=== PATIENT | female | born 1995 | race Caucasian/White ===

== ENCOUNTER → 2017-03-01 13:53 | Outpatient (POV) | payer MEDICAID, SELFPAY | PROVIDERS: Visit Provider Pediatrics ==

== ENCOUNTER → 2017-04-19 13:55 | Outpatient (POV) | payer MEDICAID, SELFPAY | PROVIDERS: Visit Provider Pediatrics | DX: Z00.00 Encounter for general adult medical examination without abnormal findings (principal) ==

== ENCOUNTER → 2017-05-03 17:02 | Outpatient (REF) | payer MEDICAID, SELFPAY ==
[2017-05-03 20:28] LABS: Free T4 (Free Thyroxine) 0.98 ng/dl (0.78-1.34); Thyroid Stimulating Hormone 0.61 uIU/ml (0.516-4.13)
== END ==
LOC: LAB 17:02
PROVIDERS: Visit Provider Nurse Practitioner Family
DX: R63.5 Abnormal weight gain (principal)
CPT/HCPCS: 84439; 84443

== ENCOUNTER → 2017-05-31 10:59 | Outpatient (POV) | payer MEDICAID, SELFPAY | PROVIDERS: PCP Nurse Practitioner Family | DX: Z00.00 Encounter for general adult medical examination without abnormal findings (principal) ==

== ENCOUNTER → 2017-06-14 12:33 | Outpatient (POV) | payer MEDICAID, SELFPAY | PROVIDERS: PCP Nurse Practitioner Family | DX: Z00.00 Encounter for general adult medical examination without abnormal findings (principal) ==

== ENCOUNTER → 2017-06-28 09:01 | Outpatient (CLI) | payer MEDICAID, SELFPAY ==
[2017-06-28 09:38] LABS: Basophils # 0.1 K/mm3 (0-0.2); Basophils % 0.7 % (0.1-2.0); Eosinophils # 0.1 K/mm3 (0.0-0.4); Hematocrit 42.5 % (37.0-47.0); Lymphocytes # 2.3 K/mm3 (0.7-4.5); Lymphocytes % 34.8 K/mm3 (10-50); Mean Corpuscular HGB Conc 32.9 g/dL (31.8-35.4); Mean Corpuscular Hemoglobin 29.6 pg (27.0-31.2); Mean Platelet Volume 7.3 fl (7.4-10.4); Monocytes # 0.3 K/mm3 (0.1-1.0); Monocytes % 5.1 % (1.7-9.3); Neutrophils # 3.8 K/mm3 (1.8-7.8); Neutrophils % 58.4 % (37.0-80.0); Platelet Count 359 K/mm3 (142-424); Red Blood Count 4.72 M/mm3 (4.20-5.40); Red Cell Distribution Width 12.5 % (11.5-17.5); White Blood Count 6.6 K/mm3 (4.5-13.0)
[2017-06-28 10:29] LABS: Alanine Aminotransferase 40 U/L (12-78); Albumin Level 3.9 gm/dL (3.4-5.0); Albumin/Globulin Ratio 1.4 (1.1-1.8); Alkaline Phosphatase 90 U/L (46-116); Anion Gap 9.7 mEq/L (5-15); Aspartate Amino Transferase 13 U/L (15-37); Bilirubin,Total 0.3 mg/dL (0.2-1.0); Blood Urea Nitrogen 13 mg/dL (7-18); Calcium 9.1 mg/dL (8.5-10.1); Carbon Dioxide 30 mmol/L (21.0-32.0); Chloride 106 mmol/L (98-107); Chol/HDL Ratio 3.5 (1-3.5); Cholesterol 121 mg/dL (140-200); Creatinine,Serum 0.73 mg/dL (0.55-1.02); Estimated Glomerular Filt Rate 103 ml/min (>60); GFR (African American) 124 ML/MIN (>60); Globulin 2.8 gm/dl (1.3-3.2); Glucose 95 mg/dL (74-106); HDL Cholesterol 35 mg/dL (29-89); LDL Cholesterol 78 mg/dL (0-130); Potassium 4.7 mmoL/L (3.5-5.1); Sodium 141 mmol/L (136-145); Thyroid Stimulating Hormone 0.55 uIU/ml (0.516-4.13); Total Protein,Serum 6.7 gm/dL (6.4-8.2); Triglycerides 40 mg/dL (30-200); VLDL Cholesterol 8 mg/dL (0-40)
== END ==
PROVIDERS: Visit Provider Nurse Practitioner Psychiatric/Mental Health
DX: F39 Unspecified mood [affective] disorder (principal); Z79.899 Other long term (current) drug therapy
CPT/HCPCS: 36415; 80053; 80061; 83036; 84443; 85025

== ENCOUNTER → 2017-06-28 11:26 | Outpatient (POV) | payer MEDICAID, SELFPAY | PROVIDERS: PCP Nurse Practitioner Family | DX: Z00.00 Encounter for general adult medical examination without abnormal findings (principal) ==

== ENCOUNTER → 2017-07-12 14:21 | Outpatient (POV) | payer MEDICAID, SELFPAY | PROVIDERS: PCP Nurse Practitioner Family | DX: Z00.00 Encounter for general adult medical examination without abnormal findings (principal) ==

== ENCOUNTER → 2017-08-02 12:20 | Outpatient (POV) | payer MEDICAID, SELFPAY | PROVIDERS: PCP Nurse Practitioner Family | DX: Z00.00 Encounter for general adult medical examination without abnormal findings (principal) ==

== ENCOUNTER → 2017-08-08 16:39 | Outpatient (CLI) | payer MEDICAID, SELFPAY | PROVIDERS: Visit Provider Emergency Medicine | DX: Z11.1 Encounter for screening for respiratory tuberculosis (principal) | CPT/HCPCS: 36415; 86480 ==

== ENCOUNTER → 2017-09-05 08:36 | Outpatient (REF) | payer MEDICAID, SELFPAY ==
[2017-09-06 09:39] LABS: Basophils # 0.1 K/mm3 (0-0.2); Basophils % 0.8 % (0.1-2.0); Eosinophils # 0.2 K/mm3 (0.0-0.4); Eosinophils % 2.2 % (0.1-12.0); Hematocrit 47.6 % (37.0-47.0); Hemoglobin 15.1 g/dL (12.2-16.2); Lymphocytes # 2.5 K/mm3 (0.7-4.5); Lymphocytes % 26.8 K/mm3 (10-50); Mean Corpuscular HGB Conc 31.7 g/dL (31.8-35.4); Mean Corpuscular Hemoglobin 28.6 pg (27.0-31.2); Mean Corpuscular Volume 90.1 fl (81-99); Mean Platelet Volume 8.5 fl (7.4-10.4); Monocytes # 0.4 K/mm3 (0.1-1.0); Monocytes % 4.7 % (1.7-9.3); Neutrophils # 6.1 K/mm3 (1.8-7.8); Neutrophils % 65.4 % (37.0-80.0); Platelet Count 421 K/mm3 (142-424); Red Blood Count 5.28 M/mm3 (4.20-5.40); Red Cell Distribution Width 12.3 % (11.5-17.5); White Blood Count 9.3 K/mm3 (4.5-13.0)
[2017-09-06 09:55] LABS: Alanine Aminotransferase 25 U/L (12-78); Albumin Level 4.1 gm/dL (3.4-5.0); Albumin/Globulin Ratio 1.3 (1.1-1.8); Alkaline Phosphatase 91 U/L (46-116); Anion Gap 10.6 mEq/L (5-15); Aspartate Amino Transferase 13 U/L (15-37); Bilirubin,Total 0.4 mg/dL (0.2-1.0); Blood Urea Nitrogen 21 mg/dL (7-18); C-Reactive Protein < 0.2 mg/L (0.0-0.9); Calcium 9.3 mg/dL (8.5-10.1); Carbon Dioxide 28 mmol/L (21.0-32.0); Chloride 105 mmol/L (98-107); Chol/HDL Ratio 3.7 (1-3.5); Cholesterol 166 mg/dL (140-200); Creatinine,Serum 0.83 mg/dL (0.55-1.02); Estimated Glomerular Filt Rate 88 ml/min (>60); GFR (African American) 106 ML/MIN (>60); Globulin 3.1 gm/dl (1.3-3.2); Glucose 77 mg/dL (74-106); HDL Cholesterol 45 mg/dL (29-89); LDL Cholesterol 97 mg/dL (0-130); Potassium 4.6 mmoL/L (3.5-5.1); Sodium 139 mmol/L (136-145); T4 (Thyroxine) 7.3 ug/dl (5.4-10.6); Thyroid Stimulating Hormone 0.56 uIU/ml (0.516-4.13); Total Protein,Serum 7.2 gm/dL (6.4-8.2); Triglycerides 118 mg/dL (30-200); VLDL Cholesterol 24 mg/dL (0-40)
[2017-09-06 10:56] LABS: Erythrocyte Sedimentation Rate 0 mm/hr (0-20)
[2017-09-07 12:23] LABS: Anti-Jo-1 <0.2 AI (0.0-0.9); Anti-Smith Antibody <0.2 AI (0.0-0.9); Antichromatin Antibodies <0.2 AI (0.0-0.9); Antiscleroderma-70 Antibodies <0.2 AI (0.0-0.9); RNP Antibodies 1.2 AI (0.0-0.9); Sjogren's Anti-SS-A <0.2 AI (0.0-0.9); Sjogren's Anti-SS-B <0.2 AI (0.0-0.9)
[2017-09-08 17:56] LABS: Anti-Centromere B Antibodies <0.2 AI (0.0-0.9); Anti-DNA (DS) Ab Qn 1 IU/mL (0-9); Folate 11.7 ng/mL (>3.0); Vitamin B12 335 pg/mL (232-1245); Vitamin D 25 Hydroxy 30.6 ng/mL (30.0-100.0)
== END ==
LOC: LAB 08:36
PROVIDERS: Visit Provider Physician Assistant
DX: M79.604 Pain in right leg (principal); M79.605 Pain in left leg
CPT/HCPCS: 80053; 80061; 82607; 82652; 82746; 84436; 84443; 85025; 85651; 86140; 86225; 86235

== ENCOUNTER → 2017-09-12 12:42 | Outpatient (CLI) | payer MEDICAID, SELFPAY ==
--- NOTE | 2017-09-12 12:45 | NVE_ITS ---
Venous Exam Indications: 729.5 Pain in limb. Patient denies trauma. Patient states lower extremity pain started months ago and is primarily in her thighs when she's exerting herself. IMPRESSIONS No evidence of deep or superficial vein thrombosis involving the right lower extremity and left lower extremity History: Bilateral lower extremity pain. Complete lower extremity venous duplex evaluation. Doppler flow study including spectral analysis, color and burrell scale imaging. Location: Vascular laboratory. Patient status: Outpatient. Tables: Venous flow and imaging: + +-------+ + Location Overall Flow properties + +-------+ + Right common femoral Patent Normal phasicity; spontaneous; normal augmentation; compressible + +-------+ + Right saphenofemoral junction Patent Compressible + +-------+ + Right profunda femoral Patent Compressible + +-------+ + Right femoral Patent Normal phasicity; spontaneous; normal augmentation; compressible; no reflux + +-------+ + Right greater saphenous Patent Normal phasicity; spontaneous; normal augmentation; compressible + +-------+ + Right popliteal Patent Normal phasicity; spontaneous; normal augmentation; compressible + +-------+ + Right posterior tibial Patent Compressible + +-------+ + Right peroneal Patent Compressible + +-------+ + Right gastrocnemius Patent Compressible + +-------+ + Right soleal Patent Compressible + +-------+ + Left common femoral Patent Normal phasicity; spontaneous; normal augmentation; compressible + +-------+ + Left saphenofemoral junction Patent Compressible + +-------+ + Left profunda femoral Patent Compressible + +-------+ + Left femoral Patent Normal phasicity; spontaneous; normal augmentation; compressible + +-------+ + Left greater saphenous Patent Normal phasicity; spontaneous; normal augmentation; compressible + +-------+
--- NOTE | 2017-09-12 12:45 | US_ITS ---
US Arterial Ankle Brachial Ind COMPARISON: None HISTORY: Claudication both legs TECHNIQUE: Segmental pressure test and Doppler waveform evaluation of both legs FINDINGS: Blood pressure right arm is 120. Pressures right leg show the thigh be 118 calf 97 posterior tibia 116 and dorsalis pedis 108. The digital pressure is 106. There is slightly decreased amplitude of the waveforms in the calf and definitely decreased amplitude in the ankle. Right LYNNE is 0.97 The left brachial pressure is 1:15. Pressures in the left leg show the thigh be 120 1:15 posterior tibial 100 and dorsalis pedis 111. The digital pressure is 103. Doppler waveforms show decreased flow to in the calf and more decreased amplitude in the left ankle. The left LYNNE is 0.93 IMPRESSION: Borderline left leg with disease likely distal to the trifurcation, normal LYNNE right leg
[2017-09-14 13:16] LABS: Antichromatin Antibodies <0.2 AI (0.0-0.9); RNP Antibodies 1.1 AI (0.0-0.9); Sjogren's Anti-SS-A <0.2 AI (0.0-0.9); Sjogren's Anti-SS-B <0.2 AI (0.0-0.9)
[2017-09-15 11:58] LABS: Anti-DNA (DS) Ab Qn <1 IU/mL (0-9); RA Latex Turbid. <10.0 IU/mL (0.0-13.9)
== END ==
PROVIDERS: PCP Nurse Practitioner Family; Visit Provider Physician Assistant
DX: M79.604 Pain in right leg (principal); M79.605 Pain in left leg
CPT/HCPCS: 36415; 86225; 86235; 86431; 93922; 93970

== ENCOUNTER → 2017-09-19 16:54 | Outpatient (REF) | payer MEDICAID, SELFPAY ==
[2017-09-22 14:53] LABS: Neisseria gonorrhoeae, NAA Negative (Negative)
== END ==
LOC: LAB 16:54
PROVIDERS: Visit Provider Nurse Practitioner Obstetrics & Gynecology
DX: Z30.9 Encounter for contraceptive management, unspecified (principal); M79.604 Pain in right leg; M79.605 Pain in left leg
CPT/HCPCS: 87491; 87591

== ENCOUNTER → 2019-11-21 18:39 | Outpatient (CLI) | payer MEDICAID, SELFPAY | PROVIDERS: Visit Provider Physician Assistant | DX: R30.0 Dysuria (principal) | CPT/HCPCS: 87086 ==

== ENCOUNTER 2019-11-25 04:44 | Emergency (ER) | payer MEDICAID, SELFPAY ==
[2019-11-25 04:46] VITALS: BP 132/90; PULSE 110; RESP 18; TEMP 36.6; O2SAT 97; BMI 30.2
[2019-11-25 05:23] LABS: Microscopic, Urine URINE MICROSCOPIC (MICROSCOPIC)
[2019-11-25 05:26] LABS: Appearance,Urine CLEAR (Clear); Blood, Urine 2+ (Negative); Color,Urine YELLOW (Yellow); Glucose,Urine (UA) Negative (Negative); Ketones,Urine 1+ (Negative); Leukocyte Esterase,Urine TRACE (Negative); Nitrate,Urine Negative (Negative); Protein,Urine 1+ (Negative); Specific Gravity, Urine >= 1.030 (1.005-1.030); Urobilinogen,Urine 0.2 EU/dl (0.2)
[2019-11-25 05:27] LABS: Bilirubin,Urine Negative (Negative)
[2019-11-25 05:35] LABS: Basophils # 0.1 K/mm3 (0-0.2); Basophils % 1.2 % (0.1-2.0); Eosinophils # 0.1 K/mm3 (0.0-0.4); Eosinophils % 1.7 % (0.1-12.0); Hematocrit 47.1 % (37.0-47.0); Lymphocytes # 2.4 K/mm3 (0.7-4.5); Lymphocytes % 32.7 % (10-50); Mean Corpuscular Hemoglobin 31.4 pg (27.0-31.2); Mean Corpuscular Volume 92.1 fl (81-99); Mean Platelet Volume 7.5 fl (7.4-10.4); Monocytes # 0.5 K/mm3 (0.1-1.0); Monocytes % 6.3 % (1.7-9.3); Neutrophils # 4.3 K/mm3 (1.8-7.8); Neutrophils % 58.1 % (37.0-80.0); Platelet Count 379 K/mm3 (142-424); Red Blood Count 5.11 M/mm3 (4.20-5.40); Red Cell Distribution Width 12.9 % (11.5-17.5); White Blood Count 7.5 K/mm3 (4.8-10.8)
--- NOTE | 2019-11-25 05:35 | CT_ITS ---
PROCEDURE: CT ABDOMEN PELVIS W CON CLINICAL INDICATION: abd pain, nausea Generalized abdominal pain with nausea COMPARISON: CT ABDPELW/O CT ABD PELVIS W/O CONTRAST from 12/08/2014 TECHNIQUE: IV Contrast: 75ML OPTIRAY 350 Oral Contrast None Axial images obtained with sagittal and coronal reformats. All CT scans at the facility use one or more dose reduction, viz: automated exposure control, ma/kV adjustment per patient size (including targeted exams where dose is matched to indication, i.e. head), or iterative reconstruction technique. FINDINGS: LOWER THORAX: There is calcified granuloma in the right lung base posteriorly ABDOMEN & PELVIS: The liver, gallbladder, spleen, adrenal glands, pancreas, and kidneys have an unremarkable appearance. No renal or ureteral calculi. No evidence of appendicitis intestinal obstruction free air or diverticulitis. There is an IUD in place. No pelvic mass or abnormal fluid collection No acute bony findings. IMPRESSION: No acute finding Dictated by: Taz Roman MD 11/25/2019 06:59 Taz Roman MD in [facility] 11/25/2019 06:59
[2019-11-25 05:37] LABS: Urine Pregnancy, HCG Qual. Negative (Negative)
--- NOTE | 2019-11-25 05:41 | CT_ITS ---
PROCEDURE: CT CERVICAL SPINE WO CON CLINICAL INDICATION: no known injury Diffuse neck pain COMPARISON: No exams were available for comparison TECHNIQUE: Axial images obtained with sagittal and coronal reformats. All CT scans at the facility use one or more dose reduction, viz: automated exposure control, ma/kV adjustment per patient size (including targeted exams where dose is matched to indication, i.e. head), or iterative reconstruction technique. Axial spiral CT scanning performed of the cervical spine beginning at the base of the skull and continuing to the upper T-spine. 3-D multiplanar reconstruction with 3-D manipulation of volumetric data set in image rendering was completed by the radiologist and/or technologist with the supervision of the radiologist on independent workstation. FINDINGS: No fracture nor subluxation is evident. Normal prevertebral soft tissues. Facets, neural foramen and vertebral bodies intact and unremarkable. Normal C1/C2 relationships. Apices of lungs are clear with no acute findings.There is straightening/reversal of the normal lordosis which may be due to patient positioning or muscle spasm.. There is mild prominence of the adenoids which is nonspecific. Left lobe of the thyroid gland is slightly enlarged. There is scattered small nodes in the neck. IMPRESSION: Cervical spine intact with no fracture nor subluxation. Slight reversal of cervical lordosis Mildly enlarged left thyroid gland Dictated by: Taz Roman MD 11/25/2019 06:50 aTz Roman MD in [facility] 11/25/2019 06:50
[2019-11-25 05:46] VITALS: BP 133/80; PULSE 74; RESP 18; O2SAT 98
[2019-11-25 05:46] LABS: Alanine Aminotransferase 16 U/L (12-78); Albumin Level 5.4 g/dl (3.5-5.0); Albumin/Globulin Ratio 1.6 (1.1-1.8); Alkaline Phosphatase 84 U/L (38-126); Amylase 56 U/L (30-110); Aspartate Amino Transferase 35 U/L (14-36); Bilirubin,Total 0.9 mg/dl (0.2-1.3); Blood Urea Nitrogen 15 mg/dl (7-17); Calcium 9.8 mg/dl (8.4-10.2); Carbon Dioxide 27 mmol/L (22.0-30.0); Chloride 101 mmol/L (98-107); Creatinine Clearance Estimated 116 mL/min (50-200); Estimated Glomerular Filt Rate 78 ml/min (>60); GFR (African American) 95 ML/MIN (>60); Globulin 3.3 g/dL (1.3-3.2); Glucose 107 mg/dl (74-100); Lipase 38 U/L (23-300); Sodium 139 mmol/L (136-145); Total Protein,Serum 8.7 g/dl (6.3-8.2)
--- NOTE | 2019-11-25 05:50 | PC.NURSE ---
Pt to CT
--- NOTE | 2019-11-25 06:20 | PC.NURSE ---
pt back from CT
[2019-11-25 06:27] VITALS: BP 119/73; PULSE 78; RESP 18; O2SAT 98
--- NOTE | 2019-11-25 06:52 | ECG_ITS ---
APPROVED REPORT Exam: Resting ECG HR:62 bpm ECG Measurements Heart Rate 62 AXES IL 152 P 45 QRSd 74 QRS 33 QT 392 T 18 QTc 397 <Conclusion> Normal sinus rhythm Normal ECG Electronically signed by : John Irwin, 11/26/2019 20:22:30
--- NOTE | 2019-11-25 07:07 | HMH.EDGENADL ---
ED Disposition Clinical Impression: Neck pain UTI (urinary tract infection) Qualifiers: Urinary tract infection type: site unspecified Hematuria presence: without hematuria Qualified Code(s): N39.0 - Urinary tract infection, site not specified Disposition: Home, Self-Care Condition on Discharge: Good Instructions: DI for Acute Pain -- Adult Additional Instructions: fluids and hold adipex and call pcp for urine culture results Referrals: Ivonne Metcalf PA [Primary Care Provider] - - Critical Care Critical Care Time: No Attestation: On 11/25/19, the high probability of a clinically significant, sudden or life threatening deterioration of the following system(s) required my full and direct attention, intervention and personal management. The time I documented below is in addition to time spent performing reported procedures but includes the following listed in this critical care notation. Medical Decision Making - Medical Records Medical records reviewed: Yes: I reviewed the patient's medical records. - Flakito Inquiry Pt receiving controlled substance: No Vital Signs: 11/25/19 04:46 11/25/19 05:46 11/25/19 06:27 Temperature 97.9 F Temperature Source Oral Pulse Rate [Right Radial] 110 H 74 78 Respiratory Rate 18 18 18 Blood Pressure [Left Arm] 132/90 133/80 119/73 Blood Pressure Mean [Left Arm] 104 97 88 Blood Pressure Source [Left Arm] Automatic Cuff Blood Pressure Position [Left Arm] Sitting 02 Sat by Pulse Oximetry 97 98 98 Oxygen Delivery Method Room Air Room Air Room Air - Lab Data Lab results reviewed: Yes: I reviewed the patient's lab results. Lab Results 11/25/19 05:14: Urine Color Yellow, Urine Appearance Clear, Urine pH 6.0, Ur Specific [place] >= 1.030, Urine Protein 1+, Urine Glucose (UA) Negative, Urine Ketones 1+, Urine Blood 2+, Urine Nitrate Negative, Urine Bilirubin Negative, Urine Urobilinogen 0.2, Ur Leukocyte Esterase Trace, Urine RBC 10-20, Urine WBC 10-20, Ur Squamous Epith Cells 3-5 11/25/19 05:14: Urine HCG, Qual Negative 11/25/19 05:24: WBC 7.5, RBC 5.11, Hgb 16.0, Hct 47.1 H, MCV 92.1, MCH 31.4 H, MCHC 34.0, RDW 12.9, Plt Count 379, MPV 7.5, Neut % (Auto) 58.1, Lymph % (Auto) 32.7, [place] % (Auto) 6.3, Eos % (Auto) 1.7, Baso % (Auto) 1.2, Neut # (Auto) 4.3, Lymph # (Auto) 2.4, [place] # (Auto) 0.5, Eos # (Auto) 0.1, Baso # (Auto) 0.1 11/25/19 05:24: Sodium 139, Potassium 4.0, Chloride 101, Carbon Dioxide 27, Anion Gap 15.0, BUN 15, Creatinine 0.90, Estimated Creat Clear 116, Estimated GFR 78, Est GFR ( Amer) 95, Glucose 107 H, Calcium 9.8, Total Bilirubin 0.9, AST 35, ALT 16, Alkaline Phosphatase 84, Total Protein 8.7 H, Albumin 5.4 H, Globulin 3.3 H, Albumin/Globulin Ratio 1.6, Amylase 56, Lipase 38 Result diagrams: 11/25/19 05:24 11/25/19 05:24 Orders (Tests/Meds): ED MEDICATIONS Generic Name Dose Route Start Last Admin Trade Name Freq PRN Reason Stop Dose Admin Sodium Chloride 1,000 mls @ 999 mls/hr 11/25/19 05:15 11/25/19 05:46 Sod Chlor 0.9% 1000ml Bag IV 11/25/19 06:15 999 mls/hr .Q1H1M SIOBHAN Administration Discontinued Medications Generic Name Dose Route Start Last Admin Trade Name Freq PRN Reason Stop Dose Admin Ioversol 75 ml 11/25/19 06:21 11/25/19 06:22 Rad-Optiray 350 100ml Vial IV 11/25/19 06:22 75 ml ONCE ONE Administration Protocol Ketorolac Tromethamine 30 mg 11/25/19 05:44 11/25/19 05:46 Toradol 30mg/Ml Vial IV 11/25/19 05:45 30 mg ONCE ONE Administration Ondansetron HCl 4 mg 11/25/19 05:44 11/25/19 05:46 Zofran 4mg/2ml Vial IV 11/25/19 05:45 4 mg ONCE ONE Administration Sodium Chloride 10 ml 11/25/19 06:21 11/25/19 06:22 Rad-Saline Flush 10ml Syringe IV 11/25/19 06:22 10 ml ONCE ONE Administration ORDERS Category Date Time Status Urine Culture Stat Micro 11/25/19 05:14 Received - CT Data CT Scan: C-Spine, Abdomen, Pelvis Time Received: 07:15 ED
[2019-11-25 07:21] VITALS: BP 133/76; PULSE 60; RESP 19; TEMP 36.6; O2SAT 98
== END 2019-11-25 07:25 | disposition home or self-care (01) ==
PROVIDERS: Emergency Provider Emergency Medicine; PCP Physician Assistant
DX: N39.0 Urinary tract infection, site not specified (principal); M54.2 Cervicalgia; R42 Dizziness and giddiness; F33.1 Major depressive disorder, recurrent, moderate
CPT/HCPCS: 72125; 74177; 80053; 81001; 81025; 82150; 83690; 85025; 87086; 93005; 96365; 96375; 99284; J2405; Q9967

== ENCOUNTER → 2020-04-07 17:50 | Outpatient (CLI) | payer MEDICAID, SELFPAY | PROVIDERS: Visit Provider Physician Assistant | DX: R33.9 Retention of urine, unspecified (principal); R39.9 Unspecified symptoms and signs involving the genitourinary system | CPT/HCPCS: 87086 ==

== ENCOUNTER → 2020-04-17 14:08 | Outpatient (CLI) | payer MEDICAID, SELFPAY ==
--- NOTE | 2020-04-17 14:12 | US_ITS ---
PROCEDURE: US URINARY BLADDER CLINICAL INDICATION: urinary retention COMPARISON: No exams were available for comparison FINDINGS: There is a large amount of debris within the urinary fluid. There is only trace retained urine postvoid. Ureteral jets were identified during the study. There is mild diffuse urinary bladder wall thickening. IMPRESSION: Trace urinary retention. Large amount of debris. Dictated by: Bekah Parsons MD 04/17/2020 19:20 Bekah Parsons MD in [facility] 04/17/2020 19:20
== END ==
PROVIDERS: PCP Physician Assistant; Visit Provider Physician Assistant
DX: R33.9 Retention of urine, unspecified (principal)
CPT/HCPCS: 76857

== ENCOUNTER → 2020-06-15 19:25 | Outpatient (CLI) | payer MEDICAID, SELFPAY | PROVIDERS: PCP Physician Assistant; Visit Provider Physician Assistant | DX: Z20.822 Contact with and (suspected) exposure to COVID-19 (principal) | CPT/HCPCS: U0003 ==

== ENCOUNTER 2020-08-27 15:00 | Outpatient (RCR) | payer MEDICAID, SELFPAY ==
--- NOTE | 2020-07-13 17:56 | HMH.PTOPEV ---
PT Outpatient Evaluation Rehab PT Outpatient Evaluation Start: 07/13/20 17:42 Freq: Status: Active Protocol: Document 07/13/20 17:43 AWILDANICOLA (Rec: 07/13/20 17:56 RAFAELA [id number]) Electronically Signed By Price Zayas PT 07/13/20 17:43 Outpatient Therapy Subjective History Subjective History This is the initial Physical Therapy evaluation for Cally Garcia. Pt is a 24 y/o female referred to PT for c/o mid/thoracid and upper lumbar pain. Pt reports she was going to schedule to have breast reduction surgery but was told she had to do PT for strengthening prior to surgical intervention. Pt reports she has had thoracic and lumbar pain a while . Pt describes the pain and pulling pain and reports mostly affects her with vocational activities Chief Complaint Pain Symptom Type Ache,Throb,Dull Symptoms Relieved By Rest/Positioning Symptoms Aggravated By Physical Activity Prior Functional Limitations None Current Functional Limitations Housework,Recreation Activity, Bending/Stooping Symptom Description Intermittent Level of pain today (0-10) 0 Pain scale - at its best (0-10) 0 Pain scale - at its worst (0-10) 4 Cervical Eval Palpation Cervical Muscles R Thoracic Paraspinals,L Thoracic Paraspinals Cervical/Thoracic Palpation Findings Tenderness Special Test C-Spine Foraminal Compression ([place]) Negative Left,Negative Right Test C-Spine Foraminal Distraction Test Negative Lumbopelvic Eval Posture Thoracic Spine Posture Standing Position Increased Kyphosis Palapation tenderness bilateral thoracic spinal tenderness Yes: B thoracic paraspinals paraspinal tenderness Yes: thoracic Accessory Movement T-spine Vertebrae Accessory Movements Central P/A [place] that Elicit Symptoms Special Tests Lumbar Spine Screen Negative Outpatient Therapy Assessment Impairments Problems/Impairmments Palpation Tenderness,Impaired Lifting,Impaired Household Care,Impaired Recreational Activities,Impaired Work Activities,Subjective C/O Pain Prognosis Rehab Potential Fair Clinical Impression Consistent with [place]
== END 2020-08-27 15:05 | disposition home or self-care (01) ==
LOC: PT 15:00
PROVIDERS: PCP Physician Assistant; Visit Provider Physician Assistant
DX: M54.2 Cervicalgia; M54.9 Dorsalgia, unspecified
CPT/HCPCS: 97110; 97163

== ENCOUNTER → 2020-12-08 12:55 | Outpatient (CLI) | payer MEDICAID, SELFPAY ==
--- NOTE | 2020-12-08 13:05 | XR_ITS ---
PROCEDURE: XR WRIST RT MIN 3V CLINICAL INDICATION: RT wrist ganglion cyst COMPARISON: No exams were available for comparison FINDINGS: No fracture or dislocation. No lytic or blastic change. There is normal mineralization. The joint spaces are well-preserved. No significant degenerative/arthritic changes. No erosive changes evident. Other findings:None. IMPRESSION: No acute findings. Dictated by: Taz Roman MD 12/08/2020 13:51 Taz Roman MD in [facility] 12/08/2020 13:51
== END ==
PROVIDERS: PCP Physician Assistant; Visit Provider Orthopaedic Surgery
DX: M25.531 Pain in right wrist (principal)
CPT/HCPCS: 73110

== ENCOUNTER → 2021-01-18 20:38 | Outpatient (CLI) | payer MEDICAID, SELFPAY | PROVIDERS: Visit Provider Nurse Practitioner Family | DX: Z20.822 Contact with and (suspected) exposure to COVID-19 (principal) | CPT/HCPCS: C9803; U0003; U0005 ==

== ENCOUNTER 2021-06-02 18:26 | Emergency (ER) | payer MEDICAID, SELFPAY ==
[2021-06-02 18:28] VITALS: BP 101/66; PULSE 85; RESP 18; TEMP 36.7; O2SAT 96; BMI 27.4
[2021-06-02 18:53] LABS: Microscopic, Urine URINE MICROSCOPIC (MICROSCOPIC)
[2021-06-02 19:04] LABS: Appearance,Urine CLOUDY (Clear); Bilirubin,Urine Negative (Negative); Blood, Urine Negative (Negative); Color,Urine DK YELLOW (Yellow); Glucose,Urine (UA) Negative (Negative); Ketones,Urine TRACE (Negative); Leukocyte Esterase,Urine TRACE (Negative); Nitrate,Urine POSITIVE (Negative); PH,Urine 5.5 (5.0-8.5); Protein,Urine TRACE (Negative); Specific Gravity, Urine >= 1.030 (1.005-1.030); Urobilinogen,Urine 0.2 EU/dl (0.2)
[2021-06-02 19:08] LABS: Urine Pregnancy, HCG Qual. Negative (Negative)
[2021-06-02 19:26] LABS: Chloride 105 mmol/L (98-107); Potassium 3.1 mmoL/L (3.5-5.1); Sodium 141 mmol/L (136-145)
[2021-06-02 19:29] LABS: Alanine Aminotransferase 22 U/L (12-78); Albumin Level 4.6 g/dl (3.5-5.0); Albumin/Globulin Ratio 1.8 (1.1-1.8); Alkaline Phosphatase 70 U/L (38-126); Anion Gap 14.1 mEq/L (5-15); Aspartate Amino Transferase 33 U/L (14-36); Basophils # 0.1 K/mm3 (0-0.2); Basophils % 0.8 % (0.1-2.0); Bilirubin,Total 0.9 mg/dl (0.2-1.3); Blood Urea Nitrogen 16 mg/dl (7-17); Calcium 8.7 mg/dl (8.4-10.2); Carbon Dioxide 25 mmol/L (22.0-30.0); Creatinine Clearance Estimated 104 mL/min (50-200); Eosinophils % 0.3 % (0.1-12.0); Estimated Glomerular Filt Rate 78 ml/min (>60); GFR (African American) 94 ML/MIN (>60); Globulin 2.5 g/dL (1.3-3.2); Glucose 100 mg/dl (74-100); Hematocrit 42.1 % (37.0-47.0); Hemoglobin 14.1 g/dL (12.2-16.2); Lymphocytes # 2.1 K/mm3 (0.7-4.5); Lymphocytes % 19.9 % (10-50); Mean Corpuscular HGB Conc 33.6 g/dL (31.8-35.4); Mean Corpuscular Hemoglobin 31.6 pg (27.0-31.2); Mean Corpuscular Volume 93.9 fl (81-99); Mean Platelet Volume 7.9 fl (7.4-10.4); Monocytes # 0.5 K/mm3 (0.1-1.0); Neutrophils # 7.7 K/mm3 (1.8-7.8); Neutrophils % 74.1 % (37.0-80.0); Platelet Count 444 K/mm3 (142-424); Red Blood Count 4.48 M/mm3 (4.20-5.40); Red Cell Distribution Width 13.3 % (11.5-17.5); Total Protein,Serum 7.1 g/dl (6.3-8.2); White Blood Count 10.4 K/mm3 (4.8-10.8)
--- NOTE | 2021-06-02 19:30 | HMH.EDGENADL ---
ED Disposition Clinical Impression: Behavioral change Disposition: Home, Self-Care Condition on Discharge: Good Additional Instructions: Please follow-up with your primary care physician in 2 to 3 days for further management. Please avoid any substance abuse or alcohol use. Please return back to the emergency department for any concerning symptoms such as suicidal ideation, homicidal ideation, difficulty breathing, chest pain or any other concerning symptoms. Referrals: Ivonne Metcalf PA [Primary Care Provider] - - Critical Care Critical Care Time: No Attestation: On 06/02/21, the high probability of a clinically significant, sudden or life threatening deterioration of the following system(s) required my full and direct attention, intervention and personal management. The time I documented below is in addition to time spent performing reported procedures but includes the following listed in this critical care notation. Medical Decision Making - Medical Records Medical records reviewed: Yes: I reviewed the patient's medical records. - Flakito Inquiry Pt receiving controlled substance: No Vital Signs: 06/02/21 18:28 06/02/21 20:03 06/02/21 20:21 Temperature 98.1 F 98.2 F Temperature Source Oral Oral Pulse Rate 64 66 Pulse Rate [Right Radial] 85 Respiratory Rate 18 14 Blood Pressure 105/66 L 105/66 L Blood Pressure [Right Arm] 101/66 L Blood Pressure Mean [Right Arm] 77 Blood Pressure Source [Right Arm] Automatic Cuff Blood Pressure Position [Right Arm] Sitting 02 Sat by Pulse Oximetry 96 100 Oxygen Delivery Method Room Air Room Air Room Air - Lab Data Lab results reviewed: Yes: I reviewed the patient's lab results. Lab Results 06/02/21 17:02: WBC 10.4, RBC 4.48, Hgb 14.1, Hct 42.1, MCV 93.9, MCH 31.6 H, MCHC 33.6, RDW 13.3, Plt Count 444 H, MPV 7.9, Neut % (Auto) 74.1, Lymph % (Auto) 19.9, [place] % (Auto) 5.0, Eos % (Auto) 0.3, Baso % (Auto) 0.8, Neut # (Auto) 7.7, Lymph # (Auto) 2.1, [place] # (Auto) 0.5, Eos # (Auto) 0.0, Baso # (Auto) 0.1 06/02/21 17:02: Sodium 141, Potassium 3.1 L, Chloride 105, Carbon Dioxide 25, Anion Gap 14.1, BUN 16, Creatinine 0.90, Estimated Creat Clear 104, Estimated GFR 78, Est GFR ( Amer) 94, Glucose 100, Calcium 8.7, Total Bilirubin 0.9, AST 33, ALT 22, Alkaline Phosphatase 70, Total Protein 7.1, Albumin 4.6, Globulin 2.5, Albumin/Globulin Ratio 1.8 06/02/21 17:02: Urine Opiates Screen Negative, Urine Methadone Screen Negative, Ur Barbituates Screen Negative, Ur Phencyclidine Scrn Negative, Ur Amphetamines Screen Positive H, U Benzodiazepines Scrn Negative, Urine Cocaine Screen Negative, U Marijuana (THC) Screen Negative 06/02/21 18:47: Urine Color Dk yellow, Urine Appearance Cloudy, Urine pH 5.5, Ur Specific [place] >= 1.030, Urine Protein Trace, Urine Glucose (UA) Negative, Urine Ketones Trace, Urine Blood Negative, Urine Nitrate Positive, Urine Bilirubin Negative, Urine Urobilinogen 0.2, Ur Leukocyte Esterase Trace, Urine RBC Occasional, Urine WBC 10-20, Ur Squamous Epith Cells 3-5, Urine Bacteria 4+ 06/02/21 18:47: Urine HCG, Qual Negative Result diagrams: 06/02/21 17:02 06/02/21 17:02 Orders (Tests/Meds): ED MEDICATIONS Discontinued Medications Generic Name Dose Route Start Last Admin Trade Name Freq PRN Reason Stop Dose Admin Sodium Chloride 10 ml 06/02/21 18:49 Sodium Chloride 0.9% 10ml Flush Syringe IV 07/02/21 18:48 NEEDED PRN Maintain IV Site ORDERS Category Date Time Status Urine Culture Stat Micro 06/02/21 18:47 Received Medical Decision Narrative: Mrs. Garcia is a 25-year-old female with past medical history for mental health disorder, self inflicting behavior and substance abuse who presents after taking meth 3 days prior and now feeling lightheaded and nauseous. Patient is afebrile and hemodynamically stable on arrival. Patient denies any suicidal or homicidal ideation. Patient currently GCS
[2021-06-02 19:35] LABS: Barbiturates Screen,Urine Negative ng/ml (<200)
[2021-06-02 19:36] LABS: Benzodiazepines Screen,Urine Negative ng/ml (<200)
[2021-06-02 19:37] LABS: Cannabinoid Screen,Urine Negative ng/ml (<50)
[2021-06-02 19:38] LABS: Cocaine Screen,Urine Negative ng/ml (<300); Methadone Screen,Urine Negative ng/ml (<300)
[2021-06-02 19:39] LABS: Opiate Screen,Urine Negative ng/ml (<300)
[2021-06-02 19:40] LABS: Phencyclidine Screen,Urine Negative ng/ml (<25)
[2021-06-02 20:03] VITALS: BP 105/66; PULSE 64; O2SAT 100
[2021-06-02 20:05] LABS: RBC,Urine Occasional #/hpf (0-3)
[2021-06-02 20:06] LABS: Bacteria,Urine 4+ /lpf
[2021-06-02 20:20] LABS: Amphetamine/Metha Screen,Urine Positive ng/ml (<1000)
[2021-06-02 20:21] VITALS: BP 105/66; PULSE 66; RESP 14; TEMP 36.8; O2SAT 98
== END 2021-06-02 20:24 | disposition home or self-care (01) ==
PROVIDERS: Emergency Provider Student in an Organized Health Care Education/Training Program; PCP Physician Assistant
DX: M79.605 Pain in left leg (principal); M79.604 Pain in right leg; R42 Dizziness and giddiness; A49.8 Other bacterial infections of unspecified site; R11.0 Nausea; R79.9 Abnormal finding of blood chemistry, unspecified; F32.A Depression, unspecified; Z86.14 Personal history of Methicillin resistant Staphylococcus aureus infection
CPT/HCPCS: 80053; 80305; 81001; 81025; 85025; 87086; 87088; 87186; 99283

== ENCOUNTER 2021-06-07 17:26 | Emergency (ER) | payer MEDICAID, SELFPAY ==
[2021-06-07 17:55] VITALS: BP 126/85; PULSE 98; RESP 18; TEMP 36.8; O2SAT 100; BMI 26.6
[2021-06-07 18:10] LABS: Apearance,Urine Clear (Clear); Bilirubin,Urine Negative (Negative); Blood, Urine 1+ (Negative); Color,Urine Dark Yellow (Yellow); Glucose,Urine (UA) Negative (Negative); Ketones,Urine Negative (Negative); Protein,Urine Negative (Negative); UTC Leukocyte Esterase,Urine 1+ (Negative); UTC Nitrate,Urine Negative (Negative); Urobilinogen,Urine 0.2 EU/dl (0.2)
--- NOTE | 2021-06-07 18:51 | HMH.EDUTC ---
[facility] – [place] Disposition Clinical Impression: UTI (urinary tract infection) Qualifiers: Urinary tract infection type: site unspecified Hematuria presence: without hematuria Qualified Code(s): N39.0 - Urinary tract infection, site not specified Disposition: Home, Self-Care Condition on Discharge: Good Instructions: DI for Urinary Tract Infection (UTI), Urinary Tract Infection Additional Instructions: *Increase fluids. Water not Soda or Tea *Start antibiotic immediately and be sure to take as ordered for the FULL length of time although you should start to see improvement over the next 48 hours *Be SURE to follow up anytime for new or worsening symptoms with your family doctor. AND in 48 hours for urine culture results with your family doctor, if you do not have a doctor then you may call back to the [facility] for urine culture results and further treatment. We do recommend that you choose and establish care with a Primary Care Physician. AND follow up with them in 10-14 days to repeat UA to ensure infection is resolved and blood no longer present *Be sure to let your PCP know that we sent urine cultures from the [facility] so they can follow up to ensure that you area the on the correct antibiotic Make sure to drink plenty of fluids and follow up with family doctor in 72 hours for culture results Return if needed Straight to ER if any life threatening symptoms The pyridium will make your urine turn orange, this is an expected side effect. It will stain your clothes if it comes into contact with them. We will culture the urine. That will tell what bacteria is causing your infection and which antibiotics will treat it best. Sometimes the first antibiotic we prescribe turns out to not work against different bacteria. So, make sure you follow up within 3 days if you are not getting better. Prescriptions: Cefdinir [Omnicef 300mg Capsule] 300 mg PO BID 7 Days #14 cap Transmission Status: Pending to [facility] # Phenazopyridine HCl [Pyridium 200mg Tablet] 200 pow PO TID #6 tab Transmission Status: Pending to [facility] # Referrals: Ivonne Metcalf PA [Primary Care Provider] - Time of Disposition: 18:56 Medical Decision Making - Medical Records Medical records reviewed: No: I reviewed the patient's medical records. - Flakito Inquiry Pt receiving controlled substance: No Vital Signs: 06/07/21 17:55 Temperature 98.3 F Temperature Source Oral Pulse Rate [Right Brachial] 98 H Respiratory Rate 18 Blood Pressure [Right Arm] 126/85 Blood Pressure Mean [Right Arm] 98 Blood Pressure Source [Right Arm] Automatic Cuff Blood Pressure Position [Right Arm] Sitting 02 Sat by Pulse Oximetry 100 Oxygen Delivery Method Room Air - Lab Data Lab results reviewed: Yes: I reviewed the patient's lab results. Lab Results 06/07/21 17:48: Urine Color Dark yellow, Urine Appearance Clear, Urine pH 6.0, Ur Specific [place] 1.030, Urine Protein Negative, Urine Glucose (UA) Negative, Urine Ketones Negative, Urine Blood 1+, Urine Nitrate Negative, Urine Bilirubin Negative, Urine Urobilinogen 0.2, Ur Leukocyte Esterase 1+ A Orders (Tests/Meds): ORDERS Category Date Time Status Urine Culture Stat Micro 06/07/21 17:53 Received [facility] [place] HPI - General Stated complaint: Possible UTI Time Seen by Provider: 06/07/21 18:52 Mode of Arrival: Ambulatory Source of Information: Patient Limitations: No Limitations Description of Symptoms (Recalled from Triage Doc. by RN): PATIENT C/O BURNING WITH URINATION WITH URINATION X 1 WEEK. SHE REPORTS SYMPTOMS STARTED AFTER SHE HAD SEXUAL INTERCOURSE WITH SOMEONE HEENT Symptoms (Recalled from RN notes): No Resp Symptoms (Recalled from RN notes): No Skin Symptoms (Recalled from RN notes): No MS Symptoms (Recalled from RN notes): No Functional Status (Recalled from RN notes): WNL - History of Present Illness Provider Complaint: She states that she has been cotto
[2021-06-07 18:55] VITALS: BP 126/85; PULSE 98; RESP 18; TEMP 36.8; O2SAT 100
[2021-06-09 23:29] LABS: Neisseria gonorrhoeae, NAA Negative (Negative)
== END 2021-06-07 19:02 | disposition home or self-care (01) ==
PROVIDERS: Emergency Provider Nurse Practitioner Family; PCP Physician Assistant
DX: N30.00 Acute cystitis without hematuria (principal); F33.1 Major depressive disorder, recurrent, moderate
CPT/HCPCS: 81003; 87086; 87088; 87186; 87491; 87591; 99212; G0463

== ENCOUNTER 2021-06-11 14:24 | Emergency (ER) | payer MEDICAID, SELFPAY ==
[2021-06-11 14:35] VITALS: BP 107/67; PULSE 89; RESP 19; TEMP 37.1; O2SAT 98; BMI 24.6
[2021-06-11 14:49] LABS: Apearance,Urine Clear (Clear); Color,Urine Orange (Yellow); Protein,Urine 2+ (Negative); Specific Gravity, Urine 1.015 (1.005-1.030)
[2021-06-11 14:50] LABS: Bilirubin,Urine 2+ (Negative); Blood, Urine 3+ (Negative); Glucose,Urine (UA) 250 (Negative); Ketones,Urine 15 (Negative); UTC Leukocyte Esterase,Urine 3+ (Negative); UTC Nitrate,Urine Positive (Negative); Urobilinogen,Urine 0.2 EU/dl (0.2)
[2021-06-11 15:01] VITALS: BP 107/67; PULSE 89; RESP 19; TEMP 37.1; O2SAT 98
--- NOTE | 2021-06-11 15:04 | HMH.EDUTC ---
[facility] [place] Clinical Impression: UTI (urinary tract infection), Vaginitis Disposition: Home, Self-Care Condition on Discharge: Good Instructions: DI for Urinary Tract Infection (UTI) Additional Instructions: Culture pending for UTI. Will repeat at [facility] and treat empirically due to onset of symptoms after unprotected intercourse. Referrals: Ivonne Metcalf PA [Primary Care Provider] - Time of Disposition: 15:11 Medical Decision Making - Flakito Inquiry Pt receiving controlled substance: No Vital Signs: 06/11/21 14:35 06/11/21 15:01 Temperature 98.8 F 98.8 F Temperature Source Oral Pulse Rate 89 Pulse Rate [Right Brachial] 89 Respiratory Rate 19 19 Blood Pressure 107/67 L Blood Pressure [Right Arm] 107/67 L Blood Pressure Mean [Right Arm] 80 Blood Pressure Source [Right Arm] Automatic Cuff Blood Pressure Position [Right Arm] Sitting 02 Sat by Pulse Oximetry 98 Oxygen Delivery Method Room Air - Lab Data Lab results reviewed: Yes: I reviewed the patient's lab results. Lab Results 06/11/21 14:36: Urine Color Maud, Urine Appearance Clear, Urine pH 5.0, Ur Specific [place]sey 1.015, Urine Protein 2+, Urine Glucose (UA) 250, Urine Ketones 15, Urine Blood 3+, Urine Nitrate Positive A, Urine Bilirubin 2+ A, Urine Urobilinogen 0.2, Ur Leukocyte Esterase 3+ A Orders (Tests/Meds): ORDERS Category Date Time Status Urine Culture Stat Micro 06/11/21 14:40 [place] [facility] [place] - General Stated complaint: blood in urine, painful urination Time Seen by Provider: 06/11/21 15:07 Mode of Arrival: Ambulatory Source of Information: Patient Limitations: No Limitations Description of Symptoms (Recalled from Triage Doc. by RN): PATIENT C/O BURNING AND BLOOD WITH URINATION AND BRIGHT YELLOW DISCHARGE. TREATED FOR UTI 4 DAYS AGO HEENT Symptoms (Recalled from RN notes): No Resp Symptoms (Recalled from RN notes): No Skin Symptoms (Recalled from RN notes): No MS Symptoms (Recalled from RN notes): No Functional Status (Recalled from RN notes): WNL - History of Present Illness Provider Complaint: Patient has had hematuria, dysuria since having unprotected intercourse a little over a week ago. She has been on Cefdinir since being seen here on 06/07. Urine culture grew enterobacter aerogenes. It should be treated with Cephalosporins. She states she is still having pain with urination and is now having yellow discharge. Onset (ago): day(s) (7) Location: genitals Relieving factors: none Exacerbating factors: none Associated symptoms: denies other symptoms Treatments prior to arrival: none - Related Data Home Medications Medication Instructions Recorded Confirmed sertraline 25 mg tablet 25 mg PO DAILY 06/16/20 03/10/21 ziprasidone HCl 60 mg capsule 60 mg PO BID 06/16/20 03/10/21 topiramate 50 mg tablet 50 mg PO DAILY tab 09/24/20 03/10/21 Previous Rx's Medication Instructions Recorded Cefdinir [Omnicef 300mg Capsule] 300 mg PO BID 7 Days #14 cap 06/07/21 Phenazopyridine HCl [Pyridium 200 pow PO TID #6 tab 06/07/21 200mg Tablet] Allergies Allergy/AdvReac Type Severity Reaction Status Date / Time No Known Allergies Allergy Verified 03/10/21 14:22 - Worker's Comp Is this a Worker's Comp case?: No [facility] History - Hepatitis A Screen Drug use history?: No High risk sexual behaviors?: No History of sexually transmitted infection?: No Currently employed?: No Childcare worker?: No Do you have indoor plumbing?: Yes Do you have electricity?: Yes Attestation statement:: This patient has been screened for Hepatitis A risk factors. I have reviewed the patient's past medical history: Yes Medical History: Reports:: Depression, MRSA Denies:: Diabetes Mellitus Type 2, Hypertension Other Surgeries: Yes: No Previous Surgery Amputation: No Fractures: No - Social History Smoking Status: Never smoker Alcohol Intake: never Substance Use Type: denies use Occupati
[2021-06-14 21:08] LABS: Neisseria gonorrhoeae, NAA Negative (Negative)
== END 2021-06-11 15:34 | disposition home or self-care (01) ==
PROVIDERS: Emergency Provider Physician Assistant; PCP Physician Assistant
DX: N30.00 Acute cystitis without hematuria (principal); N76.0 Acute vaginitis; F33.1 Major depressive disorder, recurrent, moderate
CPT/HCPCS: 81003; 87086; 87491; 87591; 96372; 99213; G0463; J0696

== ENCOUNTER → 2021-06-17 16:30 | Outpatient (CLI) | payer MEDICAID, SELFPAY ==
[2021-06-19 09:15] LABS: HIV Screen 4th Generation wRfx Non Reactive (Non Reactive)
[2021-06-19 11:55] LABS: Hep A Ab, IgM Negative (Negative); Hepatitis B Core Antibody IgM Negative (Negative); Hepatitis B Surface Antigen Negative (Negative); Hepatitis C Antibody 0.1 s/co ratio (0.0-0.9)
[2021-06-21 05:07] LABS: Neisseria gonorrhoeae, NAA Negative (Negative)
== END ==
PROVIDERS: PCP Emergency Medicine; Visit Provider Physician Assistant
DX: Z11.3 Encounter for screening for infections with a predominantly sexual mode of transmission (principal); N39.0 Urinary tract infection, site not specified; N76.0 Acute vaginitis; Z11.4 Encounter for screening for human immunodeficiency virus [HIV]
CPT/HCPCS: 80074; 86703; 87086; 87210; 87491; 87591; G0432

== ENCOUNTER → 2021-08-13 07:48 | Outpatient (CLI) | payer MEDICAID, SELFPAY ==
[2021-08-12 17:31] LABS: HCG,Quantitative < 2 mIU/ml (0-5.42)
[2021-08-14 10:32] LABS: HIV Screen 4th Generation wRfx Non Reactive (Non Reactive)
== END ==
PROVIDERS: PCP Physician Assistant; Visit Provider Physician Assistant
DX: Z00.00 Encounter for general adult medical examination without abnormal findings (principal); Z11.4 Encounter for screening for human immunodeficiency virus [HIV]
CPT/HCPCS: 84702; 86703; G0432

== ENCOUNTER 2021-08-20 15:30 | Emergency (ER) | payer MEDICAID, SELFPAY ==
[2021-08-20 15:46] VITALS: BP 123/88; PULSE 82; RESP 18; TEMP 36.9; O2SAT 98; BMI 27.4
[2021-08-20 16:06] LABS: Urine Pregnancy, HCG Qual. Negative (Negative)
[2021-08-20 16:18] LABS: Amphetamine/Metha Screen,Urine Negative ng/ml (<1000)
[2021-08-20 16:19] LABS: Barbiturates Screen,Urine Negative ng/ml (<200)
[2021-08-20 16:20] LABS: Benzodiazepines Screen,Urine Negative ng/ml (<200); Cannabinoid Screen,Urine Negative ng/ml (<50)
[2021-08-20 16:21] LABS: Cocaine Screen,Urine Negative ng/ml (<300)
[2021-08-20 16:22] LABS: Methadone Screen,Urine Negative ng/ml (<300); Opiate Screen,Urine Negative ng/ml (<300)
[2021-08-20 16:23] LABS: Phencyclidine Screen,Urine Negative ng/ml (<25)
--- NOTE | 2021-08-20 16:57 | HMH.EDGENADL ---
ED Disposition Clinical Impression: Mushrooms causing toxic effect Qualifiers: Encounter type: initial encounter Injury intent: accidental or unintentional Qualified Code(s): T62.0X1A - Toxic effect of ingested mushrooms, accidental (unintentional), initial encounter Disposition: Home, Self-Care Condition on Discharge: Good Instructions: DI for Altered Mental Status Additional Instructions: Symptoms should resolve over the next 24 to 48 hours. Follow-up with your primary care provider next week if not improving or return to the emergency department if worse or new concerns Referrals: Ivonne Metcalf PA [Primary Care Provider] - - Critical Care Critical Care Time: No Attestation: On 08/20/21, the high probability of a clinically significant, sudden or life threatening deterioration of the following system(s) required my full and direct attention, intervention and personal management. The time I documented below is in addition to time spent performing reported procedures but includes the following listed in this critical care notation. Medical Decision Making - Flakito Inquiry Pt receiving controlled substance: No Vital Signs: 08/20/21 15:46 Temperature 98.4 F Temperature Source Oral Pulse Rate [Right Brachial] 82 Respiratory Rate 18 Blood Pressure [Right Arm] 123/88 Blood Pressure Mean [Right Arm] 99 Blood Pressure Source [Right Arm] Automatic Cuff Blood Pressure Position [Right Arm] Sitting 02 Sat by Pulse Oximetry 98 Oxygen Delivery Method Room Air - Lab Data Lab Results 08/20/21 15:50: Urine HCG, Qual Negative 08/20/21 15:50: Urine Opiates Screen Negative, Urine Methadone Screen Negative, Ur Barbituates Screen Negative, Ur Phencyclidine Scrn Negative, Ur Amphetamines Screen Negative, U Benzodiazepines Scrn Negative, Urine Cocaine Screen Negative, U Marijuana (THC) Screen Negative 08/20/21 15:50: Urine Color Yellow, Urine Appearance Clear, Urine pH 6.5, Ur Specific [place] <= 1.005, Urine Protein Negative, Urine Glucose (UA) Negative, Urine Ketones Negative, Urine Blood Negative, Urine Nitrate Negative, Urine Bilirubin Negative, Urine Urobilinogen 0.2, Ur Leukocyte Esterase Negative, Urine RBC None, Urine WBC None, Ur Squamous Epith Cells None, Urine Bacteria None General Adult HPI - General Chief complaint: Altered Mental Status Stated complaint: Possible OD Time Seen by Provider: 08/20/21 16:58 Mode of Arrival: Ambulatory Limitations: No Limitations Description of Symptoms (Recalled from ER Triage Doc. by RN): Patient reports she ate some magic mushrooms last night and since then has not slept and feels as if her jaws keep shrinking and her tongue no longer fits in her mouth. Patient also reports it hurts to swallow. Patient also reports she thinks she may be . Patient reports a hx of bipolar and herpes. - History of Present Illness HPI narrative: Patient states that she did some Magic mushrooms last night for the first time and now feels like her lower jaw is changing shape, the teeth are closing in so that her tongue will not feel inside her mouth anymore. She also feels like she has had a fever, although she has not taken her temperature. She complains of some urinary frequency. No URI symptoms. No vomiting or diarrhea. She denies taking any other drugs, no pills. She did not drink alcohol. No new prescription medications. She also wonders whether she might be . - Related Data Home Medications Medication Instructions Recorded Confirmed sertraline 25 mg tablet 25 mg PO DAILY 06/16/20 08/12/21 ziprasidone HCl 60 mg capsule 60 mg PO BID 06/16/20 08/12/21 topiramate 50 mg tablet 50 mg PO DAILY tab 09/24/20 08/12/21 Previous Rx's Medication Instructions Recorded valacyclovir 500 mg tablet 500 mg PO DAILY #90 tab 06/29/21 nystatin 100,000 unit/gram topical 1 applic TP TID #15 g 07/08/21 ointment norgestimate-ethinyl estradiol 1 tab PO DAILY #28 tab 08/12
[2021-08-20 17:05] LABS: Microscopic, Urine URINE MICROSCOPIC (MICROSCOPIC)
[2021-08-20 17:13] LABS: Appearance,Urine CLEAR (Clear); Bilirubin,Urine Negative (Negative); Blood, Urine Negative (Negative); Color,Urine YELLOW (Yellow); Glucose,Urine (UA) Negative (Negative); Ketones,Urine Negative (Negative); Leukocyte Esterase,Urine Negative (Negative); Nitrate,Urine Negative (Negative); PH,Urine 6.5 (5.0-8.5); Protein,Urine Negative (Negative); Specific Gravity, Urine <= 1.005 (1.005-1.030); Urobilinogen,Urine 0.2 EU/dl (0.2)
[2021-08-20 17:30] VITALS: BP 112/71; PULSE 60; RESP 16; O2SAT 100
[2021-08-20 18:14] VITALS: BP 103/74; PULSE 61; PULSE 64; RESP 16; RESP 18; TEMP 36.9; O2SAT 100
== END 2021-08-20 18:21 | disposition home or self-care (01) ==
PROVIDERS: Emergency Provider Emergency Medicine; PCP Physician Assistant
DX: T62.0X1A Toxic effect of ingested mushrooms, accidental (unintentional), initial encounter (principal); Z32.02 Encounter for pregnancy test, result negative; Z79.899 Other long term (current) drug therapy; F32.A Depression, unspecified; Z86.14 Personal history of Methicillin resistant Staphylococcus aureus infection
CPT/HCPCS: 80305; 81001; 81025; 99283

== ENCOUNTER → 2021-08-31 13:03 | Outpatient (CLI) | payer MEDICAID, SELFPAY ==
--- NOTE | 2021-08-31 13:05 | XR_ITS ---
FINAL REPORT CLINICAL HISTORY: rt hand pain..SHIELDED..CYST UNDER THUMB FINDINGS: RIGHT HAND Three views were obtained. There is no acute fracture or dislocation. The joint spaces appear normal. No soft tissue abnormality is identified. IMPRESSION: No acute process. Reviewed, Interpreted and Dictated by Collin Montiel III, MD Transcribed by Danielle Valladares Authenticated and [facility]
== END ==
PROVIDERS: PCP Physician Assistant; Visit Provider Physician Assistant Surgical
DX: M79.641 Pain in right hand (principal)
CPT/HCPCS: 73130

== ENCOUNTER → 2021-12-14 14:39 | Outpatient (CLI) | payer MEDICAID, SELFPAY ==
[2021-12-14 15:59] LABS: Chloride 104 mmol/L (98-107)
[2021-12-14 16:00] LABS: Potassium 4.3 mmoL/L (3.5-5.1); Sodium 139 mmol/L (136-145)
[2021-12-14 16:02] LABS: Blood Urea Nitrogen 13 mg/dl (7-17); Estimated Glomerular Filt Rate 88 ml/min (>60); GFR (African American) 107 ML/MIN (>60)
[2021-12-14 16:03] LABS: Alanine Aminotransferase 11 U/L (12-78); Albumin Level 4.3 g/dl (3.5-5.0); Albumin/Globulin Ratio 1.8 (1.1-1.8); Alkaline Phosphatase 50 U/L (38-126); Anion Gap 13.3 mEq/L (5-15); Aspartate Amino Transferase 20 U/L (14-36); Bilirubin,Total 0.4 mg/dl (0.2-1.3); Calcium 8.6 mg/dl (8.4-10.2); Carbon Dioxide 26 mmol/L (22.0-30.0); Chol/HDL Ratio 2.8 (1-3.5); Cholesterol 150 mg/dl (140-200); Globulin 2.4 g/dL (1.3-3.2); Glucose 79 mg/dl (74-100); HDL Cholesterol 53 mg/dl (40-60); Total Protein,Serum 6.7 g/dl (6.3-8.2); Triglycerides 58 mg/dl (30-150); VLDL Cholesterol 12 mg/dL (0-40)
[2021-12-14 16:13] LABS: Basophils # 0.1 K/mm3 (0-0.2); Basophils % 1.2 % (0.1-2.0); Eosinophils % 0.5 % (0.1-12.0); Hematocrit 41.4 % (37.0-47.0); Hemoglobin 13.5 g/dL (12.2-16.2); Lymphocytes # 2.7 K/mm3 (0.7-4.5); Lymphocytes % 45.5 % (10-50); Mean Corpuscular HGB Conc 32.6 g/dL (31.8-35.4); Mean Corpuscular Hemoglobin 31.6 pg (27.0-31.2); Mean Corpuscular Volume 97.1 fl (81-99); Mean Platelet Volume 8.3 fl (7.4-10.4); Monocytes # 0.2 K/mm3 (0.1-1.0); Monocytes % 4.2 % (1.7-9.3); Neutrophils # 2.9 K/mm3 (1.8-7.8); Neutrophils % 48.7 % (37.0-80.0); Platelet Count 319 K/mm3 (142-424); Red Blood Count 4.27 M/mm3 (4.20-5.40); Red Cell Distribution Width 12.8 % (11.5-17.5); White Blood Count 5.9 K/mm3 (4.8-10.8)
[2021-12-14 16:14] LABS: Direct LDL Cholesterol 79.41 mg/dL (100-129)
[2021-12-14 16:33] LABS: Thyroid Stimulating Hormone 0.51 uIU/mL (0.465-4.68)
== END ==
PROVIDERS: PCP Physician Assistant; Visit Provider Nurse Practitioner Psychiatric/Mental Health
DX: F41.0 Panic disorder [episodic paroxysmal anxiety] (principal)
CPT/HCPCS: 36415; 80053; 80061; 84443; 85025

== ENCOUNTER → 2022-02-08 12:42 | Outpatient (CLI) | payer MEDICAID, SELFPAY ==
--- NOTE | 2022-02-08 12:46 | XR_ITS ---
FINAL REPORT CLINICAL HISTORY: wrist ganglion cyst..SHIELDED COMPARISON: November 2020 FINDINGS: RIGHT WRIST Three views demonstrate no acute fracture or dislocation. The visualized joint spaces are normally aligned. The soft tissues are unremarkable. IMPRESSION: No acute bony abnormality. Reviewed, Interpreted and Dictated by Collin Montiel III, MD Transcribed by Marty Villalobos Authenticated and [facility]
== END ==
PROVIDERS: PCP Physician Assistant; Visit Provider Physician Assistant
DX: M25.531 Pain in right wrist (principal); M67.431 Ganglion, right wrist
CPT/HCPCS: 73110

== ENCOUNTER → 2022-04-27 16:13 | Outpatient (CLI) | payer MEDICAID, SELFPAY ==
[2022-04-27 16:24] LABS: Microscopic, Urine URINE MICROSCOPIC (MICROSCOPIC)
[2022-04-27 17:20] LABS: Basophils # 0.1 K/mm3 (0-0.2); Eosinophils # 0.1 K/mm3 (0.0-0.4); Eosinophils % 1.2 % (0.1-12.0); Hematocrit 44.6 % (37.0-47.0); Hemoglobin 13.9 g/dL (12.2-16.2); Lymphocytes # 2.9 K/mm3 (0.7-4.5); Lymphocytes % 41.6 % (10-50); Mean Corpuscular HGB Conc 31.1 g/dL (31.8-35.4); Mean Corpuscular Hemoglobin 30.5 pg (27.0-31.2); Mean Corpuscular Volume 98.1 fl (81-99); Mean Platelet Volume 8.1 fl (7.4-10.4); Monocytes # 0.3 K/mm3 (0.1-1.0); Monocytes % 4.2 % (1.7-9.3); Neutrophils # 3.6 K/mm3 (1.8-7.8); Platelet Count 447 K/mm3 (142-424); Red Blood Count 4.54 M/mm3 (4.20-5.40); Red Cell Distribution Width 12.4 % (11.5-17.5); White Blood Count 6.9 K/mm3 (4.8-10.8)
[2022-04-27 17:28] LABS: Appearance,Urine CLEAR (Clear); Bilirubin,Urine Negative (Negative); Blood, Urine Negative (Negative); Color,Urine YELLOW (Yellow); Glucose,Urine (UA) Negative (Negative); Ketones,Urine Negative (Negative); Leukocyte Esterase,Urine Negative (Negative); Nitrate,Urine Negative (Negative); PH,Urine 6.5 (5.0-8.5); Protein,Urine Negative (Negative); Urobilinogen,Urine 0.2 EU/dl (0.2)
[2022-04-27 17:31] LABS: Urine Pregnancy, HCG Qual. Negative (Negative)
[2022-04-27 17:45] LABS: Bacteria,Urine 2+ /lpf
[2022-04-27 17:46] LABS: Alanine Aminotransferase 31 U/L (12-78); Albumin Level 4.8 g/dl (3.5-5.0); Albumin/Globulin Ratio 2.2 (1.1-1.8); Alkaline Phosphatase 66 U/L (38-126); Anion Gap 10.2 mEq/L (5-15); Aspartate Amino Transferase 28 U/L (14-36); Bilirubin,Total 0.3 mg/dl (0.2-1.3); Blood Urea Nitrogen 8 mg/dl (7-17); Calcium 9.2 mg/dl (8.4-10.2); Carbon Dioxide 28 mmol/L (22.0-30.0); Chloride 101 mmol/L (98-107); Estimated Glomerular Filt Rate 103 ml/min (>60); GFR (African American) 124 ML/MIN (>60); Globulin 2.2 g/dL (1.3-3.2); Glucose 86 mg/dl (74-100); Potassium 4.2 mmoL/L (3.5-5.1); Sodium 135 mmol/L (136-145)
== END ==
PROVIDERS: PCP Physician Assistant; Visit Provider Orthopaedic Surgery
DX: Z01.818 Encounter for other preprocedural examination (principal); M67.431 Ganglion, right wrist
CPT/HCPCS: 36415; 80053; 81001; 81025; 85025; 87086

== ENCOUNTER 2022-05-04 10:53 | Day surgery (SDC) | payer MEDICAID, SELFPAY ==
[2022-05-02 13:23] VITALS: BMI 32.9
[2022-05-04 11:43] LABS: Urine Pregnancy, HCG Qual. Negative (Negative)
[2022-05-04 11:48] VITALS: BP 120/73; PULSE 73; RESP 18; TEMP 36.9; O2SAT 97
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
[2022-05-04 13:57] VITALS: BP 108/51; PULSE 53; RESP 17; TEMP 36.3; O2SAT 98
--- NOTE | 2022-05-04 14:06 | EXP.OP.NOTE ---
Date of procedure: 05/04/22 Pre-op Diagnosis:: Right wrist ganglion cyst volar Post-op Diagnosis:: Same Procedure performed:: Excision volar ganglion cyst right wrist Surgeon:: Jacek Samuels DO INSTITUTIONAL ASSET MANAGER:: Diogenes Dee Anesthesia: MAC and local Estimated blood loss (mL): 0 Operative findings:: See dictation Operative note:: Patient identified preoperatively. Right wrist marked yes my initials. Transferred operative suite. Placed upon the operating bed. Given sedation. Right upper extremity was prepped and draped normal sterile fashion. Once prepped and draped final operative timeout performed to identify proper patient procedure and extremity. Everyone involved the case agreed. No counter indication beginning. Did receive preoperative antibiotics. Marking pen was used to kera the radial artery and planned incision over the volar cyst on the right wrist. Esmarch was used to exsanguinate extremity. Pneumatic tourniquet inflated to 250 mmHg. Injection was performed for local anesthesia the planned incision site. Upon removal of the needle from the injection the volar ganglion cyst did rupture and cystic ganglion cyst material came from the injection site. Small incision was made over this area to remove the capsule of the cyst which was performed irrigation performed skin closed with nylon stitch sterile hand dressing placed patient waken from sedation taken recovery stable condition. Tourniquet time (min): 8 Condition: stable Disposition: PACU Complications:: None apparent
[2022-05-04 14:07] VITALS: BP 108/70; PULSE 55; RESP 17; O2SAT 96
[2022-05-04 14:17] VITALS: BP 101/59; PULSE 56; RESP 17; O2SAT 97
[2022-05-04 14:30] VITALS: BP 100/73; PULSE 60; RESP 16; O2SAT 99
== END 2022-05-04 14:30 | disposition home or self-care (01) ==
PROVIDERS: PCP Physician Assistant; Visit Provider Orthopaedic Surgery
PROC: (CPT 25111; principal; 2022-05-04 13:15)
DX: M67.431 Ganglion, right wrist (principal)
CPT/HCPCS: 25111; 81025; 96374; J2405

== ENCOUNTER → 2022-10-06 23:36 | Outpatient (CLI) | payer MEDICAID, SELFPAY ==
[2022-10-06 18:56] LABS: Basophils # 0.1 K/mm3 (0-0.2); Basophils % 0.7 % (0.1-2.0); Eosinophils # 0.1 K/mm3 (0.0-0.4); Eosinophils % 1.3 % (0.1-12.0); Hematocrit 42.3 % (37.0-47.0); Lymphocytes # 2.9 K/mm3 (0.7-4.5); Lymphocytes % 33.2 % (10-50); Mean Corpuscular HGB Conc 33.1 g/dL (31.8-35.4); Mean Corpuscular Hemoglobin 30.7 pg (27.0-31.2); Mean Corpuscular Volume 92.7 fl (81-99); Mean Platelet Volume 8.6 fl (7.4-10.4); Monocytes # 0.4 K/mm3 (0.1-1.0); Monocytes % 5.2 % (1.7-9.3); Neutrophils # 5.2 K/mm3 (1.8-7.8); Neutrophils % 59.7 % (37.0-80.0); Platelet Count 462 K/mm3 (142-424); Red Blood Count 4.56 M/mm3 (4.20-5.40); Red Cell Distribution Width 12.8 % (11.5-17.5); White Blood Count 8.6 K/mm3 (4.8-10.8)
[2022-10-06 19:15] LABS: Alanine Aminotransferase 22 U/L (12-78); Albumin Level 4.9 g/dl (3.5-5.0); Albumin/Globulin Ratio 1.7 (1.1-1.8); Alkaline Phosphatase 97 U/L (38-126); Aspartate Amino Transferase 32 U/L (14-36); Bilirubin,Total 0.3 mg/dl (0.2-1.3); Blood Urea Nitrogen 15 mg/dl (7-17); Calcium 9.3 mg/dl (8.4-10.2); Carbon Dioxide 28 mmol/L (22.0-30.0); Chloride 102 mmol/L (98-107); Estimated Glomerular Filt Rate 102 ml/min (>60); GFR (African American) 123 ML/MIN (>60); Globulin 2.9 g/dL (1.3-3.2); Glucose 92 mg/dl (74-100); Sodium 138 mmol/L (136-145); Total Protein,Serum 7.8 g/dl (6.3-8.2)
[2022-10-06 19:43] LABS: Thyroid Stimulating Hormone 0.76 uIU/mL (0.465-4.68)
[2022-10-06 19:51] LABS: 25-OH Vitamin D, Total 32.6 ng/mL (30-100)
[2022-10-06 20:02] LABS: Vitamin B12 361 pg/mL (239-931)
[2022-10-06 20:46] LABS: Erythrocyte Sedimentation Rate 19 mm/hr (0-20)
[2022-10-06 20:47] LABS: HCG Qualitative, Serum Negative (Negative)
[2022-10-08 13:53] LABS: Anti-Cyclic Citrullinated Pept 6 units (0-19)
[2022-10-08 15:10] LABS: Anti-Cardio Antibody IgM 10 MPL U/mL (0-12); Anti-Cardiolipin Antibody IgG <9 GPL U/mL (0-14); Anticardiolipin Ab,IgA,Qn <9 APL U/mL (0-11)
[2022-10-08 16:11] LABS: Tissue Transglutaminase IgA Ab <2 U/mL (0-3); Tissue Transglutaminase IgG Ab <2 U/mL (0-5)
[2022-10-09 10:29] LABS: Peripheral Smear Review Scanned Result
[2022-10-10 15:46] LABS: Anti-Centromere B Antibodies <0.2 AI (0.0-0.9); Anti-DNA (DS) Ab Qn <1 IU/mL (0-9); Anti-Jo-1 <0.2 AI (0.0-0.9); Anti-Smith Antibody <0.2 AI (0.0-0.9); Antichromatin Antibodies <0.2 AI (0.0-0.9); Antiscleroderma-70 Antibodies <0.2 AI (0.0-0.9); RA Latex Turbid. <10.0 IU/mL (<14.0); Sjogren's Anti-SS-A <0.2 AI (0.0-0.9); Sjogren's Anti-SS-B <0.2 AI (0.0-0.9)
== END ==
LOC: LAB.DROPOF 23:37
PROVIDERS: PCP Physician Assistant; Visit Provider Physician Assistant
DX: R76.8 Other specified abnormal immunological findings in serum (principal); E66.01 Morbid (severe) obesity due to excess calories; Z68.41 Body mass index [BMI] 40.0-44.9, adult
CPT/HCPCS: 80053; 82306; 82607; 83516; 84443; 84703; 85025; 85651; 86140; 86147; 86148; 86200; 86225; 86235; 86431

== ENCOUNTER → 2022-11-01 15:25 | Outpatient (CLI) | payer MEDICAID, SELFPAY ==
--- NOTE | 2022-11-01 15:26 | MR_ITS ---
PROCEDURE INFORMATION: Exam: MR Lumbar Spine Without Contrast Exam date and time: 11/01/2022 3:38 PM Age: 27 years old Clinical indication: Low back pain; Additional info: Back pain, ble radicular SX, bowel incontinence TECHNIQUE: Imaging protocol: Magnetic resonance imaging of the lumbar spine without contrast. COMPARISON: CT ABDOMEN PELVIS W CON 11/25/2019 6:08 AM FINDINGS: Bones/joints: The lumbar vertebral bodies are normal in height, without abnormal subluxation. Slight anterior wedging/compression deformity identified of the T12 vertebral body without acute marrow edema. This is a chronic finding. Minimal disc bulging is identified within the lower thoracic spine. Evaluation of the lower thoracic spine is limited by extension out of the field of view of this study. Mild spinal canal stenoses are identified at T10-11 and T11-12. A small T1 hyperintense hemangioma is noted within the L2 vertebral body. Spinal cord: The distal end of the conus medullaris ends at L1, normal in position. L1-L2: Minimal disc bulging. There is no significant spinal canal stenosis or neural foraminal narrowing. L2-L3: There is no significant spinal canal stenosis or neural foraminal narrowing. L3-L4: Mild bilateral facet arthropathy. Hypertrophy of the ligamentum flavum. Minimal disc bulging causing flattening of the ventral thecal sac without significant spinal canal stenosis. No significant neural foraminal narrowing bilaterally. L4-L5: Bilateral facet arthropathy with hypertrophy of the ligamentum flavum. A small broad-based disc bulge is identified causing flattening of the ventral thecal sac, without significant spinal canal stenosis. Mild right neural foraminal narrowing. No significant narrowing of the left neural foramen. L5-S1: Mild bilateral facet arthropathy. A broad-based disc bulge is identified causing narrowing of the anterior epidural fat, without significant spinal canal stenosis. No significant neural foraminal narrowing bilaterally. Soft tissues: Minimal soft tissue swelling posteriorly. Other findings: Motion artifact limits this study. IMPRESSION: 1. Mild degenerative changes are visualized involving the lumbar and visualized lower thoracic spine, as described above. 2. Mild spinal canal stenoses are identified at T10-11 and T11-12. No significant spinal canal stenosis at any lumbar level. 3. Mild right neural foraminal narrowing at L4-L5. 4. Additional findings described above.
--- NOTE | 2022-11-01 15:37 | XR_ITS ---
FINAL REPORT CLINICAL HISTORY: METAL IN EYE hx of welding FINDINGS: ORBITS Look up and look down views were obtained. No fracture is identified. The sinuses are clear. No foreign body is identified. IMPRESSION: No acute process. Reviewed, Interpreted and Dictated by Collin Montiel III, MD Transcribed by Marty Villalobos Authenticated and . [facility]
== END ==
PROVIDERS: PCP Physician Assistant; Visit Provider Physician Assistant
DX: M54.9 Dorsalgia, unspecified (principal); M54.50 Low back pain, unspecified; H05.53 Retained (old) foreign body following penetrating wound of bilateral orbits
CPT/HCPCS: 70200; 72148; 76376

== ENCOUNTER → 2022-11-23 15:22 | Outpatient (POV) | payer MEDICAID, SELFPAY ==
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
[2022-11-23 15:58] VITALS: BP 112/72; PULSE 106; RESP 18; O2SAT 97; BMI 42.0
== END | disposition home or self-care (01) ==
PROVIDERS: PCP Physician Assistant; Visit Provider Nurse Practitioner Family
DX: M51.16 Intervertebral disc disorders with radiculopathy, lumbar region (principal); M24.28 Disorder of ligament, vertebrae; M54.9 Dorsalgia, unspecified; G89.4 Chronic pain syndrome
CPT/HCPCS: 99202; G0463

== ENCOUNTER → 2022-11-29 14:29 | Outpatient (CLI) | payer MEDICAID, SELFPAY ==
--- NOTE | 2022-11-29 14:33 | XR_ITS ---
FINAL REPORT CLINICAL HISTORY: Rt wrist pain FINDINGS: Right wrist Three views were obtained. There is no acute fracture or dislocation. The joint spaces appear normal. No soft tissue abnormality is identified. IMPRESSION: No acute process. Reviewed, Interpreted and Dictated by Collin Montiel III, MD Transcribed by Danielle Valladares Authenticated and . [facility]
== END ==
PROVIDERS: PCP Physician Assistant; Visit Provider Orthopaedic Surgery
DX: M25.531 Pain in right wrist (principal); M67.431 Ganglion, right wrist
CPT/HCPCS: 73110

== ENCOUNTER → 2022-12-19 06:51 | Outpatient (CLI) | payer MEDICAID, SELFPAY ==
[2022-12-19 19:33] LABS: Alanine Aminotransferase 20 U/L (12-78); Albumin Level 4.4 g/dl (3.5-5.0); Albumin/Globulin Ratio 1.6 (1.1-1.8); Alkaline Phosphatase 83 U/L (38-126); Anion Gap 14.1 mEq/L (5-15); Aspartate Amino Transferase 29 U/L (14-36); Bilirubin,Total 0.2 mg/dl (0.2-1.3); Blood Urea Nitrogen 16 mg/dl (7-17); Calcium 9.2 mg/dl (8.4-10.2); Carbon Dioxide 25 mmol/L (22.0-30.0); Chloride 103 mmol/L (98-107); Estimated Glomerular Filt Rate 102 ml/min (>60); GFR (African American) 123 ML/MIN (>60); Globulin 2.8 g/dL (1.3-3.2); Glucose 108 mg/dl (74-100); Potassium 4.1 mmoL/L (3.5-5.1); Sodium 138 mmol/L (136-145); Total Protein,Serum 7.2 g/dl (6.3-8.2)
[2022-12-19 19:39] LABS: Basophils # 0.1 K/mm3 (0-0.2); Basophils % 0.8 % (0.1-2.0); Eosinophils # 0.1 K/mm3 (0.0-0.4); Eosinophils % 1.4 % (0.1-12.0); Hematocrit 41.8 % (37.0-47.0); Hemoglobin 14.3 g/dL (12.2-16.2); Lymphocytes # 3.1 K/mm3 (0.7-4.5); Mean Corpuscular HGB Conc 34.2 g/dL (31.8-35.4); Mean Corpuscular Hemoglobin 31.1 pg (27.0-31.2); Mean Corpuscular Volume 91.1 fl (81-99); Mean Platelet Volume 8.7 fl (7.4-10.4); Monocytes # 0.5 K/mm3 (0.1-1.0); Neutrophils # 1.9 K/mm3 (1.8-7.8); Neutrophils % 33.7 % (37.0-80.0); Platelet Count 385 K/mm3 (142-424); Red Blood Count 4.59 M/mm3 (4.20-5.40); Red Cell Distribution Width 12.9 % (11.5-17.5); White Blood Count 5.7 K/mm3 (4.8-10.8)
[2022-12-19 19:42] LABS: MANUAL DIFFERENTIAL MANUAL DIFFERENTIAL (MANUAL DIFF)
[2022-12-19 19:50] LABS: HCG,Quantitative < 2 mIU/ml (0-5.42)
[2022-12-19 20:04] LABS: Thyroid Stimulating Hormone 1.24 uIU/mL (0.465-4.68)
[2022-12-19 20:15] LABS: Lymphocytes % 56 % (10-50); Monocytes % 11 % (2-9); Neutrophils % 29 % (42-76); Platelet Estimate Normal; RBC Morphology Normal; Total Cells Counted 100
== END ==
LOC: LAB.DROPOF 12-20 06:52
PROVIDERS: PCP Physician Assistant; Visit Provider Physician Assistant
DX: N92.6 Irregular menstruation, unspecified (principal); N89.8 Other specified noninflammatory disorders of vagina; L30.4 Erythema intertrigo; Z32.00 Encounter for pregnancy test, result unknown
CPT/HCPCS: 80053; 83036; 84443; 84702; 85007; 85025

== ENCOUNTER → 2022-12-22 17:21 | Outpatient (CLI) | payer MEDICAID, SELFPAY ==
[2022-12-22 17:58] LABS: Basophils # 0.1 K/mm3 (0-0.2); Basophils % 0.8 % (0.1-2.0); Eosinophils # 0.1 K/mm3 (0.0-0.4); Eosinophils % 1.7 % (0.1-12.0); Hematocrit 40.3 % (37.0-47.0); Hemoglobin 13.8 g/dL (12.2-16.2); Lymphocytes # 2.8 K/mm3 (0.7-4.5); Lymphocytes % 40.6 % (10-50); Mean Corpuscular HGB Conc 34.2 g/dL (31.8-35.4); Mean Corpuscular Hemoglobin 31.3 pg (27.0-31.2); Mean Corpuscular Volume 91.5 fl (81-99); Mean Platelet Volume 7.9 fl (7.4-10.4); Monocytes # 0.5 K/mm3 (0.1-1.0); Monocytes % 7.2 % (1.7-9.3); Neutrophils # 3.5 K/mm3 (1.8-7.8); Neutrophils % 49.7 % (37.0-80.0); Platelet Count 391 K/mm3 (142-424)
[2022-12-22 18:08] LABS: Chloride 106 mmol/L (98-107); Potassium 4.5 mmoL/L (3.5-5.1); Sodium 138 mmol/L (136-145)
[2022-12-22 18:11] LABS: Alanine Aminotransferase 17 U/L (12-78); Albumin Level 4.2 g/dl (3.5-5.0); Albumin/Globulin Ratio 1.7 (1.1-1.8); Alkaline Phosphatase 76 U/L (38-126); Anion Gap 9.5 mEq/L (5-15); Aspartate Amino Transferase 23 U/L (14-36); Blood Urea Nitrogen 11 mg/dl (7-17); Carbon Dioxide 27 mmol/L (22.0-30.0); Estimated Glomerular Filt Rate 68 ml/min (>60); GFR (African American) 82 ML/MIN (>60); Globulin 2.5 g/dL (1.3-3.2); Total Protein,Serum 6.7 g/dl (6.3-8.2)
[2022-12-22 18:12] LABS: Calcium 8.6 mg/dl (8.4-10.2); Glucose 97 mg/dl (74-100)
[2022-12-22 18:24] LABS: Bilirubin,Total 0.1 mg/dl (0.2-1.3)
== END ==
PROVIDERS: PCP Orthopaedic Surgery; Visit Provider Orthopaedic Surgery
DX: M67.431 Ganglion, right wrist (principal)
CPT/HCPCS: 36415; 80053; 85025

== ENCOUNTER 2022-12-23 06:05 | Day surgery (SDC) | payer MEDICAID, SELFPAY ==
[2022-12-22 13:11] VITALS: BMI 42.0
--- NOTE | 2022-12-23 06:12 | ECG_ITS ---
APPROVED REPORT Exam: Resting ECG HR:82 bpm ECG Measurements Heart Rate 82 AXES AK 149 P 35 QRSd 74 QRS 8 QT 336 T -2 QTc 374 Conclusion SINUS RHYTHM MINIMAL VOLTAGE CRITERIA FOR LVH, CONSIDER NORMAL VARIANT [MEETS CRITERIA IN ONE OF: R(aVL), S(V1), R(V5), R(V5/V6)+S(V1)] BORDERLINE ECG UNCONFIRMED REPORT Electronically signed by : John Irwin MD 12/23/2022 17:04:40
--- NOTE | 2022-12-23 06:12 | XR_ITS ---
PROCEDURE INFORMATION: Exam: XR Chest Exam date and time: 12/23/2022 6:13 AM Age: 27 years old Clinical indication: Pre-operative exam; Respiratory screening exam; Additional info: Preop clearance TECHNIQUE: Imaging protocol: Radiologic exam of the chest. Views: 1 view. COMPARISON: CT ABDOMEN PELVIS W CON 11/25/2019 6:08 AM FINDINGS: Lungs: Lungs are well aerated without a focal area of consolidation. Pleural spaces: Unremarkable. No pleural effusion. No pneumothorax. Heart/Mediastinum: Cardiac silhouette is enlarged. Bones/joints: Unremarkable. IMPRESSION: Lungs are well aerated without a focal area of consolidation.
[2022-12-23 06:24] VITALS: BP 126/76; PULSE 78; RESP 18; TEMP 36.7; O2SAT 96
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
[2022-12-23 08:30] VITALS: BP 99/52; PULSE 87; RESP 14; TEMP 36.2; O2SAT 94
--- NOTE | 2022-12-23 08:34 | P.OP_ITS ---
Date of procedure: 12/23/22 Pre-op Diagnosis:: Right volar ganglion cyst, wrist Post-op Diagnosis:: Same Procedure performed:: Excision volar ganglion cyst right wrist Surgeon:: Jacek Samuels DO FEED WEIGHER:: Christina Perry Anesthesia: MAC and local Estimated blood loss (mL): 0 Operative findings:: Ganglion cyst Operative note:: Patient is identified preoperatively. Right wrist marked with yes my initials. Transferred operative suite. Placed upon operating bed. Given sedation. Right upper extremity was prepped and draped in normal sterile fashion. Once prepped and draped final operative timeout performed to identify proper patient procedure and extremity. Everyone involved in the case agreed. There were no counter indications to beginning. She did receive preoperative antibiotics. Marking pen was used to kera plan incision over the volar wrist with a palpable ganglion. This was adjacent to the FCR tendon and radial artery. Esmarch was used to exsanguinate the extremity and pneumatic tourniquet inflated to 250 mmHg. Skin knife was used to incise through skin. Careful dissection was taken down with scissors bluntly over the capsule of the ganglion cyst. Attempt was made to remove this cyst with its capsule and in its entirety however it was very small and cyst was ruptured upon removing this there was gelatinous ganglion cyst tissue within the capsule. This was evacuated. And careful cau turner dissection with the bipolar was utilized to remove the edge of the capsule. Tourniquet was deflated because of the direct correlation with the radial artery to confirm no damage to the radial artery interoperatively. By removing the cyst. This was confirmed under direct visualization. Irrigation was performed skin was closed with nylon stitches sterile hand dressing placed. Patient taken to recovery in stable condition. Condition: stable Disposition: PACU Complications:: None apparent
[2022-12-23 08:40] VITALS: BP 112/73; PULSE 83; RESP 14; O2SAT 91
[2022-12-23 08:50] VITALS: BP 109/83; PULSE 68; RESP 16; O2SAT 99
[2022-12-23 09:00] VITALS: BP 122/69; PULSE 68; RESP 17; O2SAT 99
[2022-12-23 09:10] VITALS: BP 115/71; PULSE 75; RESP 16; TEMP 36.6; O2SAT 98
== END 2022-12-23 09:20 | disposition home or self-care (01) ==
PROVIDERS: PCP Physician Assistant; Visit Provider Orthopaedic Surgery
PROC: (CPT 25111; principal; 2022-12-23 07:30)
DX: M67.431 Ganglion, right wrist (principal)
CPT/HCPCS: 25111; 71045; 93005; 96374

== ENCOUNTER → 2023-01-09 10:29 | Outpatient (POV) | payer MEDICAID, SELFPAY ==
--- NOTE | 2023-01-09 10:51 | EXP.PAIN.SOA ---
[facility] Pain Management SOAP Note Subjective:: Patient is a pleasant 27-year-old female who presents today for follow-up. We are currently treating the patient for degenerative disc disease of lumbar spine with lumbar radiculopathy symptoms, ligamentum flavum hypertrophy, mid back pain, chronic pain syndrome. Today she rates her pain a 8 out of 10. Patient denies any new trauma or injury. She does state that her pain has progressively worsened from our last visit. She does state the pain is in her low back with radiating down her bilateral lower extremities with numbness and tingling. She states it is an aching, throbbing sensation that is worse with increased activity and it does limit her ability perform activities of daily living such as cooking and cleaning. Patient has tried Tylenol and ibuprofen along with heat and ice and topicals with no additional relief. Patient has completed 2 months of physical therapy back in October with very minimal improvement. Patient has continued to do at home exercising and stretching with no additional relief over the last 6 weeks. Patient was previously scheduled for a lumbar epidural however insurance denied this for lack of having physical therapy. At her last visit she was prescribed meloxicam 15 mg that she does state helps provide additional relief. She does also state that the lidocaine topical patch is not covered by her insurance and is requesting something additionally. Her Flakito has been reviewed and is appropriate. Review of Systems: General: No recent weight changes, no fever, no sleep disturbances Respiratory: No cough, no shortness of air, no recurring pulmonary infections Cardiovascular/peripheral vascular: No chest pain, no palpitations, no edema, no shortness of breath Gastrointestinal: No new onset incontinence, normal bowel movements reported Genitourinary: No new onset incontinence Musculoskeletal: Low back pain, bilateral leg pain Psychiatric: [Normal mood/affect] Neurological: [Denies weakness in extremities], [denies balance issues] Objective:: Physical Exam: General: Alert and oriented x3, no acute distress, pleasant and cooperative Lungs: Respirations even and unlabored, symmetrical chest expansion Eyes: PERRL Musculoskeletal: Flexion and extension of lumbar [spine] somewhat guarded secondary to pain, [antalgic gait noted] Neurological: Speech clear, no gross sensory deficit Assessment:: Degenerative disc disease of the lumbar spine with lumbar radiculopathy symptoms, ligamentum flavum hypertrophy, mid back pain, chronic pain syndrome Plan:: Patient continues to experience significant pain in her low back and legs with limited range of motion. I have discussed with the patient that I do believe she would still benefit from a diagnostic lumbar epidural steroid injection. Risk and benefits were discussed with the patient and she would like to proceed forward with this plan of care. Patient is not on any blood thinners. Patient has tried and failed conservative therapy such as oral medications, heat and ice, topicals, physical therapy for 2 months and continued at home exercising and stretching for longer than 6 weeks. Patient will be scheduled for a lumbar epidural steroid injection with epidurogram L4-L5. I will also send in a refill of her meloxicam 15 mg daily and provide a 1 month supply of this medication as well as send a prescription in for Salonpas patches. Patient has been instructed to contact the clinic with any concerns before the next appointment. Dr. Nino has reviewed this note and agrees with this plan of care. This note was dictated using voice recognition software and make contain errors or omissions. [facility] Disclaimer: The information contained in this section may have been updated after the patient was seen, as this information can be updated by other users. Medical History Anxiety and depression Bilateral leg
[2023-01-09 11:48] VITALS: BP 114/66; PULSE 120; RESP 18; O2SAT 94; BMI 42.0
== END | disposition home or self-care (01) ==
PROVIDERS: PCP Physician Assistant; Visit Provider Nurse Practitioner Family
DX: M51.16 Intervertebral disc disorders with radiculopathy, lumbar region (principal); M24.28 Disorder of ligament, vertebrae; M54.6 Pain in thoracic spine; G89.4 Chronic pain syndrome
CPT/HCPCS: 99212; G0463

== ENCOUNTER → 2023-01-10 11:10 | Outpatient (CLI) | payer MEDICAID, SELFPAY ==
--- NOTE | 2023-01-10 11:12 | US_ITS ---
FINAL REPORT CLINICAL HISTORY: CLAUDICATION FINDINGS: COMPLETE ANKLE/BRACHIAL INDICES BILATERAL The right LYNNE is 1.3. The left LYNNE is 1.1. IMPRESSION: ABIs are within normal limits bilaterally. Reviewed, Interpreted and Dictated by Eh Sawyer MD Transcribed by Danielle Valladares Authenticated and [facility]
== END ==
PROVIDERS: PCP Physician Assistant; Visit Provider Physician Assistant
DX: M79.604 Pain in right leg (principal); M79.605 Pain in left leg
CPT/HCPCS: 93923

== ENCOUNTER → 2023-01-30 11:50 | Outpatient (CLI) | payer MEDICAID, SELFPAY | LOC: LAB.DROPOF 02-13 11:50 | PROVIDERS: PCP Physician Assistant; Visit Provider Physician Assistant | DX: R53.1 Weakness (principal); R42 Dizziness and giddiness | CPT/HCPCS: 85025 ==

== ENCOUNTER 2023-02-03 13:04 | Day surgery (SDC) | payer MEDICAID, SELFPAY ==
[2023-02-03 13:16] VITALS: BP 130/79; PULSE 113; RESP 20; TEMP 37.1; O2SAT 96; BMI 42.0
[2023-02-03 13:50] VITALS: BP 103/62; PULSE 95; RESP 18; O2SAT 96
[2023-02-03 13:54] VITALS: BP 103/62; PULSE 103; RESP 18; O2SAT 96
[2023-02-03 14:04] VITALS: BP 142/86; PULSE 97; RESP 20
--- NOTE | 2023-02-03 16:05 | P.PCN_ITS ---
Procedure Date: 02/03/23 Time: 16:06 Anesthesiologist:: Davon Nino MD Complications:: None Pre-procedure Diagnosis:: Degenerative disc disease of lumbar spine with lumbar radiculopathy symptoms Post-procedure Diagnosis:: Same Indications for Procedure:: Patient is a pleasant 27-year-old white female who we are treating for low back pain with lumbar radiculopathy symptoms. She has increasing pain in her back rating down both legs. Will plan a lumbar pleural steroid injection under fluo roscopy today to see if this will help with her pain symptoms. Procedure Details:: Informed consent was obtained and the risk and benefits of the procedure was explained to the patient. The patient was taken to the procedure room. The patient was placed prone on the procedure table. The patient was prepped and draped in sterile fashion. C-arm fluoroscopy was used to view the lumbar spine. Skin and subcutaneous tissues were anesthetized using lidocaine. I placed an 18-gauge epidural needle and advanced into the L4-L5 interspace using fluoro scopic guidance and [id number] to air. After confirmation of needle placement in the epidural space with dye I injected 2 mL of lidocaine 1.5% with Depo-Medrol 80 mg. Patient tolerated the procedure well with no complications. Plan and Disposition:: Will follow-up with this patient in 2 weeks. Will reevaluate her symptoms at that time.
== END 2023-02-03 14:05 | disposition home or self-care (01) ==
LOC: SC.PAINP 13:05
PROVIDERS: PCP Physician Assistant; Visit Provider Anesthesiology
DX: M51.16 Intervertebral disc disorders with radiculopathy, lumbar region (principal)
CPT/HCPCS: 62323; J1040; Q9966

== ENCOUNTER 2023-02-14 09:30 | Outpatient (RCR) | payer MEDICAID, SELFPAY ==
--- NOTE | 2023-02-02 08:49 | HMH.RHREAS ---
Rehab Reassessment Rehab OP Re-assessment Start: 11/22/22 16:31 Freq: Status: Active Protocol: Document 02/02/23 08:06 HIRAL (Rec: 02/02/23 08:48 HIRAL [id number]) E-signed By Uriah Richey, PT Oswestry Index Section 1 Pain Intensity The pain comes and goes and is severe Section 2 Personal Care (Washing,Dresing) increase the pain and I find it necessary to change my way of doing it Section 3 Lifting Pain prevents me from lifting weights off the floor Section 4 Walking I cannot walk at all without increasing pain Section 5 Sitting Pain prevents me from sitting for more than one hour Section 6 Standing I cannot stand more than 1 hour without increasing pain Section 7 Sleeping I get pain in bed, but it does not prevent me from sleeping well Section 8 Social Life Pain has restricted my social life and I do not go out often Section 9 Traveling Pain restricts me to short necessary journeys under 30 minutes Section 10 Changing Degreee of Pain My pain seems to be getting better, but improvement is slow Score and Risk Level Oswestry Sc 28 Oswestry Risk Level Severe Disability Rehab Re-assessment Subjective Subjective Patient reports 40% improvement since start of care. Objective Objective Notes AROM: WNL MMT: WNL Pain: 6/10 currently; 8/10 at worst over past week Neuro: intermittent NT to B L5 /S1 dermatomes. [ End ] Assessment Progress Assessment Slower Than Expected Assessment Notes Patient would benefit from continuing with skilled PT interventions to address functional limitations with prolonged standing, walking, bending and lifting activities . Patient continues seening a chiropractor, which has provided some significant intermittent relief. Progress has been limited secondary to macromastia. Patient has received the most relief with taping to facilitate postural musculature. Patient goals met STG 2 Goals Not Met All others Revised Goals NA Plan Plan Continue with current POC. Suggest return to MD for consult for possible breast reduction surgery. Frequency of Therapy 2x/week Duration of therapy 4 weeks Time and Billing Re-Eval Time 16 Re-Eval Billing Units 1 PHYSICIAN CERTIFICATION: I certify the specified therapy services for Summer Michelle Garcia are required, authorized, and reviewed every 30 days.
== END 2023-02-14 10:45 | disposition home or self-care (01) ==
LOC: PT 09:30
PROVIDERS: PCP Physician Assistant; Visit Provider Physician Assistant
DX: M48.05 Spinal stenosis, thoracolumbar region (principal)
CPT/HCPCS: 97010; 97014; 97110; 97116; 97140; 97163; 97164; 97530; G0283

== ENCOUNTER → 2023-03-27 09:00 | Outpatient (POV) | payer MEDICAID, SELFPAY ==
[2023-03-27 09:18] VITALS: BP 118/82; PULSE 105; RESP 18; O2SAT 95; BMI 43.9
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
== END | disposition home or self-care (01) ==
PROVIDERS: PCP Physician Assistant; Visit Provider Nurse Practitioner Family
DX: M51.16 Intervertebral disc disorders with radiculopathy, lumbar region (principal); G89.4 Chronic pain syndrome
CPT/HCPCS: 99212; G0463

== ENCOUNTER 2023-04-25 09:03 | Outpatient (CLI) | payer MEDICAID, SELFPAY ==
--- NOTE | 2023-04-25 09:08 | MR_ITS ---
FINAL REPORT CLINICAL HISTORY: Rt Wrist pain. CYST ON ANTERIOR ASPECT. PRIOR HX SURGERY TO REMOVE CYST. PUT MARKER ON CYST. COMPARISON: None FINDINGS: Multiplanar and multisequence imaging of the wrist was obtained without intravenous contrast. BONES/JOINTS: There is no acute osseous abnormality. There is no bone marrow edema. There is no evidence of AVN. LIGAMENTS: The scapholunate ligament is intact. There is no widening of the scapholunate distance. The lunotriquetral ligament is intact. Remaining intrinsic ligaments appear within normal limits. TFCC: The triangular fibrocartilage complex is without acute abnormality. TENDONS/MUSCLES: Tendons are unremarkable without tear. Musculature is unremarkable. OTHER SOFT TISSUES: There is no joint effusion. The median nerve has a normal appearance within the carpal tunnel. The ulnar nerve has a normal appearance. There is a cystic lesion on the volar and radial aspect of the wrist, measuring 9 x 8 mm in size. Favor a ganglion cyst. IMPRESSION: 9 x 8 mm cystic lesion on the volar and radial side of the wrist, favor a ganglion cyst. Otherwise unremarkable MRI of the right wrist. Reviewed, Interpreted and Dictated by Marita James MD Transcribed by Caro Walker Authenticated and [facility]
== END 2023-04-25 23:59 ==
LOC: RAD 09:03
PROVIDERS: PCP Physician Assistant; Visit Provider Orthopaedic Surgery
DX: M25.531 Pain in right wrist (principal)
CPT/HCPCS: 73221

== ENCOUNTER 2023-04-28 10:24 | Day surgery (SDC) | payer MEDICAID, SELFPAY ==
[2023-04-27 11:22] VITALS: BMI 44.1
[2023-04-28 11:21] VITALS: BP 147/89; PULSE 112; RESP 20; TEMP 36.1; O2SAT 96
[2023-04-28] MEDS: LACTATED RINGERS 1000ML 1,000 ML 100 ML IV (11:27)
[2023-04-28 11:29] LABS: Urine Pregnancy, HCG Qual. Negative (Negative)
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
--- NOTE | 2023-04-28 11:34 | P.PCN_ITS ---
Procedure: Date: 04/28/23 Patient Date of :: 1995 Procedure Performed:: Flexible sigmoidoscopy Indications:: Patient is a 27-year-old female with BMI of 44 who has a history of chronic pain, mood disorder, referred by Ivonen Metcalf for colonoscopy for rectal bleeding. She describes about a 6-month history of occasional intermittent passage of bright red blood per rectum with bowel movements. She does have some associated discomfort described as throbbing. Has not had any symptoms or findings consistent with external hemorrhoids. She does have several family members on her mother side who have colon cancer. Patient reportedly had significant vomiting with the bowel prep and was unable to tolerate the second portion of her bowel prep. Given the nature of her symptoms and age plan was made to have her present and undergo self-administered enemas upon presentation for possible sigmoidoscopy. Performing Provider:: Collin Law MD Referring Provider:: Ivonne Metcalf Sedation:: MAC sedation Procedure:: Patient history was obtained and appropriate physical examination was performed. Patient's medications and allergies were reviewed. Informed consent was obtained after explaining the benefits, alternatives, and risks of the procedure including, but not limited to, bleeding, perforation, missed lesions, and adverse reaction to anesthesia medications. Patient was transported to endoscopy procedure room. Patient was connected to monitoring devices. Throughout the procedure the patient's blood pressure, pulse, and oxygen saturations were monitored continuously. Patient identification and planned procedure were verified by the staff. Patient was positioned in lateral decubitus position. Digital anorectal exam was performed. Variable stiffness Olympus colonoscope was inserted. Semiformed stool was encountered throughout the rectum and rectosigmoid area. Thorough irrigation and suctioning was carried out. Retroflexion was performed. Initially visualization was poor due to the semiformed stool but this was able to be cleared within the rectum and rectosigmoid region. Retroflexion revealed internal anal papilla. No evidence of any inflamed internal hemorrhoids. Vis ualization beyond the distal sigmoid was not possible. Colonoscope was withdrawn. . Findings:: Extremely poor preparation Internal anal papilla Recommendations:: Symptoms likely secondary to occasionally bleeding hemorrhoids. This may be amenable to nonoperative management with bowel regimen and potentially suppositories. If symptoms persist would likely recommend exam under anesthesia with potential hemorrhoid intervention if encountered. Complications:: None immediately apparent Estimated blood obtained (mL): 0 Colonoscopy Component Colonoscopy Component Was a colonoscopy performed during today's procedure?: No
[2023-04-28 11:48] VITALS: O2SAT 97
[2023-04-28 12:00] VITALS: BP 82/46; PULSE 93; RESP 15; TEMP 36.5; O2SAT 93
[2023-04-28 12:10] VITALS: BP 95/67; PULSE 91; RESP 16; O2SAT 97
[2023-04-28 12:20] VITALS: BP 114/97; PULSE 94; RESP 16; O2SAT 95
[2023-04-28 12:30] VITALS: BP 118/78; PULSE 89; RESP 16; TEMP 36.6; O2SAT 94
== END 2023-04-28 12:30 | disposition home or self-care (01) ==
PROVIDERS: PCP Physician Assistant; Visit Provider Surgery
PROC: 0DJD8ZZ Inspection of Lower Intestinal Tract, Via Natural or Artificial Opening Endoscopic (ICD-10-PCS; CPT 45330; principal; 2023-04-28 11:30)
DX: K62.5 Hemorrhage of anus and rectum (principal); Z91.199 Patient's noncompliance with other medical treatment and regimen due to unspecified reason; K62.89 Other specified diseases of anus and rectum
CPT/HCPCS: 45330; 81025

== ENCOUNTER → 2023-05-29 19:31 | Outpatient (CLI) | payer MEDICAID, SELFPAY | PROVIDERS: PCP Physician Assistant; Visit Provider Physician Assistant | DX: G47.33 Obstructive sleep apnea (adult) (pediatric) (principal) | CPT/HCPCS: 95810 ==

== ENCOUNTER 2023-05-31 10:54 | Outpatient (POV) | payer MEDICAID, SELFPAY | END 2023-05-31 23:59 | disposition home or self-care (01) | LOC: SC 10:54 | PROVIDERS: Visit Provider Specialist/Technologist | DX: Z00.00 Encounter for general adult medical examination without abnormal findings (principal) ==

== ENCOUNTER 2023-06-13 16:25 | Outpatient (CLI) | payer MEDICAID, SELFPAY ==
[2023-06-13 18:16] LABS: Basophils # 0.1 K/mm3 (0-0.2); Basophils % 1.1 % (0.1-2.0); Eosinophils # 0.1 K/mm3 (0.0-0.4); Eosinophils % 1.2 % (0.1-12.0); Hematocrit 45.2 % (37.0-47.0); Hemoglobin 14.7 g/dL (12.2-16.2); Lymphocytes # 2.9 K/mm3 (0.7-4.5); Lymphocytes % 34.9 % (10-50); Mean Corpuscular HGB Conc 32.6 g/dL (31.8-35.4); Mean Corpuscular Hemoglobin 31.9 pg (27.0-31.2); Mean Corpuscular Volume 97.9 fl (81-99); Mean Platelet Volume 8.6 fl (7.4-10.4); Monocytes # 0.3 K/mm3 (0.1-1.0); Monocytes % 3.6 % (1.7-9.3); Neutrophils % 59.3 % (37.0-80.0); Platelet Count 461 K/mm3 (142-424); Red Blood Count 4.62 M/mm3 (4.20-5.40); Red Cell Distribution Width 12.8 % (11.5-17.5); White Blood Count 8.4 K/mm3 (4.8-10.8)
[2023-06-13 19:13] LABS: Hemoglobin A1C 5.2 % (4.0-6.0)
[2023-06-13 19:42] LABS: Alanine Aminotransferase 20 U/L (12-78); Albumin Level 4.7 g/dl (3.5-5.0); Albumin/Globulin Ratio 1.9 (1.1-1.8); Alkaline Phosphatase 104 U/L (38-126); Anion Gap 14.5 mEq/L (5-15); Aspartate Amino Transferase 28 U/L (14-36); Bilirubin,Total 0.4 mg/dl (0.2-1.3); Blood Urea Nitrogen 11 mg/dl (7-17); Calcium 9.9 mg/dl (8.4-10.2); Carbon Dioxide 24 mmol/L (22.0-30.0); Chloride 104 mmol/L (98-107); Chol/HDL Ratio 6.3 (1-3.5); Cholesterol 251 mg/dl (140-200); Estimated Glomerular Filt Rate 122 ml/min (>60); GFR (African American) 147 ML/MIN (>60); Globulin 2.5 g/dL (1.3-3.2); Glucose 121 mg/dl (74-100); HDL Cholesterol 40 mg/dl (40-60); Potassium 4.5 mmoL/L (3.5-5.1); Sodium 138 mmol/L (136-145); Total Protein,Serum 7.2 g/dl (6.3-8.2); Triglycerides 124 mg/dl (30-150); VLDL Cholesterol 25 mg/dL (0-40)
[2023-06-13 19:53] LABS: Direct LDL Cholesterol 145.79 mg/dL (100-129)
[2023-06-13 20:04] LABS: 25-OH Vitamin D, Total 34.7 ng/mL (30-100)
[2023-06-13 20:17] LABS: Thyroid Stimulating Hormone 0.41 uIU/mL (0.465-4.68)
== END 2023-06-13 23:59 | disposition home or self-care (01) ==
LOC: LAB.DROPOF 06-14 16:26
PROVIDERS: PCP Physician Assistant; Visit Provider Physician Assistant
DX: E66.9 Obesity, unspecified (principal); Z68.41 Body mass index [BMI] 40.0-44.9, adult; Z79.899 Other long term (current) drug therapy
CPT/HCPCS: 80053; 80061; 82306; 83036; 84443; 85025

== ENCOUNTER 2023-06-22 10:22 | Outpatient (POV) | payer MEDICAID, SELFPAY ==
[2023-06-22 10:27] VITALS: BP 108/79; PULSE 86; RESP 16; O2SAT 97; BMI 43.9
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
== END 2023-06-22 23:59 | disposition home or self-care (01) ==
LOC: SC.PAIN 10:23
PROVIDERS: PCP Physician Assistant; Visit Provider Nurse Practitioner Family
DX: M51.16 Intervertebral disc disorders with radiculopathy, lumbar region (principal); M24.28 Disorder of ligament, vertebrae; G89.4 Chronic pain syndrome
CPT/HCPCS: 99212; G0463

== ENCOUNTER 2023-06-28 07:25 | Day surgery (SDC) | payer MEDICAID, SELFPAY ==
[2023-06-27 10:24] VITALS: BMI 43.9
[2023-06-28 07:34] VITALS: BP 110/69; PULSE 79; RESP 18; TEMP 36.3; O2SAT 96; BMI 43.9
[2023-06-28 07:49] LABS: Urine Pregnancy, HCG Qual. Negative (Negative)
[2023-06-28] MEDS: LACTATED RINGERS 1000ML 1,000 ML 25 ML IV (07:49)
[2023-06-28] MEDS: CEFAZOLIN SODIUM 2 GM in 0.9 % SODIUM CHLORIDE 100 ML IV (08:45)
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
[2023-06-28] MEDS: LIDOCAINE 1% W/EPI 1:100,000 20ML VIAL 20 ML (09:30)
--- NOTE | 2023-06-28 09:36 | SUR.OPER ---
upon anesthesia induction the IV located in the patients left arm became infiltrated. multiple attempts were made to place an additional IV and one was placed in her left foot by yanely jaems rn.
[2023-06-28 10:05] VITALS: BP 109/71; PULSE 84; RESP 18; TEMP 36.2; O2SAT 97
--- NOTE | 2023-06-28 10:10 | EXP.OP.NOTE ---
Date of procedure: 06/28/23 Pre-op Diagnosis:: Right wrist volar ganglion cyst Post-op Diagnosis:: Same Procedure performed:: Excision volar ganglion cyst right wrist Surgeon:: Jacek Samuels DO RESIDENT ASSOCIATE:: Effie Anderson Anesthesia: MAC and local Estimated blood loss (mL): 0 Operative findings:: Gelatinous ganglion cyst Operative note:: Patient is identified preoperatively. Right wrist marked with yes my initials. Transferred operative suite. Placed upon operating bed. Given sedation. Right upper extremity prepped and draped normal sterile fashion. Once prepped and draped final operative timeout performed to identify proper patient procedure and extremity. Everyone involved the case agreed. No counter indications to beginning. Did receive preoperative antibiotics. Marking pen was used to kera plan incision over the volar ganglion cyst on the radial aspect of the wrist. Esmarch was used to exsanguinate extremity pneumatic tourniquet inflated to 250 mmHg. Skin knife was used then to incise through skin careful dissection was taken down with scissors to identify the volar ganglion cyst which is present. There was some scarring in this area from previous surgery careful blunt dissection with scissors around the cyst was performed and the base of the cyst was identified and cut with the scissors to be removed upon cutting the base of it there was return of gelatinous ganglion cyst tissue present. This was then irrigated and cleaned the base of the cyst was removed along with the help of the bipolar electrocautery Irrigation repeated tourniquet was deflated to confirm hemostasis. Nylon stitch was then used to close the skin sterile hand dressing placed patient waken from anesthesia taken recovery stable condition. Condition: stable Disposition: PACU Complications:: None apparent
--- NOTE | 2023-06-28 10:12 | P.PNANES_ITS ---
[facility] Anesthesia Record Part I Anesthesia Record I Intake, IV Amount: 400 Hydration: Adequate Estimated blood loss (mL): 5 Urine output (mL): 0 Blood Products used (#): none Blood Pressure: 109/71 SaO2: 97 Pulse Rate: 80 Airway Patency: Patent Respiratory Rate: 18 Temperature: 97.1 F Patient is:: Awake (Talking) and Stable Stable to PACU at:: 10:10
[2023-06-28 10:15] VITALS: BP 109/71; PULSE 80; RESP 18; TEMP 36.2; O2SAT 97
[2023-06-28 10:20] VITALS: BP 112/68; PULSE 74; RESP 18; O2SAT 98
[2023-06-28 10:35] VITALS: BP 107/72; PULSE 67; RESP 18; TEMP 36.2; O2SAT 98
== END 2023-06-28 10:35 | disposition home or self-care (01) ==
PROVIDERS: PCP Physician Assistant; Visit Provider Orthopaedic Surgery
PROC: (CPT 25112; principal; 2023-06-28 09:00)
DX: M67.431 Ganglion, right wrist (principal)
CPT/HCPCS: 25112; 81025; 96374

== ENCOUNTER 2023-08-08 09:40 | Day surgery (SDC) | payer MEDICAID, SELFPAY ==
[2023-08-08 09:47] VITALS: BP 115/75; PULSE 95; RESP 18; TEMP 37.2; O2SAT 95; BMI 32.5
[2023-08-08 09:56] VITALS: BP 124/55; PULSE 90; RESP 18; O2SAT 95
[2023-08-08] MEDS: methylPREDNISolone ACETATE 80MG/ML VIAL 80 MG (09:56)
[2023-08-08 09:57] VITALS: BP 124/55; PULSE 94; RESP 18; O2SAT 95
[2023-08-08 10:04] VITALS: BP 111/77; PULSE 94; RESP 16; O2SAT 97
--- NOTE | 2023-08-08 10:12 | EXP.PAIN.PRO ---
Procedure Date: 08/08/23 Time: 09:00 Anesthesiologist:: Sumanth Fisher CRNA Complications:: None Pre-procedure Diagnosis:: Degenerative disc lumbar spine multilevels. Lumbar radiculopathy. Post-procedure Diagnosis:: Same. Indications for Procedure:: Patient is a very pleasant 27-year-old female comes our clinic today for repeat lumbar epidural steroid injection at L4-5 level. She reports low back pain as well as bilateral hip and leg radicular symptoms. She rates her pain 8/10. Procedure Details:: Procedure: Lumbar epidural steroid injection under fluoroscopy Informed consent was obtained and the risks and benefits of the procedure were explained to the patient. The patient was taken to the procedure room and noninvasive monitors placed, including noninvasive blood pressure cuff and pulse oximeter. The back was viewed using C-arm Fluoroscopy and prepped using Chloraprep as a cleansing solution and the L4-L5 interspace was palpated. Skin and subcutaneous tissues were anesthetized using lidocaine 1.5% and a 25-gauge needle. After this, an 18-gauge Touhy epidural needle was placed into the L4-L5 interspace and advanced using fluoroscopic guidance and loss of resistance to air until the epidural space was encountered. After confirmation of needle placement in the epidural space, with dye, a solution containing normal saline, 3 mL and Depo-Medrol 80 mg were incrementally injected into the lumbar epidural space. The patient tolerated the procedure well with no complications. The patient was observed in the Pain Clinic and then discharged home neurologically intact. Plan and Disposition:: Patient was discharged without incident.
== END 2023-08-08 10:05 | disposition home or self-care (01) ==
LOC: SC.PAINP 09:41
PROVIDERS: PCP Physician Assistant; Visit Provider Nurse Anesthetist, Certified Registered
DX: M51.16 Intervertebral disc disorders with radiculopathy, lumbar region (principal)
CPT/HCPCS: 62323; J1010

== ENCOUNTER 2023-09-13 13:11 | Outpatient (POV) | payer MEDICAID, SELFPAY ==
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
[2023-09-13 13:17] VITALS: BP 108/79; PULSE 97; RESP 16; O2SAT 96; BMI 44.8
== END 2023-09-13 23:59 | disposition home or self-care (01) ==
PROVIDERS: PCP Physician Assistant; Visit Provider Nurse Practitioner Family
DX: M51.16 Intervertebral disc disorders with radiculopathy, lumbar region (principal); Z73.89 Other problems related to life management difficulty; Z79.899 Other long term (current) drug therapy
CPT/HCPCS: 99212; G0463

== ENCOUNTER 2024-04-19 10:32 | Outpatient (CLI) | payer MEDICAID, SELFPAY ==
--- NOTE | 2024-04-19 10:37 | US_ITS ---
PROCEDURE INFORMATION: Exam: US Right Breast, Complete Exam date and time: 04/19/2024 10:52 AM Age: 28 years old Clinical indication: Multiple palpable abnormalities in the right breast. 1-6 months; Surgery type: Breast reduction TECHNIQUE: Imaging protocol: Complete ultrasound of all four quadrants of the right breast and the retroareolar regions, including ultrasound of the axilla when performed. COMPARISON: No relevant prior studies available. FINDINGS: ULTRASOUND: Breast ultrasound findings: Sonographic images of the right 12 o'clock axis 1 cm from the nipple demonstrates a heterogeneous hypoechoic solid mass measuring 3.6 x 3.2 x 1.0 cm. Sonographic images of the right 2 o'clock axis 1 cm from the nipple where the patient reports a palpable abnormality demonstrates a similar-appearing heterogeneous hypoechoic solid mass measuring 4.6 x 0.9 cm. Sonographic images of the right 3 o'clock axis 1 cm from the nipple where the patient reports a palpable abnormality demonstrates a heterogeneous hypoechoic solid mass measuring 2.6 x 2.4 cm in dimension. Sonographic images of the right 5 o'clock o'clock axis 1 cm from the nipple where the patient reports a palpable abnormality demonstrates a bilobed hypoechoic solid mass measuring approximately 3.6 x 2.0 cm in dimension. Sonographic images of the right 6 o'clock axis 1 cm from the nipple where the patient reports a palpable abnormality demonstrates an isoechoic somewhat border forming mass measuring approximately 2.5 x 1.2 cm in dimension. No focal findings in the right lower inner lower outer and upper outer quadrants. No axillary adenopathy. IMPRESSION: Multiple indeterminate solid masses in the right breast correlating with the patient's complaint of multiple palpable abnormalities. A diagnostic bilateral mammogram is recommended followed by ultrasound-guided core biopsy of the dominant right 12 o'clock axis mass recommended for further evaluation. ASSESSMENT: BI-RADS Category 0: Incomplete- Need Additional Imaging Evaluation
== END 2024-04-19 23:59 | disposition home or self-care (01) ==
LOC: RAD 10:32
PROVIDERS: PCP Physician Assistant; Visit Provider Physician Assistant
DX: N63.12 Unspecified lump in the right breast, upper inner quadrant (principal); N63.14 Unspecified lump in the right breast, lower inner quadrant
CPT/HCPCS: 76641

== ENCOUNTER 2024-05-06 07:20 | Outpatient (CLI) | payer MEDICAID, SELFPAY ==
--- NOTE | 2024-05-06 07:27 | US_ITS ---
FINAL REPORT CLINICAL HISTORY: RT BREAST MASS - DR.ALEX HERNANDEZ - RT BREAST 1200 FINDINGS: ULTRASOUND-GUIDED RIGHT BREAST CORE BIOPSY TECHNIQUE: Limited images were obtained to localize region of interest. The right breast was prepped in a routine sterile fashion and locally anesthetized with 1% lidocaine. Standard written informed consent was obtained. The biopsy needle was positioned within the outer periphery of the lesion. A total of 4 passes were made with a 16 gauge core biopsy needle. A biopsy marker clip was deployed in satisfactory position. Postbiopsy mammogram showed postbiopsy changes with clip in satisfactory position. Procedure was well tolerated . CONCLUSION: 1. Technically successful ultrasound guided core biopsy of right breast lesion as above. 2. Biopsy marker clip deployed Histopathology results reveal organizing fat necrosis. Pathology is concordant with mammographic findings. No further imaging follow-up is considered necessary related to this abnormality. Authenticated and ERN
--- NOTE | 2024-05-06 07:27 | MM_ITS ---
PROCEDURE INFORMATION: Exam: Bilateral Diagnostic Breast Tomosynthesis Exam date and time: 05/06/2024 8:13 AM Age: 28 years old Clinical indication: Right breast masses seen on recent ultrasound. History of reduction mammoplasty TECHNIQUE: Imaging protocol: Bilateral Diagnostic tomosynthesis and 2D mammography including computer-aided detection (CAD) when performed. Unilateral or bilateral exam. COMPARISON: US BREAST RT COMPLETE 04/19/2024 10:52 AM FINDINGS: MAMMOGRAPHY: Breast composition: The breasts are heterogeneously dense, which may obscure small masses. Breast mammogram findings: There is no stellate mass, suspicious architectural distortion or suspicious microcalcifications in either breast to suggest malignancy. Mild diffuse bilateral architectural distortion is due to prior reduction mammoplasty. There is a suggestion of multiple partially lucent masses in the middle to anterior third of the right predominantly upper breast. This is less apparent in the left breast. Findings likely reflect benign postoperative fat necrosis. No skin thickening or axillary adenopathy. IMPRESSION: No mammographic evidence of malignancy. In all likelihood, the masses seen in the right breast on ultrasound dated 04/19/2024 reflect postoperative benign fat necrosis. Nevertheless, ultrasound guided core biopsy of the dominant right 12 o'clock axis mass is recommended for further evaluation. ASSESSMENT: BI-RADS Category 4: Suspicious.
== END 2024-05-06 23:59 | disposition home or self-care (01) ==
LOC: RAD 07:21
PROVIDERS: PCP Physician Assistant; Visit Provider Physician Assistant
DX: N63.15 Unspecified lump in the right breast, overlapping quadrants (principal)
CPT/HCPCS: 19083; 77062; 77066; G0279

== ENCOUNTER 2024-08-03 23:50 | Emergency (ER) | payer MEDICAID, SELFPAY ==
--- OUTSIDE RECORDS SUMMARY | 2024-06-19 07:30 | XMS_ITS | Encounter Summary ---
Author Organization Healthcare Address [address] [place] [address] Care Team Providers Care Incubator Machine Operator Name Role Phone Ivonne Metcalf Primary Care Provider [phone] Reason for Visit * Reason Comments Hematochezia Fatigue Abnormal Lab Sicca syndrome Neck Pain Encounter Details Date Type Department Care Team (Latest Contact Info) Description 06/19/2024 7:30 AM EDT [facility] Visit [facility] [address] [place] [address] Oneil Cobian, SUPERVISOR [employer] [address] [place] [address] Positive VELMA (antinuclear antibody) (Primary Dx); Abnormal immunological finding in serum; CRP elevated; Polyarthralgia; Fatigue, unspecified type; Sicca syndrome (CMS/HCC); Cervical spine pain Social History Tobacco Use Types Packs/Day Years Used Date Smoking Tobacco: Never Smokeless Tobacco: Never Alcohol Use Standard Drinks/Week Comments Never 0 (1 standard drink = 0.6 oz pur e alcohol) PHQ-2 Answer Date Recorded Patient Health Questionnaire-2 Score 6 06/19/2024 PHQ-9 Answer Date Recorded Patient Health Questionnaire-9 Score 23 06/19/2024 Comments Unknown Sex and Gender Information Value Date Recorded Sex Assigned at Not on file Legal Sex Female 6:17 PM EDT Gender Identity Not on file Sexual Orientation Not on file documented as of this encounter Last Filed Vital Signs Vital Sign Reading Time Taken Comments Blood Pressure 117/79 06/19/2024 7:32 AM EDT Pulse 117 06/19/2024 7:32 AM EDT Temperature 36.7 C (98.1 F) 06/19/2024 7:32 AM EDT Respiratory Rate - - Oxygen Saturation 95% 06/19/2024 7:32 AM EDT Inhaled Oxygen Concentration - - Weight 116 kg (255 lb 1.2 oz) 06/19/2024 7:32 AM EDT Height 158.8 cm (5' 2.5 ) 06/19/2024 7:32 AM EDT Body Mass Index 45.91 06/19/2024 7:32 AM EDT documented in this encounter Functional Status * Over the past 2 weeks, how often have you been bothered by any of the following problems? Question Answer Date of Assessment Author Little interest or pleasure in doing things Nearly every day 06/19/2024 7:36 AM Lexi Alba Feeling down, depressed, or hopeless Nearly every day 06/19/2024 7:36 AM Lexi Alba Patient Health Questionnaire-2 Score 6 06/19/2024 7:36 AM Lexi Alba * Question Answer Date of Assessment Author Trouble falling or staying asleep, or sleeping too much Nearly every day 06/19/2024 7:36 AM Lexi Alba Feeling tired or having little energy Nearly every day 06/19/2024 7:36 AM Lexi Alba Poor appetite or overeating Nearly every day 06/19/2024 7:36 AM Lexi Alba Feeling bad about yourself - or that you are a failure or have let yourself or your family down Nearly every day 06/19/2024 7:36 AM Lexi Alba Trouble concentrating on things, such as reading the newspaper or watching television Nearly every day 06/19/2024 7:36 AM Lexi Alba Moving or speaking so slowly that other people could have noticed? Or the opposite - being so fidgety or restless that you have been moving around a lot more than usual. More than half the days 06/19/2024 7:36 AM Lexi Alba Thoughts that you would be better off or hurting yourself in some way Not at all 06/19/2024 7:36 AM EDT Lexi Pardo Patient Health Questionnaire-9 Score 06/19/2024 7:36 AM EDT Lexi Pardo * If you checked off any problems on this questionnaire so far, Question Answer Date of Assessment Author How difficult have these problems made it for you to do your work, take care of things at home, or get along with other people? Very difficult 06/19/2024 7:36 AM EDT Lexi Pardo documented as of this encounter Miscellaneous Notes * Addendum Note - Oneil Cobian APRN - 06/19/2024 7:30 AM EDTAddended by: ONEIL COBIAN on: 06/25/2024 10:46 AM Modules accepted: Orders * Progress Notes - Oneil Cobian APRN - 06/19/2024 7:30 AM EDT Cally Garcia is a 28 y.o. female Chief complaint: here for follow up of Positive VELMA (antinuclear antibody) [R76.8] Subjective HPI Cally Garcia is a 28 y.o. female with PMH significant for anxiety/depression, borderline personality disorder, mood disorder, seizure, who presents today for follow up of Positive VELMA (antinuclear antibody) [R76.8] Past history: Today 12/21/22: The patient presents to the clinic for elevated inflammatory markers. The patient states that her PCP thought she had lupus. The patient reports that she has not had a period for two months, fatigue, skin and scalp itchy, hot the touch pain from head to feet with ambulation, bloody bowel movements, and body wide pain. The patient has gone to PT, chiropractor and pain management for back pain. The patient also reports rashes under her breast that is pruritic and burning in nature. + difficulty falling asleep. + non-restorative sleep. + fatigue. + tight clothes are uncomfortable.+ pain with light touch. + intermittent brain fog. Anxiety. Depression. Joints: Cervical/thoracic/lumbar, shoulders, elbows, wrists, hands, hips, knees, ankles and feet. Morning stiffness presents for 60 minutes. Activity makes the pain worse. Rheumatological ROS positive for dry eyes, dry mouth, oral ulcers, rash, Photosensitivity, psychosis or delirium 04/21, Rest ROS negative for nasal ulcers, alopecia, serositis, psoriasis, Raynaud's symptoms or digit ulcerations, renal disease or macroscopic hematuria, seizures, IBD, uveitis or episcleritis, blood clots or thyroid problems, miscarriages. Family History: No FH of autoimmune diseases. Social History: No known exposure to HCV or HIV. No hx IV drug use HX oo hx of alcohol abuse. No hxof TB. Occupation: Disabled Rheum medication hx: None Last visit: Initial visit Interim history: Today (06/19/24): The patient present to the clinic for follow up after not being seen since 12/21/22, where her workup was relative negative. The patient reports that her PCP did some blood work and was concerned for an autoimmune disease for a positive VELMA, RU[employer]ER [employer] WORKER and CRP. The patient reports that she has had increased fatigue, where her days and night are mixed up. She will fall asleep at 4 PM and wake up at 11 PM. The patient reports joint pain in her leg with swelling. The patient denies rashes since her breast reduction surgery. oints: Cervical/thoracic/lumbar, shoulders, elbows, wrists, hands, hips, knees, ankles and feet. Morning stiffness presents for 60 minutes. Activity makes the pain worse. Rheumatological ROS positive for dry eyes, dry mouth, rash (bilateral legs around ankles that look like scabs, pruritic that occur once every couple of months), psychosis or delirium 04/21 Rest ROS negative for nasal ulcers, oral ulcers, alopecia, serositis, psoriasis, Photosensitivity, Raynaud's symptoms or digit ulcerations, renal disease or macroscopic hematuria, seizures, IBD, uveitis or episcleritis, blood clots or thyroid problems, miscarriages. Review of Systems Constitutional: Positive for diaphoresis, fatigue and unexpected weight change. HENT: Positive for trouble swallowing. Eyes: Positive for itching. Respiratory: Positive for shortness of breath. Cardiovascular: Positive for palpitations. Gastrointestinal: Positive for diarrhea. Musculoskeletal: Positive for arthralgias, gait problem, joint swelling, myalgias, neck pain and neck stiffness. Neurological: Positive for dizziness, light-headedness and headaches. Psychiatric/Behavioral: Positive for sleep disturbance. All other systems reviewed and are negative. The following portions of the chart were reviewed this encounter and updated as appropriate: Medical History[1] Surgical History[2] Social History Socioeconomic History Marital status: Single Spouse name: Not on file Number of children: Not on file Years of education: Not on file Highest education level: Not on file Occupational History Not on file Tobacco Use Smoking status: Never Smokeless tobacco: Never Substance and Sexual Activity Alcohol use: Never Drug use: Never Sexual activity: Not on file Other Topics Concern Not on file Social History Narrative Not on file Social Drivers of Health Financial Resource Strain: Not on file Food Insecurity: Not on file Transportation Needs: Not on file Physical Activity: Not on file Stress: Not on file Social Connections: Not on file Intimate Partner Violence: Not on file Housing Stability: Not on file Family History[3] Allergies[4] Current Medications[5] Objective Last visit labs: Lab Requisition on 11/09/2023 Component Date Value Ref Range Status Case Report 11/09/2023 Final Value:Surgical Pathology Case: [id number] Authorizing Provider: Luis M Johnson MD Collected: 11/09/2023 Ordering Location: [facility] Lab Received: 11/10/2023 1048 Pathologist: Shannon Stoddard MD Specimens: A) - Breast, Right, Right Breast Tissue 2187 gm B) - Breast, Left, Left Breast Tissue 2512 gm Final Diagnosis 11/09/2023 Final Value:A. BREAST, RIGHT, REDUCTION: - BENIGN BREAST TISSUE (2187 GRAMS); NEGATIVE FOR MALIGNANCY. B. BREAST, LEFT, REDUCTION: - BENIGN BREAST TISSUE (2512 GRAMS); NEGATIVE FOR MALIGNANCY. Clinical Information 11/09/2023 Final Value:Hypertrophy of breast Bilateral breast macromastia Gross Description 11/09/2023 Final Value:A. RIGHT BREAST TISSUE 2187 GM Received in formalin labeled ???right breast tissue?? , is a 2187 g aggregate of grossly unremarkable white-mayer skin and underlying lobulated adipose tissue measuring 28.7 x 24.6 x 4.8 cm. Sectioning reveals a grossly unremarkable yellow-mayer, fibrofatty cut surface. Senior Administrative Associate sections are submitted in cassettes A1-A3. Cold Time: 0 Ana Maria Don Ochoa. LEFT BREAST TISSUE 2512 GM Received in formalin labeled ???left breast tissue?? , is a 2512 g aggregate of grossly unremarkable white-mayer skin and underlying lobulated adipose tissue measuring 32.6 x 23.2 x 7.2 cm. Sectioning reveals grossly unremarkable yellow-mayer, fibrofatty cut surface. Senior Administrative Associate sections are submitted in cassettes B1-B3. Cold Time: 0 Ana Maria Zhu Note: 11/09/2023 Final Value:A resident was involved in the service. I attest I examined the relevant preparations for the specimens and confirmed the diagnosis or interpretation. Vitals: 06/19/24 0732 BP: 117/79 Pulse: (!) 117 Temp: 36.7 ??C (98.1 ??F) SpO2: 95% Physical Exam Constitutional: Appearance: Normal appearance. HENT: Head: Normocephalic and atraumatic. Eyes: Conjunctiva/sclera: Conjunctivae normal. Cardiovascular: Rate and Rhythm: Normal rate and regular rhythm. Heart sounds: Normal heart sounds. Pulmonary: Effort: Pulmonary effort is normal. Breath sounds: Normal breath sounds. Musculoskeletal: General: Tenderness present. Comments: See Homunculus. Allodynia present in bilateral calves, forearms, arms chest and shoulders. Tenderness noted in cervical spine, bilateral shoulder, bilateral elbows, bilateral 1st MCP, left 3/4 MCP, right wrist, left knee and right ankle. No synovitis or dactylitis noted on PE. Full ROM noted on PE today. Skin: General: Skin is warm and dry. Neurological: Mental Status: She is alert and oriented to person, place, and time. Psychiatric: Mood and Affect: Mood normal. Behavior: Behavior normal. Thought Content: Thought content normal. Judgment: Judgment normal. Joint Exam 06/19/2024 Right Left Acromioclavicular Tender Tender Glenohumeral Tender Tender Elbow Tender Tender Wrist Tender MCP 1 Tender Tender MCP 3 Tender MCP 4 Tender Cervical Spine Tender Knee Tender Ankle Tender 12/21/2022 06/19/2024 BOLTON-28 (ESR) -- -- BOLTON-28 (CRP) -- -- Tender (BOLTNO-28) Swollen (BOLTON-28) Provider Global -- -- Patient Global -- -- ESR -- -- CRP -- -- Swollen Joint Count: Swollen: 0 Tender Joint Count: Tender: 14 Patient global assessment: 05/06 Rapid 3 score:8.3 CDAI: Pt reports % improvement while on current medication Assessment/Plan Diagnosis Plan 1. Positive VELMA (antinuclear antibody) 2. Abnormal immunological finding in serum 3. CRP elevated 4. Polyarthralgia 5. Fatigue, unspecified type 6. Sicca syndrome (CMS/HCC) 1.Polyarthralgia -CRP 12.5, ESR - -Allodynia present in bilateral calves, forearms, arms chest and shoulders. Tenderness noted in cervical spine, bilateral shoulder, bilateral elbows, bilateral 1st MCP, left 3/4 MCP, right wrist, left knee and right ankle. No synovitis or dactylitis noted on PE. Full ROM noted on PE today. -Joints: Cervical/thoracic/lumbar, shoulders, elbows, wrists, hands, hips, knees, ankles and feet. Morning stiffness presents for 60 minutes. Activity makes the pain worse. -Patient currently taking Meloxicam and naproxen. Advise can only take one NSAID -RF, CCP, CRP, ESR, CBC, Crea, hepatic panel, hepatitis WNL 12/19 -Bilateral hands, wrists, knees, and feet xrays -No fracture or dislocation. No erosions -cervical spine xray-Moderate degenerative disc changes at C5-C6 with normal vertebral alignment. -Rx PT of chronic back pain to get MRI of SI joints to rule out 2.Positive VELMA 3.Positive [employer] WORKER 4.SICCA -Rheumatological ROS positive for dry eyes, dry mouth, rash (bilateral legs around ankles that looklike scabs, pruritic that occur once every couple of months), psychosis or delirium 04/21 -VELMA, DsDNA, C3, C4, YUE I & II, lofton YUE, UA, urine protein/crea negative 06/19/24 3.Fatigue -+ difficulty falling asleep. + non-restorative sleep. + fatigue. + tight clothes are uncomfortable. + pain with light touch. + intermittent brain fog. Anxiety. Depression. -No sleep study performed at this time -allodynia noted throughout -TSH, TPO negative 06/19/24 Suggestions for PCP regarding medications which may be tried for fibromyalgia: --Duloxetine (Cymbalta): start 20 to 30 mg in the morning with food. Titrate monthly to 60 mg/day or effect --Milnacipran (Savella): start 12.5 mg in the morning with food. Increase by 12.5 mg every 3 to 7 days to effect. Typical dose: 50 mg twice a day (doses of 100 mg BID have been described). --Pregabalin (Lyrica): start 50 mg with food before bed. After 1 week, increase to 50 mg BID and titrate dose to effect. Typical dose: 75 to 150 mg BID (max dose 225 mg BID). --Venlaxafine start at 37.5 mg in the morning with food and increase weekly to effect or max dose of 375 mg daily (typical dosin-150 mg BID). There is an extended release form that can be used once a day starting at 37.5 mg and titrated weekly to effect or max dose of 225 mg daily. --Amitriptyline at a dosage of 10 to 25 mg 1 to 3 hours prior to bedtime. This dose may be increased by 10 to 25 mg increments at 2-week intervals; the usual effective dose is 25 to 100 mg daily. --Cyclobenzaprine 5 to 10 mg at bedtime, max daily dose of 30 mg. --Gabapentin start at 100 to 300 mg QHS. If 300 mg QHS is tolerated, a morning dose can be added and titrated to effect. Typical dosin to 600 mg TID (maximum dose 1200 mg TID). 4.Hematochezia -Patient reports subjective hematochezia for the past 3 months -Refer to GI RTC PRN pending labs and xrays Today, I personally spent 34 minutes on the encounter, including chart review, patient education, counseling, and coordination of care as described above. Issues discussed: Diagnosis and implicationson future health, effects and side effects of present and future potential medications, test results as well as further testing and medications required as applicable. ADDENDUM: -Bilateral hands, wrists, knees, and feet xrays-No fracture or dislocation. No erosions -cervical spine xray-Moderate degenerative disc changes at C5-C6 with normal vertebral alignment. -ESR, TSH, TPO, VELMA, DsDNA, C3, C4, YUE I & II, lofton YUE, UA, urine protein/crea -WBC 12.21, CRP 12.5 -Recommend PT to get MRI of SI joint -Can start NSAID therapy -Need HLA B27 The patient was counseled about diagnostic results, instruction for management, risk factors reduction, prognosis, compliance with visits and treatment, risks and benefits of treatments options. Prior notes (by external physicians) and results were reviewed by me with independent interpretation of labs and imaging. My note will be sent to PCP and other consulting physicians. [1] Past Medical History: Diagnosis Date ADHD Anxiety Bipolar affective disorder (CMS/HCC) Obesity [2] Past Surgical History: Procedure Laterality Date BREAST SURGERY 10/2023 Reduction HAND SURGERY [3] History reviewed. No pertinent family history. [4] Allergies Allergen Reactions Trazodone Other - please document in the comment field [5] Current Outpatient Medications Medication Sig Dispense Refill atomoxetine (Strattera) 40 MG capsule Take 1 capsule (40 mg) by mouth daily. azelastine (Astelin) 0.1 % nasal spray Administer 2 sprays into each nostril 2 (two) times a day. cholecalciferol (Vitamin D-3) 50 MCG (2000 UT) tablet Take 1 tablet by mouth Daily. levocetirizine (Xyzal) 5 MG tablet Take 1 tablet by mouth daily. Lumateperone Tosylate (Caplyta) 42 MG capsule Take by mouth. meloxicam (Mobic) 15 MG tablet Take 1 tablet (15 mg) by mouth daily. sertraline (Zoloft) 100 MG tablet Take 1 tablet (100 mg) by mouth daily. valACYclovir (Valtrex) 1 g tablet gabapentin (Neurontin) 100 MG capsule Take 1 capsule (100 mg) by mouth 3 (three) times a day for 10days. (Patient not taking: Reported on 06/19/2024) 30 capsule 0 methocarbamol (Robaxin) 500 MG tablet Take 1 tablet (500 mg) by mouth 4 (four) times a day for 10 days. (Patient not taking: Reported on 06/19/2024) 40 tablet 0 naproxen (Naprosyn) 500 MG tablet TAKE 1 TABLET BY MOUTH EVERY 12 HOURS WITH FOOD OR MILK (Patient not taking: Reported on 06/19/2024) ondansetron ODT (Zofran-ODT) 4 MG disintegrating tablet Take 1 tablet (4 mg) by mouth every 8 (eight) hours if needed for nausea or vomiting. (Patient not taking: Reported on 06/19/2024) 20 tablet 0 oxyCODONE (Roxicodone) 5 MG immediate release tablet Take 1 tablet (5 mg) by mouth every 4 (four) hours if needed for severe pain. (Patient not taking: Reported on 06/19/2024) 20 tablet 0 oxyCODONE (Roxicodone) 5 MG immediate release tablet Take 1 tablet (5 mg) by mouth every 6 (six) hours if needed for severe pain. (Patient not taking: Reported on 06/19/2024) 10 tablet 0 No current facility-administered medications for this visit. documented in this encounter Plan of Treatment Scheduled Orders Name Type Priority Associated Diagnoses Orde r Schedule HLA B27 Typing Lab Routine CRP elevated Cervical spine pain Expected: 06/25/2024 (Approximate), Expires: 12/25/2025 documented as of this encounter Results * XR Cervical Spine 2 or 3 Views (06/19/2024 8:42 AM EDT) Anatomical Region Laterality Modality Spine, C-spine Digital Radiogra phy Impressions 06/19/2024 8:50 AM EDT Moderate degenerative disc changes at C5-C6 with normal vertebral alignment. CRITICAL RESULT: No. COMMUNICATION: Per this written report. Drafted by Nithin Horne MD on 06/19/2024 8:49 AM Final report signed by Nithin Horne MD on 06/19/2024 8:50 AM Narrative 06/19/2024 8:50 AM EDT CLINICAL INDICATION: neck pain TECHNIQUE: XR CERVICAL SPINE 2 OR 3 VIEWS COMPARISON: None FINDINGS: 2 views of the cervical spine show disc space narrowing at C5-C6 with normal vertebral alignment. No fracture or bone destruction. Prevertebral soft tissues and lung apices are normal. Procedure Note Nithin Horne MD - 04/23/2025 CLINICAL INDICATION: neck pain TECHNIQUE: XR CERVICAL SPINE 2 OR 3 VIEWS COMPARISON: None FINDINGS: 2 views of the cervical spine show disc space narrowing at C5-C6 withnormal vertebral alignment. No fracture or bone destruction. Prevertebralsoft tissues and lung apices are normal. IMPRESSION: Moderate degenerative disc changes at C5-C6 with normal vertebralalignment. CRITICAL RESULT: No. COMMUNICATION: Per this written report. Drafted by Nithin Horne MD on 06/19/2024 8:49 AM Final report signed by Nithin Horne MD on 06/19/2024 8:50 AM us Oneil Cobian [employer]PER[employer] IMG XR PROCEDURES Final Re sult * Urinalysis with reflex microscopic (Culture NOT Included) (06/19/2024 8:27 AM EDT) Color, Urine Yellow LAB URINALYSIS - AUTOMATED METHOD 06/19/2024 9:56 AM EDT [facility] Clarity, Urine Clear LAB URINALYSIS - AUTOMATED METHOD 06/19/2024 9:56 AM EDT [facility] Spec [place], Urine 1.022 1.005 - 1.030 LAB URINALYSIS - AUTOMATED METHOD 06/19/2024 9:56 AM EDT [facility] pH, Urine 5.5 5.0 - 8.0 LAB URINALYSIS - AUTOMATED METHOD 06/19/2024 9:56 AM EDT [facility] Protein, Urine Negative Negative mg/dL LAB URINALYSIS - AUTOMATED METHOD 06/19/2024 9:56 AM EDT [facility] Glucose, Urine Negative Negative mg/dL LAB URINALYSIS - AUTOMATED METHOD 06/19/2024 9:56 AM EDT [facility] Ketones, Urine Negative Negative mg/dL LAB URINALYSIS - AUTOMATED METHOD 06/19/2024 9:56 AM EDT [facility] Blood, Urine Negative Negative LAB URINALYSIS - AUTOMATED METHOD 06/19/2024 9:56 AM EDT [facility] Bilirubin, Urine Negative Negative LAB URINALYSIS - AUTOMATED METHOD 06/19/2024 9:56 AM EDT [facility] Urobilinogen, Urine 0.2 0.2 to 1.0 mg/dL LAB URINALYSIS - AUTOMATED METHOD 06/19/2024 9:56 AM EDT [facility] Leukocytes, Urine Negative Negative LAB URINALYSIS - AUTOMATED METHOD 06/19/2024 9:56 AM EDT [facility] Nitrite, Urine Negative Negative LAB URINALYSIS - AUTOMATED METHOD 06/19/2024 9:56 AM EDT [facility] Urine Urine specimen obtained by clean catch procedure / Unknown Non-blood Collection / Unknown 06/19/2024 8:27 AM EDT 06/19/2024 8:27 AM EDT Oneil Cobian APRN LAB URINE ORDERABLES Final Result [facility] [address] [place] [address] * Protein, Random, Urine with Creatinine (06/19/2024 8:27 AM EDT) Protein, Urine 8 mg/dL 06/19/2024 10:23 AM EDT [facility] Creatinine, Urine 179 mg/dL 06/19/2024 10:23 AM EDT [facility] Protein/Creatin ine Ratio 0.0 mg/mg Creat 06/19/2024 10:23 AM EDT [facility] Urine Urine specimen obtained by clean catch procedure / Unknown Non-blood Collection / Unknown 06/19/2024 8:27 AM EDT 06/19/2024 8:27 AM EDT Oneil Cobian APRN LAB URINE ORDERABLES Final Result [facility] [address] [place] [address] * Thyroid Stimulating Hormone, Plasma (06/19/2024 8:24 AM EDT) Thyroid Stimulating Hormone, Plasma 1.38 0.40 - 4.20 uIU/mL 06/19/2024 10:04 AM EDT [facility] Blood Venous blood specimen / Unknown Venipuncture / Unknown 06/19/2024 8:24 AM EDT 06/19/2024 8:24 AM EDT Narrative [facility] - 06/19/2024 10:04 AM EDT Trimester Specific Ranges TSH ( IU/mL) 1st Trimester 0.1 - 3.0 2nd Trimester 0.19 - 4.06 3rd Trimester 0.3 - 3.7 Oneil Cobian APRN LAB BLOOD ORDERABLES Final Result [facility] [address] [place] [address] * Sedimentation Rate, Automated (06/19/2024 8:24 AM EDT) Sedimentation Rate 11 <20 mm/hr 2024 10:18 AM EDT [facility] Blood Venous blood specimen / Unknown Venipuncture / Unknown 06/19/2024 8:24 AM EDT 06/19/2024 8:24 AM EDT Oneil Cobian APRN LAB BLOOD ORDERABLES Final Result Performing Organization Address City/[facility] [place] [address] * (ABNORMAL) C-Reactive Protein, Plasma (06/19/2024 8:24 AM EDT) CRP, Plasma 12.5(H) <=8.0 mg/L 06/19/2024 10:04 AM EDT [facility] Blood Venous blood specimen / Unknown Venipuncture / Unknown 06/19/2024 8:24 AM EDT 06/19/2024 8:24 AM EDT Narrative [facility] - 06/19/2024 10:04 AM EDT This CRP test is appropriate for assessment of infection, systemic inflammation and/or tissue injury. To assess cardiovascular disease risk order high sensitivity CRP (CRPH). Oneil Cobian APRN LAB BLOOD ORDERABLES Final Result [facility] [address] [place] [address] * Thyroid Peroxidase Antibody (06/19/2024 8:24 AM EDT) Thyroid Peroxidase Antibody <5 <=8 IU/mL 06/19/2024 11:11 AM EDT [facility] Blood Venous blood specimen / Unknown Venipuncture / Unknown 06/19/2024 8:24 AM EDT 06/19/2024 8:24 AM EDT Oneil Cobian APRN LAB BLOOD ORDERABLES Final Result Performing Organization Address [facility]/ZIP Co de Phone Number [facility] [address] [place] [address] * Lofton (YUE) Antibody, IgG (06/19/2024 8:24 AM EDT) Lofton (YUE) Antibody, IgG 2 0 - 40 AU/mL 06/20/2024 9:55 PM EDT [facility] ([place]) Serum 06/19/2024 8:24 AM EDT 06/19/2024 8:24 AM EDT Narrative NYAYAN Carter[place]) - 06/20/2024 9:55 PM EDT INTERPRETIVE INFORMATION: Lofton (YUE) Antibody, IgG 29 AU/mL or Less ............. Negative 30 - 40 AU/mL ................ Equivocal 41 AU/mL or Greater .......... Positive Lofton antibody is highly specific (greater than 90 percent) for systemic lupus erythematosus (SLE) but only occurs in 30-35 percent of SLE cases. The presence of antibodies to Lofton has variable associations with SLE clinical manifestations. Performed By: [facility] [address] [place] [id number] Certified Professional Controller: Corwin Higuera MD, PhD CLIA Number: [id number] Oneil Cobian APRN LAB REF LAB BLOOD AND FLUI D ORD Final Result [facility] [employer]) [address] [place] [address] * ENAII (06/19/2024 8:24 AM EDT) SSA-52 (RO52) (YUE) Antibody, IgG 1 0 - 40 AU/mL 06/20/2024 9:55 PM EDT [facility] ([employer]) SSA-60 (RO60) (YUE) Antibody, IgG 0 0 - 40 AU/mL 06/20/2024 9:55 PM EDT [facility] ([employer]) SSB (LA) (YUE) Antibody, IgG 0 0 - 40 AU/mL 06/20/2024 9:55 PM EDT [facility] ([employer]) Blood Venous blood specimen / Unknown Venipuncture / Unknown 06/19/2024 8:24 AM EDT 06/19/2024 8:24 AM EDT Narrative [facility] ([employer]) - 06/20/2024 9:55 PM EDT INTERPRETIVE INFORMATION: SSA-52 (Ro52) (YUE) Antibody, IgG 29 AU/mL or Less ............. Negative 30 - 40 AU/mL ................ Equivocal 41 AU/mL or Greater .......... Positive SSA-52 (Ro52) and/or SSA-60 (Ro60) antibodies are associated with a diagnosis of Sjogren syndrome, systemic lupus erythematosus (SLE), and systemic sclerosis. SSA-52 antibody overlaps significantly with the major SSc-related antibodies. SSA-52 (Ro52) antibody occurs frequently in patients with inflammatory myopathies, often in the presence of interstitial lung disease. REFERENCE INTERVAL: SSA-60 (Ro60) (YUE) Antibody, IgG 29 AU/mL or Less ............. Negative 30 - 40 AU/mL ................ Equivocal 41 AU/mL or Greater .......... Positive INTERPRETIVE INFORMATION: SSB (La) (YUE) Ab, IgG 29 AU/mL or Less ............. Negative 30 - 40 AU/mL ................ Equivocal 41 AU/mL or Greater .......... Positive SSB (La) antibody is seen in 50-60% of Sjogren syndrome cases and is specific if it is the only YUE antibody present. 15-25% of patients with systemic lupus erythematosus (SLE) and 5-10% of patients with progressive systemic sclerosis (PSS) also have this antibody. Performed By: [facility] [address] [place] [address] Certified Professional Controller: Corwin Higuera MD, PhD CLIA Number: [id number] Oneil Cobian SUPERVISOR CIGAR PROCESSING LAB BLOOD ORDERABLES Final Result [facility] ([employer]) [address] [place] [id number] * ENAI (06/19/2024 8:24 AM EDT) Lofton/[employer]ER [employer]ORY WORKER (YUE) Ab, IgG 4 0 - 19 Units 06/20/2024 11:55 PM EDT [facility] ([place]) Blood Venous blood specimen / Unknown Venipuncture / Unknown 06/19/2024 8:24 AM EDT 06/19/2024 8:24 AM EDT Narrative [facility] (PufettoDOROTHEA) - 06/20/2024 11:55 PM EDT INTERPRETIVE INFORMATION: Lofton/RUBBER FACTORY WORKER (YUE) Antibody, IgG 19 Units or Less ............. Negative 20 to 39 Units ............... Weak Positive 40 to 80 Units ............... Moderate Positive 81 Units or greater .......... Strong Positive Lofton/RUBBER FACTORY WORKER antibodies are frequently seen in patients with mixed connective tissue disease (MCTD) and are also associated with other systemic autoimmune rheumatic diseases (SARDs) such as systemic lupus erythematosus (SLE), systemic sclerosis, and myositis. Antibodies targeting the Lofton/RUBBER FACTORY WORKER antigenic complex also recognize Lofton antigens, therefore, the Lofton antibody response must be considered when interpreting these results. Performed By: [facility] [address] [place] [address] Certified Professional Controller: Corwin Higuera MD, PhD CLIA Number: [id number] Oneil Cobian SUPERVISOR CIGAR PROCESSING LAB BLOOD ORDERABLES Final Result [facility] ([place]) [address] [place] [address] * (ABNORMAL) C4 Complement (06/19/2024 8:24 AM EDT) C4 Complement 37(H) 13 - 36 mg/dL 06/19/2024 10:05 AM EDT [facility] Blood Venous blood specimen / Unknown Venipuncture / Unknown 06/19/2024 8:24 AM EDT 06/19/2024 8:24 AM EDT Oneil Cobian SUPERVISOR CIGAR PROCESSING LAB BLOOD ORDERABLES Final Result Performing Organization Address City/[facility]/ZIP Co de Phone Number [facility] [address] [place] [address] * (ABNORMAL) C3 Complement (06/19/2024 8:24 AM EDT) C3 Complement 186(H) 84 - 166 mg/dL 06/19/2024 10:05 AM EDT [facility] Blood Venous blood specimen / Unknown Venipuncture / Unknown 06/19/2024 8:24 AM EDT 06/19/2024 8:24 AM EDT Oneil Cobian SUPERVISOR CIGAR PROCESSING LAB BLOOD ORDERABLES Final Result [facility] [address] [place] [address] * Double-Stranded DNA (dsDNA) Antibody, IgG by IFA (06/19/2024 8:24 AM EDT) Double-Strande d DNA (dsDNA) Ab IgG IFA <1:10 <1:10 06/22/2024 9:45 PM EDT [facility] ([place]) Blood Venous blood specimen / Unknown Venipuncture / Unknown 06/19/2024 8:24 AM EDT 06/19/2024 8:24 AM EDT Narrative [facility] [employer]) - 06/22/2024 9:45 PM EDT INTERPRETIVE INFORMATION: Double-Stranded DNA (dsDNA) Antibody, IgG by IFA (using Crithidia luciliae) Positivity for anti-double stranded DNA (anti-dsDNA) IgG antibody is a diagnostic criterion of systemic lupus erythematosus (SLE). The presence of the anti-dsDNA IgG antibody is identified by IFA titer (Crithidia luciliae indirect fluorescent test [TERESITA]). TERESITA is highly specific for SLE with a sensitivity of 50-60 percent. Some patients with early or inactive SLE may be positive for anti-dsDNA IgG by JAVY but negative by TERESITA. If the TERESITA result is negative but the patient has a positive JAVY and clinical suspicion remains, consider antinuclear antibody (VELMA) testing by IFA. Additional information and recommendations for testing may be found at [email or web address]. Performed By: [facility] [address] [place] [id number] Certified Professional Controller: Corwin Higuera MD, PhD CLIA Number: [id number] Oneil Cobian SUPERVISOR CIGAR PROCESSING LAB BLOOD ORDERABLES Final Result [facility] [employer]) [address] [place] [address] * Antinuclear Antibody (VELMA), HEp-2, IgG (06/19/2024 8:24 AM EDT) VELMA INTERPRETIVE COMMENT See Note 06/22/2024 10:10 AM EDT [facility] ([employer]) Anti Nuc Ab Screen <1:80 <1:80 06/22/2024 10:10 AM EDT [facility] (MADINAAmprius) Blood Venous blood specimen / Unknown Venipuncture / Unknown 06/19/2024 8:24 AM EDT 06/19/2024 8:24 AM EDT Narrative [facility] ([place]) - 06/22/2024 10:10 AM EDT Antinuclear antibodies by IFA negative for homogeneous, speckled, nucleolar, centromere, and nuclear dots patterns. Cytoplasmic antibodies by IFA negative for reticular/AMA, discrete/GW body-like, polar/golgi-like, rods and rings, and cytoplasmic speckled patterns. INTERPRETIVE INFORMATION: VELMA Interpretive Comment Presence of antinuclear antibodies (VELMA) is a hallmark feature of systemic autoimmune rheumatic diseases (SARD). However, VELMA lacks diagnostic specificity and is associated with a variety of diseases (cancers, autoimmune, infectious, and inflammatory conditions) and may also occur in healthy individuals in varying prevalence. The lack of diagnostic specificity requires confirmation of positive VELMA by more specific serologic tests. VELMA (nuclear reactivity) positive patterns reported include centromere, homogeneous, nuclear dots, nucleolar, or speckled. VELMA (cytoplasmic reactivity) positive patterns reported include reticular/AMA, discrete/GW body-like, polar/golgi-like, cytoplasmic speckled or rods and rings. All positive patterns are reported to endpoint titers (1:2560). Reported patterns may help guide differential diagnosis, although they may not be specific for individual antibodies or diseases. Mitotic staining patterns not reported. Negative results do not necessarily rule out SARD. Performed By: [facility] [address] [place] [address] Certified Professional Controller: Corwin Higuera MD, PhD CLIA Number: [id number] Oneil Cobian APRN LAB BLOOD ORDERABLES Final Result [facility] ([employer]) [address] [place] [address] * (ABNORMAL) Hepatic Function Panel (06/19/2024 8:24 AM EDT) Conjugated Bilirubin, Plasma <0.2 <=0.3 mg/dL 06/19/2024 10:04 AM EDT [facility] Alkaline Phosphatase, Plasma 124(H) 35 - 104 U/L 06/19/2024 10:04 AM EDT [facility] Total Bilirubin, Plasma 0.2 0.2 - 1.1 mg/dL 06/19/2024 10:04 AM EDT [facility] Albumin, Plasma 4.5 3.5 - 5.2 g/dL 06/19/2024 10:04 AM EDT [facility] Total Protein 7.4 6.3 - 7.9 g/dL 06/19/2024 10:04 AM EDT [facility] ALT, Plasma 18 10 - 35 U/L 06/19/2024 10:04 AM EDT [facility] AST, Plasma 20 10 - 35 U/L 06/19/2024 10:04 AM EDT [facility] Blood Venous blood specimen / Unknown Venipuncture / Unknown 06/19/2024 8:24 AM EDT 06/19/2024 8:24 AM EDT Oneil Cobian APRN LAB BLOOD ORDERABLES Final Result Performing Organization Address [facility] Co de Phone Number [facility] [address] [place] [address] * Creatinine, Plasma (06/19/2024 8:24 AM EDT) Creatinine, Plasma 0.80 0.60 - 1.10 mg/dL 06/19/2024 10:04 AM EDT [facility] eGFRcr 104.4 mL/min/1.7 3m*2 06/19/2024 10:04 AM EDT [facility] Comment:Reported eGFRcr in m L/min/1.73m2 is based the CKD-EPI 2020 equation that does not use a race coefficient. Blood Venous blood specimen / Unknown Venipuncture / Unknown 06/19/2024 8:24 AM EDT 06/19/2024 8:24 AM EDT Oneil Cobian APRN LAB BLOOD ORDERABLES Final Result Performing Organization Address City/[facility]/ZIP Co de Phone Number [facility] [address] [place] [address] * (ABNORMAL) CBC and Differential (06/19/2024 8:24 AM EDT) WBC Count 12.21(H) 3.70 - 10.30 10*3/uL LAB HEMATOLOGY METHOD 06/19/2024 10:01 AM EDT [facility] RBC Count 4.86 3.90 - 5.20 10*6/uL LAB HEMATOLOGY METHOD 06/19/2024 10:01 AM EDT [facility] HGB 14.4 11.2 - 15.7 g/dL LAB HEMATOLOGY METHOD 06/19/2024 10:01 AM EDT [facility] HCT 43.9 34.0 - 45.0 % LAB HEMATOLOGY METHOD 06/19/2024 10:01 AM EDT [facility] Platelet Count 535(H) 155 - 369 10*3/uL LAB HEMATOLOGY METHOD 06/19/2024 10:01 AM EDT [facility] MCV 90 79 - 98 fL LAB HEMATOLOGY METHOD 06/19/2024 10:01 AM EDT [facility] MCH 29.6 26.0 - 32.0 pg LAB HEMATOLOGY METHOD 06/19/2024 10:01 AM EDT [facility] MCHC 32.8 30.7 - 35.5 g/dL LAB HEMATOLOGY METHOD 06/19/2024 10:01 AM EDT [facility] RDW 13.3 11.5 - 14.5 % LAB HEMATOLOGY METHOD 06/19/2024 10:01 AM EDT [facility] MPV 9.7 8.8 - 12.5 fL LAB HEMATOLOGY METHOD 06/19/2024 10:01 AM EDT [facility] nRBC 0.0 <=0.0 per 100 WBCs LAB HEMATOLOGY METHOD 06/19/2024 10:01 AM EDT [facility] Differential Type Automated LAB HEMATOLOGY METHOD 06/19/2024 10:01 AM EDT [facility] Neutrophils % 59 % LAB HEMATOLOGY METHOD 06/19/2024 10:01 AM EDT [facility] Lymphocytes % 30 % LAB HEMATOLOGY METHOD 06/19/2024 10:01 AM EDT [facility] Monocytes % 8 % LAB HEMATOLOGY METHOD 06/19/2024 10:01 AM EDT [facility] Eosinophils % 1 % LAB HEMATOLOGY METHOD 06/19/2024 10:01 AM EDT [facility] Basophils % 1 % LAB HEMATOLOGY METHOD 06/19/2024 10:01 AM EDT [facility] Immature Granulocytes % 1 % LAB HEMATOLOGY METHOD 06/19/2024 10:01 AM EDT [facility] Neutrophils Absolute 7.28(H) 1.60 - 6.10 10*3/uL LAB HEMATOLOGY METHOD 06/19/2024 10:01 AM EDT [facility] Lymphocytes Absolute 3.66 1.20 - 3.90 10*3/uL LAB HEMATOLOGY METHOD 06/19/2024 10:01 AM EDT [facility] Monocytes Absolute 0.98(H) 0.30 - 0.90 10*3/uL LAB HEMATOLOGY METHOD 06/19/2024 10:01 AM EDT [facility] Eosinophils Absolute 0.13 0.00 - 0.50 10*3/uL LAB HEMATOLOGY METHOD 06/19/2024 10:01 AM EDT [facility] Basophils Absolute 0.08 0.00 - 0.10 10*3/uL LAB HEMATOLOGY METHOD 06/19/2024 10:01 AM EDT [facility] Immature Granulocytes Absolute 0.08(H) 0.00 - 0.06 10*3/uL LAB HEMATOLOGY METHOD 06/19/2024 10:01 AM EDT [facility] Blood Venous blood specimen / Unknown Venipuncture / Unknown 06/19/2024 8:24 AM EDT 06/19/2024 8:24 AM EDT Narrative [facility] - 06/19/2024 10:01 AM EDT Therapeutic decision making should be based on absolute values, rather than percentages. Oneil Cobian APRN LAB BLOOD ORDERABLES Final Result Performing Organization Address City/State/[facility] Co de Phone Number [facility] [address] [place] [address] documented in this encounter Visit Diagnoses Diagnosis Positive VELMA (antinuclear antibody)- Primary Other and unspecified nonspecific immunological findings Abnormal immunological finding in serum Other nonspecific findings on examination of blood CRP elevated Elevated C-reactive protein (CRP) Polyarthralgia Pain in joint, multiple sites Fatigue, unspecified type Sicca syndrome (CMS/HCC) Sicca syndrome Cervical spine pain Abnormal immunological finding in serum Other nonspecific findings on examination of blood CRP elevated Elevated C-reactive protein (CRP) Polyarthralgia Pain in joint, multiple sites Fatigue, unspecified type Sicca syndrome (CMS/HCC) Sicca syndrome Positive VELMA (antinuclear antibody) Other and unspecified nonspecific immunological findings documented in this encounter Additional Health Concerns Assessment Noted Time PHQ-9 Depression Total Score: 025 7:36 AM EDT A fall risk assessment has been complete d for the patient 06/19/2024 7:36 AM EDT A Body Mass Index follow-up plan has been documented for the patient 06/19/2024 8:12 AM EDT documented as of this encounter Care Teams Incubator Machine Operator Relationship Specialty Start Date End Date Ivonne Metcalf PA [address] [place] [address] PCP - General 12/21/22 documented as of this encounter
--- OUTSIDE RECORDS SUMMARY | 2024-06-19 08:28 | XMS_ITS | Encounter Summary ---
Author Organization Healthcare Address [address] [place] [address] Care Team Providers Care Regional Sales Consultant Name Role Phone Ivonne Metcalf Primary Care Provider [phone] Encounter Details Date Type Department Care Team (Latest Contact Info) Description 06/19/2024 8:28 AM EDT - 06/19/2024 11:59 PM EDT Hospital Encounter [place] [facility] [address], [address] [place] [address] Abnormal immunological finding in serum; CRP elevated; [...] MD on 06/19/2024 8:50 AM Abida Cobian PITTING MACHINE OPERATOR IMG XR PROCEDURES Final Re sult documented [...] documented as of this encounter Care Teams Regional Sales Consultant Relationship Specialty Start Date End Date Ivonne Metcalf PA [address] [place] [address] PCP - General 12/21/22 documented as of this encounter
--- OUTSIDE RECORDS SUMMARY | 2024-07-05 09:45 | XMS_ITS | Encounter Summary ---
Author Organization Healthcare Address [address] [place] [address] Care Team Providers Care Justice Professor Name Role Phone Ivonne Metcalf Primary Care Provider [phone] Encounter Details Date Type Department Care Team (Late st Contact Info) Description 07/05/2024 9:45 AM EDT Office Visit [facility] Plastic & Reconstructive Surgery [address] [place] [id number] Luis M Johnson MD [address] [place] [address] Masses of both breasts (Primary Dx) Social History Tobacco Use Types Packs/Day Years Used Date Smoking Tobacco: Never Smokeless Tobacco: Never Tobacco Cessation:Counseling Given: Not Answered Alcohol Use Standard Drinks/Week Comments Never 0 [...] Sign Reading Time Taken Comments Blood Pressure 120/85 07/05/2024 9:39 AM EDT Pulse 104 07/05/2024 9:39 AM EDT Temperature - - Respiratory Rate - - Oxygen Saturation 96% 07/05/2024 9:39 AM EDT Inhaled Oxygen Concentration - - Weight - - Height - - Body Mass Index - - documented in this encounter Miscellaneous Notes * Progress Notes - Ines Sanchez MD - 07/05/2024 9:45 AM EDT Images from the original note were not included. Subjective Patient ID: Cally Garcia is a 28 y.o. female who presents to clinic today for palpable mass onright breast. Patient received bilateral breast reduction, inferior pedicle Dickey pattern, with Dr. Johnson on 11/09/23 (>2000g from each breast). Her post operative course was complicated by right lateral breast incision dehiscence but otherwise she healed well. Shortly after her breast reduction she noticed a firm, palpable mass between 1- 2 o'clock 2-3 cm from the nipple. Patient underwent biopsy of the mass and results were consistent with fat necrosis. She did not get the US or MRI of the breasts. She reports no change in size since the last visit. Review of Systems All other systems reviewed and are negative. Objective Visit Vitals BP 120/85 Pulse 104 SpO2 96% Physical Exam Constitutional: Appearance: Normal appearance. She is well-developed and normal weight. HENT: Head: Normocephalic and atraumatic. Right Ear: External ear normal. Left Ear: External ear normal. Nose: Nose normal. Mouth/Throat: Lips: [place]. Mouth: Mucous membranes are moist. Pharynx: Oropharynx is clear. Eyes: Conjunctiva/sclera: Conjunctivae normal. Pupils: Pupils are equal, round, and reactive to light. Neck: Vascular: No JVD. Cardiovascular: Rate and Rhythm: Normal rate and regular rhythm. Pulmonary: Effort: Pulmonary effort is normal. Breath sounds: Normal breath sounds. Chest: Breasts: Right: Skin change and tenderness present. Left: No mass. Comments: Right breast with large firm palpable mass, approximately [id number] between 1-2 o'clock, approximately 2-3cm from nipple Left breast with smaller, firm palpable mass of inferior breast Abdominal: General: Bowel sounds are normal. There is no distension. Palpations: Abdomen is soft. Tenderness: There is no abdominal tenderness. There is no guarding. Musculoskeletal: General: Normal range of motion. Cervical back: Neck supple. Right lower leg: No edema. Left lower leg: No edema. Skin: General: Skin is warm and dry. Coloration: Skin is not pale. Neurological: General: No focal deficit present. Mental Status: She is alert and oriented to person, place, and time. Media Information Document Information Photographic Image: Patient Image 04/12/2024 10:56 Attached To: Office Visit on 04/12/24 with Luis M Johnson MD Source Information Shawna Whitehead, SAMPLE COLLECTOR, DNP [facility] Document History Assessment/Plan There are no diagnoses linked to this encounter. Cally Garcia is a 28 y.o. female who presents to clinic today for palpable mass on right breast. Patient received bilateral breast reduction, inferior pedicle Dickey pattern, with Dr. Johnson on 11/09/23 (>2000g from each breast). Patient presents for follow up of large palpable mass of right breast and small palpable mass of left breast. Patient states these occurred approximately 1-2 months after reduction. No imaging completed but biopsy consistent with fat necrosis. Discussed options for surgical excision vs observation.Given benign nature of mass, patient reassured and elected to observe for now. She will return to clinic as needed. Patient agreeable to plan of care. All questions answered. Ines Sanchez MD Cosigned by Luis M Johnson MD at 07/05/2024 11:07 AM EDT Associated attestation - Luis M Johnson MD - 07/05/2024 11:07 AM EDT I saw and evaluated the patient with the resident/fellow. I discussed the case with the resident/fellow and agree with the findings and plan as documented. documented in this encounter Plan of Treatment Not on file documented as of this encounter Visit Diagnoses Diagnosis Masses of both breasts- Primary documented in this encounter Additional Health Concerns Assessment Noted Time PHQ-9 Depression Total Score: 025 7:36 AM EDT A fall risk assessment has been complete d for the patient 06/19/2024 7:36 AM EDT A Body Mass Index follow-up plan has been documented for the patient 07/05/2024 11:30 AM EDT documented as of this encounter Care Teams Justice Professor Relationship Specialty Start Date End Date Ivonne Metcalf PA [address] [place] [address] PCP - General 12/21/22 documented as of this encounter
[2024-08-04] VITALS (9 sets, daily range): BP systolic 107–133; BP diastolic 69–87; PULSE 78–102; RESP 13–24; TEMP 36.8–37.2; O2SAT 92–96; BMI 49.4
--- NOTE | 2024-08-04 | XR_ITS ---
PROCEDURE INFORMATION: Exam: XR Chest Exam date and time: 08/04/2024 1:26 AM Age: 28 years old Clinical indication: Pain; Other: Cp TECHNIQUE: Imaging protocol: Radiologic exam of the chest. Views: 2 views. COMPARISON: CR XR CHEST PORTABLE 12/23/2022 6:13 AM FINDINGS: Lungs: Unremarkable. No consolidation. Pleural spaces: Unremarkable. No pleural effusion. No pneumothorax. Heart/Mediastinum: Unremarkable. No cardiomegaly. Bones/joints: Unremarkable. IMPRESSION: No acute findings.
--- NOTE | 2024-08-04 | ECG_ITS ---
APPROVED REPORT Exam: Resting ECG HR:102 bpm ECG Measurements Heart Rate 102 AXES WV 152 P 47 QRSd 80 QRS 12 QT 333 T -4 QTc 392 Conclusion SINUS TACHYCARDIA MINIMAL VOLTAGE CRITERIA FOR LVH, CONSIDER NORMAL VARIANT [MEETS CRITERIA IN ONE OF: R(aVL), S(V1), R(V5), R(V5/V6)+S(V1)] ABNORMAL RHYTHM ECG Electronically signed by : JESUS GAGE, 08/04/2024 07:12:22
[2024-08-04] MEDS: ASPIRIN 81MG CHEWABLE TABLET 324 MG PO (00:05)
[2024-08-04 00:12] LABS: Basophils # 0.1 K/mm3 (0-0.2); Basophils % 0.3 % (0.1-2.0); Eosinophils # 0.1 Kmm3 (0.0-0.4); Eosinophils % 0.3 % (0.1-12.0); Hematocrit 41.9 % (37.0-47.0); Hemoglobin 13.9 g/dL (12.2-16.2); Immature Granulocytes # 0.07 10^3uL; Immature Granulocytes % 0.4 %; Lymphocytes # 1.7 K/mm3 (0.7-4.5); Lymphocytes % 9.5 % (10-50); Mean Corpuscular HGB Conc 33.2 g/dL (31.8-35.4); Mean Corpuscular Hemoglobin 29.6 pg (27.0-31.2); Mean Corpuscular Volume 89.1 fl (81-99); Mean Platelet Volume 9.7 fl (7.4-10.4); Monocytes # 0.8 K/mm3 (0.1-1.0); Monocytes % 4.4 % (1.7-9.3); Neutrophils # 15.2 K/mm3 (1.8-7.8); Neutrophils % 85.1 % (37.0-80.0); Nucleated Red Blood Cells # 0 10^3/uL; Nucleated Red Blood Cells % 0 %; Platelet Count 398 K/mm3 (142-424); Red Cell Distribution Width 12.1 % (11.5-17.5); Red Cell Distribution Width-SD 39.4 fL; White Blood Count 17.9 K/mm3 (4.8-10.8)
[2024-08-04 00:17] LABS: HCG Qualitative, Serum Negative (Negative)
--- NOTE | 2024-08-04 00:23 | CT_ITS ---
PROCEDURE INFORMATION: Exam: CT Abdomen And Pelvis With Contrast Exam date and time: 08/04/2024 1:43 AM Age: 28 years old Clinical indication: Abdominal pain; Additional info: Ruq pain radiating into chest TECHNIQUE: Imaging protocol: Computed tomography of the abdomen and pelvis with contrast. 3D rendering (Not supervised by radiologist): MIP and/or 3D reconstructed images were created by the technologist. Radiation optimization: All CT scans at this facility use at least one of these dose optimization techniques: automated exposure control; mA and/or kV adjustment per patient size (includes targeted exams where dose is matched to clinical indication); or iterative reconstruction. Contrast material: ISOVUE; Contrast volume: 75 ml; Contrast route: IV; COMPARISON: CT ABDOMEN PELVIS W CON 11/25/2019 6:08 AM FINDINGS: Lungs: Right lower lobar benign calcified pulmonary nodule. Liver: Normal. No mass. Gallbladder and biliary ducts: Normal. No calcified stones. No ductal dilation. Pancreas: Normal. No ductal dilation. Spleen: Normal. No splenomegaly. Adrenal glands: Normal. No mass. Kidneys and ureters: Normal. No hydronephrosis. Stomach and bowel: Unremarkable. No obstruction. No mucosal thickening. Appendix: No evidence of appendicitis. Intraperitoneal space: Unremarkable. No free air. No significant fluid collection. Vasculature: Unremarkable. No abdominal aortic aneurysm. Lymph nodes: Unremarkable. No enlarged lymph nodes. Urinary bladder: Unremarkable as visualized. Reproductive: Unremarkable as visualized. Bones/joints: Unremarkable. No acute fracture. Soft tissues: Unremarkable. IMPRESSION: No acute findings.
--- NOTE | 2024-08-04 00:23 | CT_ITS ---
PROCEDURE INFORMATION: Exam: CTA Chest With Contrast Exam date and time: 08/04/2024 1:43 AM Age: 28 years old Clinical indication: Pain; Right-sided; Additional info: Central and R side cp worse with deep breath TECHNIQUE: Imaging protocol: Computed tomographic angiography of the chest with contrast. Exam focused on the arteries. 3D rendering (Not supervised by radiologist): MIP and/or 3D reconstructed images were created by the technologist. Radiation optimization: All CT scans at this facility use at least one of these dose optimization techniques: automated exposure control; mA and/or kV adjustment per patient size (includes targeted exams where dose is matched to clinical indication); or iterative reconstruction. Contrast material: ISOVUE; Contrast volume: 70 ml; Contrast route: INTRAVENOUS (IV); COMPARISON: CR XR CHEST 2V 08/04/2024 1:26 AM FINDINGS: Pulmonary arteries: No central or segmental pulmonary arterial embolism identified. Aorta: Unremarkable. No aortic aneurysm. No aortic dissection. Lungs: Right lower lobar benign calcified nodule. No consolidation. No masses. Pleural spaces: Unremarkable. No pneumothorax. No pleural effusion. Heart: Unremarkable. No cardiomegaly. No pericardial effusion. Lymph nodes: Calcified right hilar lymph nodes. No enlarged lymph nodes. Bones/joints: Unremarkable. No acute fracture. Soft tissues: Unremarkable. IMPRESSION: No acute findings.
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
[2024-08-04 00:31] LABS: Anion Gap 8.5 mEq/L (5-15); Bilirubin,Total 0.7 mg/dl (0.2-1.3); Blood Urea Nitrogen 8 mg/dl (7-17); Calcium 9.1 mg/dl (8.4-10.2); Carbon Dioxide 28 mmol/L (22.0-30.0); Chloride 103 mmol/L (98-107); Estimated Glomerular Filt Rate 101 ml/min (>60); GFR (African American) 122 ML/MIN (>60); Glucose 125 mg/dl (74-100); Potassium 4.5 mmoL/L (3.5-5.1); Sodium 135 mmol/L (136-145); Troponin I < 0.01 ng/ml (0.00-0.034)
[2024-08-04 00:32] LABS: Alanine Aminotransferase 20 U/L (12-78); Albumin Level 4.4 g/dl (3.5-5.0); Albumin/Globulin Ratio 1.5 (1.1-1.8); Alkaline Phosphatase 105 U/L (38-126); Aspartate Amino Transferase 30 U/L (14-36); Globulin 2.9 g/dL (1.3-3.2); Total Protein,Serum 7.3 g/dl (6.3-8.2)
[2024-08-04 00:33] LABS: D-Dimer 0.48 ug/mL (0.0-0.5)
[2024-08-04] MEDS: BELLADONNA ALKALOIDS 60 ML ML PO (00:47)
--- OUTSIDE RECORDS SUMMARY | 2024-08-04 00:49 | XMS_ITS | Continuity of Care Document ---
Author Organization [place] - [employer] [facility] Address [address] [place] [address] Assessment No assessment recorded. Plan of Treatment Reminders Order Date Submit Date Provider Last Modified By Organization Details Last Modified Time Details Appointments FOLLOW UP 30 2024 03:00P Stephen Metcalf PA-C Not available Not available Not available Lab None recorded . Referral psychiat rist referral - Patient requests Elisha Covington MD - must be MD/DO [facility], [address], [address], [place], [address], 08/02/2024 21:08:02 Procedures polysomn ography, diagnost ic (PROC) [address] (Scheduling), [address], [place], [address], 08/01/2024 13:51:08 Surgeries None recorded . Imaging PFT, complete [address] (Scheduling), [address], [place], [address], 08/01/2024 13:46:15 Medication Orders None recorded . Patient TargetsNo targets recorded. 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 10:17:13 Mass of right breast 6725975518902 9106 Active 2024 ANA ROSA Walden [address] [place] [address], [address] 8, [employer] 5 16:37:20 Allergic rhinitis 30482286 Active 2024 ANA ROSA Walden [address] [place] [address], [address] 8, [employer] 5 10:17:08 Vitamin D deficiency 32558857 Active 2024 ANA ROSA Walden [address] [place] [address], [address] 8, [employer] 5 10:18:00 Obstructive sleep apnea syndrome 51086065 Active 2024 ANA ROSA Walden [address] [place] [address], [address] 8, [employer] 13:25:34 Dyspnea 367475269 Active 2024 ANA ROSA Walden [address] [place] [address], [address] 8, [employer] 13:32:23 Mood disorder 66341844 Active 2024 ANA ROSA Walden [address] [place] [address], [address] 8, [place] [employer] 13:33:10 Problem Notes None recorded. Procedures Surgical History Date Name Laterality Status Provider Name and Address Organization Details Recorded Time Breast reduction completed Keiko [employer] 04/16/2024 16:12:03 Imaging Results None recorded. Procedure Notes None recorded. Medical Equipment None Reported. Allergies No known drug allergies Medications Name Sig Start Date Stop Date Status Note LastModified by Organization Details LastModified Time methocarbam ol 500 mg tablet 04/16 completed Not Available Not Available Not Available clotrimazol e 10 mg stephanie DISSOLVE 1 STEPHANIE IN MOUTH ON AFFECTED MUCOSAL AREA 3 TIMES A DAY FOR 10 DAYS 04/16 completed Not Available Not Available Not Available atorvastati n 10 mg tablet TAKE 1 TABLET BY MOUTH DAILY active Not Available Not Available No t Available ibuprofen 800 mg tablet TAKE 1 TABLET BY MOUTH EVERY 6 HOURS NEEDED FOR POST OP PAIN 04/16 completed Not Available Not Available Not Available nystatin 100,000 unit/gram topical ointment APPLY TOPICALLY TO THE AFFECTED AREA THREE TIMES DAILY 04/16 completed Not Available Not Available Not Available valacyclovi r 1 gram tablet TAKE 1 TABLET BY MOUTH EVERY DAY DIRECTED active Not Available Not Available No t Available meloxicam 15 mg tablet TAKE 1 TABLET BY MOUTH DAILY 08/01 completed Not Available Not Available Not Available sertraline 100 mg tablet TAKE 1 TABLET BY MOUTH DAILY active Not Available Not Available No t Available sulfamethox azole 800 mg-trimetho prim 160 mg tablet TAKE 1 TABLET BY MOUTH TWICE DAILY FOR 7 DAYS 04/16 completed Not Available Not Available Not Available terbinafine HCl 250 mg tablet TAKE 1 TABLET BY MOUTH DAILY 04/16 completed Not Available Not Available Not Available hydrocortis one 1 % topical cream APPLY 1 APPLICATI ON TOPICALLY THREE TIMES DAILY NEEDED FOR IRRITATIO N 04/16 completed Not Available Not Available Not Available cephalexin 500 mg capsule 04/16 completed Not Available Not Available Not Available gabapentin 100 mg capsule 04/16 completed Not Available Not Available Not Available ergocalcife rol (vitamin D2) 1,250 mcg (50,000 unit) capsule TAKE 1 CAPSULE BY MOUTH ONCE WEEKLY active Not Available Not Available No t Available azelastine 137 mcg (0.1 %) nasal spray USE 2 SPRAYS IN EACH NOSTRIL TWICE DAILY active Not Available Not Available No t Available polyethylen e glycol 3350 17 gram/dose oral powder MIX AND DRINK 17GRAMS WITH WATER ONCE DAILY 04/16 completed Not Available Not Available Not Available ondansetron 4 mg disintegrat ing tablet 04/16 completed Not Available Not Available Not Available oxycodone 5 mg tablet 04/16 completed Not Available Not Available Not Available atomoxetine 40 mg capsule TAKE 1 CAPSULE BY MOUTH DAILY active Not Available Not Available No t Available levocetiriz ine 5 mg tablet TAKE 1 TABLET BY MOUTH DAILY active Not Available Not Available No t Available diclofenac 1 % topical gel active Not Available Not Available Not Available Vitamin D3 50 mcg (2,000 unit) tablet TAKE 1 TABLET BY MOUTH ONCE DAILY active Not Available Not Available No t Available baclofen 5 mg tablet TAKE 1 TABLET BY MOUTH THREE TIMES DAILY 04/16 completed Not Available Not Available Not Available Caplyta 42 mg capsule TAKE 1 CAPSULE BY MOUTH DAILY active Not Available Not Available No t Available Lybalvi 5 mg-10 mg tablet TAKE 1 TABLET BY MOUTH EVERY DAY AT BEDTIME active Not Available Not Available No t Available Vitals Date Recorded Body height Body mass index (BMI) Body weight Oxygen saturation Oxygen saturation in Arterial blood by Pulse oximetry Heart rate Body temperature Systolic blood pressure Diastolic blood pressure Provider Name and Address Organization Details Last Updated DateTime 157.48 cm 48.1 kg/m2 018190. 79 g 96 % 96 % 94 /min 97.9 [degF] 100 mm[Hg] 78 mm[Hg] [facility]iko [facility] [employer] 13:12:48 Social History Question Answer Notes LastModified by Organizat ion Details LastModified Time Tobacco Smoking Status Never Smoker Keiko Dc [facility] [employer] 04/16/2024 16:08:12 Do You Have An Advance Directive? No Information n ot available 04/16/2024 Is Your Home Air Conditioned? Yes Information not available 04/16/2024 If You Are , What Was Your Level Of Alcohol Consumption Prior To ? None Information not available 04/16/2024 Do You Wear A Helmet When Biking? No Information not available 04/16/2024 Are You Blind Or Do You Have Difficulty Seeing? Yes Information n ot available 04/16/2024 What Is Your Level Of Caffeine Consumption? Moderate Information not available 04/16/2024 What Type Of Inspector Materials And Processes Do You Use? None Information not available 04/16/2024 Have You Been To An Area Known To Be High Risk For COVID-19? No Information not available 04/16/2024 Are You Deaf Or Do You Have Serious Difficulty Hearing? Yes Information not available 04/16/2024 What Type Of Diet Are You Following? REGULAR Information n ot available 04/16/2024 How Many Days Of Moderate To Strenuous Exercise, Like A Brisk Walk, Did You Do In The Last 7 Days? 2 Information not available 04/16/2024 Have There Been Any Changes To Your Family Or Social Situation? No Information no t available 04/16/2024 Are There Any Guns Present In Your Home? No Information not available 04/16/2024 Which Of Your Hands Is Dominant? Right Information n ot available 04/16/2024 What Is Your Home Situation? Both Parents Information not available 04/16/2024 Do You Have A Medical Power Of Direct Mail Clerk? No Information not available 04/16/2024 What Was The Date Of Your Most Recent Tobacco Screening? 08/01/2024 Information not available 08/01/2024 Do You Have Any Pets? Yes Information not available 04/16/2024 What Is Your Relationship Status? Single Information not available 04/16/2024 Have You Repeated Any Grades? Yes Information not available 04/16/2024 Do You Use Your Seat Belt Or Car Seat Routinely? Yes Information not available 04/16/2024 Are You Sexually Active? No Information not available 04/16/2024 Do You Have Any Siblings? 3 Information not available 04/16/2024 Do You Have Smoke And Carbon Monoxide Detectors In Your Home? Yes Information not available 04/16/2024 Are You Passively Exposed To Smoke? No Information no t available 04/16/2024 Are There Any Smokers In Your House? No Information not available 04/16/2024 Do You Participate In Social Media? Yes Information not available 04/16/2024 Do You Use Sunscreen Routinely? No Information not available 04/16/2024 Has Tobacco Cessation Counseling Been Provided? No Information not available 04/16/2024 Have You Recently Traveled Abroad? No Information not available 04/16/2024 Do You Have Difficulty Walking Or Climbing Stairs? Yes Information not available 04/16/2024 Are You Currently In School? No Information not available 04/16/2024 What Contraceptive Method Was Reported At Start Of This Visit? None Information not available 04/16/2024 Do You Have Any Dietary Restrictions? No Information not available 04/16/2024 Sex: Unknown Functional Status Question Answer Note LastModified by Organizat ion Details LastModified Time Do you use any illicit or recreational drugs? No Information not available 04/16/2024 Do you or have you ever used any other forms of tobacco or nicotine? No Information not available 04/16/2024 What is your level of alcohol consumption? None Information not available 04/16/2024 Are you currently employed? No Information not available 04/16/2024 Do you have transportation difficulties? No Information not available 04/16/2024 Are you able to walk? YESWOREST Information not available 04/16/2024 Do you have difficulty doing errands alone? Yes Information not available 04/16/2024 Are you able to care for yourself? Yes Information not available 04/16/2024 Do you have difficulty dressing or bathing? No Information not available 04/16/2024 What is your exercise level? Moderate Information not available 04/16/2024 Mental Status Question Answer Note LastModified by Organizat ion Details LastModified Time Do you feel stressed (tense, restless, nervous, or anxious, or unable to sleep at night)? [id number] Information not available 04/16/2024 Do you have difficulty concentrating, remembering or making decisions? Yes Information no t available 04/16/2024 Are you or have you been involved with bullying? No Information not available 04/16/2024 Family History Relationship Description Onset Age of this Age Resolved Age Notes LastModified by Organization Details LastModified Time Father No current problems or disability Not available 04/16 16:11:13 Mother No current problems or disability Not available 04/16 16:11:13 Medical History Condition Response Coronary Artery Disease N Other N Gout N Kidney Stones N Blood Diseases N Hyperthyroidism N Breast Cancer N Blood Transfusion N Emergency room visit since last appointm ent. N Hypothyroidism N Lung Disease N Dermatologic Disorders N Depression Y COPD N Developmental or Behavioral Disorders N Defects or Inherited Disease N Breast Problem N Difficulty Swallowing N Anesthesia Complications N History of STI N Anxiety Disorder Y Meniere's disease N Autoimmune disease N Muscle, Joint, or Bone Problems N Vision or Eye Problems N Arthritis N Infertility N Polyps N Mental Disorder N Congenital Anomalies N Acid Reflux (GERD) N Cancer N Stroke N Neurologic/Epilepsy N Endometriosis N Bladder or Kidney Problems N High Cholesterol Y Liver Disease N Organ Transplant N Psychiatric/Mental Health Condition N Fibromyalgia N Headaches N Schizophrenia N Dialysis N Kidney Disease N Allergies/Hayfever N Heart Problems N Ear or Hearing Problems N Hospitalizations N Learning Disorder N Artificial Joints N Thyroid Problems N GI Problems N Acne N ADD/ADHD N Eating Disorder N Anemia N Constipation N Mental Illness N Ovarian Cancer N Diabetes N Bedwetting N Hepatitis/Liver Disease N Tuberculosis N Eczema N Diverticulitis N Abuse/Domestic Violence N Asthma N Trauma/Violence N Substance Abuse N Reflux/GERD N Depression/ depression N Hepatitis N Heart Disease N Pulmonary Embolism N Tourette Syndrome N Pre-Eclampsia N Hypertension N Chronic Ear Infections N Osteoporosis N Chicken Pox N Autism Spectrum Disorder (ASD) N Thrombophilias N Gynecological History Statement/Question Response Abnormal Pap N Flow Heavy Date of LMP 06/17/2024 Sexually Active? N Menses Monthly Y HPV Vaccine N Date of Last Pap Smear Duration of Flow (days) 4 Most Recent Mammogram Current Control Method None LMP Approximate Obstetrics History GPAL:G 0 P 0 0 0 0 Immunizations Vaccine Type Date Status Note Provider Margarito suárez and Address Organization Details Recorded Time Tdap 5 completed ANA ROSA Walden [address] [place], [address], [employer] 04/18/2024 14:14:37 IPV 3 completed Keiko Vice null, [employer] 04/16/2024 16:08:21 MMR 3 completed Keiko Vice null, [employer] 04/16/2024 16:08:21 COVID-19, mRNA, LNP-S, PF, 30 mcg/0.3 mL dose 1 completed Keiko Vice null, [employer] 04/16/2024 16:08:21 COVID-19, mRNA, LNP-S, PF, 30 mcg/0.3 mL dose 1 completed Keiko Vice null, [employer] [facility] 04/16/2024 16:08:21 Tdap 0 completed Keiko Vice null, [employer] 04/16/2024 16:08:21 Novel Xodinpsex-[id number], all formulations 9 completed Keiko Vice null, [employer] 04/16/2024 16:08:21 Influenza, split virus, trivalent, preservative 1 completed Keiko Vice null, [employer] 04/16/2024 16:08:21 Influenza, split virus, trivalent, preservative 0 completed Keiko Vice null, [employer] [facility] 04/16/2024 16:08:21 HPV, quadrivalent 3 completed Keiko Vice null, [employer] [facility] 04/16/2024 16:08:21 HPV, quadrivalent 3 completed Keiko Vice null, [employer] [facility] 04/16/2024 16:08:22 HPV, quadrivalent 3 completed Keiko Vice null, [employer] [facility] 04/16/2024 16:08:22 Hep B, adolescent or pediatric 3 completed Keiko Vice null, [employer] 04/16/2024 16:08:22 DTaP, unspecified formulation 3 completed Keiko Vice colleen, [employer] 04/16/2024 16:08:22 Past Encounters Encounter ID Performer Location Encounter Start Date Encounter Closed Date Diagnosis/Indication Diagnosis SNOMED-CT Code Diagnosis ICD10 Code Diagnosis Note [id number] ANA ROSA Walden [facility] [address] [place] [address] 08/01/2024 12:44:38 08/01/2024 13:36:02 Obstructive sleep apnea syndrome 11879558 G47.33 Dyspnea 244937576 R06.02 Mood disorder 13839917 F 39 Health Concerns Section Related Observation LastModified by Organization Detai ls LastModified Time None Recorded Concern Status LastModified by Organization Details LastModified Time None Recorded Payers Encounter Date Sequence Insurance Name Policy Number Policy Lombardo Covered Member ID Lombardo Member ID Guarantor Name 08/01/[address] [facility] (MEDICAID HMO) [facility] [id number] [facility] Notes Date Note Type Note Provider Name and Address Organization Details Recorded Time 08/01/2024 text/html Patient presents for a referral to behavioral health. 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 Wonders if she has asthma.Complains of memory loss, fatigue. Diagnosed with HENRIK years ago but never got a Cpap machine. Aunt was diagnosed with a brain disease while in [place] - unclear of exact diagnosis - and wonders if she has that. ANA ROSA Walden [address] [place] [address], [address], [facility] [employer] 08/02/2024 14:47:58 OBGyn Episode No OBEpisode recorded.
--- OUTSIDE RECORDS SUMMARY | 2024-08-04 00:50 | XMS_ITS | Data Portability ---
Author Organization [employer] Address [address] [place] [address] Assessment No assessment recorded. Plan of Treatment Reminders Order Date Submit Date Provider Last Modified By Organization Details Last Modified Time Details Appointments FOLLOW UP 30 2024 03:00P Stephen Metcalf PA-C Not available Not available Not available Lab rf (rheumat oid factor), serum 2024 025 [facility]), [address] [place], [address], 04/18/2024 17:07:51 C reactive protein, QN, serum or plasma 2024 025 [facility]), [address] [place] [address], [address], 04/18/2024 17:07:53 ESR (erythro cyte sediment ation rate), blood 2024 025 [facility]), [address] [place], [address], 04/18/2024 17:07:53 VELMA (antinuc lear antibodi es) screen, serum 2024 025 [facility]), [address] [place], [address], 04/18/2024 17:07:52 ccp (cyclic citrulli nated peptide) iga+igg, serum 2024 025 [facility]), [address] [place], [address], 04/18/2024 17:07:52 lipid panel, serum 2024 025 [facility]), [address] [place], [address], 04/18/2024 17:07:49 CMP, serum or plasma 2024 025 [facility]), [address] [place], [address], 04/18/2024 17:07:49 CBC w/ auto diff 2024 025 [facility]), [facility] [place], [address], 04/18/2024 17:07:48 vitamin D, 25-hydro xy, total, serum 2024 025 [facility]), [address] [place] [address], [address], 04/18/2024 17:07:51 TSH, ultra-se nsitive, serum 2024 025 [facility]), [address] [place] [address], [address], 04/18/2024 17:07:50 Hepatiti s C IgG Ab, qual, serum 2024 025 [facility]), [address] [place] [address], [address], 04/18/2024 17:07:50 HIV 1 + 2, meaningf ul use set [address] 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 Imaging PFT, complete [address] (Scheduling), [address], [place], [address], 08/01/2024 13:46:15 US, breast, unilater al 2024 025 [facility], [address], [place], [address], 04/25/2024 08:57:47 Medication Orders azelasti ne 137 mcg (0.1 %) nasal spray 2024 025 [id number], [address] [facility] [address], [place], [id number], 04/16/2024 16:39:08 Zepbound 2.5 mg/0.5 mL subcutan eous pen injector 2024 025 [facility][id number], [address] [facility] [address], [place], [id number], 08/01/2024 13:21:24 Patient TargetsNo targets recorded. Patient Instructions Encounter Date Encounter Id Patient Instructions Last Modified By Organization Details Last Modified Time 04/16/2024 [id number] allergies: care instructions [email or web address] Not available 04/16/2024 16:39:02 body mass index: care instructions [email or web address] Not available 04/16/2024 16:38:30 learning about healthy weight [email or web address] Not available 04/16/2024 16:38:30 tetanus and diphtheria booster: care instructions [email or web address] Not available 04/16/2024 17:26:15 HIV testing: car e instructions [email or web address] Not available 04/18/2024 10:05:23 08/01/2024 [id number] sleep apnea: car e instructions [email or web address] Not available 08/01/2024 13:31:46 shortness of breath: care instructions Not available 08/01/2024 13:35:05 learning about mood disorders Not available 08/01/2024 13:35:05 Reason for Referral Psychiatrist Referral for Mo od disorder Patient requests Elisha Covington MD - 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 Referring Physician: Ivonne Metcalf, Family Medicine, Encounter Date: 08/01/2024 Results Created Date Observation Date Name Description Value Unit Range Abnormal Flag Note LastModifiedBy Organization Detail LastModifiedTime 04/16/19 25 04/18/2024 CBC WITH DIFFE RENTI AL/PL ATELE T WBC 8.7 x10e3 /uL 3.4-10 .8 normal Not Available [facility] ([facility]) [address] [place], [address], 04/18/2024 17:07:48 04/16/19 25 04/18/2024 CBC WITH DIFFE RENTI AL/PL ATELE T RBC 4.61 x10e6 /uL 3.77-5 .28 normal Not Available [facility] ([facility]) [address] [place], [address], 04/18/2024 17:07:48 04/16/19 25 04/18/2024 CBC WITH DIFFE RENTI AL/PL ATELE T hemoglobin 13.3 g/dL 11.1-1 5.9 normal Not Available [facility] ([facility]) [address] [place], [address], 04/18/2024 17:07:48 04/16/19 25 04/18/2024 CBC WITH DIFFE RENTI AL/PL ATELE T hematocrit 42.9 % 34.0-4 6.6 normal Not Available [facility] ([facility]) [address] [place], [address], 04/18/2024 17:07:48 04/16/19 25 04/18/2024 CBC WITH DIFFE RENTI AL/PL ATELE T MCV 93 fL 79-97 normal Not Available [facility] ([facility]) [address] [place], [address], 04/18/2024 17:07:48 04/16/19 25 04/18/2024 CBC WITH DIFFE RENTI AL/PL ATELE T MCH 28.9 pg 26.6-3 3.0 normal Not Available [facility] ([facility]) [address] [place], [address], 04/18/2024 17:07:48 04/16/19 25 04/18/2024 CBC WITH DIFFE RENTI AL/PL ATELE T MCHC 31.0 g/dL 31.5-3 5.7 below low normal Not Available [facility] ([facility]) [address] [place], [address], 04/18/2024 17:07:48 04/16/19 25 04/18/2024 CBC WITH DIFFE RENTI AL/PL ATELE T RDW 14.7 % 11.7-1 5.4 Not Available [facility] ([facility]) [address] [place], [address], 04/18/2024 17:07:48 04/16/19 25 04/18/2024 CBC WITH DIFFE RENTI AL/PL ATELE T platelets 416 x10e3 /uL 150-45 0 normal Not Available [facility] ([facility]) [address] [place], [address], 04/18/2024 17:07:48 04/16/19 25 04/18/2024 CBC WITH DIFFE RENTI AL/PL ATELE T neutrophils 56 % not estab. normal Not Available [facility] ([facility]) [address] [place], [address], 04/18/2024 17:07:48 04/16/19 25 04/18/2024 CBC WITH DIFFE RENTI AL/PL ATELE T lymphs 35 % not estab. normal Not Available [facility] ([facility]) [address] [place], [address], 04/18/2024 17:07:48 04/16/19 25 04/18/2024 CBC WITH DIFFE RENTI AL/PL ATELE T monocytes 6 % not estab. normal Not Available [facility] ([facility]) [address] [place], [address], 04/18/2024 17:07:48 04/16/19 25 04/18/2024 CBC WITH DIFFE RENTI AL/PL ATELE T eos 2 % not estab. normal Not Available [facility] ([facility]) [address] [place], [address], 04/18/2024 17:07:48 04/16/19 25 04/18/2024 CBC WITH DIFFE RENTI AL/PL ATELE T basos 1 % not estab. normal Not Available [facility] ([facility]) [address] [place], [address], 04/18/2024 17:07:48 04/16/19 25 04/18/2024 CBC WITH DIFFE RENTI AL/PL ATELE T immature cells FOUNDRY SUPERVISOR Not Available [facility] ([facility]) [address] [place], [address], 04/18/2024 17:07:48 04/16/19 25 04/18/2024 CBC WITH DIFFE RENTI AL/PL ATELE T neutrophils (absolute) 4.9 x10e3 /uL 1.4-7. 0 normal Not Available [facility] ([facility]) [address] [facility], [place], [address], 04/18/2024 17:07:48 04/16/19 25 04/18/2024 CBC WITH DIFFE RENTI AL/PL ATELE T lymphs (absolute) 3.0 x10e3 /uL 0.7-3. 1 normal Not Available [facility] ([facility]) [address] [facility], [place], [address], 04/18/2024 17:07:48 04/16/19 25 04/18/2024 CBC WITH DIFFE RENTI AL/PL ATELE T monocytes(ab solute) 0.5 x10e3 /uL 0.1-0. 9 normal Not Available [facility] ([facility]) [address] [facility], [place], [address], 04/18/2024 17:07:48 04/16/19 25 04/18/2024 CBC WITH DIFFE RENTI AL/PL ATELE T eos (absolute) 0.2 x10e3 /uL 0.0-0. 4 normal Not Available [facility] ([facility]) [address] [facility], [place], [address], 04/18/2024 17:07:48 04/16/19 25 04/18/2024 CBC WITH DIFFE RENTI AL/PL ATELE T baso (absolute) 0.1 x10e3 /uL 0.0-0. 2 normal Not Available [facility] ([facility]) [address] [place], [address], 04/18/2024 17:07:48 04/16/19 25 04/18/2024 CBC WITH DIFFE RENTI AL/PL ATELE T immature granulocytes 0 % not estab. Not Available [facility] ([facility]) [address] [place], [address], 04/18/2024 17:07:48 04/16/19 25 04/18/2024 CBC WITH DIFFE RENTI AL/PL ATELE T immature grans (abs) 0.0 x10e3 /uL 0.0-0. 1 Not Available [facility] ([facility]) [address] [facility], [place], [address], 04/18/2024 17:07:48 04/16/19 25 04/18/2024 CBC WITH DIFFE RENTI AL/PL ATELE T NRBC FOUNDRY SUPERVISOR Not Available [facility] ([facility]) [address] [facility], [place], [address], 04/18/2024 17:07:48 04/16/19 25 04/18/2024 CBC WITH DIFFE RENTI AL/PL ATELE T hematology comments: FOUNDRY SUPERVISOR Not Available [facility] ([facility]) [address] [facility], [place], [address], 04/18/2024 17:07:48 04/16/19 25 04/18/2024 COMP. METAB OLIC PANEL (14) glucose 84 mg/dL 70-99 normal Not Available [facility] ([facility]) [address] [facility], [place], [address], 04/18/2024 17:07:49 04/16/19 25 04/18/2024 COMP. METAB OLIC PANEL (14) BUN 7 mg/dL 6-20 normal Not Available [facility] ([facility]) [address] [facility], [place], [address], 04/18/2024 17:07:49 04/16/19 25 04/18/2024 COMP. METAB OLIC PANEL (14) creatinine 0.77 mg/dL 0.57-1 .00 normal Not Available [facility] ([facility]) [address] [place], [address], 04/18/2024 17:07:49 04/16/19 25 04/18/2024 COMP. METAB OLIC PANEL (14) eGFR 109 mL/mi n/1.7 3 >59 normal Not Available [facility] ([facility]) [address] [facility] [place], [address], 04/18/2024 17:07:49 04/16/19 25 04/18/2024 COMP. METAB OLIC PANEL (14) BUN/creatini ne ratio 9 9-23 normal Not Available [facility] ([facility]) [address] [place], [address], 04/18/2024 17:07:49 04/16/19 25 04/18/2024 COMP. METAB OLIC PANEL (14) sodium 139 mmol/ L 134-14 4 normal Not Available [facility] ([facility]) [address] [facility] [place], [address], 04/18/2024 17:07:49 04/16/19 25 04/18/2024 COMP. METAB OLIC PANEL (14) potassium 4.7 mmol/ L 3.5-5. 2 normal Not Available [facility] ([facility]) [address] [facility] [place], [address], 04/18/2024 17:07:49 04/16/19 25 04/18/2024 COMP. METAB OLIC PANEL (14) chloride 102 mmol/ L 96-106 normal Not Available [facility] ([facility]) [address] [facility] [place], [address], 04/18/2024 17:07:49 04/16/19 25 04/18/2024 COMP. METAB OLIC PANEL (14) carbon dioxide, total 24 mmol/ L 20-29 normal Not Available [facility] ([facility]) [address] [facility] [place], [address], 04/18/2024 17:07:49 04/16/19 25 04/18/2024 COMP. METAB OLIC PANEL (14) calcium 9.3 mg/dL 8.7-10 .2 normal Not Available [facility] ([facility]) [address] [facility] [place], [address], 04/18/2024 17:07:49 04/16/19 25 04/18/2024 COMP. METAB OLIC PANEL (14) protein, total 6.9 g/dL 6.0-8. 5 normal Not Available [facility] ([facility]) [address] [place], [address], 04/18/2024 17:07:49 04/16/19 25 04/18/2024 COMP. METAB OLIC PANEL (14) albumin 4.4 g/dL 4.0-5. 0 normal Not Available [facility] ([facility]) [address] [place], [address], 04/18/2024 17:07:49 04/16/19 25 04/18/2024 COMP. METAB OLIC PANEL (14) globulin, total 2.5 g/dL 1.5-4. 5 Not Available [facility] ([facility]) [address] [facility] [place], [address], 04/18/2024 17:07:49 04/16/19 25 04/18/2024 COMP. METAB OLIC PANEL (14) bilirubin, total <0.2 mg/dL 0.0-1. 2 Not Available [facility] ([facility]) [address] [facility] [place], [address], 04/18/2024 17:07:49 04/16/19 25 04/18/2024 COMP. METAB OLIC PANEL (14) alkaline phosphatase 129 IU/L 44-121 above high normal Not Available [facility] ([facility]) [address] [place], [address], 04/18/2024 17:07:49 04/16/19 25 04/18/2024 COMP. METAB OLIC PANEL (14) AST (SGOT) 18 IU/L 0-40 normal Not Available [facility] ([facility]) [address] [facility] [place], [address], 04/18/2024 17:07:49 04/16/19 25 04/18/2024 COMP. METAB OLIC PANEL (14) ALT (SGPT) 17 IU/L 0-32 normal Not Available [facility] ([facility]) [address] [place], [address], 04/18/2024 17:07:49 04/16/19 25 04/18/2024 LIPID PANEL cholesterol, total 149 mg/dL 100-19 9 normal Not Available [facility] ([facility]) [address] [place], [address], 04/18/2024 17:07:49 04/16/19 25 04/18/2024 LIPID PANEL triglyceride s 135 mg/dL 0-149 normal Not Available [facility] ([facility]) [address] [place], [address], 04/18/2024 17:07:49 04/16/19 25 04/18/2024 LIPID PANEL HDL cholesterol 43 mg/dL >39 normal Not Available [facility]) [address] [place], [address], 04/18/2024 17:07:49 04/16/19 25 04/18/2024 LIPID PANEL VLDL cholesterol shirley 24 mg/dL 5-40 Not Available [facility]) [address] [place], [address], 04/18/2024 17:07:49 04/16/19 25 04/18/2024 LIPID PANEL LDL chol calc ([facility]) 82 mg/dL 0-99 Not Available [facility]) [address] [place], [address], 04/18/2024 17:07:49 04/16/19 25 04/18/2024 LIPID PANEL LDL calc comment: FOUNDRY SUPERVISOR Not Available [facility]) [address] [place], [address], 04/18/2024 17:07:49 04/16/19 25 04/18/2024 HCV ANTIB TONO CASCA DE(PC R/GEN O) HCV Ab Non Reacti ve non reacti ve Not Available [facility] ([facility]) [address] [facility], [place], [address], 04/18/2024 17:07:50 04/16/19 25 04/18/2024 HCV ANTIB TONO CASCA DE(PC R/GEN O) interpretati on: Commen t Not infec adriane with HCV unles s early or acute infec tion is suspe cted (whic h may be delay ed in an immun ocomp romis ed indiv idual ), or other evide nce exist s to indic ate HCV infec tion. Not Available [facility] ([facility]) [address] [facility], [place], [address], 04/18/2024 17:07:50 04/16/19 25 04/18/2024 TSH TSH 0.792 uIU/m L 0.450- 4.500 normal Not Available [facility] ([facility]) [address] [facility], [place], [address], 04/18/2024 17:07:50 04/16/19 25 04/18/2024 RHEUM ATOID FACTO R (RF) rheumatoid factor (rf) <10.0 IU/mL <14.0 Not Available [facility]) [address] [facility], [place], [address], 04/18/2024 17:07:51 04/16/19 25 04/18/2024 VITAM IN D, 25-HY DROXY vitamin D, 25-hydroxy 24.7 NG/mL 30.0-1 00.0 below low normal Vitam in D defic iency has been defin ed by the Insti tute of Medic ine and an Endoc rine Socie ty pract ice guide line as a level of serum 25-OH vitam in D less than 20 ng/mL (1,2) . The Endoc rine Socie ty went on to [facility] er defin e vitam in D insuf ficie ncy as a level betwe en 21 and 29 ng/mL (2). 1. IOM (Inst itute of Medic ine). 2009. Carisaa ry refer ence intaly es for calci um and D. Nura lang [place]: [facility] . 2. Holic k [place], [place], Bisch off-F errar i TURNER, et al. Evalu ation , treat ment, and preve ntion of vitam in D defic iency : an Endoc rine [facility] ty clini shirley pract ice guide line. JCEM. 2010; 96(7) :1911 -30. Not Available [facility] ([facility]) [address] [place], [address], 04/18/2024 17:07:51 04/16/19 25 04/18/2024 HIV AB/P2 4 AG WITH REFLE X HIV Ab/P24 Ag screen Non Reacti ve non reacti ve HIV-1 /HIV- 2 antib odies and HIV-1 p24 antig en were NOT detec adriane. There is no labor atory evide nce of HIV infec tion. HIV Negat gentry Not Available [facility] ([facility]) [address] [place], [address], 04/18/2024 17:07:51 04/16/19 25 04/18/2024 ANTI- CCP AB, IGG/I GA anti-ccp Ab, IgG/IgA 2 units 0-19 Negat gentry <20 Weak posit gentry 20 - 39 Moder ate posit gentry 40 - 59 Stron g posit gentry >59 Not Available [facility] ([facility]) [address] [place], [address], 04/18/2024 17:07:52 04/16/19 25 04/18/2024 ANTIN UCLEA R AB MULTI PLEX RFX 9 VELMA direct Positi ve negati ve abnormal Not Available [facility] ([facility]) [address] [place], [address], 04/18/2024 17:07:52 04/16/19 25 04/18/2024 ANTIN UCLEA R AB MULTI PLEX RFX 9 anti-DNA (ds) Ab qn <1 IU/mL 0-9 Negat gentry <5 Equiv ocal 5 - 9 Posit gentry >9 Not Available [facility] ([facility]) [address] [facility], [place], [address], 04/18/2024 17:07:52 04/16/19 25 04/18/2024 ANTIN UCLEA R AB MULTI PLEX RFX 9 supervisor power reactor antibodies 1.1 ai 0.0-0. 9 above high normal Not Available [facility] ([facility]) [address] [place], [address], 04/18/2024 17:07:52 04/16/19 25 04/18/2024 ANTIN UCLEA R AB MULTI PLEX RFX 9 lofton antibodies <0.2 ai 0.0-0. 9 Not Available [facility] ([facility]) [address] [place], [address], 04/18/2024 17:07:52 04/16/19 25 04/18/2024 ANTIN UCLEA R AB MULTI PLEX RFX 9 antisclerode rma-70 antibodies <0.2 ai 0.0-0. 9 Not Available [facility] ([facility]) [address] [place], [address], 04/18/2024 17:07:52 04/16/19 25 04/18/2024 ANTIN UCLEA R AB MULTI PLEX RFX 9 sjogren's anti-ss-A <0.2 ai 0.0-0. 9 Not Available [facility] ([facility]) [address] [place], [address], 04/18/2024 17:07:52 04/16/19 25 04/18/2024 ANTIN UCLEA R AB MULTI PLEX RFX 9 sjogren's anti-ss-B <0.2 ai 0.0-0. 9 Not Available [facility] ([facility]) [address] [place], [address], 04/18/2024 17:07:52 04/16/19 25 04/18/2024 ANTIN UCLEA R AB MULTI PLEX RFX 9 antichromati n antibodies <0.2 ai 0.0-0. 9 Not Available [facility] ([facility]) [address] [place], [address], 04/18/2024 17:07:52 04/16/19 25 04/18/2024 ANTIN UCLEA R AB MULTI PLEX RFX 9 anti-leena-1 <0.2 ai 0.0-0. 9 Not Available [facility] ([facility]) [address] [place], [address], 04/18/2024 17:07:52 04/16/19 25 04/18/2024 ANTIN UCLEA R AB MULTI PLEX RFX 9 anti-centrom ere B antibodies <0.2 ai 0.0-0. 9 Not Available [facility] ([facility]) [address] [place], [address], 04/18/2024 17:07:52 04/16/19 25 04/18/2024 ANTIN UCLEA R AB MULTI PLEX RFX 9 see below: Commen t Autoa ntibo dy Disea se Assoc iatio n ----- ----- ----- ----- ----- ----- ----- ----- ----- ----- ----- ----- Condi tion Frequ ency ----- ----- ----- ----- - ----- ----- ----- ----- ---- ----- ---- Antin uclea r Antib tono, SLE, mixed conne ctive Direc t (VELMA- D) tissu e disea ses ----- ----- ----- ----- - ----- ----- ----- ----- ---- ----- ---- dsDNA SLE 40 - 60% ----- ----- ----- ----- - ----- ----- ----- ----- ---- ----- ---- Chrom atin Drug induc ed SLE 90% SLE 48 - 97% ----- ----- ----- ----- - ----- ----- ----- ----- ---- ----- ---- SSA (Ro) SLE 25 - 35% Sjogr en's Syndr ome 40 - 70% Neona anjali Lupus 100% ----- ----- ----- ----- - ----- ----- ----- ----- ---- ----- ---- SSB (La) SLE 10% Sjogr en's Syndr ome 30% ----- ----- ----- ----- - ----- ----- ----- ----- --- ----- ---- Sm (anti -Romulo h) SLE 15 - 30% ----- ----- ----- ----- - ----- ----- ----- ----- --- ----- ---- FIELD PIPELINES SUPERVISOR Mixed Conne ctive Tissu e Disea se 95% (U1 nRNP, SLE 30 - 50% anti- ribon ucleo prote in) Polym yosit is and/o r [place] tomyo sitis 20% ----- ----- ----- ----- - ----- ----- ----- ----- ---- ----- ---- Scl-7 0 (anti DNA Scler oderm a (diff use) 20 - 35% topoi arabella ase) Crest 13% ----- ----- ----- ----- - ----- ----- ----- ----- ---- ----- ---- Leena-1 Polym yosit is and/o r [place] tomyo sitis 20 - 40% ----- ----- ----- ----- - ----- ----- ----- ----- ---- ----- ---- Centr omere B Scler oderm a - Crest varia nt 80% Not Available [facility] ([facility]) [address] [place], [address], 04/18/2024 17:07:52 04/16/19 25 04/18/2024 SEDIM ENTAT ION RATE- WESTE RGREN sedimentatio n rate-westerg ava COMMEN T mm/HR Test not perfo rmed due to the age of this speci men. Not Available [facility] ([facility]) [address] [place], [address], 04/18/2024 17:07:53 04/16/19 25 04/18/2024 C-GLADIS CTIVE PROTE IN, QUANT C-reactive protein, quant 12 mg/L 0-10 above high normal Not Available [facility] ([facility]) [address] [place], [address], 04/18/2024 17:07:53 04/16/19 25 04/18/[address] PROBL EM request problem COMMEN T Test not perfo rmed due to the age of this speci men. TEST: 11220 5 Sedim entat ion Rate- Weste rgren Not Available [facility] ([facility]) [address] [place], [address], 04/18/2024 17:07:54 04/25/19 25 04/19/2024 US, kostas t, fransisca teral No observ ation record ed. [email or web address] [facility] (Med Record) [address], [place], [address], 04/25/2024 16:38:42 05/14/19 25 05/06/2024 MAMMO , diagn ostic , bilat eral No observ ation record ed. [facility] (Scheduling) [address], [place], [address], 05/16/2024 09:33:33 05/14/1905/06/2024 ultra sound guide d core biops y (PROC ) No observ ation record ed. [facility] (Scheduling) [address], [place], [address], 05/21/2024 08:08:28 Result Notes None recorded. Problems Name Problem SNOMED Code Status Onset Date Resolution Date Notes Provider Name and Address Organization Details Recorded Time Genital herpes simplex 71542287 Active 2023 ANA ROSA Walden [address] [place] [address], [address], [facility] 5 10:17:13 Mass of right breast 5474316555189 9106 Active 2024 ANA ROSA Walden [address] [place] [address], [address] 8, [facility] 16:37:20 Allergic rhinitis 04339818 Active 2024 ANA ROSA Walden [address] [place] [address], [address] 8, [facility] 5 10:17:08 Vitamin D deficiency 30842069 Active 2024 ANA ROSA Walden [address] [place] [address], [address] 8, [facility] 5 10:18:00 Obstructive sleep apnea syndrome 68450576 Active 2024 ANA ROSA Walden [address] [place] [address], [address] 8, [facility] 13:25:34 Dyspnea 517446714 Active 2024 ANA ROSA Walden [address] [place], [address], [facility] 13:32:23 Mood disorder 59915222 Active 2024 ANA ROSA Walden [address] [place] [address], [address], [employer] 13:33:10 Problem Notes None recorded. Procedures Surgical History Date Name Laterality Status Provider Name and Address Organization Details Recorded Time Breast reduction completed [facility] [employer] 04/16/2024 16:12:03 Imaging Results None recorded. Procedure [...] height Body mass index (BMI) Body weight Body temperature Heart rate Oxygen saturation Oxygen saturation in Arterial blood by Pulse oximetry Systolic blood pressure Diastolic blood pressure Provider Name and Address Organization Details Last Updated DateTime 157.48 cm 45.4 kg/m2 447076. 34 g 97.8 [degF] 104 /min 96 % 96 % 106 mm[Hg] 74 mm[Hg] Keiko Vice [place] [employer] 16:07:34 Date Recorded Body height Body mass index (BMI) Body weight Oxygen saturation Oxygen saturation in Arterial blood by Pulse oximetry Heart rate Body temperature Systolic blood pressure Diastolic blood pressure Provider Name and Address Organization Details Last Updated DateTime 5 157.48 cm 48.1 kg/m2 882360. 79 g 96 % 96 % 94 /min 97.9 [degF] 100 mm[Hg] 78 mm[Hg] Keiko Dc [employer] 5 13:12:48 Social History Question Answer Notes LastModified by Organizat ion Details LastModified Time Tobacco Smoking Status Never Smoker Keiko Dc colleen [employer]. 04/16/2024 16:08:12 Do You Have An Advance [...] Information not available 04/16/2024 What Type Of Blast Furnace Supervisor Do You Use? None Information not available [...] Do You Have A Medical Power Of Record Filing Clerk? No Information not available 04/16/2024 What [...] anxious, or unable to sleep at night)? [id number] Information not available 04/16/2024 Do you have [...] Immunizations Vaccine Type Date Status Note Provider Nam e and Address Organization Details Recorded Time Tdap 5 completed ANA ROSA Walden [address] [place] [address], [phone], [employer] 04/18/2024 14:14:37 IPV 3 completed Keiko Vice null, [employer] 04/16/2024 16:08:21 MMR 3 completed Keiko Vice null, [employer] 04/16/2024 16:08:21 COVID-19, mRNA, LNP-S, PF, 30 mcg/0.3 mL dose 1 completed Keiko Vice null, [employer] 04/16/2024 16:08:21 COVID-19, mRNA, LNP-S, PF, 30 mcg/0.3 mL dose 1 completed Keiko Vice null, [employer] 04/16/2024 16:08:21 Tdap 0 completed Keiko Vice null, [employer] 04/16/2024 16:08:21 Novel Qyrlbrfal-N2V7-51, all formulations 9 completed Keiko Vice null, [employer] 04/16/2024 16:08:21 Influenza, split virus, trivalent, preservative 1 completed Keiko Vice null, [employer] 04/16/2024 16:08:21 Influenza, split virus, trivalent, preservative 0 completed Keiko Vice null, [employer] 04/16/2024 16:08:21 HPV, quadrivalent 3 completed Keiko Vice null, [employer] 04/16/2024 16:08:21 HPV, quadrivalent 3 completed Keiko Vice null, [employer] 04/16/2024 16:08:22 HPV, quadrivalent 3 completed Keiko Vice null, [employer] 04/16/2024 16:08:22 Hep B, adolescent or pediatric 3 completed Keiko Vice null, [employer] 04/16/2024 16:08:22 DTaP, unspecified formulation 3 completed Keiko Vice null, [employer] 04/16/2024 16:08:22 Past Encounters Encounter ID Performer Location Encounter Start Date Encounter Closed Date Diagnosis/Indication Diagnosis SNOMED-CT Code Diagnosis ICD10 Code Diagnosis Note [id number] ANA ROSA Walden [address] [address] 04/16/2024 15:31:22 04/16/2024 17:34:02 Mass of right breast 9877340686 7364843 N63.10 Body mass index 40+ - severely obese 544195041 Z68.42 Allergic rhinitis 053804 04 J30.9 Administra tion of diphtheria, pertussis, and tetanus vaccine 984440729 Z23 Pain of mu ltiple joints 40355324 M25.50 HIV screening 689781758 Z11.4 Hepatitis C screening 41 6367933 Z11.59 [id number] ANA ROSA Walden [address] [address] 08/01/2024 12:44:38 08/01/2024 13:36:02 Obstructive sleep apnea syndrome 45585361 G47.33 Dyspnea 955330545 R06.02 Mood disorder 47473065 F 39 Health Concerns Section Related Observation LastModified by Organization Detai ls LastModified Time None Recorded Concern Status LastModified by Organization Details LastModified Time None Recorded Advance Directives Directive N: Payers Insurance Date Sequence Insurance Name Policy Number Policy Lombardo Covered Member ID Lombardo Member ID Guarantor Name 07/29/2024 1 [employer] [place] (MEDICAID HMO) Summer Radha [id number] Summer Radha Notes Date Note Type Note Provider Name and Address Organization Details Recorded Time 04/16/2024 text/html Patient presents to establish care.Had breast reduction surgery October 2023. Has a mass in her right breast. States she followed up with surgeon and did nto get a clear answer as to what it is. States they were supposed to schedule a breast MRI but she never heard back.Would like Zepbound for weight loss. ANA ROSA Walden [address] [place], [phone], [employer] 04/18/2024 14:17:04 08/01/2024 text/html Patient presents for a referral to behavioral health. 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 Wonders if she has asthma.Complains of memory loss, fatigue. Diagnosed with HENRIK years ago but never got a Cpap machine. Aunt was diagnosed with a brain disease while in [place] - unclear of exact diagnosis - and wonders if she has that. ANA ROSA Walden [address] [place], [address], [employer] 08/02/2024 14:47:58 OBGyn Episode No OBEpisode recorded.
--- OUTSIDE RECORDS SUMMARY | 2024-08-04 00:50 | XMS_ITS | Encounter Summary ---
Author Organization Healthcare Address [address] [place] [address] Care Team Providers Care Air Sampler Name Role Phone Ivonne Metcalf Primary Care Provider [phone] Reason for Visit * Reason Comments Med Refill Encounter Details Date Type Department Care Team (Late st Contact Info) Description 01/22/[address] [phone] Debora Luciano MD [address] [place] [address] Social History Tobacco Use Types Packs/Day Years Used Date Smoking Tobacco: Never Smokeless Tobacco: Never Alcohol Use Standard Drinks/Week Comments Never 0 (1 standard drink = 0.6 oz pur e alcohol) Comments Unknown Sex and Gender Information Value Date Recorded Sex Assigned at Not on file Legal Sex Female 6:17 PM EDT Gender Identity Not on file Sexual Orientation Not on file documented as of this encounter Plan of Treatment Not on file documented as of this encounter Visit Diagnoses Not on filedocumented in this encounter Additional Health Concerns Assessment Noted Time A Body Mass Index follow-up plan has been documented for the patient 12/29/2023 11:35 AM EDT documented as of this encounter Care Teams Air Sampler Relationship Specialty Start Date End Date Ivonne Metcalf PA [address] [place] [address] PCP - General 12/21/22 documented as of this encounter
--- OUTSIDE RECORDS SUMMARY | 2024-08-04 00:50 | XMS_ITS | Clinical Summary ---
Author Organization [facility] Address [address] [place] [address] Care Team Providers Care Civil Preparedness Training Officer Name Role Phone Ivonne Metcalf Primary Care Provider [phone] Allergies Active Allergy Reactions Criticality Noted Date Comments Trazodone Other - please docum ent in the comment field Low 12/21/2022 Medications naproxen (Naprosyn) 500 MG tablet TAKE 1 TABLET BY MOUTH EVERY 12 HOURS WITH FOOD OR MILK 11/22/19 Active meloxicam (Mobic) 15 MG tablet Take 1 tablet (15 mg) by mouth daily. 12/06/19 23 Active sertraline (Zoloft) 100 MG tablet Take 1 tablet (100 mg) by mouth daily. 12/09/19 23 Active atomoxetine (Strattera) 40 MG capsule Take 1 capsule (40 mg) by mouth daily. 12/09/19 23 Active valACYclovir (Valtrex) 1 g tablet 10/07/19 23 Active Lumateperone Tosylate (Caplyta) 42 MG capsule Take by mouth. A ctive oxyCODONE (Roxicodone) 5 MG immediate release tablet Take 1 tablet (5 mg) by mouth every 4 (four) hours if needed for severe pain. 20 tablet 11/09/19 Active Additional Information Patient not taking.Reported on 06/19/2024 ondansetron ODT (Zofran-ODT) 4 MG disintegrating tablet Take 1 tablet (4 mg) by mouth every 8 (eight) hours if needed for nausea or vomiting. 20 tablet 09/12/20 24 Active Additional Information Patient not taking.Reported on 06/19/2024 methocarbamol (Robaxin) 500 MG tablet Take 1 tablet (500 mg) by mouth 4 (four) times a day for 10 days. 40 tablet 11/09/19 24 Active Additional Information Patient not taking.Reported on 06/19/2024 gabapentin (Neurontin) 100 MG capsule Take 1 capsule (100 mg) by mouth 3 (three) times a day for 10 days. 30 capsule 11/09/19 24 Active Additional Information Patient not taking.Reported on 06/19/2024 oxyCODONE (Roxicodone) 5 MG immediate release tablet Take 1 tablet (5 mg) by mouth every 6 (six) hours if needed for severe pain. 10 tablet 11/13/19 Active Additional Information Patient not taking.Reported on 06/19/2024 azelastine (Astelin) 0.1 % nasal spray Administer 2 sprays into each nostril 2 (two) times a day. 04/16/19 Active levocetirizine (Xyzal) 5 MG tablet Take 1 tablet by mouth daily. Active cholecalciferol (Vitamin D-3) 50 MCG (1999) tablet Take 1 tablet by mouth Daily. Active Active Problems Problem Noted Date Diagnosed Date Class III obesity with body mass index (BMI) of 40.0 or higher 05/12/2023 Encounters Date Type Department Care Team Description 07/05/2024 9:45 AM EDT Office Visit [facility] Plastic & Reconstructive Surgery [address] [place] [phone] Luis M Johnson MD Masses of both breasts (Primary Dx) 07/05/2024 Travel 06/26/2024 Telephone [facility] Medicine Specialties [address], [address] [place] [address] Deana Chao RN 06/26/2024 Telephone [facility] Medicine Specialties [address], [address] [place] [address] Deana Chao RN 06/25/2024 Results Follow-Up [facility] Medicine Specialties [address], [address] [place] [address] Abida Cobian APRN Results 06/19/2024 8:28 AM EDT - 06/19/2024 11:59 PM EDT Hospital Encounter [facility] Radiology [address], [address] [place] [address] Abnormal immunological finding in serum; CRP elevated; Polyarthralgia; Fatigue, unspecified type; Sicca syndrome (CMS/HCC); Positive VELMA (antinuclear antibody) Discharge Disposition: Home or Self Care 06/19/2024 7:30 AM EDT Office Visit [facility] Medicine Specialties [address], [address] [place] [phone] Abida Cobian, NETTA Positive VELMA (antinuclear antibody) (Primary Dx); Abnormal immunological finding in serum; CRP elevated; Polyarthralgia; Fatigue, unspecified type; Sicca syndrome (CMS/HCC); Cervical spine pain 06/19/2024 Travel from Last 3 Months Immunizations Immunization Administration Dates Next Due DTaP, Unspecified 03/01/2002 HPV, Quadrivalent 10/23/2012,06/26/2012,04/24/19 13 Hep B, Adolescent or Pediatric 04/26/2002 IPV 03/01/2002 Influenza, seasonal, injectable 12/08/2010,12/21 MMR 03/01/2002 Novel [id number], all formulations 2008 Tdap 04/16/2024,06/09/2009 Social History Tobacco Use Types Packs/Day Years [...] on file Sexual Orientation Not on file Last Filed Vital Signs Vital Sign Reading Time Taken Comments Blood Pressure 120/85 07/05/2024 9:39 AM EDT Pulse 104 07/05/2024 9:39 AM EDT Temperature 36.7 C (98.1 F) 06/19/2024 7:32 AM EDT Respiratory Rate 16 12/21/2022 1:22 PM EDT Oxygen Saturation 96% 07/05/2024 9:39 AM EDT Inhaled Oxygen Concentration - - Weight 116 kg (255 lb 1.2 oz) 06/19/2024 7:32 AM EDT Height 158.8 cm (5' 2.5 ) 06/19/2024 7:32 AM EDT Body Mass Index 45.91 06/19/2024 7:32 AM EDT Plan of Treatment Health Maintenance Due Date Last Done Comments [facility]-HIV Screening 1997 [facility]-/Child/Adol SDOH Screenings 1997 [facility]-IPV Vaccines (2 of 3 - 4-dose series) 03/29/2002 03/01/2002 [facility]-Hepatitis B Vaccines (2 of 3 - 3-dose series) 05/24/2002 04/26/2002 [facility]-Varicella Vaccines (1 of 2 - 13+ 2-dose series) 2010 [facility]- SDOH Screenings 08/21/2015 [facility]-Adult SDOH Screenings 08/21/2015 [facility]-Pap Smear 2018 UUR-JOBLX-20 Vaccine ( - season) 2023 08/03/2020, 07/13/2020 [facility]-Influenza Vaccine (Season Ended) 2024 12/08/2010, 12/21/2009, 01/19/2009 [facility]-Depression Screening 06/19/2025 06/19/2024, 05/29 [facility]-DTaP,Tdap,and Td Vaccines (4 - Td or Tdap) 04/16/2034 04/16/2024, 06/09/2009, 03/01/2002 [facility]-Zoster Vaccines (1 of 2) 08/21/2047 HPV Vaccines Completed 10/23/2012, 05/30, 04/24/2012 [facility]-Hepatitis C Screening Completed 12/21/2022 [facility]-Obesity Intervention Completed 025, 06/19/2024, 04/12/2024, Additional history exists [facility]-HIB Vaccines Aged Out No longer e ligible based on patient's age to complete this topic [facility]-Hepatitis A Vaccines Aged Out No longer eligible based on patient's age to complete this topic [facility]-Pneumococcal Vaccine: Pediatrics (0 to 5 Years) and At-Risk Patients (6 to 49 Years) Aged Out No longer eligible based on patient's age to complete this topic [facility]-Rotavirus Vaccines Aged Out No lo nger eligible based on patient's age to complete this topic Procedures Procedure Name Priority Date/Time Associated Diagnosis Comments XR CERVICAL SPINE 2 OR 3 VIEWS Routine 06/19/2024 8:42 AM EDT Abnormal immunological finding in serum CRP elevated Polyarthralgia Fatigue, unspecified type Sicca syndrome (CMS/HCC) Positive VELMA (antinuclear antibody) PROTEIN, URINE, RANDOM WITH CREATININE Routine 06/19/2024 8:27 AM EDT Abnormal immunological finding in serum CRP elevated Polyarthralgia Fatigue, unspecified type Sicca syndrome (CMS/HCC) Positive VELMA (antinuclear antibody) URINALYSIS WITH REFLEX MICROSCOPIC Routine 06/19/2024 8:27 AM EDT Abnormal immunological finding in serum CRP elevated Polyarthralgia Fatigue, unspecified type Sicca syndrome (CMS/HCC) Positive VELMA (antinuclear antibody) CBC WITH AUTO DIFFERENTIAL Routine 06/19/2024 8:24 AM EDT Abnormal immunological finding in serum CRP elevated Polyarthralgia Fatigue, unspecified type Sicca syndrome (CMS/HCC) Positive VELMA (antinuclear antibody) CREATININE, PLASMA Routine 06/19/2024 8: 24 AM EDT Abnormal immunological finding in serum CRP elevated Polyarthralgia Fatigue, unspecified type Sicca syndrome (CMS/HCC) Positive VELMA (antinuclear antibody) HEPATIC FUNCTION PANEL Routine 06/19/2024 8:24 AM EDT Abnormal immunological finding in serum CRP elevated Polyarthralgia Fatigue, unspecified type Sicca syndrome (CMS/HCC) Positive VELMA (antinuclear antibody) ANTINUCLEAR ANTIBODY (VELMA) WITH HEP-2 SUBSTRATE, IGG BY IFA (SO) Routine 06/19/2024 8:24 AM EDT Abnormal immunological finding in serum CRP elevated Polyarthralgia Fatigue, unspecified type Sicca syndrome (CMS/HCC) Positive VELMA (antinuclear antibody) DOUBLE-STRANDED DNA (DSDNA) ANTIBODY, IGG BY IFA (SO) Routine 06/19/2024 8:24 AM EDT Abnormal immunological finding in serum CRP elevated Polyarthralgia Fatigue, unspecified type Sicca syndrome (CMS/HCC) Positive VELMA (antinuclear antibody) C3 COMPLEMENT Routine 06/19/2024 8:24 AM EDT Abnormal immunological finding in serum CRP elevated Polyarthralgia Fatigue, unspecified type Sicca syndrome (CMS/HCC) Positive VELMA (antinuclear antibody) C4 COMPLEMENT Routine 06/19/2024 8:24 AM EDT Abnormal immunological finding in serum CRP elevated Polyarthralgia Fatigue, unspecified type Sicca syndrome (CMS/HCC) Positive VELMA (antinuclear antibody) LEON/SUPERVISOR CARTON AND CAN SUPPLY (YUE) ANTIBODY, IGG (SO) Routine 06/19/2024 8:24 AM EDT Abnormal immunological finding in serum CRP elevated Polyarthralgia Fatigue, unspecified type Sicca syndrome (CMS/HCC) Positive VELMA (antinuclear antibody) EXTRACTABLE NUCLEAR ANTIGEN ANTIBODIES (SSA 52, SSA 60, AND SSB) (SO) Routine 06/19/2024 8:24 AM EDT Abnormal immunological finding in serum CRP elevated Polyarthralgia Fatigue, unspecified type Sicca syndrome (CMS/HCC) Positive VELMA (antinuclear antibody) LEON (YUE) ANTIBODY, IGG (SO) Routine 06/19/2024 8:24 AM EDT Abnormal immunological finding in serum CRP elevated Polyarthralgia Fatigue, unspecified type Sicca syndrome (CMS/HCC) Positive VELMA (antinuclear antibody) THYROID PEROXIDASE ANTIBODY Routine 06/19/2024 8:24 AM EDT Abnormal immunological finding in serum CRP elevated Polyarthralgia Fatigue, unspecified type Sicca syndrome (CMS/HCC) Positive VELMA (antinuclear antibody) C-REACTIVE PROTEIN, PLASMA Routine 06/19/2024 8:24 AM EDT Abnormal immunological finding in serum CRP elevated Polyarthralgia Fatigue, unspecified type Sicca syndrome (CMS/HCC) Positive VELMA (antinuclear antibody) SEDIMENTATION RATE, AUTOMATED Routine 06/19/2024 8:24 AM EDT Abnormal immunological finding in serum CRP elevated Polyarthralgia Fatigue, unspecified type Sicca syndrome (CMS/HCC) Positive VELMA (antinuclear antibody) TSH Routine 06/19/2024 8:24 AM EDT Fatigue, unspecified type Positive VELMA (antinuclear antibody) ACUTE HEPATITIS PANEL Routine 12/21/2022 2:46 PM EDT Polyarthralgia Sicca syndrome (CMS/HCC) from Last 3 Months or Most Recently Relevant to Health Maintenance Results * XR Cervical Spine 2 or [...] MD on 06/19/2024 8:50 AM Abida Cobian APRN IMG XR PROCEDURES Final Re sult * Protein, Random, Urine with Creatinine (06/19/2024 8:27 AM EDT) Protein, Urine 8 mg/dL 06/19/2024 10:23 AM EDT [facility] Creatinine, Urine 179 mg/dL 06/19/2024 10:23 AM EDT [facility] Protein/Creatin ine Ratio 0.0 mg/mg Creat 06/19/2024 10:23 AM EDT [facility] Urine Urine specimen obtained by clean catch procedure / Unknown Non-blood Collection / Unknown 06/19/2024 8:27 AM EDT 06/19/2024 8:27 AM EDT Abida Cobian APRN LAB URINE ORDERABLES Final Result [facility] [address] [place] [address] * Urinalysis with reflex microscopic (Culture NOT Included) (06/19/2024 8:27 AM EDT) Color, Urine Yellow LAB URINALYSIS - AUTOMATED METHOD 06/19/2024 9:56 AM EDT [facility] Clarity, Urine Clear LAB URINALYSIS - AUTOMATED METHOD 06/19/2024 9:56 AM EDT [facility] Spec [place], Urine 1.022 1.005 - 1.030 LAB URINALYSIS - AUTOMATED METHOD 06/19/2024 9:56 AM EDT [facility] pH, Urine 5.5 5.0 - 8.0 LAB URINALYSIS - AUTOMATED METHOD 06/19/2024 9:56 AM EDT [facility] Protein, Urine Negative Negative mg/dL LAB URINALYSIS - AUTOMATED METHOD 06/19/2024 9:56 AM EDT [facility] Glucose, Urine Negative Negative mg/dL LAB URINALYSIS - AUTOMATED METHOD 06/19/2024 9:56 AM EDT [facility] Ketones, Urine Negative Negative mg/dL LAB URINALYSIS - AUTOMATED METHOD 06/19/2024 9:56 AM EDT [facility] Blood, Urine Negative Negative LAB URINALYSIS - AUTOMATED METHOD 06/19/2024 9:56 AM EDT [facility] Bilirubin, Urine Negative Negative LAB URINALYSIS - AUTOMATED METHOD 06/19/2024 9:56 AM EDT [facility] Urobilinogen, Urine 0.2 0.2 to 1.0 mg/dL LAB URINALYSIS - AUTOMATED METHOD 06/19/2024 9:56 AM EDT [facility] Leukocytes, Urine Negative Negative LAB URINALYSIS - AUTOMATED METHOD 06/19/2024 9:56 AM EDT [facility] Nitrite, Urine Negative Negative LAB URINALYSIS - AUTOMATED METHOD 06/19/2024 9:56 AM EDT [facility] Urine Urine specimen obtained by clean catch procedure / Unknown Non-blood Collection / Unknown 06/19/2024 8:27 AM EDT 06/19/2024 8:27 AM EDT Abida Cobian CYLINDER MACHINE OPER[employer] LAB URINE ORDERABLES Final Result [facility] [address] [place] [address] * Leon (YUE) Antibody, IgG (06/19/2024 8:24 AM EDT) Pathologist Tania Leon (YUE) Antibody, IgG 2 0 - 40 AU/mL 06/20/2024 9:55 PM EDT [facility]) Serum 06/19/2024 8:24 AM EDT 06/19/2024 8:24 AM EDT Narrative [facility] ([facility]) - 06/20/2024 9:55 PM EDT INTERPRETIVE INFORMATION: [...] associations with SLE clinical manifestations. Performed By: [facility] [address] [place] [address] Information Assurance Analyst: Corwin Higuera MD, PhD CLIA Number: [id number] us Abida Cobian CYLINDER MACHINE OPERATOR [employer] LAB REF LAB BLOOD AND FLUI D ORD Final Result [facility] ([facility]) [address] [place], [place] [id number] * ENAII (06/19/2024 8:24 AM EDT) SSA-52 (RO52) (YUE) Antibody, IgG 1 0 - 40 AU/mL 06/20/2024 9:55 PM EDT [facility] ([facility]) SSA-60 (RO60) (YUE) Antibody, IgG 0 0 - 40 AU/mL 06/20/2024 9:55 PM EDT [facility] ([facility]) SSB (LA) (YUE) Antibody, IgG 0 0 - 40 AU/mL 06/20/2024 9:55 PM EDT [facility] ([facility]) Blood Venous blood specimen / Unknown Venipuncture / Unknown 06/19/2024 8:24 AM EDT 06/19/2024 8:24 AM EDT Narrative [facility] ([facility]) - 06/20/2024 9:55 PM EDT INTERPRETIVE INFORMATION: [...] (PSS) also have this antibody. Performed By: [facility] [address] [place] [address] Information Assurance Analyst: Corwin Higuera MD, PhD CLIA Number: [id number] us Abida Cobian CYLINDER MACHINE OPERATOR [employer] LAB BLOOD ORDERABLES Final Result [facility]) [address] [place], [place] [id number] * ENAI (06/19/2024 8:24 AM EDT) Leon/SUPERVISOR CARTON AND CAN SUPPLY (YUE) Ab, IgG 4 0 - 19 Units 06/20/2024 11:55 PM EDT [facility]) Blood Venous blood specimen / Unknown Venipuncture / Unknown 06/19/2024 8:24 AM EDT 06/19/2024 8:24 AM EDT Narrative [facility]) - 06/20/2024 11:55 PM EDT INTERPRETIVE INFORMATION: Leon/SUPERVISOR C[employer]ON [employer] CAN SUPPLY (YUE) Antibody, IgG 19 Units or Less ............. Negative 20 to 39 Units ............... Weak Positive 40 to 80 Units ............... Moderate Positive 81 Units or greater .......... Strong Positive Leon/SUPERVISOR C[employer]ON [employer] SUP[employer]Y antibodies are frequently seen in patients with mixed connective tissue disease (MCTD) and are also associated with other systemic autoimmune rheumatic diseases (SARDs) such as systemic lupus erythematosus (SLE), systemic sclerosis, and myositis. Antibodies targeting the Leon/SUPERVISOR [employer]ON [employer] SUP[employer]Y antigenic complex also recognize Leon antigens, therefore, the Leon antibody response must be considered when interpreting these results. Performed By: [facility] [address] [place] [id number] Information Assurance Analyst: Corwin Higuera MD, PhD CLIA Number: [id number] Abida Cobian [facility] LAB BLOOD ORDERABLES Final Result Performing Organization Address City/[facility] Co de Phone Number [facility] [address] * Thyroid Peroxidase Antibody (06/19/2024 8:24 AM EDT) [facility] Thyroid Peroxidase Antibody <5 <=8 IU/mL 06/19/2024 11:11 AM EDT [facility] Blood Venous blood specimen / Unknown Venipuncture / Unknown 06/19/2024 8:24 AM EDT 06/19/2024 8:24 AM EDT Abida Cobian CYLINDER MACHINE OPERATOR [employer] LAB BLOOD ORDERABLES Final Result [facility] [address] [place] [address] * Double-Stranded DNA (dsDNA) Antibody, IgG by IFA (06/19/2024 8:24 AM EDT) [facility] Double-Strande d DNA (dsDNA) Ab IgG IFA <1:10 <1:10 06/22/2024 9:45 PM EDT [facility] ([place]) Blood Venous blood specimen / Unknown Venipuncture / Unknown 06/19/2024 8:24 AM EDT 06/19/2024 8:24 AM EDT Narrative [facility]) - 06/22/2024 9:45 PM EDT INTERPRETIVE INFORMATION: [...] recommendations for testing may be found at [email or web address]. Performed By: [facility] [address] [place] [address] Information Assurance Analyst: Corwin Higuera MD, PhD CLIA Number: [id number] us Abida Cobian APRN LAB BLOOD ORDERABLES Final Result [facility]) [address] [place] [address] * Creatinine, Plasma (06/19/2024 8:24 AM EDT) Creatinine, Plasma 0.80 0.60 - 1.10 mg/dL 06/19/2024 10:04 AM EDT [facility] eGFRcr 104.4 mL/min/1.7 3m*2 06/19/2024 10:04 AM EDT [facility] Comment:Reported eGFRcr in m L/min/1.73m2 is based the CKD-EPI 2020 equation that does not use a race coefficient. Blood Venous blood specimen / Unknown Venipuncture / Unknown 06/19/2024 8:24 AM EDT 06/19/2024 8:24 AM EDT Abida Cobian APRN LAB BLOOD ORDERABLES Final Result Performing Organization Address City/[facility]/ZIP Co de Phone Number [facility] [address] [place] [address] * Sedimentation Rate, Automated (06/19/2024 8:24 AM EDT) Sedimentation Rate 11 <20 mm/hr 2024 10:18 AM EDT [facility] Blood Venous blood specimen / Unknown Venipuncture / Unknown 06/19/2024 8:24 AM EDT 06/19/2024 8:24 AM EDT Abida Cobian APRN LAB BLOOD ORDERABLES Final Result Performing Organization Address [facility]/ZIP Co de Phone Number [facility] [address] [place] [address] * (ABNORMAL) CBC and Differential (06/19/2024 8:24 AM EDT) WBC Count 12.21(H) 3.70 - 10.30 10*3/uL LAB HEMATOLOGY METHOD 06/19/2024 10:01 AM EDT [facility] RBC Count 4.86 3.90 - 5.20 10*6/uL LAB HEMATOLOGY METHOD 06/19/2024 10:01 AM EDT [facility] HGB 14.4 11.2 - 15.7 g/dL LAB HEMATOLOGY METHOD 06/19/2024 10:01 AM EDT [facility] HCT 43.9 34.0 - 45.0 % LAB HEMATOLOGY METHOD 06/19/2024 10:01 AM EDT [facility] Platelet Count 535(H) 155 - 369 10*3/uL LAB HEMATOLOGY METHOD 06/19/2024 10:01 AM EDT [facility] MCV 90 79 - 98 fL LAB HEMATOLOGY METHOD 06/19/2024 10:01 AM EDT [facility] MCH 29.6 26.0 - 32.0 pg LAB HEMATOLOGY METHOD 06/19/2024 10:01 AM EDT [facility] MCHC 32.8 30.7 - 35.5 g/dL LAB HEMATOLOGY METHOD 06/19/2024 10:01 AM EDT [facility] RDW 13.3 11.5 - 14.5 % LAB HEMATOLOGY METHOD 06/19/2024 10:01 AM EDT [facility] MPV 9.7 8.8 - 12.5 fL LAB HEMATOLOGY METHOD 06/19/2024 10:01 AM EDT [facility] nRBC 0.0 <=0.0 per 100 WBCs LAB HEMATOLOGY METHOD 06/19/2024 10:01 AM EDT [facility] Differential Type Automated LAB HEMATOLOGY METHOD 06/19/2024 10:01 AM EDT [facility] Neutrophils % 59 % LAB HEMATOLOGY METHOD 06/19/2024 10:01 AM EDT [facility] Lymphocytes % 30 % LAB HEMATOLOGY METHOD 06/19/2024 10:01 AM EDT [facility] Monocytes % 8 % LAB HEMATOLOGY METHOD 06/19/2024 10:01 AM EDT [facility] Eosinophils % 1 % LAB HEMATOLOGY METHOD 06/19/2024 10:01 AM EDT [facility] Basophils % 1 % LAB HEMATOLOGY METHOD 06/19/2024 10:01 AM EDT [facility] Immature Granulocytes % 1 % LAB HEMATOLOGY METHOD 06/19/2024 10:01 AM EDT [facility] Neutrophils Absolute 7.28(H) 1.60 - 6.10 10*3/uL LAB HEMATOLOGY METHOD 06/19/2024 10:01 AM EDT [facility] Lymphocytes Absolute 3.66 1.20 - 3.90 10*3/uL LAB HEMATOLOGY METHOD 06/19/2024 10:01 AM EDT [facility] Monocytes Absolute 0.98(H) 0.30 - 0.90 10*3/uL LAB HEMATOLOGY METHOD 06/19/2024 10:01 AM EDT [facility] Eosinophils Absolute 0.13 0.00 - 0.50 10*3/uL LAB HEMATOLOGY METHOD 06/19/2024 10:01 AM EDT [facility] Basophils Absolute 0.08 0.00 - 0.10 10*3/uL LAB HEMATOLOGY METHOD 06/19/2024 10:01 AM EDT [facility] Immature Granulocytes Absolute 0.08(H) 0.00 - 0.06 10*3/uL LAB HEMATOLOGY METHOD 06/19/2024 10:01 AM EDT [facility] Blood Venous blood specimen / Unknown Venipuncture / Unknown 06/19/2024 8:24 AM EDT 06/19/2024 8:24 AM EDT Narrative [facility] - 06/19/2024 10:01 AM EDT Therapeutic decision making should be based on absolute values, rather than percentages. Abida Cobian APRN LAB BLOOD ORDERABLES Final Result Performing Organization Address City/[facility]/ZIP Co de Phone Number [facility] [address] [place] [address] * (ABNORMAL) C3 Complement (06/19/2024 8:24 AM EDT) C3 Complement 186(H) 84 - 166 mg/dL 06/19/2024 10:05 AM EDT [facility] Blood Venous blood specimen / Unknown Venipuncture / Unknown 06/19/2024 8:24 AM EDT 06/19/2024 8:24 AM EDT Abida Cobian APRN LAB BLOOD ORDERABLES Final Result Performing Organization Address City/[facility]/ZIP Co de Phone Number [facility] [address] [place] [address] * (ABNORMAL) C4 Complement (06/19/2024 8:24 AM EDT) C4 Complement 37(H) 13 - 36 mg/dL 06/19/2024 10:05 AM EDT [facility] Blood Venous blood specimen / Unknown Venipuncture / Unknown 06/19/2024 8:24 AM EDT 06/19/2024 8:24 AM EDT Abida Cobian APRN LAB BLOOD ORDERABLES Final Result Performing Organization Address City/[facility]/ZIP Co de Phone Number [facility] [address] [place] [address] * (ABNORMAL) C-Reactive Protein, Plasma (06/19/2024 8:24 AM EDT) CRP, Plasma 12.5(H) <=8.0 mg/L 06/19/2024 10:04 AM EDT [facility] Blood Venous blood specimen / Unknown Venipuncture / Unknown 06/19/2024 8:24 AM EDT 06/19/2024 8:24 AM EDT Narrative [facility] - 06/19/2024 10:04 AM EDT This CRP test is appropriate for assessment of infection, systemic inflammation and/or tissue injury. To assess cardiovascular disease risk order high sensitivity CRP (CRPH). Abida Cobian CYLINDER MACHINE OPER[employer] LAB BLOOD ORDERABLES Final Result [facility] [address] [place] [address] * Antinuclear Antibody (VELMA), HEp-2, IgG (06/19/2024 8:24 AM EDT) VELMA INTERPRETIVE COMMENT See Note 06/22/2024 10:10 AM EDT [facility] ([facility]) Anti Nuc Ab Screen <1:80 <1:80 06/22/2024 10:10 AM EDT [facility] ([facility]) Blood Venous blood specimen / Unknown Venipuncture / Unknown 06/19/2024 8:24 AM EDT 06/19/2024 8:24 AM EDT Narrative [facility] ([facility]) - 06/22/2024 10:10 AM EDT Antinuclear antibodies [...] not necessarily rule out SARD. Performed By: [facility] [address] [place] [address] Information Assurance Analyst: Corwin Higuera MD, PhD CLIA Number: [id number] Abida Cobian APRN LAB BLOOD ORDERABLES Final Result Performing Organization Address City/[facility]/ZIP Co de Phone Number [email or web address] ([facility]) [address] [place] [id number] * Thyroid Stimulating Hormone, Plasma (06/19/2024 8:24 AM EDT) Pathologist [facility] Thyroid Stimulating Hormone, Plasma 1.38 0.40 - 4.20 uIU/mL 06/19/2024 10:04 AM EDT [facility] Blood Venous blood specimen / Unknown Venipuncture / Unknown 06/19/2024 8:24 AM EDT 06/19/2024 8:24 AM EDT Narrative [facility] - 06/19/2024 10:04 AM EDT Trimester Specific Ranges TSH ( IU/mL) 1st Trimester 0.1 - 3.0 2nd Trimester 0.19 - 4.06 3rd Trimester 0.3 - 3.7 Abida Cobian APRN LAB BLOOD ORDERABLES Final Result [facility] [address] [place] [address] * (ABNORMAL) Hepatic Function Panel (06/19/2024 8:24 AM EDT) Conjugated Bilirubin, Plasma <0.2 <=0.3 mg/dL 06/19/2024 10:04 AM EDT [facility] Alkaline Phosphatase, Plasma 124(H) 35 - 104 U/L 06/19/2024 10:04 AM EDT [facility] Total Bilirubin, Plasma 0.2 0.2 - 1.1 mg/dL 06/19/2024 10:04 AM EDT [facility] Albumin, Plasma 4.5 3.5 - 5.2 g/dL 06/19/2024 10:04 AM EDT [facility] Total Protein 7.4 6.3 - 7.9 g/dL 06/19/2024 10:04 AM EDT [facility] ALT, Plasma 18 10 - 35 U/L 06/19/2024 10:04 AM EDT [facility] AST, Plasma 20 10 - 35 U/L 06/19/2024 10:04 AM EDT [facility] Blood Venous blood specimen / Unknown Venipuncture / Unknown 06/19/2024 8:24 AM EDT 06/19/2024 8:24 AM EDT Abida Cobian APRN LAB BLOOD ORDERABLES Final Result [facility] [address] [place] [address] * Acute Hepatitis Panel (12/21/2022 2:46 PM EDT) Hepatitis B Surf Antigen Negative Negative 12/21/2022 5:35 PM EDT [facility] Hepatitis C Antibody Negative Negative 12/21/2022 5:35 PM EDT [facility] Hepatitis A Antibody IgM Negative Negative 12/21/2022 5:35 PM EDT [facility] Hepatitis B Core Antibody IgM Negative Negative 12/21/2022 5:35 PM EDT [facility] Blood Venous blood specimen / Unknown Venipuncture / Unknown 12/21/2022 2:46 PM EDT 12/21/2022 2:46 PM EDT Abida Cobian APRN LAB BLOOD ORDERABLES Final Result [facility] [address] [place] [address] from Last 3 Months or Most Recently Relevant to Health Maintenance Insurance [facility] MEDICAID Care Teams Civil Preparedness Training Officer Relationship Specialty Start Date End Date Ivonne Metcalf PA [address] [place] [address] PCP - General 12/21/22
--- OUTSIDE RECORDS SUMMARY | 2024-08-04 00:50 | XMS_ITS | Encounter Summary ---
Author Organization Healthcare Address [address] [place] [address] Care Team Providers Care Global Regulatory Affairs Manager Name Role Phone Ivonne Metcalf Primary Care Provider [phone] Reason for Visit * Reason Onset Date Comments Results 06/25/2024 Encounter Details Date Type Department Care Team (Late st Contact Info) Description 06/25/2024 Results Follow-Up [facility] Medicine Specialties [address] [place] [address] Abida Cobian M, ENGINEERING DRAFTER [address] [place] [address] Results Social History Tobacco Use Types Packs/Day Years [...] on file documented as of this encounter Miscellaneous Notes * Telephone Encounter - Marli Garcia - 07/31/2024 2:11 PM EDT Patient called back regarding lab results. Please call her to discuss and answer questions. * Telephone Encounter - Jose Marli Edna - 07/25/2024 4:27 PM EDT Patient called regarding lab results. She does not have an active Mychart. Please call patient to discuss and answer any questions * Result Encounter Note - Abida Cobian APRN - 06/25/2024 10:45 AM EDT Your redo lab work was relatively negative. Your white count was slightly elevated, which could indicate an infection or inflammation. If you are feel sick, please reach out to your PCP. One of your inflammatory markers was slightly elevated, but all of your other labs were negative. Your neck xray showed moderate degenerative disc changes at C5-C6. Degenerative changes is the normal wear and tear of your joints, but at 28, you should not have that much degenerative disease. I am concerned for a possible autoimmune disease that affects your back. The disease I am looking for usually starts inthe SI joints. I would like to move forward with a MRI, but I will need for you to do NSAID therapyalong with PT or senior care assistant for 4-6 weeks without significant improvement in symptoms. Are there any reasons you cannot take NSAIDS (ibuprofen, motrin, aleve, naproxen, Advil)? Once you are done with PT, let me know and I will place the order for the MRI. I also would like to get a lab that can indicate if you have a disease that affects your hips and back. You can come get that at your earliest convenience. Please let me know where you would like me to send the PT referral. If you have any other questions or concerns, please feel free to reach out. documented in this encounter Plan of Treatment Not on file documented as of this encounter Visit Diagnoses Not on filedocumented in this encounter Additional Health Concerns Assessment Noted Time PHQ-9 Depression Total Score: 23 025 7:36 AM EDT A fall risk assessment has been complete d for the patient 06/19/2024 7:36 AM EDT A Body Mass Index follow-up plan has been documented for the patient 06/19/2024 8:12 AM EDT documented as of this encounter Care Teams Global Regulatory Affairs Manager Relationship Specialty Start Date End Date Ivonne Metcalf PA [address] [place] [address] PCP - General 12/21/22 documented as of this encounter
--- OUTSIDE RECORDS SUMMARY | 2024-08-04 00:50 | XMS_ITS | Encounter Summary ---
Author Organization Healthcare Address [address] [place] [address] Care Team Providers Care Bracelet Form Coverer Name Role Phone Ivonne Metcalf Primary Care Provider [phone] Encounter Details Date Type Department Care Team (Late st Contact Info) Description 06/26/2024 Telephone [facility] Specialties [address] [place] [phone] Deana Chao, RN [facility]-VASCULAR & INTERVENTIONAL RADIOLOGY Social History Tobacco Use Types Packs/Day Years [...] encounter Miscellaneous Notes * Telephone Encounter - Deana Chao RN - 06/26/2024 10:13 AM EDT Letter sent to patient in re: to unread my chart message. documented in this encounter Plan of Treatment [...] documented as of this encounter Care Teams Bracelet Form Coverer Relationship Specialty Start Date End Date Ivonne Metcalf PA [address] [place] [address] PCP - General 12/21/22 documented as of this encounter
--- OUTSIDE RECORDS SUMMARY | 2024-08-04 00:50 | XMS_ITS | Encounter Summary ---
Author Organization Healthcare Address [address] [place] [address] Care Team Providers Care Supervisor Case Loading Name Role Phone DixonIvonne Moraima OSEGUERA Primary Care Provider [phone] Encounter Details Date Type Department Care Team (Late st Contact Info) Description 11/10/2023 Lab Requisition [facility] [address] [place] [address] Luis M Johnson MD [address] [address] Hypertrophy of breast Social History Tobacco Use Types Packs/Day Years [...] Procedure Name Priority Date/Time Associated Diagnosis Comments SURGICAL PATHOLOGY EXAM Routine 11/09/2023 Hypertrophy of breast documented in this encounter Results * Surgical Pathology Exam (11/09/2023) Case Report Surgical Pathology Case: [id number] Authorizing Provider: Luis M Johnson MD Collected: 11/09/2023 Ordering Location: [facility] Received: 11/10/2023 1048 Pathologist: Shannon Stoddard MD Specimens: A) - Breast, Right, Right Breast Tissue 2187 gm B) - Breast, Left, Left Breast Tissue 2512 gm 11/13/2023 5:12 PM EDT [facility] Final Diagnosis A. BREAST, RIGHT, REDUCTION: - BENIGN BREAST TISSUE (2187 GRAMS); NEGATIVE FOR MALIGNANCY. B. BREAST, LEFT, REDUCTION: - BENIGN BREAST TISSUE (2512 GRAMS); NEGATIVE FOR MALIGNANCY. 11/13/2023 5:12 PM EDT [facility] at 1712 EDT Clinical Information Hypertrophy of breast Bilateral breast macromastia 11/13/2023 5:12 PM EDT [facility] Gross Description A. RIGHT BREAST TISSUE 2187 GM Received in formalin labeled r ight breast tissue , is a 2187 g aggregate of grossly unremarkable white-mayer skin and underlying lobulated adipose tissue measuring 28.7 x 24.6 x 4.8 cm. Sectioning reveals a grossly unremarkable yellow-mayer, fibrofatty cut surface. Embedded Systems Developer sections are submitted in cassettes A1-A3. Cold Time: 0 Ana Maria B Zhu B. LEFT BREAST TISSUE 2512 GM Received in formalin labeled l eft breast tissue , is a 2512 g aggregate of grossly unremarkable white-mayer skin and underlying lobulated adipose tissue measuring 32.6 x 23.2 x 7.2 cm. Sectioning reveals grossly unremarkable yellow-mayer, fibrofatty cut surface. Embedded Systems Developer sections are submitted in cassettes B1-B3. Cold Time: 0 Ana Maria B Zhu 11/13/2023 5:12 PM EDT [facility] Note: A resident was involved in the service. I attest I examined the relevant preparations for the specimens and confirmed the diagnosis or interpretation. 11/13/2023 5:12 PM EDT [facility] Tissue Right breast structure / Unknown 11/09/2023 11/10/2023 10:48 AM EDT Tissue specimen (specimen) Left breast structure / Unknown 11/10/2023 11/10/2023 10:48 AM EDT us Luis M Johnson MD LAB PATHOLOGY ORDERABLES Final Result [facility] [address] [place] [address] documented in this encounter Visit Diagnoses Diagnosis Hypertrophy of breast documented in this encounter Additional Health Concerns Assessment Noted Time A Body Mass Index follow-up plan has been documented for the patient 10/13/2023 11:01 AM EDT documented as of this encounter Care Teams Supervisor Case Loading Relationship Specialty Start Date End Date Ivonne Metcalf PA [address] [place] [address] PCP - General 12/21/22 documented as of this encounter
--- OUTSIDE RECORDS SUMMARY | 2024-08-04 00:50 | XMS_ITS | Encounter Summary ---
Author Organization [facility] Address [address] [place] [address] Care Team Providers Care Juice Scaleman Name Role Phone Ivonne Metcalf Primary Care Provider [phone] Encounter Details Date Type Department Care Team (Latest Contact Info) Description 07/05/2024 Travel Social History Tobacco Use Types Packs/Day Years [...] documented as of this encounter Care Teams Juice Scaleman Relationship Specialty Start Date End Date Ivonne Metcalf PA [address] [place] [address] PCP - General 10/25/23 documented as of this encounter
--- OUTSIDE RECORDS SUMMARY | 2024-08-04 00:50 | XMS_ITS | Encounter Summary ---
Author Organization Healthcare Address [address] [id number] Care Team Providers Care Filter Press Operator Name Role Phone Ivonne Metcalf Primary Care Provider [phone] Encounter Details Date Type Department Care Team (Latest Contact Info) Description 06/19/2024 Travel Social History Tobacco Use Types Packs/Day [...] Lexi Alba documented as of this encounter Plan of [...] documented as of this encounter Care Teams Filter Press Operator Relationship Specialty Start Date End Date Ivonne Metcalf PA [address] [place] [address] PCP - General 12/21/22 documented as of this encounter
--- OUTSIDE RECORDS SUMMARY | 2024-08-04 00:50 | XMS_ITS | Encounter Summary ---
Author Organization Healthcare Address [address] [place] [address] Care Team Providers Care Jet Operator Name Role Phone Ivonne Metcalf Primary Care Provider [phone] Encounter Details Date Type Department Care Team (Late st Contact Info) Description 06/26/2024 Telephone [facility] Medicine Specialties [address] [place] [phone] Deana Chao, RN CH-VASCULAR & INTERVENTIONAL RADIOLOGY [...] Encounter - Deana Chao RN - 06/26/2024 10:14 AM EDT Letter sent to patient in re; to unread my chart message. documented in [...] documented as of this encounter Care Teams Jet Operator Relationship Specialty Start Date End Date Ivonne Metcalf PA [address] [place] [address] PCP - General 12/21/22 documented as of this encounter
[2024-08-04 01:06] LABS: Lipase 28 U/L (23-300)
--- NOTE | 2024-08-04 01:35 | PC.NURSE ---
pt is with rad for a scan
[2024-08-04 01:37] LABS: HIV Combo NEGATIVE (Negative)
[2024-08-04 01:46] LABS: Hepatitis C Ab Qual. W/ RFX NEGATIVE (Negative)
[2024-08-04] MEDS: IOPAMIDOL-370 (76%);100ML BOTTLE 70 ML IV (01:58)
[2024-08-04] MEDS: 0.9 % SODIUM CHLORIDE 50 ML VIAL IV (01:59)
[2024-08-04] MEDS: SODIUM CHLORIDE 0.9% 10ML SYR (RAD ONLY) 10 ML IV (01:59)
[2024-08-04] MEDS: KETOROLAC 30MG/ML VIAL 30 MG IV (03:36)
[2024-08-04 04:00] LABS: Troponin I < 0.01 ng/ml (0.00-0.034)
== END 2024-08-04 04:39 | disposition home or self-care (01) ==
PROVIDERS: Emergency Provider Emergency Medicine; PCP Physician Assistant
DX: R10.11 Right upper quadrant pain (principal); R07.9 Chest pain, unspecified; R00.0 Tachycardia, unspecified; Z11.59 Encounter for screening for other viral diseases; Z11.4 Encounter for screening for human immunodeficiency virus [HIV]
CPT/HCPCS: 71046; 71275; 74177; 80053; 80074; 83690; 84484; 84703; 85025; 85378; 87389; 93005; 96374; 99285; J1885; Q9967

== ENCOUNTER 2024-08-07 14:39 | Outpatient (CLI) | payer MEDICAID, SELFPAY ==
--- OUTSIDE RECORDS SUMMARY | 2024-06-19 07:30 | XMS_ITS | Encounter Summary ---
Author Organization Healthcare Address [address] [place] [address] Care Team Providers Care Salt Operator Name Role Phone Ivonne Metcalf Primary Care Provider [phone] Reason for Visit * Reason Comments Hematochezia Fatigue Abnormal Lab Sicca syndrome Neck Pain Encounter Details Date Type Department Care Team (Latest Contact Info) Description 06/19/2024 7:30 AM EDT Office Visit [facility] [address], [address] [place] [address] Oneil Cobian, STITCH BONDING MACHINE TENDER HELPER [address] [place] [address] Positive VELMA (antinuclear antibody) (Primary [...] an autoimmune disease for a positive VELMA, SPINNERET CLEANER and CRP. The patient reports that she [...] Case Report 11/09/2023 Final Value:Surgical Pathology Case: [id number] Authorizing Provider: Luis M Johnson MD Collected: 11/09/2023 Ordering Location: [facility] Lab Received: 11/10/2023 1048 Pathologist: Shannon Stoddard [...] a grossly unremarkable yellow-mayer, fibrofatty cut surface. Air Intelligence Officer sections are submitted in cassettes A1-A3. Cold Time: 0 Ana Maria Don Ochoa. LEFT BREAST TISSUE 2512 GM Received in formalin labeled ???left breast tissue?? , is a 2512 g aggregate of grossly unremarkable white-mayer skin and underlying lobulated adipose tissue measuring 32.6 x 23.2 x 7.2 cm. Sectioning reveals grossly unremarkable yellow-mayer, fibrofatty cut surface. Air Intelligence Officer sections are submitted in cassettes B1-B3. Cold [...] joints to rule out 2.Positive VELMA 3.Positive SPINNERET CLEANER 4.SICCA -Rheumatological ROS positive for dry eyes, [...] on 06/19/2024 8:50 AM us Oneil Cobian STITCH BONDING MACHINE TENDER HELPER IMG XR PROCEDURES Final Re sult * Urinalysis with reflex microscopic (Culture NOT Included) (06/19/2024 8:27 AM EDT) Color, Urine Yellow LAB URINALYSIS - AUTOMATED METHOD 06/19/2024 9:56 AM EDT [facility] Clarity, Urine Clear LAB URINALYSIS - AUTOMATED METHOD 06/19/2024 9:56 AM EDT [facility] Spec [place], Urine 1.022 1.005 - 1.030 LAB URINALYSIS - AUTOMATED METHOD 06/19/2024 9:56 AM EDT [facility] pH, Urine 5.5 5.0 - 8.0 LAB URINALYSIS - AUTOMATED METHOD 06/19/2024 9:56 AM EDT [facility] Protein, Urine Negative Negative mg/dL LAB URINALYSIS - AUTOMATED METHOD 06/19/2024 9:56 AM EDT [facility] Glucose, Urine Negative Negative mg/dL LAB URINALYSIS - AUTOMATED METHOD 06/19/2024 9:56 AM EDT [facility] Ketones, Urine Negative Negative mg/dL LAB URINALYSIS - AUTOMATED METHOD 06/19/2024 9:56 AM EDT [facility] Blood, Urine Negative Negative LAB URINALYSIS - AUTOMATED METHOD 06/19/2024 9:56 AM EDT [facility] Bilirubin, Urine Negative Negative LAB URINALYSIS - AUTOMATED METHOD 06/19/2024 9:56 AM EDT [facility] Urobilinogen, Urine 0.2 0.2 to 1.0 mg/dL LAB URINALYSIS - AUTOMATED METHOD 06/19/2024 9:56 AM EDT [facility] Leukocytes, Urine Negative Negative LAB URINALYSIS - AUTOMATED METHOD 06/19/2024 9:56 AM EDT [facility] Nitrite, Urine Negative Negative LAB URINALYSIS - AUTOMATED METHOD 06/19/2024 9:56 AM EDT [facility] Urine Urine specimen obtained by clean catch procedure / Unknown Non-blood Collection / Unknown 06/19/2024 8:27 AM EDT 06/19/2024 8:27 AM EDT Oneil Cobian APRN LAB URINE ORDERABLES Final Result [facility] [address] [place] [address] * Protein, Random, Urine with Creatinine (06/19/2024 8:27 AM EDT) Protein, Urine 8 mg/dL 06/19/2024 10:23 AM EDT [facility] Creatinine, Urine 179 mg/dL 06/19/2024 10:23 AM EDT [facility] Protein/Creatin ine Ratio 0.0 mg/mg Creat 06/19/2024 10:23 AM EDT [facility] Urine Urine specimen obtained by clean catch procedure / Unknown Non-blood Collection / Unknown 06/19/2024 8:27 AM EDT 06/19/2024 8:27 AM EDT Oneil Cobian APRN LAB URINE ORDERABLES Final Result [facility] [address] [place] [address] * Thyroid Stimulating Hormone, Plasma (06/19/2024 8:24 AM EDT) Thyroid Stimulating Hormone, Plasma 1.38 0.40 - 4.20 uIU/mL 06/19/2024 10:04 AM EDT [facility] Blood Venous blood specimen / Unknown Venipuncture / Unknown 06/19/2024 8:24 AM EDT 06/19/2024 8:24 AM EDT Narrative [facility] - 06/19/2024 10:04 AM EDT Trimester Specific Ranges TSH ( IU/mL) 1st Trimester 0.1 - 3.0 2nd Trimester 0.19 - 4.06 3rd Trimester 0.3 - 3.7 Oneil Cobian APRN LAB BLOOD ORDERABLES Final Result [facility] [address] [place] [address] * Sedimentation Rate, Automated (06/19/2024 8:24 AM EDT) Sedimentation Rate 11 <20 mm/hr 2024 10:18 AM EDT [facility] Blood Venous blood specimen / Unknown Venipuncture / Unknown 06/19/2024 8:24 AM EDT 06/19/2024 8:24 AM EDT Oneil Cobian APRN LAB BLOOD ORDERABLES Final Result Performing Organization Address City/[facility] [place] [address] * (ABNORMAL) C-Reactive Protein, Plasma (06/19/2024 8:24 AM EDT) CRP, Plasma 12.5(H) <=8.0 mg/L 06/19/2024 10:04 AM EDT [facility] Blood Venous blood specimen / Unknown Venipuncture / Unknown 06/19/2024 8:24 AM EDT 06/19/2024 8:24 AM EDT Narrative [facility] - 06/19/2024 10:04 AM EDT This CRP test is appropriate for assessment of infection, systemic inflammation and/or tissue injury. To assess cardiovascular disease risk order high sensitivity CRP (CRPH). Oneil Cobian APRN LAB BLOOD ORDERABLES Final Result [facility] [address] [place] [address] * Thyroid Peroxidase Antibody (06/19/2024 8:24 AM EDT) Thyroid Peroxidase Antibody <5 <=8 IU/mL 06/19/2024 11:11 AM EDT [facility] Blood Venous blood specimen / Unknown Venipuncture / Unknown 06/19/2024 8:24 AM EDT 06/19/2024 8:24 AM EDT Oneil Cobian APRN LAB BLOOD ORDERABLES Final Result Performing Organization Address [facility]/ZIP Co de Phone Number [facility] [address] [place] [address] * Lofton (YUE) Antibody, IgG (06/19/2024 8:24 AM EDT) Lofton (YUE) Antibody, IgG 2 0 - 40 AU/mL 06/20/2024 9:55 PM EDT [facility] ([place]) Serum 06/19/2024 8:24 AM EDT 06/19/2024 8:24 AM EDT Narrative [facility]) - 06/20/2024 9:55 PM EDT INTERPRETIVE [...] associations with SLE clinical manifestations. Performed By: [facility] [address] [place] [address] Car Refinisher: Corwin Higuera MD, PhD CLIA Number: [id number] Oneil Cobian APRN LAB REF LAB BLOOD AND FLUI D ORD Final Result [facility]) [address] [place] [address] * ENAII (06/19/2024 8:24 AM EDT) SSA-52 (RO52) (YUE) Antibody, IgG 1 0 - 40 AU/mL 06/20/2024 9:55 PM EDT [facility] ([place]) SSA-60 (RO60) (YUE) Antibody, IgG 0 0 - 40 AU/mL 06/20/2024 9:55 PM EDT [facility] ([facility]) SSB (LA) (YUE) Antibody, IgG 0 0 - 40 AU/mL 06/20/2024 9:55 PM EDT [facility] ([facility]) Blood Venous blood specimen / Unknown Venipuncture / Unknown 06/19/2024 8:24 AM EDT 06/19/2024 8:24 AM EDT Narrative [facility] ([facility]) - 06/20/2024 9:55 PM EDT INTERPRETIVE INFORMATION: [...] Greater .......... Positive INTERPRETIVE INFORMATION: SSB (La) (YEU) Ab, IgG 29 AU/mL or Less ............. [...] (PSS) also have this antibody. Performed By: [facility] [address] [place] [address] Car Refinisher: Corwin Higuera MD, PhD CLIA Number: [id number] Oneil Cobian STITCH BONDING MACHINE TENDER HELPER LAB BLOOD ORDERABLES Final Result [facility] ([facility]) [address] [place] [address] * ENAI (06/19/2024 8:24 AM EDT) Lofton/SPINNERET CLEANER (YUE) Ab, IgG 4 0 - 19 Units 06/20/2024 11:55 PM EDT [facility] ([place]) Blood Venous blood specimen / Unknown Venipuncture / Unknown 06/19/2024 8:24 AM EDT 06/19/2024 8:24 AM EDT Narrative [facility] ([facility]) - 06/20/2024 11:55 PM EDT INTERPRETIVE INFORMATION: Lofton/SPINNERET CLEANER (YUE) Antibody, IgG 19 Units or Less ............. Negative 20 to 39 Units ............... Weak Positive 40 to 80 Units ............... Moderate Positive 81 Units or greater .......... Strong Positive Lofton/SPINNERET CLEANER antibodies are frequently seen in patients with mixed connective tissue disease (MCTD) and are also associated with other systemic autoimmune rheumatic diseases (SARDs) such as systemic lupus erythematosus (SLE), systemic sclerosis, and myositis. Antibodies targeting the Lofton/SPINNERET CLEANER antigenic complex also recognize Lofton antigens, therefore, the Lofton antibody response must be considered when interpreting these results. Performed By: [facility] [address] [place] [address] Car Refinisher: Corwin Higuera MD, PhD CLIA Number: [id number] Oneil Cobian STITCH BONDING MACHINE TENDER HELPER LAB BLOOD ORDERABLES Final Result [facility] ([place]) [address] [place] [address] * (ABNORMAL) C4 Complement (06/19/2024 8:24 AM EDT) C4 Complement 37(H) 13 - 36 mg/dL 06/19/2024 10:05 AM EDT [facility] Blood Venous blood specimen / Unknown Venipuncture / Unknown 06/19/2024 8:24 AM EDT 06/19/2024 8:24 AM EDT Oneil Cobian STITCH BONDING MACHINE TENDER HELPER LAB BLOOD ORDERABLES Final Result Performing Organization Address City/[facility]/ZIP Co de Phone Number [facility] [address] [place] [address] * (ABNORMAL) C3 Complement (06/19/2024 8:24 AM EDT) C3 Complement 186(H) 84 - 166 mg/dL 06/19/2024 10:05 AM EDT [facility] Blood Venous blood specimen / Unknown Venipuncture / Unknown 06/19/2024 8:24 AM EDT 06/19/2024 8:24 AM EDT Oneil Cobian STITCH BONDING MACHINE TENDER HELPER LAB BLOOD ORDERABLES Final Result [facility] [address] [place] [address] * Double-Stranded DNA (dsDNA) Antibody, IgG by IFA (06/19/2024 8:24 AM EDT) Double-Strande d DNA (dsDNA) Ab IgG IFA <1:10 <1:10 06/22/2024 9:45 PM EDT [facility] ([place]) Blood Venous blood specimen / Unknown Venipuncture / Unknown 06/19/2024 8:24 AM EDT 06/19/2024 8:24 AM EDT [address] [facility]) - 06/22/2024 9:45 PM EDT INTERPRETIVE INFORMATION: [...] recommendations for testing may be found at [email or web address]. Performed By: [facility] [address] [place] [address] Car Refinisher: Corwin Higuera MD, PhD CLIA Number: [id number] Oneil Cobian STITCH BONDING MACHINE TENDER HELPER LAB BLOOD ORDERABLES Final Result [facility]) [address] [place] [address] * Antinuclear Antibody (VELMA), HEp-2, IgG (06/19/2024 8:24 AM EDT) VELMA INTERPRETIVE COMMENT See Note 06/22/2024 10:10 AM EDT [facility] ([place]) Anti Nuc Ab Screen <1:80 <1:80 06/22/2024 10:[address] [facility] ([facility]) Blood Venous blood specimen / Unknown Venipuncture / Unknown 06/19/2024 8:24 AM EDT 06/19/2024 8:24 AM EDT Narrative [facility] ([place]) - 06/22/2024 10:10 AM EDT [...] not necessarily rule out SARD. Performed By: [facility] [address] [place] [address] Car Refinisher: Corwin Higuera MD, PhD CLIA Number: [id number] Oneil Cobian APRN LAB BLOOD ORDERABLES Final Result [facility] ([facility]) [address] [place] [address] * (ABNORMAL) Hepatic Function Panel (06/19/2024 8:24 AM EDT) Conjugated Bilirubin, Plasma <0.2 <=0.3 mg/dL 06/19/2024 10:04 AM EDT [facility] Alkaline Phosphatase, Plasma 124(H) 35 - 104 U/L 06/19/2024 10:04 AM EDT [facility] Total Bilirubin, Plasma 0.2 0.2 - 1.1 mg/dL 06/19/2024 10:04 AM EDT [facility] Albumin, Plasma 4.5 3.5 - 5.2 g/dL 06/19/2024 10:04 AM EDT [facility] Total Protein 7.4 6.3 - 7.9 g/dL 06/19/2024 10:04 AM EDT [facility] ALT, Plasma 18 10 - 35 U/L 06/19/2024 10:04 AM EDT [facility] AST, Plasma 20 10 - 35 U/L 06/19/2024 10:04 AM EDT [facility] Blood Venous blood specimen / Unknown Venipuncture / Unknown 06/19/2024 8:24 AM EDT 06/19/2024 8:24 AM EDT Oneil Cobian APRN LAB BLOOD ORDERABLES Final Result Performing Organization Address [facility] Co de Phone Number [facility] [address] [place] [address] * Creatinine, Plasma (06/19/2024 8:24 AM EDT) Creatinine, Plasma 0.80 0.60 - 1.10 mg/dL 06/19/2024 10:04 AM EDT [facility] eGFRcr 104.4 mL/min/1.7 3m*2 06/19/2024 10:04 AM EDT [facility] Comment:Reported eGFRcr in m L/min/1.73m2 is based the CKD-EPI 2020 equation that does not use a race coefficient. Blood Venous blood specimen / Unknown Venipuncture / Unknown 06/19/2024 8:24 AM EDT 06/19/2024 8:24 AM EDT Oneil Cobian APRN LAB BLOOD ORDERABLES Final Result Performing Organization Address City/[facility]/ZIP Co de Phone Number [facility] [address] [place] [address] * (ABNORMAL) CBC and Differential (06/19/2024 8:24 AM EDT) WBC Count 12.21(H) 3.70 - 10.30 10*3/uL LAB HEMATOLOGY METHOD 06/19/2024 10:01 AM EDT [facility] RBC Count 4.86 3.90 - 5.20 10*6/uL LAB HEMATOLOGY METHOD 06/19/2024 10:01 AM EDT [facility] HGB 14.4 11.2 - 15.7 g/dL LAB HEMATOLOGY METHOD 06/19/2024 10:01 AM EDT [facility] HCT 43.9 34.0 - 45.0 % LAB HEMATOLOGY METHOD 06/19/2024 10:01 AM EDT [facility] Platelet Count 535(H) 155 - 369 10*3/uL LAB HEMATOLOGY METHOD 06/19/2024 10:01 AM EDT [facility] MCV 90 79 - 98 fL LAB HEMATOLOGY METHOD 06/19/2024 10:01 AM EDT [facility] MCH 29.6 26.0 - 32.0 pg LAB HEMATOLOGY METHOD 06/19/2024 10:01 AM EDT [facility] MCHC 32.8 30.7 - 35.5 g/dL LAB HEMATOLOGY METHOD 06/19/2024 10:01 AM EDT [facility] RDW 13.3 11.5 - 14.5 % LAB HEMATOLOGY METHOD 06/19/2024 10:01 AM EDT [facility] MPV 9.7 8.8 - 12.5 fL LAB HEMATOLOGY METHOD 06/19/2024 10:01 AM EDT [facility] nRBC 0.0 <=0.0 per 100 WBCs LAB HEMATOLOGY METHOD 06/19/2024 10:01 AM EDT [facility] Differential Type Automated LAB HEMATOLOGY METHOD 06/19/2024 10:01 AM EDT [facility] Neutrophils % 59 % LAB HEMATOLOGY METHOD 06/19/2024 10:01 AM EDT [facility] Lymphocytes % 30 % LAB HEMATOLOGY METHOD 06/19/2024 10:01 AM EDT [facility] Monocytes % 8 % LAB HEMATOLOGY METHOD 06/19/2024 10:01 AM EDT [facility] Eosinophils % 1 % LAB HEMATOLOGY METHOD 06/19/2024 10:01 AM EDT [facility] Basophils % 1 % LAB HEMATOLOGY METHOD 06/19/2024 10:01 AM EDT [facility] Immature Granulocytes % 1 % LAB HEMATOLOGY METHOD 06/19/2024 10:01 AM EDT [facility] Neutrophils Absolute 7.28(H) 1.60 - 6.10 10*3/uL LAB HEMATOLOGY METHOD 06/19/2024 10:01 AM EDT [facility] Lymphocytes Absolute 3.66 1.20 - 3.90 10*3/uL LAB HEMATOLOGY METHOD 06/19/2024 10:01 AM EDT [facility] Monocytes Absolute 0.98(H) 0.30 - 0.90 10*3/uL LAB HEMATOLOGY METHOD 06/19/2024 10:01 AM EDT [facility] Eosinophils Absolute 0.13 0.00 - 0.50 10*3/uL LAB HEMATOLOGY METHOD 06/19/2024 10:01 AM EDT [facility] Basophils Absolute 0.08 0.00 - 0.10 10*3/uL LAB HEMATOLOGY METHOD 06/19/2024 10:01 AM EDT [facility] Immature Granulocytes Absolute 0.08(H) 0.00 - 0.06 10*3/uL LAB HEMATOLOGY METHOD 06/19/2024 10:01 AM EDT [facility] Blood Venous blood specimen / Unknown Venipuncture / Unknown 06/19/2024 8:24 AM EDT 06/19/2024 8:24 AM EDT Narrative [facility] - 06/19/2024 10:01 AM EDT Therapeutic decision making should be based on absolute values, rather than percentages. Oneil Cobian APRN LAB BLOOD ORDERABLES Final Result Performing Organization Address City/State/[facility] Co de Phone Number [facility] [address] [place] [address] documented in this encounter Visit Diagnoses Diagnosis [...] documented as of this encounter Care Teams Salt Operator Relationship Specialty Start Date End Date Ivonne Metcalf PA [address] [place] [address] PCP - General 12/21/22 documented as of this encounter
--- OUTSIDE RECORDS SUMMARY | 2024-06-19 08:28 | XMS_ITS | Encounter Summary ---
Author Organization Healthcare Address [address] [place] [address] Care Team Providers Care Clinic Administrator Name Role Phone Ivonne Metcalf Primary Care Provider [phone] Encounter Details Date Type Department Care Team (Latest Contact Info) Description 06/19/2024 8:28 AM EDT - 06/19/2024 11:59 PM EDT [facility] Encounter [facility] [address], [address] [place] [address] Abnormal immunological finding in serum; CRP elevated; Polyarthralgia; Fatigue, unspecified type; Sicca syndrome (CMS/HCC); Positive VELMA (antinuclear antibody) Discharge Disposition: Home or Self Care Social History Tobacco Use Types Packs/Day Years [...] on file documented as of this encounter Functional Status * Over the [...] AM Lexi Alba Patient Health Questionnaire-9 Score 23 06/19/2024 7:36 AM Lexi Alba * If you checked off any problems on this questionnaire so far, Question Answer Date of Assessment Author How difficult have these problems made it for you to do your work, take care of things at home, or get along with other people? Very difficult 06/19/2024 7:36 AM Lexi Alba documented as of this encounter Medications at Time of Discharge atomoxetine (Strattera) 40 MG capsule Take 1 capsule (40 mg) by mouth daily. 12/08/2022 azelastine (Astelin) 0.1 % nasal spray Administer 2 sprays into each nostril 2 (two) times a day. 04/16/2024 cholecalciferol (Vitamin D-3) 50 MCG (1999 UT) tablet Take 1 tablet by mouth Daily. levocetirizine (Xyzal) 5 MG tablet Take 1 tablet by mouth daily. Lumateperone Tosylate (Caplyta) 42 MG capsule Take by mouth. meloxicam (Mobic) 15 MG tablet Take 1 tablet (15 mg) by mouth daily. 12/05/2022 naproxen (Naprosyn) 500 MG tablet TAKE 1 TABLET BY MOUTH EVERY 12 HOURS WITH FOOD OR MILK 11/21/2022 ondansetron ODT (Zofran-ODT) 4 MG disintegrating tablet Take 1 tablet (4 mg) by mouth every 8 (eight) hours if needed for nausea or vomiting. 20 tablet 11/09/2023 oxyCODONE (Roxicodone) 5 MG immediate release tablet Take 1 tablet (5 mg) by mouth every 4 (four) hours if needed for severe pain. 20 tablet 11/09/2023 oxyCODONE (Roxicodone) 5 MG immediate release tablet Take 1 tablet (5 mg) by mouth every 6 (six) hours if needed for severe pain. 10 tablet 11/13/2023 sertraline (Zoloft) 100 MG tablet Take 1 tablet (100 mg) by mouth daily. 12/08/2022 valACYclovir (Valtrex) 1 g tablet 10/06/2022 documented as of this encounter Plan of Treatment Not on file documented as of this encounter Procedures Procedure Name Priority Date/Time Associated Diagnosis Comments XR CERVICAL SPINE 2 OR 3 VIEWS Routine 06/19/2024 8:42 AM EDT Abnormal immunological finding in serum CRP elevated Polyarthralgia Fatigue, unspecified type Sicca syndrome (CMS/HCC) Positive VELMA (antinuclear antibody) documented in this encounter Results * XR Cervical Spine [...] Nithin Horne MD on 06/19/2024 8:50 AM Abida Cobian TELEHEALTH CASE MANAGER IMG XR PROCEDURES Final Re sult documented in this encounter Visit Diagnoses Diagnosis Abnormal immunological finding in serum Other nonspecific [...] documented as of this encounter Care Teams Clinic Administrator Relationship Specialty Start Date End Date Ivonne Metcalf PA [address] [place] [address] PCP - General 12/21/22 documented as of this encounter
--- OUTSIDE RECORDS SUMMARY | 2024-07-05 09:45 | XMS_ITS | Encounter Summary ---
Author Organization Healthcare Address [address] [place] [address] Care Team Providers Care Credit Card Specialist Name Role Phone Ivonne Metcalf Primary Care Provider [phone] Encounter Details Date Type Department Care Team (Late st Contact Info) Description 07/05/2024 9:45 AM EDT Office Visit [facility] Plastic & Reconstructive Surgery [address] [place] [phone] Luis M Johnson MD [address] [place] [address] Masses of both breasts (Primary [...] ear normal. Nose: Nose normal. Mouth/Throat: Lips: [place]. Mouth: Mucous membranes are moist. Pharynx: Oropharynx [...] breast with large firm palpable mass, approximately [id number] between 1-2 o'clock, approximately 2-3cm from nipple [...] with Luis M Johnson MD Source Information Sahwna Whitehead, THERAPEUTIC STRATEGY LEAD, DNP [facility] Document History Assessment/Plan There are [...] documented as of this encounter Care Teams Credit Card Specialist Relationship Specialty Start Date End Date Ivonne Metcalf PA [address] [place] [address] PCP - General 12/21/22 documented as of this encounter
--- OUTSIDE RECORDS SUMMARY | 2024-08-07 14:42 | XMS_ITS | Data Portability ---
Author Organization [employer] [facility] Address [address] [place] [address] Assessment No assessment recorded. Plan of Treatment Reminders Order Date Submit Date Provider Last Modified By Organization Details Last Modified Time Details Appointments FOLLOW UP 30 2024 03:00P Stephen Metcalf PA-C Not available Not available Not available Lab rf (rheumato id factor), serum 2024 0[facility] [place], [address], 04/18/2024 17:07:51 C reactive protein, QN, serum or plasma 2024 025 [facility]), [address] [place], [address], 04/18/2024 17:07:53 ESR (erythroc yte sedimenta tion rate), blood 2024 025 [facility] [place], [address], 04/18/2024 17:07:53 VELMA (antinucl ear antibodie s) screen, serum 2024 025 EVELINA [facility] [place], [address], 04/18/2024 17:07:52 ccp (cyclic citrullin ated peptide) iga+igg, serum 2024 025 [facility]), [address] [place], [address], 04/18/2024 17:07:52 lipid panel, serum 2024 025 [facility]), [address] [place], [address], 04/18/2024 17:07:49 CMP, serum or plasma 2024 025 [facility]), [address] [place], [address], 04/18/2024 17:07:49 CBC w/ auto diff 2024 025 [facility]), [address] [place], [address], 04/18/2024 17:07:48 vitamin D, 25-hydrox y, total, serum 2024 025 [facility]), [address] [place], [address], 04/18/2024 17:07:51 TSH, ultra-sen sitive, serum 2024 025 [facility]), [address] [place], [address], 04/18/2024 17:07:50 Hepatitis C IgG Ab, qual, serum 2024 025 [facility]), [address] [place], [address], 04/18/2024 17:07:50 HIV 1 + 2, meaningfu l use set 2024 025 [facility]), [address] [place] [address], [address], 04/18/2024 17:07:51 Referral psychiatr ist referral - Patient requests Elisha Covington MD - [facility]25 [facility], [address], [place], [address], 08/07/2024 14:23:35 Procedures polysomno graphy, mat peterson (PROC) 2024 025 [facility] (Scheduling), [address], [place], [address], 08/07/2024 12:01:07 Surgeries None recorded. Imaging PFT, complete [address] (Scheduling), [address], [place], [address], 08/01/2024 13:46:15 US, breast, unilatera l 2024 025 [facility] Scheduling, [address], [place], [address], 04/25/2024 08:57:47 Medication Orders azelastin e 137 mcg (0.1 %) nasal spray 2024 025 [id number], [address] [facility] [address], [place], [id number], 04/16/2024 16:39:08 Zepbound 2.5 mg/0.5 mL subcutane ous pen injector 2024 025 CR[facility]ON [facility] #[id number], [address] [facility] [address], [place], [id number], 08/01/2024 13:21:24 Patient TargetsNo targets recorded. Patient Instructions Encounter Date Encounter Id Patient Instructions Last Modified By Organization Details Last Modified Time 04/16/2024 [id number] allergies: care instructions [email or web address] Not available 04/16/2024 16:39:02 body mass index: care instructions [email or web address] Not available 04/16/2024 16:38:30 learning about healthy weight [email or web address] Not available 04/16/2024 16:38:30 tetanus and diphtheria booster: care instructions Not available 04/16/2024 17:26:15 HIV testing: car e instructions [email or web address] Not available 04/18/2024 10:05:23 08/01/2024 [id number] sleep apnea: car e instructions Not available 08/01/2024 13:31:46 shortness of breath: care instructions [email or web address] Not available 08/01/2024 13:35:05 learning about mood disorders [email or web address] Not available 08/01/2024 13:35:05 Reason for Referral Psychiatrist Referral for Mo od disorder Patient requests Elisha Covington MD - 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) [address] [place], [address], 04/18/2024 17:07:48 04/16/19 25 04/18/2024 CBC WITH DIFFE RENTI AL/PL ATELE T RBC 4.61 x10e6 /uL 3.77-5 .28 normal Not Available [facility] ([facility]) [address] [place], [address], 04/18/2024 17:07:48 04/16/19 25 04/18/2024 CBC WITH DIFFE RENTI AL/PL ATELE T hemoglobin 13.3 g/dL 11.1-1 5.9 normal Not Available [facility] ([facility]) [address] [place], [address], 04/18/2024 17:07:48 04/16/19 25 04/18/2024 CBC WITH DIFFE RENTI AL/PL ATELE T hematocrit 42.9 % 34.0-4 6.6 normal Not Available [facility] ([facility]) [address] [place], [address], 04/18/2024 17:07:48 04/16/19 25 04/18/2024 CBC WITH DIFFE RENTI AL/PL ATELE T MCV 93 fL 79-97 normal Not Available [facility] ([facility]) [address] [place], [address], 04/18/2024 17:07:48 04/16/19 25 04/18/2024 CBC WITH DIFFE RENTI AL/PL ATELE T MCH 28.9 pg 26.6-3 3.0 normal Not Available [facility] ([facility]) [address] [place], [address], 04/18/2024 17:07:48 04/16/19 25 04/18/2024 CBC WITH DIFFE RENTI AL/PL ATELE T MCHC 31.0 g/dL 31.5-3 5.7 below low normal Not Available [facility] ([facility]) [address] [place], [address], 04/18/2024 17:07:48 04/16/19 25 04/18/2024 CBC WITH DIFFE RENTI AL/PL ATELE T RDW 14.7 % 11.7-1 5.4 Not Available [facility] ([facility]) [address] [place], [address], 04/18/2024 17:07:48 04/16/19 25 04/18/2024 CBC WITH DIFFE RENTI AL/PL ATELE T platelets 416 x10e3 /uL 150-45 0 normal Not Available [facility] ([facility]) [address] [place], [address], 04/18/2024 17:07:48 04/16/19 25 04/18/2024 CBC WITH DIFFE RENTI AL/PL ATELE T neutrophils 56 % not estab. normal Not Available [facility] ([facility]) [address] [place], [address], 04/18/2024 17:07:48 04/16/19 25 04/18/2024 CBC WITH DIFFE RENTI AL/PL ATELE T lymphs 35 % not estab. normal Not Available [facility] ([facility]) [address] [place], [address], 04/18/2024 17:07:48 04/16/19 25 04/18/2024 CBC WITH DIFFE RENTI AL/PL ATELE T monocytes 6 % not estab. normal Not Available [facility] ([facility]) [address] [place], [address], 04/18/2024 17:07:48 04/16/19 25 04/18/2024 CBC WITH DIFFE RENTI AL/PL ATELE T eos 2 % not estab. normal Not Available [facility] ([facility]) [address] [place], [address], 04/18/2024 17:07:48 04/16/19 25 04/18/2024 CBC WITH DIFFE RENTI AL/PL ATELE T basos 1 % not estab. normal Not Available [facility] ([facility]) [address] [place], [address], 04/18/2024 17:07:48 04/16/19 25 04/18/2024 CBC WITH DIFFE RENTI AL/PL ATELE T immature cells INDUSTRIAL PHOTOGRAPHER Not Available [facility] ([facility]) [address] [place], [address], 04/18/2024 17:07:48 04/16/19 25 04/18/2024 CBC WITH DIFFE RENTI AL/PL ATELE T neutrophils (absolute) 4.9 x10e3 /uL 1.4-7. 0 normal Not Available [facility] ([facility]) [address] [facility], [place], [address], 04/18/2024 17:07:48 04/16/19 25 04/18/2024 CBC WITH DIFFE RENTI AL/PL ATELE T lymphs (absolute) 3.0 x10e3 /uL 0.7-3. 1 normal Not Available [facility] ([facility]) [address] [facility], [place], [address], 04/18/2024 17:07:48 04/16/19 25 04/18/2024 CBC WITH DIFFE RENTI AL/PL ATELE T monocytes(ab solute) 0.5 x10e3 /uL 0.1-0. 9 normal Not Available [facility] ([facility]) [address] [facility], [place], [address], 04/18/2024 17:07:48 04/16/19 25 04/18/2024 CBC WITH DIFFE RENTI AL/PL ATELE T eos (absolute) 0.2 x10e3 /uL 0.0-0. 4 normal Not Available [facility] ([facility]) [address] [facility], [place], [address], 04/18/2024 17:07:48 04/16/19 25 04/18/2024 CBC WITH DIFFE RENTI AL/PL ATELE T baso (absolute) 0.1 x10e3 /uL 0.0-0. 2 normal Not Available [facility] ([facility]) [address] [place], [address], 04/18/2024 17:07:48 04/16/19 25 04/18/2024 CBC WITH DIFFE RENTI AL/PL ATELE T immature granulocytes 0 % not estab. Not Available [facility] ([facility]) [address] [facility], [place], [address], 04/18/2024 17:07:48 04/16/19 25 04/18/2024 CBC WITH DIFFE RENTI AL/PL ATELE T immature grans (abs) 0.0 x10e3 /uL 0.0-0. 1 Not Available [facility] ([facility]) [address] [facility], [place], [address], 04/18/2024 17:07:48 04/16/19 25 04/18/2024 CBC WITH DIFFE RENTI AL/PL ATELE T NRBC INDUSTRIAL PHOTOGRAPHER Not Available [facility] ([facility]) [address] [facility], [place], [address], 04/18/2024 17:07:48 04/16/19 25 04/18/2024 CBC WITH DIFFE RENTI AL/PL ATELE T hematology comments: INDUSTRIAL PHOTOGRAPHER Not Available [facility] ([facility]) [address] [facility], [place], [address], 04/18/2024 17:07:48 04/16/19 25 04/18/2024 COMP. METAB OLIC PANEL (14) glucose 84 mg/dL 70-99 normal Not Available [facility] ([facility]) [address] [facility], [place], [address], 04/18/2024 17:07:49 04/16/19 25 04/18/2024 COMP. METAB OLIC PANEL (14) BUN 7 mg/dL 6-20 normal Not Available [facility] ([facility]) [address] [place], [address], 04/18/2024 17:07:49 04/16/19 25 04/18/2024 COMP. METAB OLIC PANEL (14) creatinine 0.77 mg/dL 0.57-1 .00 normal Not Available [facility] ([facility]) [address] [place], [address], 04/18/2024 17:07:49 04/16/19 25 04/18/2024 COMP. METAB OLIC PANEL (14) eGFR 109 mL/mi n/1.7 3 >59 normal Not Available [facility] ([facility]) [address] [place], [address], 04/18/2024 17:07:49 04/16/19 25 04/18/2024 COMP. METAB OLIC PANEL (14) BUN/creatini ne ratio 9 9-23 normal Not Available [facility] ([facility]) [address] [place], [address], 04/18/2024 17:07:49 04/16/19 25 04/18/2024 COMP. METAB OLIC PANEL (14) sodium 139 mmol/ L 134-14 4 normal Not Available [facility] ([facility]) [address] [place], [address], 04/18/2024 17:07:49 04/16/19 25 04/18/2024 COMP. METAB OLIC PANEL (14) potassium 4.7 mmol/ L 3.5-5. 2 normal Not Available [facility] ([facility]) [address] [place], [address], 04/18/2024 17:07:49 04/16/19 25 04/18/2024 COMP. METAB OLIC PANEL (14) chloride 102 mmol/ L 96-106 normal Not Available [facility] ([facility]) [address] [place], [address], 04/18/2024 17:07:49 04/16/19 25 04/18/2024 COMP. METAB OLIC PANEL (14) carbon dioxide, total 24 mmol/ L 20-29 normal Not Available [facility] ([facility]) [address] [place], [address], 04/18/2024 17:07:49 04/16/19 25 04/18/2024 COMP. METAB OLIC PANEL (14) calcium 9.3 mg/dL 8.7-10 .2 normal Not Available [facility] ([facility]) [address] [place], [address], 04/18/2024 17:07:49 04/16/19 25 04/18/2024 COMP. METAB OLIC PANEL (14) protein, total 6.9 g/dL 6.0-8. 5 normal Not Available [facility] ([facility]) [address] [place], [address], 04/18/2024 17:07:49 04/16/19 25 04/18/2024 COMP. METAB OLIC PANEL (14) albumin 4.4 g/dL 4.0-5. 0 normal Not Available [facility] ([facility]) [address] [place], [address], 04/18/2024 17:07:49 04/16/19 25 04/18/2024 COMP. METAB OLIC PANEL (14) globulin, total 2.5 g/dL 1.5-4. 5 Not Available [facility] ([facility]) [address] [place], [address], 04/18/2024 17:07:49 04/16/19 25 04/18/2024 COMP. METAB OLIC PANEL (14) bilirubin, total <0.2 mg/dL 0.0-1. 2 Not Available [facility] ([facility]) [address] [place], [address], 04/18/2024 17:07:49 04/16/19 25 04/18/2024 COMP. METAB OLIC PANEL (14) alkaline phosphatase 129 IU/L 44-121 above high normal Not Available [facility] ([facility]) [address] [place], [address], 04/18/2024 17:07:49 04/16/19 25 04/18/2024 COMP. METAB OLIC PANEL (14) AST (SGOT) 18 IU/L 0-40 normal Not Available [facility] ([facility]) [address] [place], [address], 04/18/2024 17:07:49 04/16/19 25 04/18/2024 COMP. METAB OLIC PANEL (14) ALT (SGPT) 17 IU/L 0-32 normal Not Available [facility] ([facility]) [address] [place], [address], 04/18/2024 17:07:49 04/16/19 25 04/18/2024 LIPID PANEL cholesterol, total 149 mg/dL 100-19 9 normal Not Available [facility] ([facility]) [address] [place], [address], 04/18/2024 17:07:49 04/16/19 25 04/18/2024 LIPID PANEL triglyceride s 135 mg/dL 0-149 normal Not Available [facility] ([facility]) [address] [place], [address], 04/18/2024 17:07:49 04/16/19 25 04/18/2024 LIPID PANEL HDL cholesterol 43 mg/dL >39 normal Not Available [facility]) [address] [place], [address], 04/18/2024 17:07:49 04/16/19 25 04/18/2024 LIPID PANEL VLDL cholesterol shirley 24 mg/dL 5-40 Not Available [facility] ([facility]) [address] [place], [address], 04/18/2024 17:07:49 04/16/19 25 04/18/2024 LIPID PANEL LDL chol calc ([facility]) 82 mg/dL 0-99 Not Available [facility]) [address] [place], [address], 04/18/2024 17:07:49 04/16/19 25 04/18/2024 LIPID PANEL LDL calc comment: INDUSTRIAL PHOTOGRAPHER Not Available [facility] ([facility]) [address] [place], [address], 04/18/2024 17:07:49 04/16/19 25 04/18/2024 HCV ANTIB TONO CASCA DE(PC R/GEN O) HCV Ab Non Reacti ve non reacti ve Not Available [facility] ([facility]) [address] [facility], [place], [address], 04/18/2024 17:07:50 04/16/19 25 04/18/2024 HCV ANTIB TONO CASCA DE(PC R/GEN O) interpretati on: Commen t Not infec adriane with HCV unles s early or acute infec tion is suspe cted (whic h may be delay ed in an immun ocomp romis ed indiv idual ), or other evide nce exist s to indic ate HCV infec tion. Not Available [facility] ([facility]) [address] [facility], [place], [address], 04/18/2024 17:07:50 04/16/19 25 04/18/2024 TSH TSH 0.792 uIU/m L 0.450- 4.500 normal Not Available [facility] ([facility]) [address] [facility], [place], [address], 04/18/2024 17:07:50 04/16/19 25 04/18/2024 RHEUM ATOID FACTO R (RF) rheumatoid factor (rf) <10.0 IU/mL <14.0 Not Available [facility] ([facility]) [address] [place], [address], 04/18/2024 17:07:51 04/16/19 25 04/18/2024 VITAM IN [...] Endoc rine Socie ty went [facility] defin e vitam in D insuf ficie ncy as a level betwe en 21 and 29 ng/mL (2). 1. IOM (Inst itute of Medic ine). 2009. Dieta ry refer ence intaly es for calci um and D. Nura lang [place]: [facility] . 2. Holic k [place], [place], Bisch off-F errar i TURNER, et al. Evalu ation , treat ment, and preve ntion of vitam in D defic iency : an Endoc rine Socie ty clini shirley pract ice guide line. JCEM. 2010; 96(7) :1911 -30. Not Available [facility] ([facility]) [address] [facility], [place], [address], 04/18/2024 17:07:51 04/16/19 25 04/18/2024 HIV AB/P2 4 AG WITH REFLE X HIV Ab/P24 Ag screen Non Reacti ve non reacti ve HIV-1 /HIV- 2 antib odies and HIV-1 p24 antig en were NOT detec adriane. There is no labor atory evide nce of HIV infec tion. HIV Negat gentry Not Available [facility] ([facility]) [address] [place], [address], 04/18/2024 17:07:51 04/16/19 25 04/18/2024 ANTI- CCP AB, IGG/I GA anti-ccp Ab, IgG/IgA 2 units 0-19 Negat gentry <20 Weak posit gentry 20 - 39 Moder ate posit gentry 40 - 59 Stron g posit gentry >59 Not Available [facility] ([facility]) [address] [place], [address], 04/18/2024 17:07:52 04/16/19 25 04/18/2024 ANTIN UCLEA R AB MULTI PLEX RFX 9 VELMA direct Positi ve negati ve abnormal Not Available [facility] ([facility]) [address] [place], [address], 04/18/2024 17:07:52 04/16/19 25 04/18/2024 ANTIN UCLEA R AB MULTI PLEX RFX 9 anti-DNA (ds) Ab qn <1 IU/mL 0-9 Negat gentry <5 Equiv ocal 5 - 9 Posit gentry >9 Not Available [facility] ([facility]) [address] [place], [address], 04/18/2024 17:07:52 04/16/19 25 04/18/2024 ANTIN UCLEA R AB MULTI PLEX RFX 9 [address] antibodies 1.1 ai 0.0-0. 9 above high normal Not Available [facility] ([facility]) [address] [place], [address], 04/18/2024 17:07:52 04/16/19 25 04/18/2024 ANTIN UCLEA R AB MULTI PLEX RFX 9 lofton antibodies <0.2 ai 0.0-0. 9 Not Available [facility] ([facility]) [address] [place], [address], 04/18/2024 17:07:52 04/16/19 25 04/18/2024 ANTIN UCLEA R AB MULTI PLEX RFX 9 antisclerode rma-70 antibodies <0.2 ai 0.0-0. 9 Not Available [facility] ([facility]) [address] [place], [address], 04/18/2024 17:07:52 04/16/19 25 04/18/2024 ANTIN UCLEA R AB MULTI PLEX RFX 9 sjogren's anti-ss-A <0.2 ai 0.0-0. 9 Not Available [facility] ([facility]) [address] [place], [address], 04/18/2024 17:07:52 04/16/19 25 04/18/2024 ANTIN UCLEA R AB MULTI PLEX RFX 9 sjogren's anti-ss-B <0.2 ai 0.0-0. 9 Not Available [facility] ([facility]) [address] [place], [address], 04/18/2024 17:07:52 04/16/19 25 04/18/2024 ANTIN UCLEA R AB MULTI PLEX RFX 9 antichromati n antibodies <0.2 ai 0.0-0. 9 Not Available [facility] ([facility]) [address] [place], [address], 04/18/2024 17:07:52 04/16/19 25 04/18/2024 ANTIN UCLEA R AB MULTI PLEX RFX 9 anti-leena-1 <0.2 ai 0.0-0. 9 Not Available [facility] ([facility]) [address] [place], [address], 04/18/2024 17:07:52 04/16/19 25 04/18/2024 ANTIN UCLEA R AB MULTI PLEX RFX 9 anti-centrom ere B antibodies <0.2 ai 0.0-0. 9 Not Available [facility] ([facility]) [address] [place], [address], 04/18/2024 17:07:52 04/16/19 25 04/18/2024 ANTIN UCLEA [...] ----- ----- ----- ----- --- ----- ---- VP PRODUCTION Mixed Conne ctive Tissu e Disea se 95% (U1 nRNP, SLE 30 - 50% anti- ribon ucleo prote in) Polym yosit is and/o r [employer] tomyo sitis 20% ----- ----- ----- ----- - ----- ----- ----- ----- ---- ----- ---- Scl-7 0 (anti DNA Scler oderm a (diff use) 20 - 35% topoi arabella ase) Crest 13% ----- ----- ----- ----- - ----- ----- ----- ----- ---- ----- ---- Leena-1 Polym yosit is and/o r [employer] tomyo sitis 20 - 40% ----- ----- ----- ----- - ----- ----- ----- ----- ---- ----- ---- Centr omere B Scler oderm a - Crest varia nt 80% Not Available [facility] ([facility]) [address] [place], [address], 04/18/2024 17:07:52 04/16/19 25 04/18/2024 SEDIM ENTAT ION RATE- WESTE RGREN sedimentatio n rate-westerg ava COMMEN T mm/HR Test not perfo rmed due to the age of this speci men. Not Available [facility] ([facility]) [address] [place], [address], 04/18/2024 17:07:53 04/16/19 25 04/18/2024 C-GLADIS CTIVE PROTE IN, QUANT C-reactive protein, quant 12 mg/L 0-10 above high normal Not Available [facility] ([facility]) [address] [place], [address], 04/18/2024 17:07:53 04/16/19 25 04/18/[address] PROBL EM request problem COMMEN T Test not perfo rmed due to the age of this speci men. TEST: [id number] Sedim entat ion Rate- Weste rgren Not Available [facility] ([facility]) [address] [place], [address], 04/18/2024 17:07:54 04/25/1904/19/2024 US, kostas t, virya teral No observ ation record ed. [email or web address] [facility] (Med Record) [address], [place], [address], 04/25/2024 16:38:42 05/14/19 25 05/06/2024 MAMMO , diagn ostic , bilat eral No observ ation record ed. [facility] (Scheduling) [address], [place], [address], 05/16/2024 09:33:33 05/14/1905/06/2024 ultra sound guide d core biops y (PROC ) No observ ation record ed. [facility] (Scheduling) [address], [place], [address], 05/21/2024 08:08:28 Result Notes None recorded. Problems Name Problem SNOMED Code Status Onset Date Resolution Date Notes Provider Name and Address Organization Details Recorded Time Genital herpes simplex 72116122 Active 2023 ANA ROSA Walden [address] [place] [address], [address], [employer] 5 10:17:13 Mass of right breast 3327681356730 9106 Active 2024 ANA ROSA Walden [address] [place] [address], [address] 8, [employer] 5 16:37:20 Allergic rhinitis 17808661 Active 2024 ANA ROSA Walden [address] [place] [address], [address] 8, [employer] 5 10:17:08 Vitamin D deficiency 23224878 Active 2024 ANA ROSA Walden [address] [place] [address], [address] 8, [employer] 5 10:18:00 Obstructive sleep apnea syndrome 41185874 Active 2024 ANA ROSA Walden [address] [place], [address], [employer] 13:25:34 Dyspnea 539311192 Active 2024 ANA ROSA Walden [address] [place], [address], [employer] 13:32:23 Mood disorder 71818295 Active 2024 ANA ROSA Walden [address] [place], [address], [employer] 13:33:10 Problem Notes None recorded. Procedures Surgical History Date Name Laterality Status Provider Name and Address Organization Details Recorded Time Breast reduction completed [facility] [employer] 04/16/2024 16:12:03 Imaging Results None recorded. [...] Last Updated DateTime 157.48 cm 45.4 kg/m2 781032. 34 g 97.8 [degF] 104 /min 96 % 96 % 106 mm[Hg] 74 mm[Hg] [facility] [employer] 16:07:34 Date Recorded Body height Body mass index (BMI) Body weight Oxygen saturation Oxygen saturation in Arterial blood by Pulse oximetry Heart rate Body temperature Systolic blood pressure Diastolic blood pressure Provider Name and Address Organization Details Last Updated DateTime 5 157.48 cm 48.1 kg/m2 752660. 79 g 96 % 96 % 94 /min 97.9 [degF] 100 mm[Hg] 78 mm[Hg] Keiko Dc [employer] 5 13:12:48 Social History Question Answer Notes LastModified by [employer] ion Details LastModified Time Tobacco Smoking Status Never Smoker Keiko Dc colleen [employer] 04/16/2024 16:08:12 Do You Have An Advance [...] Information not available 04/16/2024 What Type Of Retention Representative Do You Use? None Information not available [...] Do You Have A Medical Power Of Limnology Teacher? No Information not available 04/16/2024 What Was [...] anxious, or unable to sleep at night)? [id number] Information not available 04/16/2024 Do you have [...] Artery Disease N Other N Gout N Blood Diseases N Kidney Stones N Hyperthyroidism N Blood Transfusion N Breast Cancer N Emergency room visit since last appointm ent. N Lung Disease N COPD N Depression Y Dermatologic Disorders N Hypothyroidism N Defects or Inherited Disease N Developmental or Behavioral Disorders N Breast Problem N Difficulty Swallowing N [...] Organ Transplant N Psychiatric/Mental Health Condition N Dialysis N Headaches N Fibromyalgia N Schizophrenia N Kidney Disease N Allergies/Hayfever N Heart Problems N Ear or Hearing Problems N Hospitalizations N Learning Disorder N Artificial Joints N Thyroid Problems N GI Problems N Acne N ADD/ADHD N Eating Disorder N Anemia N Constipation N Mental Illness N Diabetes N Ovarian Cancer N Bedwetting N Hepatitis/Liver Disease N Tuberculosis N Eczema N Abuse/Domestic Violence N Diverticulitis N Asthma N Trauma/Violence N Substance Abuse N Reflux/GERD N Depression/ depression N Hepatitis N Heart Disease N Pulmonary Embolism N Tourette Syndrome N Chronic Ear Infections N Pre-Eclampsia N Hypertension N Chicken Pox N Autism Spectrum Disorder (ASD) N Osteoporosis N Thrombophilias N Gynecological History Statement/Question Response [...] Time Tdap 5 completed ANA ROSA Walden [address] [place] [address], [phone], [employer] 04/18/2024 14:14:37 IPV 3 completed Keiko Vice null, [employer] 04/16/2024 16:08:21 MMR 3 completed Keiko Vice null, [employer] 04/16/2024 16:08:21 COVID-19, mRNA, LNP-S, PF, 30 mcg/0.3 mL dose 1 completed Keiko Vice null, [employer] 04/16/2024 16:08:21 COVID-19, mRNA, LNP-S, PF, 30 mcg/0.3 mL dose 1 completed Keiko Vice null, [employer] 04/16/2024 16:08:21 Tdap 0 completed Keiko Vice null, [employer] 04/16/2024 16:08:21 Novel Qtewtkrms-[id number], all formulations 9 completed Keiko Vice null, [employer] 04/16/2024 16:08:21 Influenza, split virus, trivalent, preservative 1 completed Keiko Vice null, [employer] 04/16/2024 16:08:21 Influenza, split virus, trivalent, preservative 0 completed Keiko Vice null, [employer] 04/16/2024 16:08:21 HPV, quadrivalent 3 completed Keiko Vice null, [employer] 04/16/2024 16:08:21 HPV, quadrivalent 3 completed Keiko Vice null, [employer] 04/16/2024 16:08:22 HPV, quadrivalent 3 completed Keiko Vice null, [employer] 04/16/2024 16:08:22 Hep B, adolescent or pediatric 3 completed Keiko Vice null, [employer] 04/16/2024 16:08:22 DTaP, unspecified formulation 3 completed Keiko Vice null, [employer] 04/16/2024 16:08:22 Past Encounters Encounter ID Performer Location Encounter Start Date Encounter Closed Date Diagnosis/Indication Diagnosis SNOMED-CT Code Diagnosis ICD10 Code Diagnosis Note [id number] ANA ROSA Walden [address] [address] 04/16/2024 15:31:22 04/16/2024 17:34:02 Mass of right breast 5509986882 4868959 N63.10 Body mass index 40+ - severely obese 361271612 Z68.42 Allergic rhinitis 146349 04 J30.9 Administra tion of diphtheria, pertussis, and tetanus vaccine 835598157 Z23 Pain of mu ltiple joints 11827149 M25.50 HIV screening 594246700 Z11.4 Hepatitis C screening 41 4702677 Z11.59 [id number] ANA ROSA Walden [address] [address] 08/01/2024 12:44:38 08/01/2024 13:36:02 Obstructive sleep apnea syndrome 40530396 G47.33 Dyspnea 872559616 R06.02 Mood disorder 02848816 F 39 Health Concerns Section Related Observation LastModified by Organization Detai ls LastModified Time None Recorded Concern Status LastModified by Organization Details LastModified Time None Recorded Advance Directives Directive N: Payers Insurance Date Sequence Insurance Name Policy Number Policy Lombardo Covered Member ID Lombardo Member ID Guarantor Name 08/05/2024 1 [facility] (MEDICAID HMO) Summer Radha [id number] Summer Radha Notes Date Note Type Note [...] for weight loss. ANA ROSA Walden [address] [place], [address], [employer] 04/18/2024 14:17:04 08/01/2024 text/html Patient presents for a referral to behavioral health. 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 Wonders if she has asthma.Complains of memory loss, fatigue. Diagnosed with HENRIK years ago but never got a Cpap machine. Aunt was diagnosed with a brain disease while in [place] - unclear of exact diagnosis - and wonders if she has that. ANA ROSA Walden [address] [place], [address], [employer] 08/02/2024 14:47:58 OBGyn Episode No OBEpisode recorded.
--- OUTSIDE RECORDS SUMMARY | 2024-08-07 14:42 | XMS_ITS | Encounter Summary ---
Author Organization Healthcare Address [address] [place] [address] Care Team Providers Care Missile Control Pilot Name Role Phone Ivonne Metcalf Primary Care Provider [phone] Reason for Visit * Reason Onset Date Comments Results 06/25/2024 Encounter Details Date Type Department Care Team (Late st Contact Info) Description 06/25/2024 Results Follow-Up [facility] Medicine Specialties [address] [place] [address] Abida Cobian M, MANAGER REVIEW [address] [place] [address] Results Social History Tobacco Use [...] to do NSAID therapyalong with PT or weekend caregiver for 4-6 weeks without significant improvement in [...] documented as of this encounter Care Teams Missile Control Pilot Relationship Specialty Start Date End Date Ivonne Metcalf PA [address] [place] [address] PCP - General 12/21/22 documented as of this encounter
--- OUTSIDE RECORDS SUMMARY | 2024-08-07 14:42 | XMS_ITS | Encounter Summary ---
Author Organization Healthcare Address [address] [id number] Care Team Providers Care Agronomy Technician Name Role Phone Ivonne Metcalf Primary Care Provider [phone] Encounter Details Date Type Department Care Team [...] documented as of this encounter Care Teams Agronomy Technician Relationship Specialty Start Date End Date Ivonne Metcalf PA [address] [place] [address] PCP - General 12/21/22 documented as of this encounter
--- OUTSIDE RECORDS SUMMARY | 2024-08-07 14:42 | XMS_ITS | Encounter Summary ---
Author Organization Healthcare Address [address] [place] [address] Care Team Providers Care Dimensional Engineer Name Role Phone Ivonne Metcalf Primary Care Provider [phone] Encounter Details Date Type Department Care Team (Late st Contact Info) Description 06/26/2024 Telephone [facility] [address] [place] [phone] Deana Chao, RN CH-VASCULAR & INTERVENTIONAL RADIOLOGY [...] documented as of this encounter Care Teams Dimensional Engineer Relationship Specialty Start Date End Date Ivonne Metcalf PA [address] [place] [address] PCP - General 12/21/22 documented as of this encounter
--- OUTSIDE RECORDS SUMMARY | 2024-08-07 14:42 | XMS_ITS | Encounter Summary ---
Author Organization Healthcare Address [address] [place] [address] Care Team Providers Care Grain Oilseed Or Pasture Grower Name Role Phone DixonIvonne Moraima OSEGUERA Primary Care Provider Encounter Details Date Type Department Care Team (Late st Contact Info) Description 11/10/2023 Lab Requisition [facility] [address] [place] [address] Luis M Johnson MD [address] [address] Hypertrophy of breast Social History Tobacco Use [...] Exam (11/09/2023) Case Report Surgical Pathology Case: [id number] Authorizing Provider: Luis M Johnson MD Collected: 11/09/2023 Ordering Location: [facility] Received: 11/10/2023 1048 Pathologist: Shannon Stoddard MD Specimens: A) - Breast, Right, Right Breast Tissue 2187 gm B) - Breast, Left, Left Breast Tissue 2512 gm 11/13/2023 5:12 PM EDT [facility] Final Diagnosis A. BREAST, RIGHT, REDUCTION: - BENIGN BREAST TISSUE (2187 GRAMS); NEGATIVE FOR MALIGNANCY. B. BREAST, LEFT, REDUCTION: - BENIGN BREAST TISSUE (2512 GRAMS); NEGATIVE FOR MALIGNANCY. 11/13/2023 5:12 PM EDT [facility] at 1712 EDT Clinical Information Hypertrophy of breast Bilateral breast macromastia 11/13/2023 5:12 PM EDT [facility] Gross Description A. RIGHT BREAST TISSUE 2187 GM Received in formalin labeled r ight breast tissue , is a 2187 g aggregate of grossly unremarkable white-mayer skin and underlying lobulated adipose tissue measuring 28.7 x 24.6 x 4.8 cm. Sectioning reveals a grossly unremarkable yellow-mayer, fibrofatty cut surface. Second Grade Teacher sections are submitted in cassettes A1-A3. Cold Time: 0 Ana Maria B Zhu B. LEFT BREAST TISSUE 2512 GM Received in formalin labeled l eft breast tissue , is a 2512 g aggregate of grossly unremarkable white-mayer skin and underlying lobulated adipose tissue measuring 32.6 x 23.2 x 7.2 cm. Sectioning reveals grossly unremarkable yellow-mayer, fibrofatty cut surface. Second Grade Teacher sections are submitted in cassettes B1-B3. Cold Time: 0 Ana Maria B Zhu 11/13/2023 5:12 PM EDT [facility] Note: A resident was involved in the service. I attest I examined the relevant preparations for the specimens and confirmed the diagnosis or interpretation. 11/13/2023 5:12 PM EDT [facility] Tissue Right breast structure / Unknown 11/09/2023 11/10/2023 10:48 AM EDT Tissue specimen (specimen) Left breast structure / Unknown 11/10/2023 11/10/2023 10:48 AM EDT us Luis M Johnson MD LAB PATHOLOGY ORDERABLES Final Result [facility] [address] [place] [address] documented in this encounter Visit Diagnoses Diagnosis Hypertrophy of breast documented in this encounter Additional Health Concerns Assessment Noted Time A Body Mass Index follow-up plan has been documented for the patient 10/13/2023 11:01 AM EDT documented as of this encounter Care Teams Grain Oilseed Or Pasture Grower Relationship Specialty Start Date End Date Ivonne Metcalf PA [address] [place] [address] PCP - General 12/21/22 documented as of this encounter
--- OUTSIDE RECORDS SUMMARY | 2024-08-07 14:42 | XMS_ITS | Encounter Summary ---
Author Organization Healthcare Address [address] [place] [address] Care Team Providers Care Legal Word Processor Name Role Phone Ivonne Metcalf Primary Care Provider [phone] Encounter Details Date Type Department Care Team (Late st Contact Info) Description 06/26/2024 Telephone [place] [facility] Special[facility] [address] [place] [phone] Deana Chao, RN CH-VASCULAR & INTERVENTIONAL RADIOLOGY [...] documented as of this encounter Care Teams Legal Word Processor Relationship Specialty Start Date End Date Ivonne Metcalf PA [address] [place] [address] PCP - General 12/21/22 documented as of this encounter
--- OUTSIDE RECORDS SUMMARY | 2024-08-07 14:42 | XMS_ITS | Encounter Summary ---
Author Organization [facility] Address [address] [place] [address] Care Team Providers Care Sewing Machine Repairer Helper Name Role Phone Ivonne Metcalf Primary Care Provider [phone] Encounter Details Date Type Department Care Team [...] documented as of this encounter Care Teams Sewing Machine Repairer Helper Relationship Specialty Start Date End Date Ivonne Metcalf PA [address] [place] [address] PCP - General 10/25/23 documented as of this encounter
--- OUTSIDE RECORDS SUMMARY | 2024-08-07 14:42 | XMS_ITS | Encounter Summary ---
Author Organization Healthcare Address [address] [place] [address] Care Team Providers Care Salmon Gillnet Vessel Operator Name Role Phone Ivonne Metcalf Primary Care Provider [phone] Reason for Visit * Reason Comments Med Refill Encounter Details Date Type Department Care Team (Late st Contact Info) Description 01/22/[address] [phone] Debora Luciano MD [address] [place] [address] Social History Tobacco Use Types [...] documented as of this encounter Care Teams Salmon Gillnet Vessel Operator Relationship Specialty Start Date End Date Ivonne Metcalf PA [address] [place] [address] PCP - General 12/21/22 documented as of this encounter
--- OUTSIDE RECORDS SUMMARY | 2024-08-07 14:42 | XMS_ITS | Continuity of Care Document ---
Author Organization [place] - [employer] Personal Style Finder [facility] Address [address] [place] [address] Assessment No assessment recorded. Plan of Treatment Reminders Order Date Submit Date Provider Last Modified By Organization Details Last Modified Time Details Appointments FOLLOW UP 30 2024 03:00P M Ivonne Metcalf PA-C Not available Not available Not available Lab None recorded. Referral psychiatr ist referral - Patient requests Elisha Covington MD - [facility]24 025 [facility], [address], [place], [address], 08/07/2024 14:23:35 Procedures polysomno graphy, mat peterson (PROC) 2024 025 [facility] (Scheduling), [address], [place], [address], 08/07/2024 12:01:07 Surgeries None recorded. Imaging PFT, complete [address] (Scheduling), [address], [place], [address], 08/01/2024 13:46:15 Medication Orders None recorded. Patient TargetsNo targets recorded. Patient Instructions Encounter Date Encounter Id Patient Instructions Last Modified By Organization Details Last Modified Time 08/01/2024 [id number] sleep apnea: car e instructions [email or web address] Not available 08/01/2024 13:31:46 shortness of breath: care instructions [email or web address] Not available 08/01/2024 13:35:05 learning about mood [...] Organization Details Recorded Time Genital herpes simplex 08594933 Active 2023 ANA ROSA Walden [address] [place] [address], [address], [employer] 10:17:13 Mass of right breast 9589151547413 9106 Active 2024 ANA ROSA Walden [address] [place] [address], [address], [employer] 5 16:37:20 Allergic rhinitis 14273567 Active 2024 ANA ROSA Walden [address] [place] [address], [address], [employer] 5 10:17:08 Vitamin D deficiency 94204341 Active 2024 ANA ROSA Walden [address] [place] [address], [address], [employer] 5 10:18:00 Obstructive sleep apnea syndrome 11573017 Active 2024 ANA ROSA Walden [address] [place] [address], [address], [employer] 13:25:34 Dyspnea 399498393 Active 2024 ANA ROSA Walden [address] [place] [address], [address], [employer] 13:32:23 Mood disorder 80397051 Active 2024 ANA ROSA Walden [address] [place] [address], [address], [employer] 13:33:10 Problem Notes None recorded. Procedures Surgical History Date Name Laterality Status Provider Name and Address Organization Details Recorded Time Breast reduction completed Keiko [facility] 04/16/2024 16:12:03 Imaging Results None recorded. Procedure [...] Last Updated DateTime 157.48 cm 48.1 kg/m2 744910. 79 g 96 % 96 % 94 /min 97.9 [degF] 100 mm[Hg] 78 mm[Hg] Keiko Dc [facility] 13:12:48 Social History Question Answer Notes LastModified by Organizat ion Details LastModified Time Tobacco Smoking Status Never Smoker Keiko macias [facility] 04/16/2024 16:08:12 Do You Have An [...] Information not available 04/16/2024 What Type Of Boat Designer Do You Use? None Information not available [...] Do You Have A Medical Power Of Personnel Worker? No Information not available 04/16/2024 What Was [...] anxious, or unable to sleep at night)? [id number] Information not available 04/16/2024 Do you have [...] Stones N Blood Diseases N Hyperthyroidism N Blood Transfusion N Breast Cancer N Emergency room visit since last appointm ent. N COPD N Depression Y Dermatologic Disorders N Hypothyroidism N Lung Disease N Developmental or Behavioral Disorders N Defects or Inherited Disease N Breast Problem N Difficulty Swallowing N Anesthesia Complications N History of STI N Meniere's disease N Anxiety Disorder Y Muscle, Joint, or Bone Problems N Autoimmune disease N Vision or Eye Problems N Arthritis N Polyps N Infertility N Mental Disorder N Congenital Anomalies N Acid Reflux (GERD) N Cancer N Stroke N Neurologic/Epilepsy N Endometriosis N Bladder or Kidney Problems N High Cholesterol Y Liver Disease N Organ Transplant N Psychiatric/Mental Health Condition N Fibromyalgia N Dialysis N Schizophrenia N Headaches N Kidney Disease N Allergies/Hayfever N Heart [...] Time Tdap 5 completed ANA ROSA Walden [address] [place] [address], [phone], [place] [facility] 04/18/2024 14:14:37 IPV 3 completed Keiko Vice null, [employer] [facility] [employer] [employer] 04/16/2024 16:08:21 MMR 3 completed Keiko Vice null, [employer] [facility] [employer] 04/16/2024 16:08:21 COVID-19, mRNA, LNP-S, PF, 30 mcg/0.3 mL dose 1 completed Keiko Vice null, [facility] 04/16/2024 16:08:21 COVID-19, mRNA, LNP-S, PF, 30 mcg/0.3 mL dose 1 completed Keiko Vice null, [facility] 04/16/2024 16:08:21 Tdap 0 completed Keiko Vice null, [facility] 04/16/2024 16:08:21 Novel Gutnlevyb-I8T8-40, all formulations 9 completed Keiko Vice null, [facility] 04/16/2024 16:08:21 Influenza, split virus, trivalent, preservative 1 completed Keiko Vice null, [facility] 04/16/2024 16:08:21 Influenza, split virus, trivalent, preservative 0 completed Keiko Vice null, [facility] 04/16/2024 16:08:21 HPV, quadrivalent 3 completed Keiko Vice null, [facility] 04/16/2024 16:08:21 HPV, quadrivalent 3 completed Keiko Vice null, [facility] 04/16/2024 16:08:22 HPV, quadrivalent 3 completed Keiko Vice null, [facility] 04/16/2024 16:08:22 Hep B, adolescent or pediatric 3 completed Keiko Vice null, [facility] [employer] 04/16/2024 16:08:22 DTaP, unspecified formulation 3 completed Keiko Vice colleen, [email or web address] 04/16/2024 16:08:22 Past Encounters Encounter ID Performer Location Encounter Start Date Encounter Closed Date Diagnosis/Indication Diagnosis SNOMED-CT Code Diagnosis ICD10 Code Diagnosis Note [id number] ANA ROSA Walden [facility] [address] [place] [address] 08/01/2024 12:44:38 08/01/2024 13:36:02 Obstructive sleep apnea syndrome 29853888 G47.33 Dyspnea 611845216 R06.02 Mood disorder 51005578 F 39 Health Concerns Section Related Observation LastModified by Organization Detai ls LastModified Time None Recorded Concern Status LastModified by Organization Details LastModified Time None Recorded Payers Encounter Date Sequence Insurance Name Policy Number Policy Lombardo Covered Member ID Lombardo Member ID Guarantor Name 08/01/2024 1 [facility] (MEDICAID HMO) [facility] [id number] [facility] Notes Date Note Type Note Provider Name and Address Organization Details Recorded Time 08/01/2024 text/html Patient presents for a referral to behavioral health. 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 Wonders if she has asthma.Complains of memory loss, fatigue. Diagnosed with HENRIK years ago but never got a Cpap machine. Aunt was diagnosed with a brain disease while in [place] - unclear of exact diagnosis - and wonders if she has that. ANA ROSA Walden [address] [place] [address], [address], [facility] 08/02/2024 14:47:58 OBGyn Episode No OBEpisode recorded.
--- OUTSIDE RECORDS SUMMARY | 2024-08-07 14:42 | XMS_ITS | Clinical Summary ---
Author Organization [facility] Address [address] [place] [address] Care Team Providers Care Food Preparation Supervisor Name Role Phone Ivonne Metcalf Primary Care Provider [phone] Allergies Active Allergy Reactions Criticality Noted Date [...] Description 07/05/2024 9:45 AM EDT Office Visit [facility] [address] [place] [phone] Luis M Johnson MD Masses of both breasts (Primary Dx) 07/05/2024 Travel 06/26/[address] [facility] [address] [place] [address] Deana Chao RN 06/26/[address] [facility] [address], [address] [place] [address] Deana Chao RN 06/25/2024 Results Follow-Up [facility] [address], [address] [place] [address] Abida Cobian APRN Results 06/19/2024 8:28 AM EDT - 06/19/2024 11:59 PM EDT Hospital Encounter [facility] Radiology [address], [address]st [place] [address] Abnormal immunological finding in serum; CRP elevated; Polyarthralgia; Fatigue, unspecified type; Sicca syndrome (CMS/HCC); Positive VELMA (antinuclear antibody) Discharge Disposition: Home or Self Care 06/19/2024 7:30 AM EDT Office Visit [facility] [address], [address] [place] [phone] Abida Cobian, NETTA Positive VELMA (antinuclear antibody) (Primary Dx); Abnormal immunological finding in serum; CRP elevated; Polyarthralgia; Fatigue, unspecified type; Sicca syndrome (CMS/HCC); Cervical spine pain 06/19/2024 Travel from Last 3 Months Immunizations Immunization Administration Dates Next Due DTaP, Unspecified 03/01/2002 HPV, Quadrivalent 10/23/2012,06/26/2012,04/24/19 13 Hep B, Adolescent or Pediatric 04/26/2002 IPV 03/01/2002 Influenza, seasonal, injectable 12/08/2010,12/21 MMR 03/01/2002 Novel [id number], all formulations 2008 Tdap 04/16/2024,06/09/2009 Social History [...] [facility]-Adult SDOH Screenings 08/21/2015 [facility]-Pap Smear 2018 [id number]-01 Vaccine ( - season) 2023 08/03/2020, 07/13/2020 [...] Sicca syndrome (CMS/HCC) Positive VELMA (antinuclear antibody) LEON/COMPLIANCE FIELD TECHNICIAN (YUE) ANTIBODY, IGG (SO) Routine 06/19/2024 8:24 [...] Urine 8 mg/dL 06/19/2024 10:23 AM EDT [facility] Creatinine, Urine 179 mg/dL 06/19/2024 10:23 AM EDT [facility] Protein/Creatin ine Ratio 0.0 mg/mg Creat 06/19/2024 10:23 AM EDT [facility] Urine Urine specimen obtained by clean catch procedure / Unknown Non-blood Collection / Unknown 06/19/2024 8:27 AM EDT 06/19/2024 8:27 AM EDT Abida Cobian APRN LAB URINE ORDERABLES Final Result [facility] [address] [place] [address] * Urinalysis with reflex microscopic (Culture NOT Included) (06/19/2024 8:27 AM EDT) Color, Urine Yellow LAB URINALYSIS - AUTOMATED METHOD 06/19/2024 9:56 AM EDT [facility] Clarity, Urine Clear LAB URINALYSIS - AUTOMATED METHOD 06/19/2024 9:56 AM EDT [facility] Spec [address], Urine 1.022 1.005 - 1.030 LAB URINALYSIS - AUTOMATED METHOD 06/19/2024 9:56 AM EDT [facility] pH, Urine 5.5 5.0 - 8.0 LAB URINALYSIS - AUTOMATED METHOD 06/19/2024 9:56 AM EDT [facility] Protein, Urine Negative Negative mg/dL LAB URINALYSIS - AUTOMATED METHOD 06/19/2024 9:56 AM EDT [facility] Glucose, Urine Negative Negative mg/dL LAB URINALYSIS - AUTOMATED METHOD 06/19/2024 9:56 AM EDT [facility] Ketones, Urine Negative Negative mg/dL LAB URINALYSIS - AUTOMATED METHOD 06/19/2024 9:56 AM EDT [facility] Blood, Urine Negative Negative LAB URINALYSIS - AUTOMATED METHOD 06/19/2024 9:56 AM EDT [facility] Bilirubin, Urine Negative Negative LAB URINALYSIS - AUTOMATED METHOD 06/19/2024 9:56 AM EDT [facility] Urobilinogen, Urine 0.2 0.2 to 1.0 mg/dL LAB URINALYSIS - AUTOMATED METHOD 06/19/2024 9:56 AM EDT [facility] Leukocytes, Urine Negative Negative LAB URINALYSIS - AUTOMATED METHOD 06/19/2024 9:56 AM EDT [facility] Nitrite, Urine Negative Negative LAB URINALYSIS - AUTOMATED METHOD 06/19/2024 9:56 AM EDT [facility] Urine Urine specimen obtained by clean catch procedure / Unknown Non-blood Collection / Unknown 06/19/2024 8:27 AM EDT 06/19/2024 8:27 AM EDT Abida Cobian [employer] LAB URINE ORDERABLES Final Result [facility] [address] [place] [address] * Leon (YUE) Antibody, IgG (06/19/2024 8:24 AM EDT) Pathologist Tania Leon (YUE) Antibody, IgG 2 0 - 40 AU/mL 06/20/2024 9:55 PM EDT [facility] Serum 06/19/2024 8:24 AM EDT 06/19/2024 8:24 AM EDT Narrative [facility] ([facility]) - 06/20/2024 9:55 [...] associations with SLE clinical manifestations. Performed By: [facility] [address] [place] [address] Insulation Inspector: Corwin Higuera MD, PhD CLIA Number: [id number] us Abida Cobian [employer] LAB REF LAB BLOOD AND FLUI D ORD Final Result [facility] ([facility]) [address] [place], [place] [id number] * ENAII (06/19/2024 8:24 AM EDT) SSA-52 (RO52) (YUE) Antibody, IgG 1 0 - 40 AU/mL 06/20/2024 9:55 PM EDT [facility] ([facility]) SSA-60 (RO60) (YUE) Antibody, IgG 0 0 - 40 AU/mL 06/20/2024 9:55 PM EDT [facility] ([facility]) SSB (LA) (YUE) Antibody, IgG 0 0 - 40 AU/mL 06/20/2024 9:55 PM EDT [facility] ([facility]) Blood Venous blood specimen / Unknown Venipuncture / Unknown 06/19/2024 8:24 AM EDT 06/19/2024 8:24 AM EDT Narrative [facility] ([facility]) - 06/20/2024 9:55 PM EDT INTERPRETIVE INFORMATION: [...] (PSS) also have this antibody. Performed By: [facility] [address] [place] [address] Insulation Inspector: Corwin Higuera MD, PhD CLIA Number: [id number] us Abida Cobian [employer] MEMBER LAB BLOOD ORDERABLES Final Result [facility]) [address] [place], [place] [id number] * ENAI (06/19/2024 8:24 AM EDT) Leon/COMPLIANCE FIELD TECHNICIAN (YUE) Ab, IgG 4 0 - 19 Units 06/20/2024 11:55 PM EDT [facility]) Blood Venous blood specimen / Unknown Venipuncture / Unknown 06/19/2024 8:24 AM EDT 06/19/2024 8:24 AM EDT Narrative [facility]) - 06/20/2024 11:55 PM EDT INTERPRETIVE INFORMATION: Leon/COMPLIANCE FIELD TECHNICIAN (YUE) Antibody, IgG 19 Units or Less ............. Negative 20 to 39 Units ............... Weak Positive 40 to 80 Units ............... Moderate Positive 81 Units or greater .......... Strong Positive Leon/COMPLIANCE FIELD TECHNICIAN antibodies are frequently seen in patients with mixed connective tissue disease (MCTD) and are also associated with other systemic autoimmune rheumatic diseases (SARDs) such as systemic lupus erythematosus (SLE), systemic sclerosis, and myositis. Antibodies targeting the Leon/COMPLIANCE FIELD TECHNICIAN antigenic complex also recognize Leon antigens, therefore, the Leon antibody response must be considered when interpreting these results. Performed By: [facility] [address] [place] [address] Insulation Inspector: Corwin Higuera MD, PhD CLIA Number: [id number] Abida Cobian [facility] LAB BLOOD ORDERABLES Final Result Performing Organization Address City/[facility] Co de Phone Number [facility] [address] * Thyroid Peroxidase Antibody (06/19/2024 8:24 AM EDT) [facility] Thyroid Peroxidase Antibody <5 <=8 IU/mL 06/19/2024 11:11 AM EDT [facility] Blood Venous blood specimen / Unknown Venipuncture / Unknown 06/19/2024 8:24 AM EDT 06/19/2024 8:24 AM EDT Abida Cobian [employer] LAB BLOOD ORDERABLES Final Result [facility] [address] [place] [address] * Double-Stranded DNA (dsDNA) Antibody, IgG by IFA (06/19/2024 8:24 AM EDT) [facility] Double-Strande d DNA (dsDNA) Ab IgG IFA <1:10 <1:10 06/22/2024 9:[address] [facility] Blood Venous blood specimen / Unknown Venipuncture / Unknown 06/19/2024 8:24 AM EDT 06/19/2024 8:24 AM EDT Narrative [facility]) - 06/22/2024 9:45 [...] recommendations for testing may be found at [email or web address]. Performed By: [facility] [address] [place] [address] Insulation Inspector: Corwin Higuera MD, PhD CLIA Number: [id number] us Abida Cobian APRN LAB BLOOD ORDERABLES Final Result [facility] [address] [place] [address] * Creatinine, Plasma (06/19/2024 8:24 AM EDT) Creatinine, Plasma 0.80 0.60 - 1.10 mg/dL 06/19/2024 10:04 AM EDT [facility] eGFRcr 104.4 mL/min/1.7 3m*2 06/19/2024 10:04 AM EDT [facility] Comment:Reported eGFRcr in m L/min/1.73m2 is based the CKD-EPI 2020 equation that does not use a race coefficient. Blood Venous blood specimen / Unknown Venipuncture / Unknown 06/19/2024 8:24 AM EDT 06/19/2024 8:24 AM EDT Abida Cobian APRN LAB BLOOD ORDERABLES Final Result Performing Organization Address City/[facility]/ZIP Co de Phone Number [facility] [address] [place] [address] * Sedimentation Rate, Automated (06/19/2024 8:24 AM EDT) Sedimentation Rate 11 <20 mm/hr 2024 10:18 AM EDT [facility] Blood Venous blood specimen / Unknown Venipuncture / Unknown 06/19/2024 8:24 AM EDT 06/19/2024 8:24 AM EDT Abida Cobian APRN LAB BLOOD ORDERABLES Final Result Performing Organization Address [facility]/ZIP Co de Phone Number [facility] [address] [place] [address] * (ABNORMAL) CBC and Differential (06/19/2024 8:24 AM EDT) WBC Count 12.21(H) 3.70 - 10.30 10*3/uL LAB HEMATOLOGY METHOD 06/19/2024 10:01 AM EDT [facility] RBC Count 4.86 3.90 - 5.20 10*6/uL LAB HEMATOLOGY METHOD 06/19/2024 10:01 AM EDT [facility] HGB 14.4 11.2 - 15.7 g/dL LAB HEMATOLOGY METHOD 06/19/2024 10:01 AM EDT [facility] HCT 43.9 34.0 - 45.0 % LAB HEMATOLOGY METHOD 06/19/2024 10:01 AM EDT [facility] Platelet Count 535(H) 155 - 369 10*3/uL LAB HEMATOLOGY METHOD 06/19/2024 10:01 AM EDT [facility] MCV 90 79 - 98 fL LAB HEMATOLOGY METHOD 06/19/2024 10:01 AM EDT [facility] MCH 29.6 26.0 - 32.0 pg LAB HEMATOLOGY METHOD 06/19/2024 10:01 AM EDT [facility] MCHC 32.8 30.7 - 35.5 g/dL LAB HEMATOLOGY METHOD 06/19/2024 10:01 AM EDT [facility] RDW 13.3 11.5 - 14.5 % LAB HEMATOLOGY METHOD 06/19/2024 10:01 AM EDT [facility] MPV 9.7 8.8 - 12.5 fL LAB HEMATOLOGY METHOD 06/19/2024 10:01 AM EDT [facility] nRBC 0.0 <=0.0 per 100 WBCs LAB HEMATOLOGY METHOD 06/19/2024 10:01 AM EDT [facility] Differential Type Automated LAB HEMATOLOGY METHOD 06/19/2024 10:01 AM EDT [facility] Neutrophils % 59 % LAB HEMATOLOGY METHOD 06/19/2024 10:01 AM EDT [facility] Lymphocytes % 30 % LAB HEMATOLOGY METHOD 06/19/2024 10:01 AM EDT [facility] Monocytes % 8 % LAB HEMATOLOGY METHOD 06/19/2024 10:01 AM EDT [facility] Eosinophils % 1 % LAB HEMATOLOGY METHOD 06/19/2024 10:01 AM EDT [facility] Basophils % 1 % LAB HEMATOLOGY METHOD 06/19/2024 10:01 AM EDT [facility] Immature Granulocytes % 1 % LAB HEMATOLOGY METHOD 06/19/2024 10:01 AM EDT [facility] Neutrophils Absolute 7.28(H) 1.60 - 6.10 10*3/uL LAB HEMATOLOGY METHOD 06/19/2024 10:01 AM EDT [facility] Lymphocytes Absolute 3.66 1.20 - 3.90 10*3/uL LAB HEMATOLOGY METHOD 06/19/2024 10:01 AM EDT [facility] Monocytes Absolute 0.98(H) 0.30 - 0.90 10*3/uL LAB HEMATOLOGY METHOD 06/19/2024 10:01 AM EDT [facility] Eosinophils Absolute 0.13 0.00 - 0.50 10*3/uL LAB HEMATOLOGY METHOD 06/19/2024 10:01 AM EDT [facility] Basophils Absolute 0.08 0.00 - 0.10 10*3/uL LAB HEMATOLOGY METHOD 06/19/2024 10:01 AM EDT [facility] Immature Granulocytes Absolute 0.08(H) 0.00 - 0.06 10*3/uL LAB HEMATOLOGY METHOD 06/19/2024 10:01 AM EDT [facility] Blood Venous blood specimen / Unknown Venipuncture / Unknown 06/19/2024 8:24 AM EDT 06/19/2024 8:24 AM EDT Narrative [facility] - 06/19/2024 10:01 AM EDT Therapeutic decision making should be based on absolute values, rather than percentages. Abida Cobian APRN LAB BLOOD ORDERABLES Final Result Performing Organization Address City/[facility]/ZIP Co de Phone Number [facility] [address] [place] [address] * (ABNORMAL) C3 Complement (06/19/2024 8:24 AM EDT) C3 Complement 186(H) 84 - 166 mg/dL 06/19/2024 10:05 AM EDT [facility] Blood Venous blood specimen / Unknown Venipuncture / Unknown 06/19/2024 8:24 AM EDT 06/19/2024 8:24 AM EDT Abida Cobian APRN LAB BLOOD ORDERABLES Final Result Performing Organization Address City/[facility]/ZIP Co de Phone Number [facility] [address] [place] [address] * (ABNORMAL) C4 Complement (06/19/2024 8:24 AM EDT) C4 Complement 37(H) 13 - 36 mg/dL 06/19/2024 10:05 AM EDT [facility] Blood Venous blood specimen / Unknown Venipuncture / Unknown 06/19/2024 8:24 AM EDT 06/19/2024 8:24 AM EDT Abida Cobian APRN LAB BLOOD ORDERABLES Final Result Performing Organization Address City/[facility]/ZIP Co de Phone Number [facility] [address] [place] [address] * (ABNORMAL) C-Reactive Protein, Plasma (06/19/2024 8:24 AM EDT) CRP, Plasma 12.5(H) <=8.0 mg/L 06/19/2024 10:04 AM EDT [facility] Blood Venous blood specimen / Unknown Venipuncture / Unknown 06/19/2024 8:24 AM EDT 06/19/2024 8:24 AM EDT Narrative [facility] - 06/19/2024 10:04 AM EDT This CRP test is appropriate for assessment of infection, systemic inflammation and/or tissue injury. To assess cardiovascular disease risk order high sensitivity CRP (CRPH). Abida Cobian [employer] LAB BLOOD ORDERABLES Final Result [facility] [address] [place] [address] * Antinuclear Antibody (VELMA), HEp-2, IgG (06/19/2024 8:24 AM EDT) VELMA INTERPRETIVE COMMENT See Note 06/22/2024 10:10 AM EDT [facility] ([facility]) Anti Nuc Ab Screen <1:80 <1:80 06/22/2024 10:10 AM EDT [email or web address] ([facility]) Blood Venous blood specimen / Unknown Venipuncture / Unknown 06/19/2024 8:24 AM EDT 06/19/2024 8:24 AM EDT Narrative [facility] ([facility]) - 06/22/2024 10:10 AM EDT Antinuclear antibodies [...] not necessarily rule out SARD. Performed By: [facility] [address] [place] [address] Insulation Inspector: Corwin Higuera MD, PhD CLIA Number: [id number] Abida Cobian APRN LAB BLOOD ORDERABLES Final Result Performing Organization Address City/[facility]/ZIP Co de Phone Number [facility] ([facility]) [address] [place] [address] * Thyroid Stimulating Hormone, Plasma (06/19/2024 8:24 AM EDT) Pathologist [facility] Thyroid Stimulating Hormone, Plasma 1.38 0.40 - 4.20 uIU/mL 06/19/2024 10:04 AM EDT [facility] Blood Venous blood specimen / Unknown Venipuncture / Unknown 06/19/2024 8:24 AM EDT 06/19/2024 8:24 AM EDT Narrative [facility] - 06/19/2024 10:04 AM EDT Trimester Specific Ranges TSH ( IU/mL) 1st Trimester 0.1 - 3.0 2nd Trimester 0.19 - 4.06 3rd Trimester 0.3 - 3.7 Abida Cobian APRN LAB BLOOD ORDERABLES Final Result [facility] [address] [place] [address] * (ABNORMAL) Hepatic Function Panel (06/19/2024 8:24 AM EDT) Conjugated Bilirubin, Plasma <0.2 <=0.3 mg/dL 06/19/2024 10:04 AM EDT [facility] Alkaline Phosphatase, Plasma 124(H) 35 - 104 U/L 06/19/2024 10:04 AM EDT [facility] Total Bilirubin, Plasma 0.2 0.2 - 1.1 mg/dL 06/19/2024 10:04 AM EDT [facility] Albumin, Plasma 4.5 3.5 - 5.2 g/dL 06/19/2024 10:04 AM EDT [facility] Total Protein 7.4 6.3 - 7.9 g/dL 06/19/2024 10:04 AM EDT [facility] ALT, Plasma 18 10 - 35 U/L 06/19/2024 10:04 AM EDT [facility] AST, Plasma 20 10 - 35 U/L 06/19/2024 10:04 AM EDT [facility] Blood Venous blood specimen / Unknown Venipuncture / Unknown 06/19/2024 8:24 AM EDT 06/19/2024 8:24 AM EDT Abida Cobian APRN LAB BLOOD ORDERABLES Final Result [facility] [address] [place] [address] * Acute Hepatitis Panel (12/21/2022 2:46 PM EDT) Hepatitis B Surf Antigen Negative Negative 12/21/2022 5:[address] [facility] Hepatitis C Antibody Negative Negative 12/21/2022 5:[address] [facility] Hepatitis A Antibody IgM Negative Negative 12/21/2022 5:[address] [facility] Hepatitis B Core Antibody IgM Negative Negative 12/21/2022 5:[address] [facility] Blood Venous blood specimen / Unknown Venipuncture / Unknown 12/21/2022 2:46 PM EDT 12/21/2022 2:46 PM EDT Abida Cobian APRN LAB BLOOD ORDERABLES Final Result [facility] [address] [place] [address] from Last 3 Months or Most Recently Relevant to Health Maintenance Insurance [facility] MEDICAID Care Teams Food Preparation Supervisor Relationship Specialty Start Date End Date Ivonne Metcalf PA [address] [place] [address] PCP - General 12/21/22
--- NOTE | 2024-08-07 15:19 | PC.NURSE ---
Pt did attempt the FVC several times without success, Pt states I'm sorry I can't do this. Pt got up gathered her things and left the department.
== END 2024-08-07 23:59 | disposition home or self-care (01) ==
LOC: RT 14:39
PROVIDERS: PCP Physician Assistant; Visit Provider Physician Assistant
DX: R06.02 Shortness of breath (principal)

== ENCOUNTER → 2024-08-22 20:07 | Outpatient (CLI) | payer MEDICAID, SELFPAY ==
--- OUTSIDE RECORDS SUMMARY | 2024-06-19 07:30 | XMS_ITS | Encounter Summary ---
Author Organization Healthcare Address [address] [place] [address] Care Team Providers Care Laboratory Tester Name Role Phone Ivonne Metcalf Primary Care Provider [phone] Reason for Referral * Consultation (Routine) - Authorized Specialty Diagnoses / Procedures Referred By Jose solitario Referred To Contact Physical Therapy Diagnoses Polyarthralgia Cervical spine pain Bilateral hip pain Oneil Cobian APRN [id number] [place] [address] Phone: tel: fax: Referral ID Status Reason Start Date Expiration Date Visits Requested Visits Authorized [id number] Authorized Consult and Treat 08/14/2024 02/13/2026 1 1 Reason for Visit * Reason Comments Hematochezia Fatigue Abnormal Lab Sicca syndrome Neck Pain Encounter Details Date Type Department Care Team (Latest Contact Info) Description 06/19/2024 7:30 AM EDT [facility] Visit [facility] [address] [place] [address] Oneil Cobian APRN [address] [facility] [address] [place] [phone] Bilateral hip pain (Primary Dx); Abnormal immunological finding in serum; CRP elevated; Polyarthralgia; Fatigue, unspecified type; Sicca syndrome (CMS/HCC); Positive VELMA (antinuclear antibody); Cervical spine pain Social History Tobacco Use [...] things Nearly every day 06/19/2024 7:36 AM EDT Lexi Pardo Feeling down, depressed, or hopeless Nearly every day 06/19/2024 7:36 AM EDT Lexi Pardo Patient Health Questionnaire-2 Score 6 06/19/2024 7:36 AM EDT Lexi Pardo * Question Answer Date of Assessment Author Trouble falling or staying asleep, or sleeping too much Nearly every day 06/19/2024 7:36 AM GLENT Lexi Pardo Feeling tired or having little energy Nearly every day 06/19/2024 7:36 AM GLENT Lexi Pardo Poor appetite or overeating Nearly every day [...] way Not at all 06/19/2024 7:36 AM Lexi Alba Patient Health Questionnaire-9 Score 06/19/2024 7:36 AM Lexi Alba * If you checked off any problems on this questionnaire so far, Question Answer Date of Assessment Author How difficult have these problems made it for you to do your work, take care of things at home, or get along with other people? Very difficult 06/19/2024 7:36 AM Lexi Alba documented as of this encounter Miscellaneous Notes * Addendum Note - Oneil Cobian APRN - 06/19/2024 7:30 AM EDTAddended by: ONEIL COBIAN on: 06/25/2024 10:46 AM Modules accepted: Orders * Addendum Note - Oneil Cobian APRN - 06/19/2024 7:30 AM EDTAddended by: ONEIL COBIAN on: 08/14/2024 09:22 AM Modules accepted: Orders * Progress Notes [...] an autoimmune disease for a positive VELMA, APPLIANCE TESTER and CRP. The patient reports that she [...] Case Report 11/09/2023 Final Value:Surgical Pathology Case: [id number] Authorizing Provider: Luis M Johnson MD Collected: 11/09/2023 Ordering Location: [facility] Lab Received: 11/10/2023 1048 Pathologist: Shannon Stoddard [...] a grossly unremarkable yellow-mayer, fibrofatty cut surface. [employer] Team Member sections are submitted in cassettes A1-A3. Cold Time: 0 Ana Maria B Zhu B. LEFT BREAST TISSUE 2512 GM Received in formalin labeled ???left breast tissue?? , is a 2512 g aggregate of grossly unremarkable white-mayer skin and underlying lobulated adipose tissue measuring 32.6 x 23.2 x 7.2 cm. Sectioning reveals grossly unremarkable yellow-mayer, fibrofatty cut surface. [employer] Team Member sections are submitted in cassettes B1-B3. Cold Time: 0 Ana Maria B Zhu Note: 11/09/2023 Final Value:A resident was [...] -- -- BOLTON-28 (CRP) -- -- Tender (BOLTON-28) Swollen (BOLTON-28) Provider Global -- -- Patient [...] joints to rule out 2.Positive VELMA 3.Positive APPLIANCE TESTER 4.SICCA -Rheumatological ROS positive for dry eyes, dry mouth, rash (bilateral legs around ankles that looklike scabs, pruritic that occur once every couple of months), psychosis or delirium 04/21 -VELMA, DsDNA, C3, C4, YUE I & II, leon YUE, UA, urine protein/crea negative 06/19/24 3.Fatigue [...] DsDNA, C3, C4, YUE I & II, leon YUE, UA, urine protein/crea -WBC 12.21, CRP [...] spine pain Expected: 06/25/2024 (Approximate), Expires: 12/25/2025 Scheduled Referrals Name Type Priority Associated Diagnoses Order Schedule Physical Therapy Outpatient Referral Routine Polyarthralgia Cervical spine pain Bilateral hip pain 1 Occurrences starting 08/14/2024 until 02/15/2026 documented as of this encounter Results * [...] normal. Procedure Note Nithin Horne MD - 06/19/2024 CLINICAL INDICATION: neck pain TECHNIQUE: XR CERVICAL [...] Nithin Horne MD on 06/19/2024 8:50 AM Oneil Cobian INDUSTRIAL REAL ESTATE AGENT IMG XR PROCEDURES Final Re sult * Urinalysis with reflex microscopic (Culture NOT Included) (06/19/2024 8:27 AM EDT) Color, Urine Yellow LAB URINALYSIS - AUTOMATED METHOD 06/19/2024 9:56 AM EDT [facility] Clarity, Urine Clear LAB URINALYSIS - AUTOMATED METHOD 06/19/2024 9:56 AM EDT [facility] Spec [place], Urine 1.022 1.005 - 1.030 LAB URINALYSIS - AUTOMATED METHOD 06/19/2024 9:56 AM EDT [facility] pH, Urine 5.5 5.0 - 8.0 LAB URINALYSIS - AUTOMATED METHOD 06/19/2024 9:56 AM EDT [facility] Protein, Urine Negative Negative mg/dL LAB URINALYSIS - AUTOMATED METHOD 06/19/2024 9:56 AM EDT [facility] Glucose, Urine Negative Negative mg/dL LAB URINALYSIS - AUTOMATED METHOD 06/19/2024 9:56 AM EDT [facility] Ketones, Urine Negative Negative mg/dL LAB URINALYSIS - AUTOMATED METHOD 06/19/2024 9:56 AM EDT [facility] Blood, Urine Negative Negative LAB URINALYSIS - AUTOMATED METHOD 06/19/2024 9:56 AM EDT [facility] Bilirubin, Urine Negative Negative LAB URINALYSIS - AUTOMATED METHOD 06/19/2024 9:56 AM EDT [facility] Urobilinogen, Urine 0.2 0.2 to 1.0 mg/dL LAB URINALYSIS - AUTOMATED METHOD 06/19/2024 9:56 AM EDT [facility] Leukocytes, Urine Negative Negative LAB URINALYSIS - AUTOMATED METHOD 06/19/2024 9:56 AM EDT [facility] Nitrite, Urine Negative Negative LAB URINALYSIS - AUTOMATED METHOD 06/19/2024 9:56 AM EDT [facility] Urine Urine specimen obtained by clean catch procedure / Unknown Non-blood Collection / Unknown 06/19/2024 8:27 AM EDT 06/19/2024 8:27 AM EDT us Oneil Cobian APRN LAB URINE ORDERABLES Final Result [facility] [address] [place] [address] * Protein, Random, Urine with Creatinine (06/19/2024 8:27 AM EDT) Protein, Urine 8 mg/dL 06/19/2024 10:23 AM EDT [facility] Creatinine, Urine 179 mg/dL 06/19/2024 10:23 AM EDT [facility] Protein/Creatin ine Ratio 0.0 mg/mg Creat 06/19/2024 10:23 AM EDT [facility] Urine Urine specimen obtained by clean catch procedure / Unknown Non-blood Collection / Unknown 06/19/2024 8:27 AM EDT 06/19/2024 8:27 AM EDT Oneil Cobian APRN LAB URINE ORDERABLES Final Result Performing Organization Address City/[facility]/ZIP Co de Phone Number [facility] [address] [place] [address] * Thyroid Stimulating Hormone, Plasma (06/19/2024 8:24 AM EDT) Thyroid Stimulating Hormone, Plasma 1.38 0.40 - 4.20 uIU/mL 06/19/2024 10:04 AM EDT [facility] Blood Venous blood specimen / Unknown Venipuncture / Unknown 06/19/2024 8:24 AM EDT 06/19/2024 8:24 AM EDT Narrative [facility] - 06/19/2024 10:04 AM EDT Trimester Specific Ranges TSH ( IU/mL) 1st Trimester 0.1 - 3.0 2nd Trimester 0.19 - 4.06 3rd Trimester 0.3 - 3.7 Oneil Cobian APRN LAB BLOOD ORDERABLES Final Result [facility] [address] [place] [address] * Sedimentation Rate, Automated (06/19/2024 8:24 AM EDT) Sedimentation Rate 11 <20 mm/hr 2024 10:18 AM EDT [facility] Blood Venous blood specimen / Unknown Venipuncture / Unknown 06/19/2024 8:24 AM EDT 06/19/2024 8:24 AM EDT Oneil Cobian APRN LAB BLOOD ORDERABLES Final Result [facility] [address] [place] [address] * (ABNORMAL) C-Reactive Protein, Plasma (06/19/2024 8:24 AM EDT) [facility] CRP, Plasma 12.5(H) <=8.0 mg/L 06/19/2024 10:04 AM EDT [facility] Blood Venous blood specimen / Unknown Venipuncture / Unknown 06/19/2024 8:24 AM EDT 06/19/2024 8:24 AM EDT Narrative [facility] - 06/19/2024 10:04 AM EDT This CRP test is appropriate for assessment of infection, systemic inflammation and/or tissue injury. To assess cardiovascular disease risk order high sensitivity CRP (CRPH). us Oneil Cobian APRN LAB BLOOD ORDERABLES Final Result Performing Organization Address City/[facility]/ZIP Co de Phone Number [facility] [address] [place] [address] * Thyroid Peroxidase Antibody (06/19/2024 8:24 AM EDT) [facility] Thyroid Peroxidase Antibody <5 <=8 IU/mL 06/19/2024 11:11 AM EDT [facility] Blood Venous blood specimen / Unknown Venipuncture / Unknown 06/19/2024 8:24 AM EDT 06/19/2024 8:24 AM EDT Oneil Cobian APRN LAB BLOOD ORDERABLES Final Result [facility] [address] [place] [address] * Leon (YUE) Antibody, IgG (06/19/2024 8:24 AM EDT) [facility] Leon (YUE) Antibody, IgG 2 0 - 40 AU/mL 06/20/2024 9:55 PM EDT [facility] ([email or web address]) Serum 06/19/2024 8:24 AM EDT 06/19/2024 8:24 AM EDT Narrative [facility] ([place]) - 06/20/2024 9:55 PM EDT INTERPRETIVE INFORMATION: Leon (YUE) Antibody, IgG 29 AU/mL or Less ............. Negative 30 - 40 AU/mL ................ Equivocal 41 AU/mL or Greater .......... Positive Leon antibody is highly specific (greater than 90 percent) for systemic lupus erythematosus (SLE) but only occurs in 30-35 percent of SLE cases. The presence of antibodies to Leon has variable associations with SLE clinical manifestations. Performed By: [facility] [address] [place] [address] Material Yard Clerk: Corwin Higuera MD, PhD CLIA Number: [id number] us Oneil Cobian INDUSTRIAL REAL ESTATE AGENT LAB REF LAB BLOOD AND FLUI D ORD Final Result [facility] ([facility]) [address] [place] [id number] * ENAII (06/19/2024 8:24 AM EDT) SSA-52 (RO52) (YUE) Antibody, IgG 1 0 - 40 AU/mL 06/20/2024 9:55 PM EDT [facility] [email or web address]) SSA-60 (RO60) (YUE) Antibody, IgG 0 0 - 40 AU/mL 06/20/2024 9:55 PM EDT [facility] ([email or web address]) SSB (LA) (YUE) Antibody, IgG 0 0 - 40 AU/mL 06/20/2024 9:55 PM EDT [facility] ([employer]) Blood Venous blood specimen / Unknown Venipuncture / Unknown 06/19/2024 8:24 AM EDT 06/19/2024 8:24 AM EDT Narrative [facility]) - 06/20/2024 9:55 PM EDT INTERPRETIVE INFORMATION: [...] (PSS) also have this antibody. Performed By: [facility] [address] [place] [address] Material Yard Clerk: oCrwin Higuera MD, PhD CLIA Number: [id number] us Oneil Cobian INDUSTRIAL REAL ESTATE AGENT LAB BLOOD ORDERABLES Final Result [email or web address]) [address] [place] [address] * ENAI (06/19/2024 8:24 AM EDT) Leon/APPLIANCE TESTER (YUE) Ab, IgG 4 0 - 19 Units 06/20/2024 11:55 PM EDT [facility]) Blood Venous blood specimen / Unknown Venipuncture / Unknown 06/19/2024 8:24 AM EDT 06/19/2024 8:24 AM EDT Narrative [facility]) - 06/20/2024 11:55 PM EDT INTERPRETIVE INFORMATION: Leon/APPLIANCE TESTER (YUE) Antibody, IgG 19 Units or Less ............. Negative 20 to 39 Units ............... Weak Positive 40 to 80 Units ............... Moderate Positive 81 Units or greater .......... Strong Positive Leon/APPLIANCE TESTER antibodies are frequently seen in patients with mixed connective tissue disease (MCTD) and are also associated with other systemic autoimmune rheumatic diseases (SARDs) such as systemic lupus erythematosus (SLE), systemic sclerosis, and myositis. Antibodies targeting the Leon/APPLIANCE TESTER antigenic complex also recognize Leon antigens, therefore, the Leon antibody response must be considered when interpreting these results. Performed By: [facility] [address] [place] [address] Material Yard Clerk: Corwin Higuera MD, PhD CLIA Number: [id number] Oneil Cobian APRN LAB BLOOD ORDERABLES Final Result [facility]) [address] [id number] * (ABNORMAL) C4 Complement (06/19/2024 8:24 AM EDT) Pathologist [facility] C4 Complement 37(H) 13 - 36 mg/dL 06/19/2024 10:05 AM EDT [facility] Blood Venous blood specimen / Unknown Venipuncture / Unknown 06/19/2024 8:24 AM EDT 06/19/2024 8:24 AM EDT Oneil Cobian INDUSTRIAL REAL ESTATE AGENT LAB BLOOD ORDERABLES Final Result [facility] [address] [place] [address] * (ABNORMAL) C3 Complement (06/19/2024 8:24 AM EDT) Pathologist [facility] C3 Complement 186(H) 84 - 166 mg/dL 06/19/2024 10:05 AM EDT [facility] Blood Venous blood specimen / Unknown Venipuncture / Unknown 06/19/2024 8:24 AM EDT 06/19/2024 8:24 AM EDT Oneil Stephen Aranza INDUSTRIAL REAL ESTATE AGENT LAB BLOOD ORDERABLES Final Result Performing Organization Address [facility]/ZIP Co de Phone Number [facility] [address] [place] [address] * Double-Stranded DNA (dsDNA) Antibody, IgG by IFA (06/19/2024 8:24 AM EDT) Pathologist [facility] Double-Strande d DNA (dsDNA) Ab IgG IFA <1:10 <1:10 06/22/2024 9:45 PM EDT [facility] ([place]) Blood Venous blood specimen / Unknown Venipuncture / Unknown 06/19/2024 8:24 AM EDT 06/19/2024 8:24 AM EDT Narrative [facility] ([place]) - 06/22/2024 9:45 PM EDT INTERPRETIVE INFORMATION: [...] recommendations for testing may be found at [email or web address]. Performed By: [facility] [address] [place] [address] Material Yard Clerk: Corwin Higuera MD, PhD CLIA Number: [id number] Oneil Mitchell Cobian INDUSTRIAL REAL ESTATE AGENT LAB BLOOD ORDERABLES Final Result [facility] ([email or web address]) [address] [place] [address] * Antinuclear Antibody (VELMA), HEp-2, IgG (06/19/2024 8:24 AM EDT) VELMA INTERPRETIVE COMMENT See Note 06/22/2024 10:10 AM EDT [facility] ([facility] [employer]) Anti Nuc Ab Screen <1:80 <1:80 06/22/2024 10:10 AM EDT [facility] ([email or web address]) Blood Venous blood specimen / Unknown Venipuncture / Unknown 06/19/2024 8:24 AM EDT 06/19/2024 8:24 AM EDT Narrative [facility] ([facility] - [facility]) - 06/22/2024 10:10 AM EDT Antinuclear antibodies [...] not necessarily rule out SARD. Performed By: [facility] [address] [place] [address] Material Yard Clerk: Corwin Higuera MD, PhD CLIA Number: [id number] Oneil Cobian APRN LAB BLOOD ORDERABLES Final Result Performing Organization Address City/[facility]/ZIP Co de Phone Number [email or web address] ([facility]) [address] [place] [address] * (ABNORMAL) Hepatic Function Panel (06/19/2024 8:24 AM EDT) Conjugated Bilirubin, Plasma <0.2 <=0.3 mg/dL 06/19/2024 10:04 AM EDT [facility] Alkaline Phosphatase, Plasma 124(H) 35 - 104 U/L 06/19/2024 10:04 AM EDT [facility] Total Bilirubin, Plasma 0.2 0.2 - 1.1 mg/dL 06/19/2024 10:04 AM EDT [facility] Albumin, Plasma 4.5 3.5 - 5.2 g/dL 06/19/2024 10:04 AM EDT [facility] Total Protein 7.4 6.3 - 7.9 g/dL 06/19/2024 10:04 AM EDT [facility] ALT, Plasma 18 10 - 35 U/L 06/19/2024 10:04 AM EDT [facility] AST, Plasma 20 10 - 35 U/L 06/19/2024 10:04 AM EDT [facility] Blood Venous blood specimen / Unknown Venipuncture / Unknown 06/19/2024 8:24 AM EDT 06/19/2024 8:24 AM EDT Oneil Cobian APRN LAB BLOOD ORDERABLES Final Result [facility] [address] [place] [address] * Creatinine, Plasma (06/19/2024 8:24 AM EDT) Creatinine, Plasma 0.80 0.60 - 1.10 mg/dL 06/19/2024 10:04 AM EDT [facility] eGFRcr 104.4 mL/min/1.7 3m*2 06/19/2024 10:04 AM EDT [facility] Comment:Reported eGFRcr in m L/min/1.73m2 is based the CKD-EPI 2020 equation that does not use a race coefficient. Blood Venous blood specimen / Unknown Venipuncture / Unknown 06/19/2024 8:24 AM EDT 06/19/2024 8:24 AM EDT Oneil Cobian INDUSTRIAL REAL ESTATE AGENT LAB BLOOD ORDERABLES Final Result [facility] [address] [place] [address] * (ABNORMAL) CBC and Differential (06/19/2024 8:24 AM EDT) WBC Count 12.21(H) 3.70 - 10.30 10*3/uL LAB HEMATOLOGY METHOD 06/19/2024 10:01 AM EDT [facility] RBC Count 4.86 3.90 - 5.20 10*6/uL LAB HEMATOLOGY METHOD 06/19/2024 10:01 AM EDT [facility] HGB 14.4 11.2 - 15.7 g/dL LAB HEMATOLOGY METHOD 06/19/2024 10:01 AM EDT [facility] HCT 43.9 34.0 - 45.0 % LAB HEMATOLOGY METHOD 06/19/2024 10:01 AM EDT [facility] Platelet Count 535(H) 155 - 369 10*3/uL LAB HEMATOLOGY METHOD 06/19/2024 10:01 AM EDT [facility] MCV 90 79 - 98 fL LAB HEMATOLOGY METHOD 06/19/2024 10:01 AM EDT [facility] MCH 29.6 26.0 - 32.0 pg LAB HEMATOLOGY METHOD 06/19/2024 10:01 AM EDT [facility] MCHC 32.8 30.7 - 35.5 g/dL LAB HEMATOLOGY METHOD 06/19/2024 10:01 AM EDT [facility] RDW 13.3 11.5 - 14.5 % LAB HEMATOLOGY METHOD 06/19/2024 10:01 AM EDT [facility] MPV 9.7 8.8 - 12.5 fL LAB HEMATOLOGY METHOD 06/19/2024 10:01 AM EDT [facility] nRBC 0.0 <=0.0 per 100 WBCs LAB HEMATOLOGY METHOD 06/19/2024 10:01 AM EDT [facility] Differential Type Automated LAB HEMATOLOGY METHOD 06/19/2024 10:01 AM EDT [facility] Neutrophils % 59 % LAB HEMATOLOGY METHOD 06/19/2024 10:01 AM EDT [facility] Lymphocytes % 30 % LAB HEMATOLOGY METHOD 06/19/2024 10:01 AM EDT [facility] Monocytes % 8 % LAB HEMATOLOGY METHOD 06/19/2024 10:01 AM EDT [facility] Eosinophils % 1 % LAB HEMATOLOGY METHOD 06/19/2024 10:01 AM EDT [facility] Basophils % 1 % LAB HEMATOLOGY METHOD 06/19/2024 10:01 AM EDT [facility] Immature Granulocytes % 1 % LAB HEMATOLOGY METHOD 06/19/2024 10:01 AM EDT [facility] Neutrophils Absolute 7.28(H) 1.60 - 6.10 10*3/uL LAB HEMATOLOGY METHOD 06/19/2024 10:01 AM EDT [facility] Lymphocytes Absolute 3.66 1.20 - 3.90 10*3/uL LAB HEMATOLOGY METHOD 06/19/2024 10:01 AM EDT [facility] Monocytes Absolute 0.98(H) 0.30 - 0.90 10*3/uL LAB HEMATOLOGY METHOD 06/19/2024 10:01 AM EDT [facility] Eosinophils Absolute 0.13 0.00 - 0.50 10*3/uL LAB HEMATOLOGY METHOD 06/19/2024 10:01 AM EDT [facility] Basophils Absolute 0.08 0.00 - 0.10 10*3/uL LAB HEMATOLOGY METHOD 06/19/2024 10:01 AM EDT [facility] Immature Granulocytes Absolute 0.08(H) 0.00 - 0.06 10*3/uL LAB HEMATOLOGY METHOD 06/19/2024 10:01 AM EDT [facility] Blood Venous blood specimen / Unknown Venipuncture / Unknown 06/19/2024 8:24 AM EDT 06/19/2024 8:24 AM EDT Narrative [facility] - 06/19/2024 10:01 AM EDT Therapeutic decision making should be based on absolute values, rather than percentages. Oneil Cobian INDUSTRIAL REAL ESTATE AGENT LAB BLOOD ORDERABLES Final Result [facility] [address] [place] [address] documented in this encounter Visit Diagnoses Diagnosis Bilateral hip pain- Primary Pain in joint, pelvic region and thigh Abnormal immunological finding in serum Other nonspecific findings on examination of blood CRP elevated Elevated C-reactive protein (CRP) Polyarthralgia Pain in joint, multiple sites Fatigue, unspecified type Sicca syndrome (CMS/HCC) Sicca syndrome Positive VELMA (antinuclear antibody) Other and unspecified nonspecific immunological findings Cervical spine pain Abnormal immunological finding in [...] documented as of this encounter Care Teams Laboratory Tester Relationship Specialty Start Date End Date Ivonne Metcalf PA [address] [place] [address] PCP - General 12/21/22 documented as of this encounter
--- OUTSIDE RECORDS SUMMARY | 2024-07-05 09:45 | XMS_ITS | Encounter Summary ---
Author Organization Healthcare Address [address] [place] [address] Care Team Providers Care Stove Installer Name Role Phone Ivonne Metcalf Primary Care Provider [phone] Encounter Details Date Type Department Care Team (Late st Contact Info) Description 07/05/2024 9:45 AM EDT Office Visit [facility] Plastic & Reconstructive Surgery [address] [place] [phone] Luis M Johnson MD [address] [place] [address] Masses of both breasts (Primary [...] ear normal. Nose: Nose normal. Mouth/Throat: Lips: [place]. Mouth: Mucous membranes are moist. Pharynx: Oropharynx [...] breast with large firm palpable mass, approximately [id number] between 1-2 o'clock, approximately 2-3cm from nipple [...] M Johnson MD Source Information Shawna Whitehead, AERIAL ADVERTISER, DNP [facility] Document History Assessment/Plan There are [...] documented as of this encounter Care Teams Stove Installer Relationship Specialty Start Date End Date Ivonne Metcalf PA [address] [place] [address] PCP - General 12/21/22 documented as of this encounter
--- OUTSIDE RECORDS SUMMARY | 2024-08-22 20:11 | XMS_ITS | Encounter Summary ---
Author Organization Healthcare Address [address] [place] [address] Care Team Providers Care Store Shopper Name Role Phone Ivonne Metcalf Primary Care Provider [phone] Encounter Details Date Type Department Care Team (Late st Contact Info) Description 06/26/2024 Telephone [facility] [address] [place] [phone] Deana Chao, RN [facility]ULAR [facility] INTERVENTIONAL RADIOLOGY [...] documented as of this encounter Care Teams Store Shopper Relationship Specialty Start Date End Date Ivonne Metcalf PA [address] [place] [address] PCP - General 12/21/22 documented as of this encounter
--- OUTSIDE RECORDS SUMMARY | 2024-08-22 20:11 | XMS_ITS | Clinical Summary ---
Author Organization [facility] Address [address] [place] [address] Care Team Providers Care Food Service Worker Hospital Name Role Phone Ivonne Metcalf Primary Care Provider [phone] Allergies Active Allergy Reactions Criticality Noted Date [...] Description 07/05/2024 9:45 AM EDT Office Visit [facility] Plastic & Reconstructive Surgery [address] [place] [phone] Luis M Johnson MD Masses of both breasts (Primary Dx) 07/05/2024 Travel 06/26/2024 Telephone [facility] Medicine Specialties [address], [address] [place] [address] Deana Chao RN 06/26/2024 Telephone [facility] Medicine Specialties [address], [address] [place] [address] Deana Chao RN 06/25/2024 Results Follow-Up [facility] Medicine Specialties [address], [address] [place] [address] Abida Cobian APRN Results 06/19/2024 8:28 AM EDT - 06/19/2024 11:59 PM EDT Hospital Encounter [facility] Radiology [address], [address] [place] [phone] Abnormal immunological finding in serum; CRP elevated; Polyarthralgia; Fatigue, unspecified type; Sicca syndrome (CMS/HCC); Positive VELMA (antinuclear antibody) Discharge Disposition: Home or Self Care 06/19/2024 7:30 AM EDT Office Visit [facility] Medicine Specialties [address], [address] [place] [address] Abida Cobian APRN Bilateral hip pain (Primary Dx); Abnormal immunological finding in serum; CRP elevated; Polyarthralgia; Fatigue, unspecified type; Sicca syndrome (CMS/HCC); Positive VELMA (antinuclear antibody); Cervical spine pain 06/19/2024 Travel from Last 3 Months Immunizations Immunization Administration Dates Next Due DTaP, Unspecified 03/01/2002 HPV, Quadrivalent 10/23/2012,06/26/2012,04/24/19 13 Hep B, Adolescent or Pediatric 04/26/2002 IPV 03/01/2002 Influenza, seasonal, injectable 12/08/2010,12/21 MMR 03/01/2002 Novel [id number], all formulations 2008 Tdap 04/16/2024,06/09/2009 Social History [...] Date Last Done Comments [facility]-HIV Screening 1997 [facility]-Infant/Child/Adol SDOH Screenings 1997 [facility]-IPV Vaccines (2 of 3 - 4-dose series) 03/29/2002 03/01/2002 [facility]-Hepatitis B Vaccines (2 of 3 - 3-dose series) 05/24/2002 04/26/2002 [facility]-Varicella Vaccines (1 of 2 - 13+ 2-dose series) 2010 [facility]- SDOH Screenings 08/21/2015 [facility]-Adult SDOH Screenings 08/21/2015 [facility]-Pap Smear 2018 [id number] Vaccine ( - season) 2023 08/03/2020, 07/13/2020 [...] Sicca syndrome (CMS/HCC) Positive VELMA (antinuclear antibody) LEON/INDIAN NANNY (YUE) ANTIBODY, IGG (SO) Routine 06/19/2024 8:24 [...] Urine 8 mg/dL 06/19/2024 10:23 AM EDT [facility] Creatinine, Urine 179 mg/dL 06/19/2024 10:23 AM EDT [facility] Protein/Creatin ine Ratio 0.0 mg/mg Creat 06/19/2024 10:23 AM EDT [facility] Urine Urine specimen obtained by clean catch procedure / Unknown Non-blood Collection / Unknown 06/19/2024 8:27 AM EDT 06/19/2024 8:27 AM EDT Abida Cobian APRN LAB URINE ORDERABLES Final Result [facility] [address] [place] [address] * Urinalysis with reflex microscopic (Culture NOT Included) (06/19/2024 8:27 AM EDT) Color, Urine Yellow LAB URINALYSIS - AUTOMATED METHOD 06/19/2024 9:56 AM EDT [facility] Clarity, Urine Clear LAB URINALYSIS - AUTOMATED METHOD 06/19/2024 9:56 AM EDT [facility] Spec Alpine, Urine 1.022 1.005 - 1.030 LAB URINALYSIS - AUTOMATED METHOD 06/19/2024 9:56 AM EDT [facility] pH, Urine 5.5 5.0 - 8.0 LAB URINALYSIS - AUTOMATED METHOD 06/19/2024 9:56 AM EDT [facility] Protein, Urine Negative Negative mg/dL LAB URINALYSIS - AUTOMATED METHOD 06/19/2024 9:56 AM EDT [facility] Glucose, Urine Negative Negative mg/dL LAB URINALYSIS - AUTOMATED METHOD 06/19/2024 9:56 AM EDT [facility] Ketones, Urine Negative Negative mg/dL LAB URINALYSIS - AUTOMATED METHOD 06/19/2024 9:56 AM EDT [facility] Blood, Urine Negative Negative LAB URINALYSIS - AUTOMATED METHOD 06/19/2024 9:56 AM EDT [facility] Bilirubin, Urine Negative Negative LAB URINALYSIS - AUTOMATED METHOD 06/19/2024 9:56 AM EDT [facility] Urobilinogen, Urine 0.2 0.2 to 1.0 mg/dL LAB URINALYSIS - AUTOMATED METHOD 06/19/2024 9:56 AM EDT [facility] Leukocytes, Urine Negative Negative LAB URINALYSIS - AUTOMATED METHOD 06/19/2024 9:56 AM EDT [facility] Nitrite, Urine Negative Negative LAB URINALYSIS - AUTOMATED METHOD 06/19/2024 9:56 AM EDT [facility] Urine Urine specimen obtained by clean catch procedure / Unknown Non-blood Collection / Unknown 06/19/2024 8:27 AM EDT 06/19/2024 8:27 AM EDT Abida Cobian APRN LAB URINE ORDERABLES Final Result Performing Organization Address City/State/[facility] Co de Phone Number [facility] [address] [place] [address] * Leon (YUE) Antibody, IgG (06/19/2024 8:24 AM EDT) Pathologist Tania Leon (YUE) Antibody, IgG 2 0 - 40 AU/mL 06/20/2024 9:55 PM EDT [facility]) Serum 06/19/2024 8:24 AM EDT 06/19/2024 8:24 AM EDT Narrative [facility] ([place]) - 06/20/2024 9:55 PM EDT [...] associations with SLE clinical manifestations. Performed By: [facility] [address] [place] [address] Aluminum Polisher: Corwin Higuera MD, PhD CLIA Number: [id number] us Abida Cobian SALESPERSON [employer] LAB REF LAB BLOOD AND FLUI D ORD Final Result [facility] ([facility]) [address] [place], [place] [id number] * ENAII (06/19/2024 8:24 AM EDT) SSA-52 (RO52) (YUE) Antibody, IgG 1 0 - 40 AU/mL 06/20/2024 9:55 PM EDT [facility] ([facility]) SSA-60 (RO60) (YUE) Antibody, IgG 0 0 - 40 AU/mL 06/20/2024 9:55 PM EDT [facility] ([facility]) SSB (LA) (YUE) Antibody, IgG 0 0 - 40 AU/mL 06/20/2024 9:55 PM EDT [facility] ([facility]) Blood Venous blood specimen / Unknown Venipuncture / Unknown 06/19/2024 8:24 AM EDT 06/19/2024 8:24 AM EDT Narrative [facility] ([facility]) - 06/20/2024 9:55 PM EDT INTERPRETIVE INFORMATION: [...] (PSS) also have this antibody. Performed By: [facility] [address] [place] [address] Aluminum Polisher: Corwin Higuera MD, PhD CLIA Number: [id number] us Abida Cobian SALESPERSON [employer] LAB BLOOD ORDERABLES Final Result [facility]) [address] [place], [place] [id number] * ENAI (06/19/2024 8:24 AM EDT) Leon/INDIAN NANNY (YUE) Ab, IgG 4 0 - 19 Units 06/20/2024 11:55 PM EDT [facility]) Blood Venous blood specimen / Unknown Venipuncture / Unknown 06/19/2024 8:24 AM EDT 06/19/2024 8:[address] [facility]) - 06/20/2024 11:55 PM EDT INTERPRETIVE INFORMATION: Leon/INDIAN NANNY (YUE) Antibody, IgG 19 Units or Less ............. Negative 20 to 39 Units ............... Weak Positive 40 to 80 Units ............... Moderate Positive 81 Units or greater .......... Strong Positive Leon/INDIAN NANNY antibodies are frequently seen in patients with mixed connective tissue disease (MCTD) and are also associated with other systemic autoimmune rheumatic diseases (SARDs) such as systemic lupus erythematosus (SLE), systemic sclerosis, and myositis. Antibodies targeting the Leon/INDIAN NANNY antigenic complex also recognize Leon antigens, therefore, the Leon antibody response must be considered when interpreting these results. Performed By: [facility] [address] [place] [address] Aluminum Polisher: Corwin Higuera MD, PhD CLIA Number: [id number] Abida Cobian [facility] LAB BLOOD ORDERABLES Final Result Performing Organization Address City/[facility] Co de Phone Number [facility] ([facility]) [address] [place] [address] * Thyroid Peroxidase Antibody (06/19/2024 8:24 AM EDT) [facility] Thyroid Peroxidase Antibody <5 <=8 IU/mL 06/19/2024 11:11 AM EDT [facility] Blood Venous blood specimen / Unknown Venipuncture / Unknown 06/19/2024 8:24 AM EDT 06/19/2024 8:24 AM EDT Abida Cobian SALESPERSON [employer] LAB BLOOD ORDERABLES Final Result [facility] [address] [place] [address] * Double-Stranded DNA (dsDNA) Antibody, IgG by IFA (06/19/2024 8:24 AM EDT) [facility] Double-Strande d DNA (dsDNA) Ab IgG IFA [...] recommendations for testing may be found at [email or web address]. Performed By: [facility] [address] [place] [address] Aluminum Polisher: Corwin Higuera MD, PhD CLIA Number: [id number] us Abida Cobian SALESPERSON [employer] LAB BLOOD ORDERABLES Final Result [facility]) [address] [place] [address] * Creatinine, Plasma (06/19/2024 8:24 AM EDT) Creatinine, Plasma 0.80 0.60 - 1.10 mg/dL 06/19/2024 10:04 AM EDT [facility] eGFRcr 104.4 mL/min/1.7 3m*2 06/19/2024 10:04 AM EDT [facility] Comment:Reported eGFRcr in m L/min/1.73m2 is based the CKD-EPI 2020 equation that does not use a race coefficient. Blood Venous blood specimen / Unknown Venipuncture / Unknown 06/19/2024 8:24 AM EDT 06/19/2024 8:24 AM EDT Abida Cobian APRN LAB BLOOD ORDERABLES Final Result Performing Organization Address [facility]/ZIP Co de Phone Number [facility] [address] [place] [address] * Sedimentation Rate, Automated (06/19/2024 8:24 AM EDT) Sedimentation Rate 11 <20 mm/hr 2024 10:18 AM EDT [facility] Blood Venous blood specimen / Unknown Venipuncture / Unknown 06/19/2024 8:24 AM EDT 06/19/2024 8:24 AM EDT Abida Cobian APRN LAB BLOOD ORDERABLES Final Result Performing Organization Address [facility] Co de Phone Number [facility] [address] [place] [address] * (ABNORMAL) CBC and Differential (06/19/2024 8:24 AM EDT) WBC Count 12.21(H) 3.70 - 10.30 10*3/uL LAB HEMATOLOGY METHOD 06/19/2024 10:01 AM EDT [facility] RBC Count 4.86 3.90 - 5.20 10*6/uL LAB HEMATOLOGY METHOD 06/19/2024 10:01 AM EDT [facility] HGB 14.4 11.2 - 15.7 g/dL LAB HEMATOLOGY METHOD 06/19/2024 10:01 AM EDT [facility] HCT 43.9 34.0 - 45.0 % LAB HEMATOLOGY METHOD 06/19/2024 10:01 AM EDT [facility] Platelet Count 535(H) 155 - 369 10*3/uL LAB HEMATOLOGY METHOD 06/19/2024 10:01 AM EDT [facility] MCV 90 79 - 98 fL LAB HEMATOLOGY METHOD 06/19/2024 10:01 AM EDT [facility] MCH 29.6 26.0 - 32.0 pg LAB HEMATOLOGY METHOD 06/19/2024 10:01 AM EDT [facility] MCHC 32.8 30.7 - 35.5 g/dL LAB HEMATOLOGY METHOD 06/19/2024 10:01 AM EDT [facility] RDW 13.3 11.5 - 14.5 % LAB HEMATOLOGY METHOD 06/19/2024 10:01 AM EDT [facility] MPV 9.7 8.8 - 12.5 fL LAB HEMATOLOGY METHOD 06/19/2024 10:01 AM EDT [facility] nRBC 0.0 <=0.0 per 100 WBCs LAB HEMATOLOGY METHOD 06/19/2024 10:01 AM EDT [facility] Differential Type Automated LAB HEMATOLOGY METHOD 06/19/2024 10:01 AM EDT [facility] Neutrophils % 59 % LAB HEMATOLOGY METHOD 06/19/2024 10:01 AM EDT [facility] Lymphocytes % 30 % LAB HEMATOLOGY METHOD 06/19/2024 10:01 AM EDT [facility] Monocytes % 8 % LAB HEMATOLOGY METHOD 06/19/2024 10:01 AM EDT [facility] Eosinophils % 1 % LAB HEMATOLOGY METHOD 06/19/2024 10:01 AM EDT [facility] Basophils % 1 % LAB HEMATOLOGY METHOD 06/19/2024 10:01 AM EDT [facility] Immature Granulocytes % 1 % LAB HEMATOLOGY METHOD 06/19/2024 10:01 AM EDT [facility] Neutrophils Absolute 7.28(H) 1.60 - 6.10 10*3/uL LAB HEMATOLOGY METHOD 06/19/2024 10:01 AM EDT [facility] Lymphocytes Absolute 3.66 1.20 - 3.90 10*3/uL LAB HEMATOLOGY METHOD 06/19/2024 10:01 AM EDT [facility] Monocytes Absolute 0.98(H) 0.30 - 0.90 10*3/uL LAB HEMATOLOGY METHOD 06/19/2024 10:01 AM EDT [facility] Eosinophils Absolute 0.13 0.00 - 0.50 10*3/uL LAB HEMATOLOGY METHOD 06/19/2024 10:01 AM EDT [facility] Basophils Absolute 0.08 0.00 - 0.10 10*3/uL LAB HEMATOLOGY METHOD 06/19/2024 10:01 AM EDT [facility] Immature Granulocytes Absolute 0.08(H) 0.00 - 0.06 10*3/uL LAB HEMATOLOGY METHOD 06/19/2024 10:01 AM EDT [facility] Blood Venous blood specimen / Unknown Venipuncture / Unknown 06/19/2024 8:24 AM EDT 06/19/2024 8:24 AM EDT Narrative [facility] - 06/19/2024 10:01 AM EDT Therapeutic decision making should be based on absolute values, rather than percentages. Abida Cobian APRN LAB BLOOD ORDERABLES Final Result Performing Organization Address City/[facility]/ZIP Co de Phone Number [facility] [address] [place] [address] * (ABNORMAL) C3 Complement (06/19/2024 8:24 AM EDT) C3 Complement 186(H) 84 - 166 mg/dL 06/19/2024 10:05 AM EDT [facility] Blood Venous blood specimen / Unknown Venipuncture / Unknown 06/19/2024 8:24 AM EDT 06/19/2024 8:24 AM EDT Abida Cobian APRN LAB BLOOD ORDERABLES Final Result Performing Organization Address City/[facility]/[place] [address] * (ABNORMAL) C4 Complement (06/19/2024 8:24 AM EDT) C4 Complement 37(H) 13 - 36 mg/dL 06/19/2024 10:05 AM EDT [facility] Blood Venous blood specimen / Unknown Venipuncture / Unknown 06/19/2024 8:24 AM EDT 06/19/2024 8:24 AM EDT Abida Cobian APRN LAB BLOOD ORDERABLES Final Result Performing Organization Address City/[facility]/ZIP Co de Phone Number [facility] [address] [place] [address] * (ABNORMAL) C-Reactive Protein, Plasma (06/19/2024 8:24 AM EDT) CRP, Plasma 12.5(H) <=8.0 mg/L 06/19/2024 10:04 AM EDT [facility] Blood Venous blood specimen / Unknown Venipuncture / Unknown 06/19/2024 8:24 AM EDT 06/19/2024 8:24 AM EDT Narrative [facility] - 06/19/2024 10:04 AM EDT This CRP test is appropriate for assessment of infection, systemic inflammation and/or tissue injury. To assess cardiovascular disease risk order high sensitivity CRP (CRPH). us Abida Cobian SALESPERSON [employer] LAB BLOOD ORDERABLES Final Result [facility] [address] [place] [address] * Antinuclear Antibody (VELMA), HEp-2, IgG (06/19/2024 8:24 AM EDT) VELMA INTERPRETIVE COMMENT See Note 06/22/2024 10:10 AM EDT [facility] ([facility]) Anti Nuc Ab Screen <1:80 <1:80 06/22/2024 10:10 AM EDT [facility] ([facility]) Blood Venous blood specimen / Unknown Venipuncture / Unknown 06/19/2024 8:24 AM EDT 06/19/2024 8:24 AM EDT Narrative [facility] ([facility]) - 06/22/2024 10:10 AM EDT Antinuclear antibodies [...] not necessarily rule out SARD. Performed By: [facility] [address] [place] [address] Aluminum Polisher: Corwin Higuera MD, PhD CLIA Number: [id number] Abida Cobian APRN LAB BLOOD ORDERABLES Final Result Performing Organization Address City/[facility] Co de Phone Number [facility] ([facility]) [address] [place] [id number] * Thyroid Stimulating Hormone, Plasma (06/19/2024 8:24 AM EDT) Thyroid Stimulating Hormone, Plasma 1.38 0.40 - 4.20 uIU/mL 06/19/2024 10:04 AM EDT [facility] Blood Venous blood specimen / Unknown Venipuncture / Unknown 06/19/2024 8:24 AM EDT 06/19/2024 8:24 AM EDT Narrative [facility] - 06/19/2024 10:04 AM EDT Trimester Specific Ranges TSH ( IU/mL) 1st Trimester 0.1 - 3.0 2nd Trimester 0.19 - 4.06 3rd Trimester 0.3 - 3.7 Abida Cobian APRN LAB BLOOD ORDERABLES Final Result [facility] [address] [place] [address] * (ABNORMAL) Hepatic Function Panel (06/19/2024 8:24 AM EDT) Conjugated Bilirubin, Plasma <0.2 <=0.3 mg/dL 06/19/2024 10:04 AM EDT [facility] Alkaline Phosphatase, Plasma 124(H) 35 - 104 U/L 06/19/2024 10:04 AM EDT [facility] Total Bilirubin, Plasma 0.2 0.2 - 1.1 mg/dL 06/19/2024 10:04 AM EDT [facility] Albumin, Plasma 4.5 3.5 - 5.2 g/dL 06/19/2024 10:04 AM EDT [facility] Total Protein 7.4 6.3 - 7.9 g/dL 06/19/2024 10:04 AM EDT [facility] ALT, Plasma 18 10 - 35 U/L 06/19/2024 10:04 AM EDT [facility] AST, Plasma 20 10 - 35 U/L 06/19/2024 10:04 AM EDT [facility] Blood Venous blood specimen / Unknown Venipuncture / Unknown 06/19/2024 8:24 AM EDT 06/19/2024 8:24 AM EDT Abida Cobian APRN LAB BLOOD ORDERABLES Final Result [facility] [address] [place] [address] * Acute Hepatitis Panel (12/21/2022 2:46 PM EDT) Hepatitis B Surf Antigen Negative Negative 12/21/2022 5:35 PM EDT [facility] Hepatitis C Antibody Negative Negative 12/21/2022 5:35 PM EDT [facility] Hepatitis A Antibody IgM Negative Negative 12/21/2022 5:35 PM EDT [facility] Hepatitis B Core Antibody IgM Negative Negative 12/21/2022 5:35 PM EDT [facility] Blood Venous blood specimen / Unknown Venipuncture / Unknown 12/21/2022 2:46 PM EDT 12/21/2022 2:46 PM EDT Abida Cobian APRN LAB BLOOD ORDERABLES Final Result [facility] [address] [place] [address] from Last 3 Months or Most Recently Relevant to Health Maintenance [place] [address] [place] [address] MEDICAID Care Teams Food Service Worker Hospital Relationship Specialty Start Date End Date Ivonne Metcalf PA [address] [place] [address] PCP - General 12/21/22
--- OUTSIDE RECORDS SUMMARY | 2024-08-22 20:11 | XMS_ITS | Encounter Summary ---
Author Organization Healthcare Address [address] [place] [address] Care Team Providers Care Plumbing Drafter Name Role Phone Ivonne Metcalf Primary Care Provider [phone] Encounter Details Date Type Department Care Team (Late st Contact Info) Description 06/26/2024 Telephone [facility] [address] [place] [phone] Deana Chao, RN [facility] INTERVENT[facility] RADIOLOGY [...] documented as of this encounter Care Teams Plumbing Drafter Relationship Specialty Start Date End Date Ivonne Metcalf PA [address] [place] [address] PCP - General 12/21/22 documented as of this encounter
--- OUTSIDE RECORDS SUMMARY | 2024-08-22 20:11 | XMS_ITS | Continuity of Care Document ---
Author Organization [place] - [facility], [facility] Address [address] [place] [address] Assessment No assessment recorded. Plan of Treatment Reminders Order Date Submit Date Provider Last Modified By Organization Details Last Modified Time Details Appointments FOLLOW UP 30 2024 03:00P M Ivonne Metcalf PA-C Not available Not available Not available Lab None recorded. Referral psychiatr ist referral - Patient requests Elisha Covington MD - must [facility] [address] [facility] [place], [address] [facility] Peng [facility], [place], [address], 08/22/2024 13:14:29 Procedures polysomno graphy, diagnosti c (PROC) 2024 025 [facility] [place], [address], 08/21/2024 09:24:25 Surgeries None recorded. Imaging PFT, complete 2024 025 [facility] (Scheduling), [address], [place], [address], 08/15/2024 15:08:08 Medication Orders None recorded. Patient TargetsNo targets recorded. Patient Instructions Encounter Date Encounter Id Patient Instructions Last Modified By Organization Details Last Modified Time 08/01/2024 [id number] sleep apnea: car e instructions [email or web address] Not available 08/01/2024 13:31:46 shortness of breath: care instructions [email or web address] Not available 08/01/2024 13:35:05 learning about mood disorders [email or web address] Not available 08/01/2024 13:35:05 Reason for Referral Psychiatrist Referral for Mo od disorder Patient requests Elisha Covington MD - 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 Referring Physician: Ivonne Metcalf, Family Medicine, Encounter Date: 08/01/2024 Problems Name Problem SNOMED Code Status Onset Date Resolution Date Notes Provider Name and Address Organization Details Recorded Time Genital herpes simplex 42828525 Active 2023 ANA ROSA Walden [address] [place] [address], [address], [employer] 5 10:17:13 Mass of right breast 3038718891942 9106 Active 2024 ANA ROSA Walden [address] [place] [address], 87063-351 8, [employer] 16:37:20 Allergic rhinitis 33328056 Active 2024 ANA ROSA Walden [address] [place] [address], 864[address]-249 8, [employer] 5 10:17:08 Vitamin D deficiency 38239119 Active 2024 ANA ROSA Walden [address] [place] [address], 47933-658 8, [employer] 5 10:18:00 Obstructive sleep apnea syndrome 09327268 Active 2024 ANA ROSA Walden [address] [place] [address], 18779-444 8, [employer] 13:25:34 Dyspnea 356793030 Active 2024 ANA ROSA Walden [address] [place] [address], 30535-710 8, [employer] 13:32:23 Mood disorder 86517302 Active 2024 ANA ROSA Walden [address] [place] [address], 250[address] 8, [employer] 13:33:10 Problem Notes None recorded. Procedures Surgical History Date Name Laterality Status Provider Name and Address Organization Details Recorded Time Breast reduction completed Keikoedilson Dc [facility] [employer] 04/16/2024 16:12:03 Imaging Results None recorded. Procedure [...] active Not Available Not Available Not Available cholecalcif michael (vitamin D3) 50 mcg (2,000 unit) tablet TAKE 1 TABLET BY MOUTH ONCE DAILY 2024 active Not Available Not Available Not Avai lable baclofen 5 mg tablet TAKE 1 TABLET BY MOUTH THREE TIMES DAILY 04/16 completed Not Available Not Available Not Available Caplyta 42 mg capsule TAKE 1 CAPSULE BY MOUTH DAILY active Not Available Not Available No t Available Lybalvi 5 mg-10 mg tablet TAKE 1 TABLET BY MOUTH EVERY DAY AT BEDTIME active Not Available Not Available No t Available Zepbound 2.5 mg/0.5 mL subcutaneou s pen injector Inject 0.5 mL every week by subcutane ous route for 28 days. 08/01 completed Not Available Not Available Not Available Vitals Date Recorded Body height Body mass index (BMI) Body weight Oxygen saturation Oxygen saturation in Arterial blood by Pulse oximetry Heart rate Body temperature Systolic blood pressure Diastolic blood pressure Provider Name and Address Organization Details Last Updated DateTime 5 157.48 cm 48.1 kg/m2 339049. 79 g 96 % 96 % 94 /min 97.9 [degF] 100 mm[Hg] 78 mm[Hg] Keiko Dc [employer]. 13:12:48 Social History Question Answer Notes LastModified by Organizat ion Details LastModified Time Tobacco Smoking Status Never Smoker Keiko macias [employer]. 04/16/2024 16:08:12 Do You Have An Advance [...] Information not available 04/16/2024 What Type Of Improvement Manager Do You Use? None Information not available [...] Do You Have A Medical Power Of Mold Builder? No Information not available 04/16/2024 What Was [...] anxious, or unable to sleep at night)? [id number] Information not available 04/16/2024 Do you have [...] N Lung Disease N Dermatologic Disorders N COPD N Depression Y Developmental or Behavioral Disorders N Defects or [...] N High Cholesterol Y Liver Disease N Psychiatric/Mental Health Condition N Organ Transplant N Fibromyalgia N Dialysis N Schizophrenia N [...] Time Tdap 5 completed ANA ROSA Walden [address] [place] [address], [phone], [email or web address] 04/18/2024 14:14:37 IPV 3 completed Keiko Vice null, [email or web address] 04/16/2024 16:08:21 MMR 3 completed Keiko Vice null, [employer] 04/16/2024 16:08:21 COVID-19, mRNA, LNP-S, PF, 30 mcg/0.3 mL dose 1 completed Keiko Vice null, [employer] 04/16/2024 16:08:21 COVID-19, mRNA, LNP-S, PF, 30 mcg/0.3 mL dose 1 completed Keiko Vice null, [email or web address] 04/16/2024 16:08:21 Tdap 0 completed Keiko Vice null, [employer] 04/16/2024 16:08:21 Novel [id number]-[id number], all formulations 9 completed Keiko Vice null, [employer] 04/16/2024 16:08:21 Influenza, split virus, trivalent, preservative 1 completed Keiko Vice null, [employer] 04/16/2024 16:08:21 Influenza, split virus, trivalent, preservative 0 completed Keiko Vice null, [employer] 04/16/2024 16:08:21 HPV, quadrivalent 3 completed Keiko Vice null, [employer] 04/16/2024 16:08:21 HPV, quadrivalent 3 completed Keiko Vice null, [employer] 04/16/2024 16:08:22 HPV, quadrivalent 3 completed Keiko Vice null, [email or web address] 04/16/2024 16:08:22 Hep B, adolescent or pediatric 3 completed Keiko Vice null, [employer] 04/16/2024 16:08:22 DTaP, unspecified formulation 3 completed Keiko Vice null, [email or web address] 04/16/2024 16:08:22 Past Encounters Encounter ID Performer Location Encounter Start Date Encounter Closed Date Diagnosis/Indication Diagnosis SNOMED-CT Code Diagnosis ICD10 Code Diagnosis Note [id number] ANA ROSA Walden [facility] [address] [facility] [place] [address] 08/01/2024 12:44:38 08/01/2024 13:36:02 Obstructive sleep apnea syndrome 77595135 G47.33 Dyspnea 522938361 R06.02 Mood disorder 38527488 F 39 Health Concerns Section Related Observation LastModified by Organization Detai ls LastModified Time None Recorded Concern Status LastModified by Organization Details LastModified Time None Recorded Payers Encounter Date Sequence Insurance Name Policy Number Policy Lombardo Covered Member ID Lombardo Member ID Guarantor Name 08/01/2024 1 [facility] (MEDICAID HMO) [facility] [id number] [facility] Notes Date Note Type Note Provider Name and Address Organization Details Recorded Time 08/01/2024 text/html Patient presents for a referral to behavioral health. 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 Wonders if she has asthma.Complains of memory loss, fatigue. Diagnosed with HENRIK years ago but never got a Cpap machine. Aunt was diagnosed with a brain disease while in [place] - unclear of exact diagnosis - and wonders if she has that. ANA ROSA Walden [address] [place] [address], [phone], [facility] [employer] 08/02/2024 14:47:58 OBGyn Episode No OBEpisode recorded.
--- OUTSIDE RECORDS SUMMARY | 2024-08-22 20:11 | XMS_ITS | Encounter Summary ---
Author Organization Healthcare Address [address] [place] [address] Care Team Providers Care Electric Organ Assembler And Checker Name Role Phone DixonIvonne Moraima OSEGUERA Primary Care Provider [phone] Encounter Details Date Type Department Care Team (Late st Contact Info) Description 11/10/2023 Lab Requisition [facility] [address] [place] [address] Luis M Johnson MD [address] [address] Hypertrophy of breast Social History Tobacco Use [...] Exam (11/09/2023) Case Report Surgical Pathology Case: [id number] Authorizing Provider: Luis M Johnson MD Collected: 11/09/2023 Ordering Location: [facility] Received: 11/10/2023 1048 Pathologist: Shannon Stoddard MD Specimens: A) - Breast, Right, Right Breast Tissue 2187 gm B) - Breast, Left, Left Breast Tissue 2512 gm 11/13/2023 5:12 PM EDT [facility] Final Diagnosis A. BREAST, RIGHT, REDUCTION: - BENIGN BREAST TISSUE (2187 GRAMS); NEGATIVE FOR MALIGNANCY. B. BREAST, LEFT, REDUCTION: - BENIGN BREAST TISSUE (2512 GRAMS); NEGATIVE FOR MALIGNANCY. 11/13/2023 5:12 PM EDT [facility] at 1712 EDT Clinical Information Hypertrophy of breast Bilateral breast macromastia 11/13/2023 5:12 PM EDT [facility] Gross Description A. RIGHT BREAST TISSUE 2187 GM Received in formalin labeled r ight breast tissue , is a 2187 g aggregate of grossly unremarkable white-mayer skin and underlying lobulated adipose tissue measuring 28.7 x 24.6 x 4.8 cm. Sectioning reveals a grossly unremarkable yellow-mayer, fibrofatty cut surface. Plaster Maker sections are submitted in cassettes A1-A3. Cold Time: 0 Ana Maria B Zhu B. LEFT BREAST TISSUE 2512 GM Received in formalin labeled l eft breast tissue , is a 2512 g aggregate of grossly unremarkable white-mayer skin and underlying lobulated adipose tissue measuring 32.6 x 23.2 x 7.2 cm. Sectioning reveals grossly unremarkable yellow-mayer, fibrofatty cut surface. Plaster Maker sections are submitted in cassettes B1-B3. Cold Time: 0 Ana Maria B Zhu 11/13/2023 5:12 PM EDT [facility] Note: A resident was involved in the service. I attest I examined the relevant preparations for the specimens and confirmed the diagnosis or interpretation. 11/13/2023 5:12 PM EDT [facility] Tissue Right breast structure / Unknown 11/09/2023 11/10/2023 10:48 AM EDT Tissue specimen (specimen) Left breast structure / Unknown 11/10/2023 11/10/2023 10:48 AM EDT us Luis M Johnson MD LAB PATHOLOGY ORDERABLES Final Result [facility] [address] [place] [address] documented in this encounter Visit Diagnoses Diagnosis Hypertrophy of breast documented in this encounter Additional Health Concerns Assessment Noted Time A Body Mass Index follow-up plan has been documented for the patient 10/13/2023 11:01 AM EDT documented as of this encounter Care Teams Electric Organ Assembler And Checker Relationship Specialty Start Date End Date Ivonne Metcalf PA [address] [place] [address] PCP - General 12/21/22 documented as of this encounter
--- OUTSIDE RECORDS SUMMARY | 2024-08-22 20:11 | XMS_ITS | Encounter Summary ---
Author Organization Healthcare Address [address] [place] [address] Care Team Providers Care Assistant Professor In Family Studies Name Role Phone Ivonne Metcalf Primary Care Provider [phone] Reason for Visit * Reason Onset Date Comments Results 06/25/2024 Encounter Details Date Type Department Care Team (Late st Contact Info) Description 06/25/2024 Results Follow-Up [facility] Medicine Specialties [address] [place] [address] Abida Cobian M, MGMT ANALYST [address] [place] [address] Results Social History Tobacco Use [...] encounter Miscellaneous Notes * Telephone Encounter - Claire Zayas - 08/13/2024 4:18 PM EDT Patient called to follow up on PT referral She provided fax number for PT at [facility] FX: [phone] * Telephone Encounter - Claire Zayas - 08/07/2024 4:02 PM EDT Patient called back I advised of result note and recommendation from Abida Cobian She stated that for PT, she would like to go to [facility] CB: [phone] * Telephone Encounter - Marli Garcia - 07/31/2024 2:11 PM EDT Patient called back regarding lab results. Please call her to discuss and answer questions. * Telephone Encounter - Marli Garcia - 07/25/2024 4:27 PM EDT Patient called [...] to do NSAID therapyalong with PT or cattle care worker for 4-6 weeks without significant improvement in [...] documented as of this encounter Care Teams Assistant Professor In Family Studies Relationship Specialty Start Date End Date Ivonne Metcalf PA [address] [place] [address] PCP - General 12/21/22 documented as of this encounter
--- OUTSIDE RECORDS SUMMARY | 2024-08-22 20:11 | XMS_ITS | Encounter Summary ---
Author Organization Healthcare Address [address] [place] [address] Care Team Providers Care Paper Sales Manager Name Role Phone Ivonne Metcalf Primary Care Provider [phone] Reason for Visit * Reason Comments Med Refill Encounter Details Date Type Department Care Team (Late st Contact Info) Description 01/22/[address] [phone] Debora Luciano MD [address] [place] [address] Social History Tobacco Use Types [...] documented as of this encounter Care Teams Paper Sales Manager Relationship Specialty Start Date End Date Ivonne Metcalf PA [address] [place] [address] PCP - General 12/21/22 documented as of this encounter
--- OUTSIDE RECORDS SUMMARY | 2024-08-22 20:11 | XMS_ITS | Data Portability ---
Author Organization [facility] Address [address] [place] [address] Assessment No assessment recorded. Plan of Treatment Reminders Order Date Submit Date Provider Last Modified By Organization Details Last Modified Time Details Appointments FOLLOW UP 30 2024 03:00P Stephen Metcalf PA-C Not available Not available Not available Lab rf (rheumato id factor), serum 2024 025 [facility] [place], [address], 04/18/2024 17:07:51 C reactive protein, QN, serum or plasma 2024 025 [facility]), [address] [place], [address], 04/18/2024 17:07:53 ESR (erythroc yte sedimenta tion rate), blood 2024 025 [place] [facility] [place], [address], 04/18/2024 17:07:53 VELMA (antinucl ear antibodie s) screen, serum 2024 025 [place] [facility] [address] [place], [address], 04/18/2024 17:07:52 ccp (cyclic citrullin ated peptide) iga+igg, serum 2024 025 [facility]), [address] [place], [address], 04/18/2024 17:07:52 lipid panel, serum 2024 025 [facility]), [address] [place], [address], 04/18/2024 17:07:49 CMP, serum or plasma 2024 025 [facility]), [address] [place], [address], 04/18/2024 17:07:49 CBC w/ auto diff 2024 025 [facility]), [address] [place], [address], 04/18/2024 17:07:48 vitamin D, 25-hydrox y, total, serum 2024 025 [facility]), [address] [place], [address], 04/18/2024 17:07:51 TSH, ultra-sen sitive, serum 2024 025 [facility]), [address] [place], [address], 04/18/2024 17:07:50 Hepatitis C IgG Ab, qual, serum 2024 025 [facility]), [address] [place], [address], 04/18/2024 17:07:50 HIV 1 + 2, meaningfu l use set 2024 025 [facility]), [address] [place], [address], 04/18/2024 17:07:51 Referral psychiatr ist referral - Patient requests Elisha Covington MD - must be MD/DO for transport ation cabinet paperwork [address] [facility], [address], [place], [address], 08/22/2024 13:14:29 Procedures polysomno graphy, diagnosti c (PROC) 2024 025 [facility], [place], [address], 08/21/2024 09:24:25 Surgeries None recorded. Imaging PFT, complete [address] (Scheduling), [address] [facility] [address], [place], [address], 08/15/2024 15:08:08 US, breast, unilatera l 2024 025 [facility] Sched[facility], [address], [place], [address], 04/25/2024 08:57:47 Medication Orders azelastin e 137 mcg (0.1 %) nasal spray 2024 025 [place] [id number], [address] [facility] [address], [place], [id number], 04/16/2024 16:39:08 Zepbound 2.5 mg/0.5 mL subcutane ous pen injector 2024 025 [id number], [address] [facility] [address], [place], [id number], 08/01/2024 13:21:24 Patient TargetsNo targets recorded. Patient Instructions Encounter Date Encounter Id Patient Instructions Last Modified By Organization Details Last Modified Time 04/16/2024 [id number] allergies: care instructions Not available 04/16/2024 16:39:02 body mass index: care instructions [email or web address] Not available 04/16/2024 16:38:30 learning about healthy weight [email or web address] Not available 04/16/2024 16:38:30 tetanus and diphtheria booster: care instructions [email or web address] Not available 04/16/2024 17:26:15 HIV testing: car e instructions Not available 04/18/2024 10:05:23 08/01/2024 [id number] sleep apnea: car e instructions [email or web address] Not available 08/01/2024 13:31:46 shortness of breath: care instructions [email or web address] Not available 08/01/2024 13:35:05 learning about mood [...] /uL 3.4-10 .8 normal Not Available [facility] ([facility]) [address] [place], [address], 04/18/2024 17:07:48 04/16/19 25 04/18/2024 CBC WITH DIFFE RENTI AL/PL ATELE T RBC 4.61 x10e6 /uL 3.77-5 .28 normal Not Available [facility] ([facility]) [address] [place], [address], 04/18/2024 17:07:48 04/16/19 25 04/18/2024 CBC WITH DIFFE RENTI AL/PL ATELE T hemoglobin 13.3 g/dL 11.1-1 5.9 normal Not Available [facility] ([facility]) [address] [place], [address], 04/18/2024 17:07:48 04/16/19 25 04/18/2024 CBC WITH DIFFE RENTI AL/PL ATELE T hematocrit 42.9 % 34.0-4 6.6 normal Not Available [facility] ([facility]) [address] [place], [address], 04/18/2024 17:07:48 04/16/19 25 04/18/2024 CBC WITH DIFFE RENTI AL/PL ATELE T MCV 93 fL 79-97 normal Not Available [facility] ([facility]) [address] [place], [address], 04/18/2024 17:07:48 04/16/19 25 04/18/2024 CBC WITH DIFFE RENTI AL/PL ATELE T MCH 28.9 pg 26.6-3 3.0 normal Not Available [facility] ([facility]) [address] [place], [address], 04/18/2024 17:07:48 04/16/19 25 04/18/2024 CBC WITH DIFFE RENTI AL/PL ATELE T MCHC 31.0 g/dL 31.5-3 5.7 below low normal Not Available [facility] ([facility]) [address] [place], [address], 04/18/2024 17:07:48 04/16/19 25 04/18/2024 CBC WITH DIFFE RENTI AL/PL ATELE T RDW 14.7 % 11.7-1 5.4 Not Available [facility] ([facility]) [address] [place], [address], 04/18/2024 17:07:48 04/16/19 25 04/18/2024 CBC WITH DIFFE RENTI AL/PL ATELE T platelets 416 x10e3 /uL 150-45 0 normal Not Available [facility] ([facility]) [address] [place], [address], 04/18/2024 17:07:48 04/16/19 25 04/18/2024 CBC WITH DIFFE RENTI AL/PL ATELE T neutrophils 56 % not estab. normal Not Available [facility] ([facility]) [address] [facility], [place], [address], 04/18/2024 17:07:48 04/16/19 25 04/18/2024 CBC WITH DIFFE RENTI AL/PL ATELE T lymphs 35 % not estab. normal Not Available [facility] ([facility]) [address] [facility], [place], [address], 04/18/2024 17:07:48 04/16/19 25 04/18/2024 CBC WITH DIFFE RENTI AL/PL ATELE T monocytes 6 % not estab. normal Not Available [facility] ([facility]) [address] [facility], [place], [address], 04/18/2024 17:07:48 04/16/19 25 04/18/2024 CBC WITH DIFFE RENTI AL/PL ATELE T eos 2 % not estab. normal Not Available [facility] ([facility]) [address] [facility], [place], [address], 04/18/2024 17:07:48 04/16/19 25 04/18/2024 CBC WITH DIFFE RENTI AL/PL ATELE T basos 1 % not estab. normal Not Available [facility] ([facility]) [address] [facility], [place], [address], 04/18/2024 17:07:48 04/16/19 25 04/18/2024 CBC WITH DIFFE RENTI AL/PL ATELE T immature cells PHYSICIAN PRACTICE COORDINATOR Not Available [facility]) [address] [place], [address], 04/18/2024 17:07:48 04/16/19 25 04/18/2024 CBC WITH DIFFE RENTI AL/PL ATELE T neutrophils (absolute) 4.9 x10e3 /uL 1.4-7. 0 normal Not Available [facility] ([facility]) [address] [facility], [place], [address], 04/18/2024 17:07:48 04/16/19 25 04/18/2024 CBC WITH DIFFE RENTI AL/PL ATELE T lymphs (absolute) 3.0 x10e3 /uL 0.7-3. 1 normal Not Available [facility] ([facility]) [address] [facility], [place], [address], 04/18/2024 17:07:48 04/16/19 25 04/18/2024 CBC WITH DIFFE RENTI AL/PL ATELE T monocytes(ab solute) 0.5 x10e3 /uL 0.1-0. 9 normal Not Available [facility] ([facility]) [address] [facility], [place], [address], 04/18/2024 17:07:48 04/16/19 25 04/18/2024 CBC WITH DIFFE RENTI AL/PL ATELE T eos (absolute) 0.2 x10e3 /uL 0.0-0. 4 normal Not Available [facility] ([facility]) [address] [facility], [place], [address], 04/18/2024 17:07:48 04/16/19 25 04/18/2024 CBC WITH DIFFE RENTI AL/PL ATELE T baso (absolute) 0.1 x10e3 /uL 0.0-0. 2 normal Not Available [facility] ([facility]) [address] [facility], [place], [address], 04/18/2024 17:07:48 04/16/19 25 04/18/2024 CBC WITH DIFFE RENTI AL/PL ATELE T immature granulocytes 0 % not estab. Not Available [facility] ([facility]) [address] [facility], [place], [address], 04/18/2024 17:07:48 04/16/19 25 04/18/2024 CBC WITH DIFFE RENTI AL/PL ATELE T immature grans (abs) 0.0 x10e3 /uL 0.0-0. 1 Not Available [facility] ([facility]) [address] [facility], [place], [address], 04/18/2024 17:07:48 04/16/19 25 04/18/2024 CBC WITH DIFFE RENTI AL/PL ATELE T NRBC PHYSICIAN PRACTICE COORDINATOR Not Available [facility] ([facility]) [address] [facility], [place], [address], 04/18/2024 17:07:48 04/16/19 25 04/18/2024 CBC WITH DIFFE RENTI AL/PL ATELE T hematology comments: PHYSICIAN PRACTICE COORDINATOR Not Available [facility] ([facility]) [address] [facility], [place], [address], 04/18/2024 17:07:48 04/16/19 25 04/18/2024 COMP. METAB OLIC PANEL (14) glucose 84 mg/dL 70-99 normal Not Available [facility] ([facility]) [address] [place], [address], 04/18/2024 17:07:49 04/16/19 25 04/18/2024 COMP. METAB OLIC PANEL (14) BUN 7 mg/dL 6-20 normal Not Available [facility] ([facility]) [address] [place], [address], 04/18/2024 17:07:49 04/16/19 25 04/18/2024 COMP. METAB OLIC PANEL (14) creatinine 0.77 mg/dL 0.57-1 .00 normal Not Available [facility] ([facility]) [address] [place], [address], 04/18/2024 17:07:49 04/16/19 25 04/18/2024 COMP. METAB OLIC PANEL (14) eGFR 109 mL/mi n/1.7 3 >59 normal Not Available [facility] ([facility]) [address] [facility] [place], [address], 04/18/2024 17:07:49 04/16/19 25 04/18/2024 COMP. METAB OLIC PANEL (14) BUN/creatini ne ratio 9 9-23 normal Not Available [facility] ([facility]) [address] [place] [place], [address], 04/18/2024 17:07:49 04/16/19 25 04/18/2024 COMP. METAB OLIC PANEL (14) sodium 139 mmol/ L 134-14 4 normal Not Available [facility] ([facility]) [address] [place], [address], 04/18/2024 17:07:49 04/16/19 25 04/18/2024 COMP. METAB OLIC PANEL (14) potassium 4.7 mmol/ L 3.5-5. 2 normal Not Available [facility] ([facility]) [address] [place], [address], 04/18/2024 17:07:49 04/16/19 25 04/18/2024 COMP. METAB OLIC PANEL (14) chloride 102 mmol/ L 96-106 normal Not Available [facility] ([facility]) [address] [place], [address], 04/18/2024 17:07:49 04/16/19 25 04/18/2024 COMP. METAB OLIC PANEL (14) carbon dioxide, total 24 mmol/ L 20-29 normal Not Available [facility] ([facility]) [address] [place], [address], 04/18/2024 17:07:49 04/16/19 25 04/18/2024 COMP. METAB OLIC PANEL (14) calcium 9.3 mg/dL 8.7-10 .2 normal Not Available [facility] ([facility]) [address] [place], [address], 04/18/2024 17:07:49 04/16/19 25 04/18/2024 COMP. METAB OLIC PANEL (14) protein, total 6.9 g/dL 6.0-8. 5 normal Not Available [facility] ([facility]) [address] [place], [address], 04/18/2024 17:07:49 04/16/19 25 04/18/2024 COMP. METAB OLIC PANEL (14) albumin 4.4 g/dL 4.0-5. 0 normal Not Available [facility] ([facility]) [address] [place], [address], 04/18/2024 17:07:49 04/16/19 25 04/18/2024 COMP. METAB OLIC PANEL (14) globulin, total 2.5 g/dL 1.5-4. 5 Not Available [facility] ([facility]) [address] [place], [address], 04/18/2024 17:07:49 04/16/19 25 04/18/2024 COMP. METAB OLIC PANEL (14) bilirubin, total <0.2 mg/dL 0.0-1. 2 Not Available [facility] ([facility]) [address] [place], [address], 04/18/2024 17:07:49 04/16/19 25 04/18/2024 COMP. METAB OLIC PANEL (14) alkaline phosphatase 129 IU/L 44-121 above high normal Not Available [facility] ([facility]) [address] [place], [address], 04/18/2024 17:07:49 04/16/19 25 04/18/2024 COMP. METAB OLIC PANEL (14) AST (SGOT) 18 IU/L 0-40 normal Not Available [facility] ([facility]) [address] [place], [address], 04/18/2024 17:07:49 04/16/19 25 04/18/2024 COMP. METAB OLIC PANEL (14) ALT (SGPT) 17 IU/L 0-32 normal Not Available [facility] ([facility]) [address] [place], [address], 04/18/2024 17:07:49 04/16/19 25 04/18/2024 LIPID PANEL cholesterol, total 149 mg/dL 100-19 9 normal Not Available [facility] ([facility]) [address] [place], [address], 04/18/2024 17:07:49 04/16/19 25 04/18/2024 LIPID PANEL triglyceride s 135 mg/dL 0-149 normal Not Available [facility] ([facility]) [address] [place], [address], 04/18/2024 17:07:49 04/16/19 25 04/18/2024 LIPID PANEL HDL cholesterol 43 mg/dL >39 normal Not Available [facility]) [address] [place], [address], 04/18/2024 17:07:49 04/16/19 25 04/18/2024 LIPID PANEL VLDL cholesterol shirley 24 mg/dL 5-40 Not Available [facility] ([facility]) [address] [place], [address], 04/18/2024 17:07:49 04/16/19 25 04/18/2024 LIPID PANEL LDL chol calc ([facility]) 82 mg/dL 0-99 Not Available [facility]) [address] [place], [address], 04/18/2024 17:07:49 04/16/19 25 04/18/2024 LIPID PANEL LDL calc comment: PHYSICIAN PRACTICE COORDINATOR Not Available [facility] ([facility]) [address] [place], [address], 04/18/2024 17:07:49 04/16/19 25 04/18/2024 HCV ANTIB TONO CASCA DE(PC R/GEN O) HCV Ab Non Reacti ve non reacti ve Not Available [facility] ([facility]) [address] [facility], [place], [address], 04/18/2024 17:07:50 04/16/19 25 04/18/2024 HCV ANTIB TONO CASCA DE(PC R/GEN O) interpretati on: Commen t Not infec adriane with HCV unles s early or acute infec tion is suspe cted (whic h may be delay ed in an immun ocomp romis ed indiv idual ), or other evide nce exist s to indic ate HCV infec tion. Not Available [facility] ([facility]) [address] [facility], [place], [address], 04/18/2024 17:07:50 04/16/19 25 04/18/2024 TSH TSH 0.792 uIU/m L 0.450- 4.500 normal Not Available [facility] ([facility]) [address] [facility], [place], [address], 04/18/2024 17:07:50 04/16/19 25 04/18/2024 RHEUM ATOID FACTO R (RF) rheumatoid factor (rf) <10.0 IU/mL <14.0 Not Available [facility] ([facility]) [address] [facility], [place], [address], 04/18/2024 17:07:51 04/16/19 25 04/18/2024 VITAM IN [...] Endoc rine Socie ty went on to furth er defin e vitam in D insuf ficie ncy as a level betwe en 21 and 29 ng/mL (2). 1. IOM (Inst itute of Medic ine). 2010. Juan ry refer ence intaly es for calci um and D. Nura lang [place]: [facility] . 2. Abram k [place], Binkl ey [place], Bisch off-F errar i TURNER, et al. Evalu ation , treat ment, and preve ntion of vitam in D defic iency : an Endoc rine Socie ty clini shirley pract ice guide line. JCEM. 2010; 96(7) :1911 -30. Not Available [facility] ([facility]) [address] [place], [address], 04/18/2024 17:07:51 04/16/19 25 04/18/2024 HIV AB/P2 4 AG WITH REFLE X HIV Ab/P24 Ag screen Non Reacti ve non reacti ve HIV-1 /HIV- 2 antib odies and HIV-1 p24 antig en were NOT detec adriane. There is no labor atory evide nce of HIV infec tion. HIV Negat gentry Not Available [facility] ([facility]) [address] [place], [address], 04/18/2024 17:07:51 04/16/19 25 04/18/2024 ANTI- CCP AB, IGG/I GA anti-ccp Ab, IgG/IgA 2 units 0-19 Negat gentry <20 Weak posit gentry 20 - 39 Moder ate posit gentry 40 - 59 Stron g posit gentry >59 Not Available [facility] ([facility]) [address] [place], [address], 04/18/2024 17:07:52 04/16/19 25 04/18/2024 ANTIN UCLEA R AB MULTI PLEX RFX 9 VLEMA direct Positi ve negati ve abnormal Not Available [facility] ([facility]) [address] [place], [address], 04/18/2024 17:07:52 04/16/19 25 04/18/2024 ANTIN UCLEA R AB MULTI PLEX RFX 9 anti-DNA (ds) Ab qn <1 IU/mL 0-9 Negat gentry <5 Equiv ocal 5 - 9 Posit gentry >9 Not Available [facility] ([facility]) [address] [place], [address], 04/18/2024 17:07:52 04/16/19 25 04/18/2024 ANTIN UCLEA R AB MULTI PLEX RFX 9 screwmaker automatic antibodies 1.1 ai 0.0-0. 9 above high normal Not Available [facility] ([facility]) [address] [place], [address], 04/18/2024 17:07:52 04/16/19 25 04/18/2024 ANTIN UCLEA R AB MULTI PLEX RFX 9 lofton antibodies <0.2 ai 0.0-0. 9 Not Available [facility] ([facility]) [address] [place], [address], 04/18/2024 17:07:52 04/16/19 25 04/18/2024 ANTIN UCLEA R AB MULTI PLEX RFX 9 antisclerode rma-70 antibodies <0.2 ai 0.0-0. 9 Not Available [facility] ([facility]) [address] [place], [address], 04/18/2024 17:07:52 04/16/19 25 04/18/2024 ANTIN UCLEA R AB MULTI PLEX RFX 9 sjogren's anti-ss-A <0.2 ai 0.0-0. 9 Not Available [facility] ([facility]) [address] [place], [address], 04/18/2024 17:07:52 04/16/19 25 04/18/2024 ANTIN UCLEA R AB MULTI PLEX RFX 9 sjogren's anti-ss-B <0.2 ai 0.0-0. 9 Not Available [facility] ([facility]) [address] [facility], [place], [address], 04/18/2024 17:07:52 04/16/19 25 04/18/2024 ANTIN UCLEA R AB MULTI PLEX RFX 9 antichromati n antibodies <0.2 ai 0.0-0. 9 Not Available [facility] ([facility]) [address] [place], [address], 04/18/2024 17:07:52 04/16/19 25 04/18/2024 ANTIN UCLEA R AB MULTI PLEX RFX 9 anti-leena-1 <0.2 ai 0.0-0. 9 Not Available [facility] ([facility]) [address] [place], [address], 04/18/2024 17:07:52 04/16/19 25 04/18/2024 ANTIN UCLEA R AB MULTI PLEX RFX 9 anti-centrom ere B antibodies <0.2 ai 0.0-0. 9 Not Available [facility] ([facility]) [address] [place], [address], 04/18/2024 17:07:52 04/16/19 25 04/18/2024 ANTIN UCLEA R AB MULTI PLEX RFX 9 see below: Commvishal t Autoa ntibo dy Disea se Assoc [...] ----- ----- ----- ----- --- ----- ---- TOOLING ENGINEERING TECH Mixed Conne ctive Tissu e Disea se 95% (U1 nRNP, SLE 30 - 50% anti- ribon ucleo prote in) Polym yosit is and/o r [place] tomyo sitis 20% ----- ----- ----- ----- - ----- ----- ----- ----- ---- ----- ---- Scl-7 0 (anti DNA Scler oderm a (diff use) 20 - 35% topoi arabella ase) Crest 13% ----- ----- ----- ----- - ----- ----- ----- ----- ---- ----- ---- Leena-1 Polym yosit is and/o r [place] tomyo sitis 20 - 40% ----- ----- ----- ----- - ----- ----- ----- ----- ---- ----- ---- Centr omere B Scler oderm a - Crest varia nt 80% Not Available [facility] ([facility]) [address] [place], [address], 04/18/2024 17:07:52 04/16/19 25 04/18/2024 SEDIM ENTAT ION RATE- WESTE RGREN sedimentatio n rate-westerg ava COMMEN T mm/HR Test not perfo rmed due to the age of this speci men. Not Available [facility] ([facility]) [address] [place], [address], 04/18/2024 17:07:53 04/16/19 25 04/18/2024 C-GLADIS CTIVE PROTE IN, QUANT C-reactive protein, quant 12 mg/L 0-10 above high normal Not Available [facility] ([facility]) [address] [place], [address], 04/18/2024 17:07:53 04/16/19 25 04/18/[address] PROBL EM request problem COMMEN T Test not perfo rmed due to the age of this speci men. TEST: 79830 5 Sedim entat ion Rate- Weste rgren Not Available [facility] ([facility]) [address] [place], [address], 04/18/2024 17:07:54 04/25/1904/19/2024 US, breas t, unila teral No observ ation record ed. [email or web address] [facility] (Med Record) [address], [place], [address], 04/25/2024 16:38:42 05/14/1905/06/2024 MAMMO , diagn ostic , bilat eral No observ ation record ed. [facility] (Scheduling) [address], [place], [address], 05/16/2024 09:33:33 05/14/1905/06/2024 ultra sound guide d core biops y (PROC ) No observ ation record ed. [facility] (Scheduling) [address], [place], [address], 05/21/2024 08:08:28 Result Notes None recorded. Problems Name Problem SNOMED Code Status Onset Date Resolution Date Notes Provider Name and Address Organization Details Recorded Time Genital herpes simplex 03266900 Active 2023 ANA ROSA Walden [address] [place] [address], [address], [employer] 10:17:13 Mass of right breast 5815218165539 9106 Active 2024 ANA ROSA Walden [address] [place] [address], [address], [employer] 16:37:20 Allergic rhinitis 02853373 Active 2024 ANA ROSA Walden [address] [place] [address], [address], [employer] 5 10:17:08 Vitamin D deficiency 31508938 Active 2024 ANA ROSA Walden [address] [place] [address], [address], [employer] 5 10:18:00 Obstructive sleep apnea syndrome 26765424 Active 2024 ANA ROSA Walden [address] [place], [address], [employer] 13:25:34 Dyspnea 094908580 Active 2024 ANA ROSA Walden [address] [place], [address], [employer] 13:32:23 Mood disorder 86060704 Active 2024 ANA ROSA Walden [address] [place], [address], [employer] 13:33:10 Problem Notes None recorded. Procedures Surgical History Date Name Laterality Status Provider Name and Address Organization Details Recorded Time Breast reduction completed [facility] [employer] 04/16/2024 16:12:03 Imaging Results None recorded. [...] Details Last Updated DateTime 5 157.48 cm 45.4 kg/m2 319163. 34 g 97.8 [degF] 104 /min 96 % 96 % 106 mm[Hg] 74 mm[Hg] [employer] 16:07:34 Date Recorded Body height Body mass index (BMI) Body weight Oxygen saturation Oxygen saturation in Arterial blood by Pulse oximetry Heart rate Body temperature Systolic blood pressure Diastolic blood pressure Provider Name and Address Organization Details Last Updated DateTime 5 157.48 cm 48.1 kg/m2 194439. 79 g 96 % 96 % 94 /min 97.9 [degF] 100 mm[Hg] 78 mm[Hg] [employer] 13:12:48 Social History Question Answer Notes LastModified by Organizat ion Details LastModified Time Tobacco Smoking Status Never Smoker Keiko [employer]. 04/16/2024 16:08:12 Do You Have An Advance [...] Information not available 04/16/2024 What Type Of Travel Ot Do You Use? None Information not available [...] Do You Have A Medical Power Of Battery Parts Assembler? No Information not available 04/16/2024 What Was [...] Status Question Answer Note LastModified by Organizat [employer] Details LastModified Time Do you feel stressed (tense, restless, nervous, or anxious, or unable to sleep at night)? [id number] Information not available 04/16/2024 Do you have [...] Time Tdap 5 completed ANA ROSA Walden [address] [place] [address], [phone], [employer] 04/18/2024 14:14:37 IPV 3 completed Keiko Vice null, [employer] 04/16/2024 16:08:21 MMR 3 completed Keiko Vice null, [employer] 04/16/2024 16:08:21 COVID-19, mRNA, LNP-S, PF, 30 mcg/0.3 mL dose 1 completed Keiko Vice null, [employer] 04/16/2024 16:08:21 COVID-19, mRNA, LNP-S, PF, 30 mcg/0.3 mL dose 1 completed Keiko Vice null, [employer] 04/16/2024 16:08:21 Tdap 0 completed Keiko Vice null, [employer] 04/16/2024 16:08:21 Novel [id number], all formulations 9 completed Keiko Vice null, [employer] 04/16/2024 16:08:21 Influenza, split virus, trivalent, preservative 1 completed Keiko Vice null, [employer] 04/16/2024 16:08:21 Influenza, split virus, trivalent, preservative 0 completed Keiko Vice null, [employer] 04/16/2024 16:08:21 HPV, quadrivalent 3 completed Keiko Vice null, [employer] 04/16/2024 16:08:21 HPV, quadrivalent 3 completed Keiko Vice null, [employer] 04/16/2024 16:08:22 HPV, quadrivalent 3 completed Keiko Vice null, [employer] 04/16/2024 16:08:22 Hep B, adolescent or pediatric 3 completed Keiko Vice null, [employer] 04/16/2024 16:08:22 DTaP, unspecified formulation 3 completed Keiko Vice null, [employer] 04/16/2024 16:08:22 Past Encounters Encounter ID Performer Location Encounter Start Date Encounter Closed Date Diagnosis/Indication Diagnosis SNOMED-CT Code Diagnosis ICD10 Code Diagnosis Note [id number] ANA ROSA [facility] [address] [place] [address] 04/16/2024 15:31:22 04/16/2024 17:34:02 Mass of right breast [id number] 5353065 N63.10 Body mass index 40+ - severely obese [id number] Z68.42 Allergic rhinitis [id number] J30.9 Administra tion of diphtheria, pertussis, and tetanus vaccine [id number] Z23 Pain of mu ltiple joints 92818869 M25.50 HIV screening [id number] Z11.4 Hepatitis C screening 41 [id number] Z11.[id number] [facility] [address] [place] [address] 08/01/2024 12:44:38 08/01/2024 13:36:02 Obstructive sleep apnea syndrome 44532773 G47.33 Dyspnea 391802483 R06.02 Mood disorder 12437889 F 39 Health Concerns Section Related Observation LastModified by Organization Detai ls LastModified Time None Recorded Concern Status LastModified by Organization Details LastModified Time None Recorded Advance Directives Directive N: Payers Insurance Date Sequence Insurance Name Policy Number Policy Lombardo Covered Member ID Lombardo Member ID Guarantor Name 08/05/2024 1 [email or web address] ([facility]ICAID HMO) [facility] [id number] [facility] Notes [...] for weight loss. ANA ROSA Walden [address] [place], [address], [facility] [employer] 04/18/2024 14:17:04 08/01/2024 text/html Patient presents for a referral to behavioral health. 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 Wonders if she has asthma.Complains of memory loss, fatigue. Diagnosed with HENRIK years ago but never got a Cpap machine. Aunt was diagnosed with a brain disease while in [place] - unclear of exact diagnosis - and wonders if she has that. ANA ROSA Walden [address] [place], [address], [facility] [employer] 08/02/2024 14:47:58 OBGyn Episode No OBEpisode recorded.
--- OUTSIDE RECORDS SUMMARY | 2024-08-22 20:11 | XMS_ITS | Encounter Summary ---
Author Organization [facility] Address [address] [place] [address] Care Team Providers Care Recreation Engineer Name Role Phone Ivonne Metcalf Primary Care Provider [phone] Encounter Details Date Type Department Care Team [...] documented as of this encounter Care Teams Recreation Engineer Relationship Specialty Start Date End Date Ivonne Metcalf PA [address] [place] [address] PCP - General 10/25/23 documented as of this encounter
== END ==
LOC: SL 20:09
PROVIDERS: PCP Physician Assistant; Visit Provider Physician Assistant
DX: G47.33 Obstructive sleep apnea (adult) (pediatric) (principal)
CPT/HCPCS: 95810

== ENCOUNTER 2024-08-26 14:48 | Outpatient (RCR) | payer MEDICAID, SELFPAY | END 2024-08-26 23:59 | disposition home or self-care (01) | LOC: PT 14:48 | PROVIDERS: PCP Physician Assistant; Visit Provider Nurse Practitioner Family | DX: M54.2 Cervicalgia (principal); M25.551 Pain in right hip; M25.552 Pain in left hip | CPT/HCPCS: 97162 ==

== ENCOUNTER 2024-11-05 07:54 | Day surgery (SDC) | payer MEDICAID, SELFPAY ==
--- NOTE | 2024-10-30 11:47 | SUR.PREOP ---
Pt no show for PAT appointment. Left VM, office notified.
[2024-11-05] VITALS (12 sets, daily range): BP systolic 112–143; BP diastolic 70–98; PULSE 58–84; RESP 12–18; TEMP 36.1–36.5; O2SAT 91–97; BMI 46.4
[2024-11-05] MEDS: LACTATED RINGERS 1000ML 1,000 ML 25 ML IV (08:26)
[2024-11-05 08:32] LABS: Hematocrit 39.3 % (37.0-47.0); Hemoglobin 12.7 g/dL (12.2-16.2); Immature Granulocytes % 0.5 %; Mean Corpuscular HGB Conc 32.3 g/dL (31.8-35.4); Mean Corpuscular Hemoglobin 29.1 pg (27.0-31.2); Mean Corpuscular Volume 90.1 fl (81-99); Nucleated Red Blood Cells % 0 %; Platelet Count 379 K/mm3 (142-424); Red Blood Count 4.36 M/mm3 (4.20-5.40); Red Cell Distribution Width-SD 41.9 fL; White Blood Count 8.1 K/mm3 (4.8-10.8)
[2024-11-05 08:42] LABS: Anion Gap 11.0 mEq/L (5-15); Blood Urea Nitrogen 8 mg/dl (7-17); Calcium 9.3 mg/dl (8.4-10.2); Carbon Dioxide 29 mmol/L (22.0-30.0); Chloride 103 mmol/L (98-107); Creatinine Clearance Estimated 95 mL/min (50-200); Creatinine,Serum 0.70 mg/dl (0.52-1.04); Estimated Glomerular Filt Rate 100 ml/min (>60); GFR (African American) 121 ML/MIN (>60); Glucose 107 mg/dl (74-100); Potassium 4.0 mmoL/L (3.5-5.1); Sodium 139 mmol/L (136-145)
[2024-11-05 08:57] LABS: HCG Qualitative, Serum Negative (Negative)
--- NOTE | 2024-11-05 12:09 | EXP.ANES.I ---
[facility] Anesthesia Record Part I Anesthesia Record I Intake, IV Amount: 600 Hydration: Adequate Estimated blood loss (mL): 0 Urine output (mL): 0 Blood Products used (#): none Blood Pressure: 130/83 SaO2: 95 Pulse Rate: 65 Airway Patency: Patent Respiratory Rate: 18 Temperature: 97.0 F Patient is:: Oral/Nasal airway, Stable and Somnolent Stable to PACU at:: 12:07
--- NOTE | 2024-11-05 12:20 | P.OP_ITS ---
Date of procedure: 11/05/24 Pre-op Diagnosis:: Recurrent volar ganglion cyst right wrist Post-op Diagnosis:: Same Procedure performed:: Excision volar ganglion cyst right wrist Surgeon:: Jacek Samuels DO Human Resource Internship(s):: Kieran CABRERA OPTOMECHANICAL ENGINEER:: Juan Jose Fan Anesthesia: LMA Estimated blood loss (mL): 0 Operative findings:: Large ganglion cyst volar wrist contiguous with FCR tendon sheath Operative note:: Patient identified preoperatively. Right wrist marked with yes my initials. Transported operative suite placed upon the operating bed general anesthesia given airway secured right upper extremity prepped and draped normal sterile fashion. Once prepped and draped final operative timeout performed to identify proper patient procedure and extremity. Everyone involved in the case agreed. There is no counter indication beginning. Did receive preoperative antibiotics. Marking pen was used to kera planned incision over the volar wrist ganglion. Esmarch was used to exsanguinate extremity pneumatic tourniquet inflated to 250 mmHg. Skin knife is used to incise the skin very careful dissection was taken down bluntly with scissors along the FCR tendon sheath meticulous dissection was taken down and ganglion cyst was identified on the radial aspect of the wrist cyst was contiguous with the FCR tendon sheath. Careful dissection is taken down to the base of the cyst and electrocautery was used to excise the cyst there was a large amount of ganglion cystic material within the cyst this was then irrigated and cleaned. The cyst did not have a consistent independent stalk. But was continuous with the FCR tendon sheath. Careful dissection was taken down to remove the steiner of the cyst irrigation repeated deep layers closed with 4-0 Vicryl 4-0 nylon the skin for closure sterile hand dressing placed patient waken anesthesia taken recovery stable condition. Condition: stable Disposition: PACU Complications:: None apparent
--- NOTE | 2024-11-05 13:48 | EXP.ANES.II ---
[facility] Anesthesia Record Part II Anesthesia Record Part II Discharge Time: 13:35 Destination: Surgical Day Care (OP Surgery) PACU nurse assessment reviewed?: Yes Patient Condition:: Good Anesthesia Complications:: None Swallowing reflex intact?: Yes Airway Patency: Patent Cyanosis?: No Blood Pressure: 119/77 SaO2: 93 Respiratory Rate: 18 Pulse Rate: 60 Temperature: 97.0 F Mental Status: Alert & Oriented Pain level:: 0 Nausea and/or vomitting:: None Intake, IV Amount: 0 Hydration: Adequate
== END 2024-11-05 13:45 | disposition home or self-care (01) ==
PROVIDERS: PCP Physician Assistant; Visit Provider Orthopaedic Surgery
PROC: (CPT 25112; principal; 2024-11-05 10:45)
DX: M67.431 Ganglion, right wrist (principal); F41.9 Anxiety disorder, unspecified; F32.A Depression, unspecified; F60.3 Borderline personality disorder; Z86.16 Personal history of COVID-19; G47.33 Obstructive sleep apnea (adult) (pediatric); Z88.8 Allergy status to other drugs, medicaments and biological substances; Z79.899 Other long term (current) drug therapy
CPT/HCPCS: 25112; 80048; 84703; 85025; 96374; J0665; J0690; J7120

== ENCOUNTER 2025-01-06 16:05 | Outpatient (CLI) | payer MEDICAID, SELFPAY ==
--- OUTSIDE RECORDS SUMMARY | 2025-01-06 16:07 | XMS_ITS | Encounter Summary ---
Author Organization [facility] Address [address] [place] [address] Care Team Providers Care Ornamental Metal Worker Apprentice Name Role Phone DixonIvonne Moraima OSEGUERA Primary Care Provider [phone] Encounter Details Date Type Department Care Team (Late st Contact Info) Description 11/10/2023 Lab Requisition [facility] [address] [place] [address] Luis M Johnson MD [address] [address] Hypertrophy of breast Social History Tobacco Use [...] Exam (11/09/2023) Case Report Surgical Pathology Case: [id number] Authorizing Provider: Luis M Johnson MD Collected: 11/09/2023 Ordering Location: [facility] Received: 11/10/2023 1048 Pathologist: Shannon Stoddard MD Specimens: A) - Breast, Right, Right Breast Tissue 2187 gm B) - Breast, Left, Left Breast Tissue 2512 gm 11/13/2023 5:12 PM EDT [facility] Final Diagnosis A. BREAST, RIGHT, REDUCTION: - BENIGN BREAST TISSUE (2187 GRAMS); NEGATIVE FOR MALIGNANCY. B. BREAST, LEFT, REDUCTION: - BENIGN BREAST TISSUE (2512 GRAMS); NEGATIVE FOR MALIGNANCY. 11/13/2023 5:12 PM EDT [facility] at 1712 EDT Clinical Information Hypertrophy of breast Bilateral breast macromastia 11/13/2023 5:12 PM EDT [facility] Gross Description A. RIGHT BREAST TISSUE 2187 GM Received in formalin labeled r ight breast tissue , is a 2187 g aggregate of grossly unremarkable white-mayer skin and underlying lobulated adipose tissue measuring 28.7 x 24.6 x 4.8 cm. Sectioning reveals a grossly unremarkable yellow-mayer, fibrofatty cut surface. Rip/Mould Operator sections are submitted in cassettes A1-A3. Cold Time: 0 Ana Maria B Zhu B. LEFT BREAST TISSUE 2512 GM Received in formalin labeled l eft breast tissue , is a 2512 g aggregate of grossly unremarkable white-mayer skin and underlying lobulated adipose tissue measuring 32.6 x 23.2 x 7.2 cm. Sectioning reveals grossly unremarkable yellow-mayer, fibrofatty cut surface. Rip/Mould Operator sections are submitted in cassettes B1-B3. Cold Time: 0 Ana Maria B Zhu 11/13/2023 5:12 PM EDT [facility] Note: A resident was involved in the service. I attest I examined the relevant preparations for the specimens and confirmed the diagnosis or interpretation. 11/13/2023 5:12 PM EDT [facility] Tissue Right breast structure / Unknown 11/09/2023 11/10/2023 10:48 AM EDT Tissue specimen (specimen) Left breast structure / Unknown 11/10/2023 11/10/2023 10:48 AM EDT us Luis M Johnson MD LAB PATHOLOGY ORDERABLES Final Result [facility] [address] [place] [address] documented in this encounter Visit Diagnoses Diagnosis Hypertrophy of breast documented in this encounter Additional Health Concerns Assessment Noted Time A Body Mass Index follow-up plan has been documented for the patient 10/13/2023 11:01 AM EDT documented as of this encounter Care Teams Ornamental Metal Worker Apprentice Relationship Specialty Start Date End Date Ivonne Metcalf PA [address] [place] [address] PCP - General 12/21/22 documented as of this encounter
--- OUTSIDE RECORDS SUMMARY | 2025-01-06 16:07 | XMS_ITS | Encounter Summary ---
Author Organization [facility] Address [address] [place] [address] Care Team Providers Care Integration Software Engineer Name Role Phone Ivonne Metcalf ANA ROSA Primary Care Provider [phone] Encounter Details Date Type Department Care Team (Late st Contact Info) Description 12/09/2024 Telephone [facility] [address] [place] [address] Kailyn Lockwood APRN [address] [place] [address] Social History Tobacco Use Types Packs/Day Years Used Date Smoking Tobacco: Never Smokeless Tobacco: Never Alcohol Use Standard Drinks/Week Comments Not Currently 0 (1 standard drink = 0.6 oz pur e alcohol) Comments Unknown Sex and Gender Information Value Date Recorded Sex Assigned at Not on file Legal Sex Female 10:19 AM EDT Gender Identity Not on file Sexual Orientation Not on file documented as of this encounter Miscellaneous Notes * Telephone Encounter - [place] RegSched Rep - 12/09/2024 1:00 PM EDT LVM I RESCHEDULED 12/18 APPT TO 01/29 FOR 31-90 DAY COMPLIANCE. IF PT CALLS BACK TRANSFER TO OFFICE.THANKS. documented in this encounter Plan of Treatment Upcoming Encounters Date Type Department Care Team (Late st Contact Info) Description 01/29/2025 12:45 PM EST Office Visit [facility] [address] [address] Kailyn Lockwood, REPORTING LEAD [address] [place] [address] documented as of this encounter Visit Diagnoses Not on filedocumented in this encounter Care Teams Integration Software Engineer Relationship Specialty Start Date End Date Ivonne Metcalf PA [address] [place] [address] PCP - General Physician Oil And Gas Recruiter 09/05/24 documented as of this encounter
--- OUTSIDE RECORDS SUMMARY | 2025-01-06 16:07 | XMS_ITS | Clinical Summary ---
Author Organization [facility] Address [address] [place] [address] Care Team Providers Care Consulting Services Manager Name Role Phone Ivonne Metcalf Primary Care Provider [phone] Allergies Active Allergy Reactions Criticality Noted Date Comments Trazodone Other (See Comments) Low 12/21/2022 dizziness Medications valACYclovir (VALTREX) 1000 MG tablet Take 1 tablet by mouth Daily. Active sertraline (ZOLOFT) 100 MG tablet Take 1 tablet by mouth Daily. Active Lybalvi 5-10 MG tablet Take 1 tablet by mouth every night at bedtime. Active Caplyta 42 MG capsule Take 1 capsule by mouth Daily. Active levocetirizine (XYZAL) 5 MG tablet Take 1 tablet by mouth Daily. Active vitamin D (ERGOCALCIFEROL ) 1.25 MG (54493 UT) capsule capsule 10/01/2024 Act gentry Cholecalciferol 50 MCG (2000 UT) tablet Take 1 tablet by mouth Daily. Active azelastine (ASTELIN) 0.1 % nasal spray 2 sprays 2 (Two) Times a Day. Active atorvastatin (LIPITOR) 10 MG tablet Take 1 tablet by mouth every night at bedtime. Active atomoxetine (STRATTERA) 60 MG capsule Take 1 capsule by mouth Daily. Active Active Problems Problem Noted Date Diagnosed Date Chest discomfort 10/09/2024 Adult attention deficit hyperactivity disorder 0 09/16/2024 Mixed hyperlipidemia 09/16/2024 Dyspnea 08/01/2024 Mood disorder 08/01/2024 Allergic rhinitis 04/16/2024 Mass of right breast 04/16/2024 Obstructive sleep apnea syndrome 07/29/2023 Morbid obesity with body mass index (BMI) of 40. 0 or higher 05/12/2023 Encounters Date Type Department Care Team Description 12/09/2024 Telephone [facility] [address] [address] Kailyn Lockwood APRN 10/09/2024 3:00 PM EDT Office Visit [facility] [address] [address] Kailyn Lockwood, MUSIC COMPOSITION TEACHER Obstructive sleep apnea syndrome; Chest discomfort 10/09/2024 Travel from Last 3 Months Immunizations Immunization Administration Dates Next Due DTaP, Unspecified 03/01/2002 H1N1 All Forms 01/19/2009 HPV Quadrivalent 10/23/2012,06/26/2012, 3 Hep B, Adolescent or Pediatric 04/26/2002 IPV 03/01/2002 Influenza Seasonal Injectable 12/08/2010, 010 MMR 03/01/2002 Tdap 04/16/2024,06/09/2009 Social History Tobacco Use Types Packs/Day Years Used Date Smoking Tobacco: Never Smokeless Tobacco: Never Tobacco Cessation:Counseling Given: Not Answered Alcohol Use Standard Drinks/Week Comments Not Currently 0 (1 standard drink = 0.6 oz pur e alcohol) Comments Unknown Sex and Gender Information Value Date Recorded Sex Assigned at Not on file Legal Sex Female 10:19 AM EDT Gender Identity Not on file Sexual Orientation Not on file Last Filed Vital Signs Vital Sign Reading Time Taken Comments Blood Pressure 126/82 10/09/2024 3:15 PM EDT Pulse 91 10/09/2024 3:15 PM EDT Temperature 36.2 C (97.2 F) 10/09/2024 3:15 PM EDT Respiratory Rate - - Oxygen Saturation 95% 10/09/2024 3:15 PM EDT Inhaled Oxygen Concentration - - Weight 116 kg (256 lb 4.8 oz) 10/09/2024 3:15 PM EDT Height 157.5 cm (5' 2 ) 10/09/2024 3:15 PM EDT Body Mass Index 46.88 10/09/2024 3:15 PM EDT Plan of Treatment Upcoming Encounters Date Type Department Care Team (Late st Contact Info) Description 01/29/2025 12:45 PM EST Office Visit [facility] [address] [address] Kailyn Lockwood APRN [address] [place] [address] Health Maintenance Due Date Last Done Comments Annual Gynecologic Pelvic an d Breast Exam 1997 LIPID PANEL 1997 PAP SMEAR 2018 INFLUENZA VACCINE 09/27/2024 12/08/2010, 12/21/2009 ANNUAL PHYSICAL 10/01/2024 TDAP/TD VACCINES (3 - Td or Tdap) 04/16/2034 04/16/2024, 06/09/2009 HEPATITIS C SCREENING Completed 12/21/2022 Pneumococcal Vaccine 0-49 Aged Out No longer eligible based on patient's age to complete this topic Insurance [employer] Care Teams Consulting Services Manager Relationship Specialty Start Date End Date Ivonne Metcalf PA [address] [place] [address] PCP - General Physician Industrial Editor 09/05/24
--- OUTSIDE RECORDS SUMMARY | 2025-01-06 16:08 | XMS_ITS | Clinical Summary ---
Author Organization [facility] Address [address] [place] [address] Care Team Providers Care Retrofit Installer Name Role Phone Ivonne Metcalf Primary Care Provider [phone] Allergies Active Allergy Reactions Criticality Noted Date [...] daily. Active cholecalciferol (Vitamin D-3) 50 MCG (1999 UT) tablet Take 1 tablet by mouth Daily. Active Active Problems Problem Noted Date Diagnosed Date Class III obesity with body mass index (BMI) of 40.0 or higher 05/12/2023 Immunizations Immunization Administration Dates Next Due DTaP, Unspecified 03/01/2002 HPV, Quadrivalent 10/23/2012,06/26/2012,04/24/19 13 Hep B, Adolescent or Pediatric 04/26/2002 IPV 03/01/2002 Influenza, seasonal, injectable 12/08/2010,12/21 MMR 03/01/2002 Novel [id number], all formulations 2008 Tdap 04/16/2024,06/09/2009 Social History [...] [facility]-Adult SDOH Screenings 08/21/2015 [facility]-Pap Smear 2018 [id number] Vaccine ( season) 2024 08/03/2020, 07/13/2020 [facility]-Influenza Vaccine (#1) 10/28/202412/08, 12/21/2009, 01/19/2009 [facility]-Depression Screening 06/19/2025 06/19/2024, 05/29 [...] Procedure Name Priority Date/Time Associated Diagnosis Comments ACUTE HEPATITIS PANEL Routine 12/21/2022 2:46 PM EDT Polyarthralgia Sicca syndrome (CMS/HCC) from Last 3 Months or Most Recently Relevant to Health Maintenance Results * Acute Hepatitis Panel (12/21/2022 2:46 PM EDT) Hepatitis B Surf Antigen Negative Negative 12/21/2022 5:35 PM EDT [facility] Hepatitis C Antibody Negative Negative 12/21/2022 5:35 PM EDT [facility] Hepatitis A Antibody IgM Negative Negative 12/21/2022 5:35 PM EDT [facility] Hepatitis B Core Antibody IgM Negative Negative 12/21/2022 5:35 PM EDT [facility] Blood Venous blood specimen / Unknown Venipuncture / Unknown 12/21/2022 2:46 PM EDT 12/21/2022 2:46 PM EDT us Abida Cobian ANESTHESIOLOGIST ASSISTANT CERTIFIED LAB BLOOD ORDERABLES Final Result [facility] [address] [place] [address] from Last 3 Months or Most Recently Relevant to Health Maintenance Insurance [employer] Care Teams Retrofit Installer Relationship Specialty Start Date End Date Ivonne Metcalf PA [address] [place] [address] PCP - General 12/21/22
--- OUTSIDE RECORDS SUMMARY | 2025-01-06 16:08 | XMS_ITS | Encounter Summary ---
Author Organization [facility] Address [address] [id number] Care Team Providers Care Avaya Engineer Name Role Phone Ivonne Metcalf Primary Care Provider [phone] Reason for Visit * Reason Comments Med Refill Encounter Details Date Type Department Care Team (Late st Contact Info) Description 01/22/[address] [phone] Debora Luciano [address] [place] [address] Social History Tobacco Use Types [...] documented as of this encounter Care Teams Avaya Engineer Relationship Specialty Start Date End Date Ivonne Mtecalf PA [address] [place] [address] PCP - General 12/21/22 documented as of this encounter
[2025-01-06 21:59] LABS: Hepatitis C Ab Qual. W/ RFX NEGATIVE (Negative)
[2025-01-08 08:34] LABS: Hepatitis B Surface Antigen Negative (Negative)
== END 2025-01-06 23:59 | disposition home or self-care (01) ==
LOC: LAB 16:06
PROVIDERS: PCP Physician Assistant; Visit Provider Obstetrics & Gynecology
DX: Z11.3 Encounter for screening for infections with a predominantly sexual mode of transmission (principal); Z72.51 High risk heterosexual behavior
CPT/HCPCS: 36415; 86803; 87340; 87389